=== PATIENT | female | born 1960 | race Caucasian/White ===

== ENCOUNTER → 2020-01-27 13:46 | Outpatient (BNVA) | payer MEDICAID, SELFPAY | PROVIDERS: PCP Nurse Practitioner Family; Referring Provider Nurse Practitioner Family; Visit Provider Internal Medicine | DX: F11.99 Opioid use, unspecified with unspecified opioid-induced disorder (principal); F41.9 Anxiety disorder, unspecified; F17.200 Nicotine dependence, unspecified, uncomplicated; F43.10 Post-traumatic stress disorder, unspecified; F32.9 Major depressive disorder, single episode, unspecified; G89.4 Chronic pain syndrome | CPT/HCPCS: 80305; 99202; 99211 ==

== ENCOUNTER → 2020-02-18 10:01 | Outpatient (BNVA) | payer MEDICARE, SELFPAY | PROVIDERS: Visit Provider Internal Medicine | DX: Z76.89 Persons encountering health services in other specified circumstances (principal) ==

== ENCOUNTER → 2020-03-03 10:00 | Outpatient (BNVA) | payer MEDICARE, SELFPAY | PROVIDERS: Visit Provider Internal Medicine | DX: Z76.89 Persons encountering health services in other specified circumstances (principal) ==

== ENCOUNTER → 2020-03-17 10:43 | Outpatient (BNVA) | payer MEDICAID, SELFPAY | PROVIDERS: PCP Nurse Practitioner Family; Visit Provider Internal Medicine | DX: F11.10 Opioid abuse, uncomplicated (principal) | CPT/HCPCS: Q3014 ==

== ENCOUNTER → 2020-03-31 10:49 | Outpatient (BNVA) | payer MEDICAID, SELFPAY | PROVIDERS: Visit Provider Internal Medicine ==

== ENCOUNTER → 2020-04-14 11:24 | Outpatient (BNVA) | payer MEDICAID, SELFPAY | PROVIDERS: Visit Provider Internal Medicine ==

== ENCOUNTER → 2020-04-28 15:16 | Outpatient (BNVA) | payer MEDICAID, SELFPAY | PROVIDERS: Visit Provider Internal Medicine | DX: F11.10 Opioid abuse, uncomplicated (principal); Z79.899 Other long term (current) drug therapy | CPT/HCPCS: 80305; 99212 ==

== ENCOUNTER → 2020-05-28 13:27 | Outpatient (BNVA) | payer MEDICAID, SELFPAY | PROVIDERS: Visit Provider Internal Medicine | DX: F11.20 Opioid dependence, uncomplicated (principal) | CPT/HCPCS: 80305; 99212 ==

== ENCOUNTER → 2020-06-29 11:05 | Outpatient (BNVA) | payer MEDICAID, SELFPAY | PROVIDERS: Visit Provider Internal Medicine | DX: Z51.81 Encounter for therapeutic drug level monitoring (principal); F11.10 Opioid abuse, uncomplicated | CPT/HCPCS: 80305; 99211 ==

== ENCOUNTER → 2020-07-27 11:14 | Outpatient (BNVA) | payer MEDICAID, SELFPAY | DX: F11.20 Opioid dependence, uncomplicated (principal) | CPT/HCPCS: 80305; 99211 ==

== ENCOUNTER → 2020-08-31 10:39 | Outpatient (BNVA) | payer MEDICAID, SELFPAY | DX: Z51.81 Encounter for therapeutic drug level monitoring (principal); Z79.899 Other long term (current) drug therapy | CPT/HCPCS: 80305; 99211 ==

== ENCOUNTER → 2020-10-06 14:23 | Outpatient (BNVA) | payer MEDICAID, SELFPAY | PROVIDERS: Visit Provider Internal Medicine | DX: Z51.81 Encounter for therapeutic drug level monitoring (principal) | CPT/HCPCS: 80305; 99211 ==

== ENCOUNTER 2020-11-10 13:01 | Outpatient (REF) | payer MEDICARE, SELFPAY ==
[2020-11-10 17:07] LABS: Fentanyl, urine Not Detected (Not Detect)
== END 2020-11-10 13:02 | disposition home or self-care (01) ==
LOC: CF 13:01
PROVIDERS: Visit Provider Internal Medicine
DX: F11.10 Opioid abuse, uncomplicated (principal); Z79.899 Other long term (current) drug therapy
CPT/HCPCS: 36415; 80305; 80307; 99212

== ENCOUNTER → 2020-12-31 15:08 | Outpatient (BNVA) | payer MEDICARE, MEDICAID, SELFPAY | PROVIDERS: Visit Provider Internal Medicine | DX: F11.10 Opioid abuse, uncomplicated (principal); G89.4 Chronic pain syndrome | CPT/HCPCS: 80305; 99212 ==

== ENCOUNTER 2021-02-03 07:41 | Emergency (ER) | payer MEDICAID, SELFPAY ==
[2021-02-03 07:45] VITALS: BP 128/103; PULSE 82; RESP 18; TEMP 37.2; O2SAT 97; BMI 21.4
--- NOTE | 2021-02-03 08:27 | ED.NAVMDI ---
HPI - Nausea/Vomiting/Diarrhea General Chief complaint: General Medical Stated complaint: diarrhea dehydration Time Seen by Provider: 02/03/21 08:03 Source: patient Mode of arrival: ambulatory Limitations: no limitations History of Present Illness MD elicited complaint: nausea, diarrhea and other (body aches, withdrawal from suboxone last dose Sunday) Pertinent past history: other (ran out of suboxone Sunday AM due to missing appointment had been on 2/0.5 - getting 30 day supply [facility] looks like she's been filling it) Onset (ago): day(s) (Sunday) Description of diarrhea: watery Associated nausea: Yes Associated abdominal pain: No Radiation: diffuse Pain consistency: constant Severity: moderate Quality: aching Exacerbating factors: none Relieving factors: none Context: other (withdrawal from suboxone) Associated symptoms: myalgias, malaise, nausea/vomiting and weakness Related Data Previous Rx's Medication Instructions Recorded sertraline 100 mg tablet 200 mg PO DAILY 30 Days #60 tab 12/25/19 buprenorphine 2 mg-naloxone 0.5 mg 3 film SUBLINGUAL DAILY 30 Days 11/10/20 sublingual film (Suboxone) #90 ea buprenorphine 2 mg-naloxone 0.5 mg 1 film BUCCAL TID 7 Days ea 02/03/21 sublingual film (Suboxone) Allergies Allergy/AdvReac Type Severity Reaction Status Date / Time No Known Allergies Allergy Verified 12/31/20 15:31 Review of Systems Review of Systems: Constitutional : No Weight loss, No Fever, pos Chills ENT/Mouth : No sore throat, No Rhinorrhea Eyes: No Swelling, No Redness Cardiovascular : No Chest Pain, No SOB, NoEdema Respiratory : No Cough, No Sputum, No Wheezing Gastrointestinal : Positive Nausea, Positive Vomiting, positive Diarrhea, no abdominal Pain, No Hematochezia, No Melena Genitourinary : No Dysuria, No Urinary Frequency, No Hematuria, No Urgency Musculoskeletal : No joint pain, pos Myalgias, No Joint Swelling Skin : No Skin Lesions, No rash Neuro : pos Weakness, No Numbness, No Dizziness, No Headache Psych : No Anxiety/Panic, No Depression Heme/Lymph: No Bruising, No Lymphadenopathy Endocrine : No Polyuria, No Polydipsia All other systems reviewed and are negative. Gastrointestinal: Gastrointestinal: Reports nausea PMFSH Past Medical History Medical History Chronic pain syndrome Depression Opioid use disorder PTSD (post-traumatic stress disorder) Tobacco use disorder Surgical History History of back surgery History of neck surgery Family History Family History Mother Pancreatic cancer Father HTN (hypertension) Diabetes Social History Social History Alcohol intake: never Patient Tobacco Use Status: Current everyday Tobacco user Cigarettes Per Day: 10 Years Smoked: 30 years Use of substances other than those prescribed or required for medical reasons: No Advance Directives: No Advance Directives Information Provided: Yes Patient : No Physical Exam Vital Signs: Vital Signs: Last Vital Signs Temp 99 F 02/03/21 07:45 Pulse 56 02/03/21 09:04 Resp 18 02/03/21 09:04 BP 145/51 H 02/03/21 09:04 Pulse Ox 97 02/03/21 09:04 BMI result Body Mass Index 21.4 Appearance: Alert. Oriented X3. No acute distress. Eyes: Pupils equal, round and reactive to light. ENT: Pharynx mildly dry MM Neck: Normal inspection. Neck supple. CVS: Normal heart rate and rhythm. Pulses normal. Respiratory: No respiratory distress. Breath sounds normal. Abdomen: Soft and nontender. Skin: Skin warm and dry. pale skin color. Normal skin turgor. Extremities: No lower extremity edema. No calf ttp Neuro: Oriented X 3. No motor deficit. No sensory deficit. Course Course Course Narrative: improved stable for DC has intake [facility] tomorrow at 9am Rx 7 days 2/ 0.5 MDM - Nausea/Vomiting/Diarrhea MDM Narrative Medical decision making narrative: 60 yo female here with hx of depression, opiate abuse, PTSD, chronic pain, was on suboxone - missed appointment so she has since run out was receiving 2/0.5 30 day supply [facility] showed she was filling it and her urine was positive for suboxone. At this time she is in withdrawal. She is appropriate. Alert and oriented x 3. Will obtain lytes and IVF given diarrhea - start on 2/0.5 - will discuss with addiction medicine. Lab Data Result diagrams: 02/03/21 09:00 12/16/21 09:00 Labs: Lab Results 02/03/21 02/03/21 02/03/21 Range/Units 09:00 09:00 09:00 WBC 7.2 (4.8-10.8) X10*3/uL RBC 4.24 (4.20-5.50) X10*6/uL Hgb 13.1 (12.0-16.0) g/dl Hct 38.3 (37.0-47.0) % MCV 90.3 (80.0-98.0) fL MCH 30.9 (27.0-33.0) pg MCHC 34.2 (31.0-35.0) g/dl RDW 11.9 (11.0-16.0) % Plt Count 274 (160-400) X10*3/uL MPV 10.3 (9.4-12.3) fL Immature Gran % (Auto) 0.1 (0.0-0.4) % Neut % (Auto) 67.6 (45-73) % Lymph % (Auto) 27.9 (20-40) % [place] % (Auto) 3.6 (2-11) % Eos % (Auto) 0.4 (0-4) % Baso % (Auto) 0.4 (0-2) % Lymph # (Auto) 2.0 (1.2-4.9) X10*3/uL [place] # (Auto) 0.3 (0.1-1.2) X10*3/uL Eos # (Auto) 0.0 (0.0-0.4) X10*3/uL Baso # (Auto) 0.0 (0.0-0.2) X10*3/uL Abs Immat Gran (auto) 0.01 (0.00-0.03) X10*3/uL Absolute Neuts (auto) 4.8 (2.0-8.3) x10*3/uL Absolute Nucleated RBC 0.000 (0.0-0.012) X10*3/uL Nucleated RBC % (auto) 0.0 (0.0-0.2) /100WBC Sodium 142 (135-145) mmol/L Potassium 3.8 (3.3-5.1) mmol/L Chloride 106 (96-108) mmol/L Carbon Dioxide 27 (22-29) mmol/L Anion Gap 13 (12-20) BUN 8 L (9-16) mg/dL Creatinine 0.83 (0.5-1.4) mg/dL Estim Creat Clear Calc 51.8 Estimated GFR > 60 Random Glucose 95 (60-115) mg/dL Calcium 10.0 (8.4-10.2) mg/dL Magnesium 2.2 (1.6-2.6) mg/dL Total Bilirubin 0.5 (0.0-1.0) mg/dL Direct Bilirubin 0.2 (0.0-0.5) mg/dL AST 16 (5-31) U/L ALT 10 (0-31) U/L Alkaline Phosphatase 107 (39-117) U/L Total Protein 7.3 (6.5-8.0) g/dL Albumin 4.3 (3.5-5.0) g/dL Lipase 9 (8-78) U/L COVID-19 (PAL) Negative (Negative) COVID-19 Clin Com See Note Discharge Plan Discharge Clinical Impression: Opiate withdrawal Patient Disposition: Home, Self-Care Instructions: Opioid Withdrawal (ED) Additional Instructions: return to ED for any worsening symptoms or concerns [facility] will call you for intake at 9am tomorrow please be by your phone Prescriptions: New buprenorphine-naloxone [Suboxone] 2-0.5 mg film 1 film buccal TID 7 Days RF: 0 No Action sertraline 100 mg tablet 200 mg PO DAILY 30 Days Qty: 60 RF: 1 buprenorphine-naloxone [Suboxone] 2-0.5 mg film 3 film sublingual DAILY 30 Days Qty: 90 RF: 0
[2021-02-03] MEDS: Buprenorphine/Naloxone 2/0.5mg FILM 1 FILM SUBLINGUAL (09:00)
[2021-02-03] MEDS: ondansetron HCL 4 MG/2 ML VIAL IVPUSH (09:00)
[2021-02-03] MEDS: 0.9 % Sodium Chloride 1,000 ML 999 ML IVCONT (09:00)
[2021-02-03 09:04] VITALS: BP 145/51; PULSE 56; RESP 18; O2SAT 97
[2021-02-03 09:12] LABS: Basophils Percent Auto 0.4 % (0-2); Eosinophils Percent Auto 0.4 % (0-4); Hematocrit 38.3 % (37.0-47.0); Hemoglobin 13.1 g/dl (12.0-16.0); Imm Gran Abs Auto 0.01 X10*3/uL (0.00-0.03); Imm Gran Pct Auto 0.1 % (0.0-0.4); Lymphocytes Percent Auto 27.9 % (20-40); MANUAL DIFF FLAG NO; Mean Corpuscular HGB Conc 34.2 g/dl (31.0-35.0); Mean Corpuscular Hemoglobin 30.9 pg (27.0-33.0); Mean Corpuscular Volume 90.3 fL (80.0-98.0); Mean Platelet Volume 10.3 fL (9.4-12.3); Monocytes Absolute Auto 0.3 X10*3/uL (0.1-1.2); Monocytes Percent Auto 3.6 % (2-11); Neutrophils Absolute Auto 4.8 x10*3/uL (2.0-8.3); Neutrophils Percent Auto 67.6 % (45-73); Platelet Count 274 X10*3/uL (160-400); Red Blood Count 4.24 X10*6/uL (4.20-5.50); Red Cell Distribution Width 11.9 % (11.0-16.0); White Blood Count 7.2 X10*3/uL (4.8-10.8)
[2021-02-03 09:32] LABS: Alanine Aminotransferase 10 U/L (0-31); Albumin Level 4.3 g/dL (3.5-5.0); Alkaline Phosphatase 107 U/L (39-117); Anion Gap 13 (12-20); Aspartate Amino Transferase 16 U/L (5-31); Bilirubin Direct 0.2 mg/dL (0.0-0.5); Bilirubin Total 0.5 mg/dL (0.0-1.0); Blood Urea Nitrogen 8 mg/dL (9-16); Carbon Dioxide 27 mmol/L (22-29); Chloride 106 mmol/L (96-108); Creatinine Clr Calc Pharmacy 51.8; Estimated Glomerular Filt Rate > 60; Glucose Random 95 mg/dL (60-115); Lipase 9 U/L (8-78); Magnesium 2.2 mg/dL (1.6-2.6); Potassium 3.8 mmol/L (3.3-5.1); Sodium 142 mmol/L (135-145); Total Protein 7.3 g/dL (6.5-8.0)
[2021-02-03 09:36] LABS: COVID-19 Test Negative (Negative)
[2021-02-03 11:12] VITALS: BP 145/59; PULSE 74; RESP 16; O2SAT 96
--- NOTE | 2021-02-03 11:28 | MHC.RECOVRN ---
Met with pt in ED22 to discuss Suboxone. Pts daughter present during interview, daughter very involved in pts care. Pt began being prescribed opiates in the early 1999s due to pain from back surgeries. Approx 2 years ago pt was transitioned to Suboxone and has been doing well. Most recently, pt reports being prescribed Suboxone by Dr. Cleveland at the [facility] x approx 1 year, 2/0.5 mg TID. Pt reports missing one appointment and rescheduling. At the rescheduled appt pt was informed that Suboxone would no longer be prescribed, pt unclear as to why, believes it is due to missed appointment. Pt reports utilizing last prescription sparingly and attempted to self taper. Pt denies using other substances. Pt presented to the ED today with withdrawal symptoms. Pt visibly anxious, restless legs. Pt would like to continue Suboxone. Pt received 2/0.5 mg film in the ED with positive effect. After discussion with pt, pts daughter, and Dr. Grant, pt to be given prescription for 1 week of Suboxone. Pt has a telehealth nurse intake appt tomorrow (02/04/21) at 9 am with [facility]'s [facility]. Pt provided with appt information in writing as well as t/w contact information if needed.
== END 2021-02-03 11:23 | disposition home or self-care (01) ==
PROVIDERS: Emergency Provider Emergency Medicine; PCP Nurse Practitioner Family
DX: F11.23 Opioid dependence with withdrawal (principal); Z20.822 Contact with and (suspected) exposure to COVID-19; R11.2 Nausea with vomiting, unspecified; R50.9 Fever, unspecified; F17.200 Nicotine dependence, unspecified, uncomplicated
CPT/HCPCS: 36415; 80048; 80076; 83690; 83735; 85025; 87635; 96361; 96374; 99284; J2405

== ENCOUNTER 2021-07-02 15:05 | Emergency (ER) | payer MEDICARE, MEDICAID, SELFPAY ==
[2021-07-02 15:35] VITALS: BP 160/84; PULSE 88; RESP 19; TEMP 36.3; O2SAT 95; BMI 22.1
--- NOTE | 2021-07-02 18:44 | ED.NECK ---
HPI - Neck Pain/Injury General Chief Complaint: Neck Pain/Injury Stated Complaint: neck pain Time Seen by Provider: 07/02/21 16:35 Source: patient Mode of arrival: ambulatory Limitations: no limitations History of Present Illness HPI Narrative: Patient presents to the emergency department for evaluation of left-sided neck pain. She reports that this is a chronic issue. However a couple weeks ago she turned her head quickly and felt a pinching sensation. She states that she is having intermittent numbness and tingling that moves down her left arm. She states that she is awaiting [facility] for her [facility]. Denies headaches, lightheadedness, dizziness, vision changes, neck stiffness, weakness of the hands or dropping of objects, chest pain, palpitations, shortness of breath, difficulty breathing, numbness or tingling of the lower extremities, bowel or bladder dysfunction, fevers, chills. Related Data Previous Rx's Medication Instructions Recorded sertraline 100 mg tablet 200 mg PO DAILY 30 Days #60 tab 12/25/19 buprenorphine 2 mg-naloxone 0.5 mg 3 film SUBLINGUAL DAILY 30 Days 11/10/20 sublingual film (Suboxone) #90 ea buprenorphine 2 mg-naloxone 0.5 mg 1 film BUCCAL TID 6 Days #18 ea 02/16/21 sublingual film (Suboxone) diclofenac sodium 1 % topical gel 2 g TOPICAL QID #100 g 07/02/21 Allergies Allergy/AdvReac Type Severity Reaction Status Date / Time No Known Allergies Allergy Verified 12/31/20 15:31 Review of Systems Review of Systems: Constitutional: No fever. No chills. No weakness. No fatigue. Eye: No swelling. No redness. ENT: No sore throat. No rhinorrhea. No nasal congestion. No sore throat. No difficulty swallowing. Skin: No rash. No itching. Cardiovascular: No chest pain. No chest pressure. No palpitations. No pedal edema. Respiratory: No shortness of breath. No cough. Gastrointestinal: . No nausea. No vomiting. No diarrhea. No abdominal pain. Genitourinary: No burning micturition. No urinary frequency. No incontinence. Neurologic: No headache. No dizziness. No pre-syncope/ syncope. No unilateral weakness. No ataxia. No numbness. No tingling. No change in bowel or bladder control. Musculoskeletal: Positive back pain. Positive neck pain Yes all other systems are reviewed and are negative [facility] Past Medical History Attestation statement: The following information was validated with the patient. Source: old records reviewed Medical History Chronic pain syndrome Depression Opioid use disorder PTSD (post-traumatic stress disorder) Tobacco use disorder Surgical History History of back surgery History of neck surgery Family History Family History Mother Pancreatic cancer Father HTN (hypertension) Diabetes Social History Social History Alcohol intake: never Patient Tobacco Use Status: Current everyday Tobacco user Cigarettes Per Day: 10 Years Smoked: 30 years Advance Directives: No Advance Directives Information Provided: Yes Physical Exam Vital Signs: Vital Signs: Last Vital Signs Temp 97.4 F 07/02/21 15:35 Pulse 88 07/02/21 15:35 Resp 19 07/02/21 15:35 BP 160/84 H 07/02/21 15:35 Pulse Ox 95 07/02/21 15:35 BMI result Body Mass Index 22.1 Vital signs have been reviewed and appeared to be correct.? Heart rate normal.? Respiration rate normal. Temperature normal.? Oxygen saturation normal. Appearance: Alert.?Oriented to person, place and time. No acute distress.?Normal affect. Eyes: Pupils equal, round and reactive to light.? ENT: Pharynx normal.?? Neck: Normal inspection.? Neck supple.??No palpable midline cervical spine tenderness, step-offs, deformities CVS: Heart sounds normal. Normal heart rate and rhythm.? Pulses normal.?? Respiratory: No respiratory distress.? Lung sounds clear to auscultation bilaterally?? Abdomen: Soft and non-tender. ?? Skin: Skin warm and dry.? Normal skin color.? Extremities: No lower extremity edema.? Full AROM to bilateral upper and lower extremities. Neuro: Moves all extremities spontaneously. Sensation intact bilaterally. CN II-XII intact. No focal neuro deficits. Raw Material Handler strength 5/5 bilaterally. Ambulates with normal steady gait. Course Course Course Narrative: Patient is a 6-year-old female with a past medical history of opioid use disorder, on Suboxone, PTSD, depression, chronic pain syndrome, presenting to emergency department for evaluation of acute on chronic left lateral neck pain. Atraumatic, no recent injury or fall. No meningismus. No neurological deficits. Not consistent with cord compression. Used sure decision making with patient, she would like to defer any x-ray imaging at this time. Discussed possible use of muscle relaxer as pain seems most consistent with muscular nature, there is palpable spasming of the trapezius muscle, although cannot completely exclude herniated disc. Not consistent with spinal fracture, spinal infection, epidural abscess, no high risk past medical history. Patient reports that she would like to avoid taking any pills. Discussed gentle exercising, stretching, and topical diclofenac, as she states that a topical menthol cream she has been applying has been providing some releif imaged like to stick with a cream. Advised outpatient follow-up with her primary care provider as needed, discussed reasons to return back to the emergency department, all questions were answered and she was discharged home in stable condition. Discharge Plan Discharge Clinical Impression: Cervical radiculopathy Instructions: Cervical Radiculopathy (ED) Additional Instructions: Continue taking gabapentin and Suboxone as currently prescribed. As we discussed, a prescription for a new topical cream was sent to your pharmacy to use as needed for your pain. Please engage in gentle stretching exercises of the neck. Prescriptions: New diclofenac sodium 1 % gel 2 g topical QID Qty: 100 0RF Rx Instructions: apply to single elbow, wrist or hand; for hand includes palm/fingers/back of hand No Action buprenorphine-naloxone [Suboxone] 2-0.5 mg film 1 film buccal TID 6 Days Qty: 18 0RF sertraline 100 mg tablet 200 mg PO DAILY 30 Days Qty: 60 1RF buprenorphine-naloxone [Suboxone] 2-0.5 mg film 3 film sublingual DAILY 30 Days Qty: 90 0RF Rx Instructions: place 1 strip/tab under (each) side of tongue
== END 2021-07-02 19:06 | disposition home or self-care (01) ==
PROVIDERS: Emergency Provider Internal Medicine
DX: M54.12 Radiculopathy, cervical region (principal); F11.20 Opioid dependence, uncomplicated
CPT/HCPCS: 99282; 99283

== ENCOUNTER 2021-08-02 13:44 | Outpatient (REF) | payer OTHER, SELFPAY ==
[2021-08-02 14:31] LABS: Blood Urea Nitrogen 6 mg/dL (9-16); Estimated Glomerular Filt Rate > 60
== END 2021-08-02 13:45 | disposition home or self-care (01) ==
LOC: HO.LAB 13:44
PROVIDERS: PCP Nurse Practitioner; Visit Provider Nurse Practitioner Family
DX: Z01.818 Encounter for other preprocedural examination (principal); G89.4 Chronic pain syndrome; M54.41 Lumbago with sciatica, right side; M54.42 Lumbago with sciatica, left side; M96.1 Postlaminectomy syndrome, not elsewhere classified; M48.062 Spinal stenosis, lumbar region with neurogenic claudication; G62.9 Polyneuropathy, unspecified; Z86.59 Personal history of other mental and behavioral disorders
CPT/HCPCS: 36415; 82565; 84520; 99202

== ENCOUNTER 2021-08-02 19:29 | Emergency (ER) | payer MEDICARE, SELFPAY ==
[2021-08-02 20:00] VITALS: BP 171/91; PULSE 83; RESP 18; TEMP 37; O2SAT 96; BMI 23.4
[2021-08-02 20:21] LABS: MANUAL DIFF FLAG NO
[2021-08-02 20:23] LABS: Basophils Absolute Auto 0.1 X10*3/uL (0.0-0.2); Basophils Percent Auto 1.1 % (0-2); Eosinophils Absolute Auto 0.1 X10*3/uL (0.0-0.4); Eosinophils Percent Auto 1.5 % (0-4); Hematocrit 36.3 % (37.0-47.0); Hemoglobin 12.6 g/dl (12.0-16.0); Imm Gran Abs Auto 0.02 X10*3/uL (0.00-0.03); Imm Gran Pct Auto 0.2 % (0.0-0.4); Lymphocytes Absolute Auto 4.2 X10*3/uL (1.2-4.9); Lymphocytes Percent Auto 44.8 % (20-40); Mean Corpuscular HGB Conc 34.7 g/dl (31.0-35.0); Mean Corpuscular Hemoglobin 30.7 pg (27.0-33.0); Mean Corpuscular Volume 88.3 fL (80.0-98.0); Mean Platelet Volume 9.8 fL (9.4-12.3); Monocytes Absolute Auto 0.5 X10*3/uL (0.1-1.2); Monocytes Percent Auto 5.7 % (2-11); Neutrophils Absolute Auto 4.4 x10*3/uL (2.0-8.3); Neutrophils Percent Auto 46.7 % (45-73); Platelet Count 308 X10*3/uL (160-400); Red Blood Count 4.11 X10*6/uL (4.20-5.50); Red Cell Distribution Width 11.9 % (11.0-16.0); White Blood Count 9.4 X10*3/uL (4.8-10.8)
[2021-08-02 20:54] LABS: Alanine Aminotransferase 9 U/L (0-31); Albumin Level 4.2 g/dL (3.5-5.0); Alkaline Phosphatase 106 U/L (39-117); Anion Gap 11 (12-20); Aspartate Amino Transferase 13 U/L (5-31); Bilirubin Total 0.3 mg/dL (0.0-1.0); Blood Urea Nitrogen 10 mg/dL (9-16); Calcium 9.1 mg/dL (8.4-10.2); Carbon Dioxide 26 mmol/L (22-29); Chloride 102 mmol/L (96-108); Creatinine Clr Calc Pharmacy 58.8; Estimated Glomerular Filt Rate > 60; Glucose Random 92 mg/dL (60-115); Magnesium 2.2 mg/dL (1.6-2.6); Potassium 3.9 mmol/L (3.3-5.1); Sodium 135 mmol/L (135-145); Total Protein 7.1 g/dL (6.5-8.0)
== END 2021-08-02 22:04 | disposition left against medical advice (07) ==
PROVIDERS: Internal Medicine; Emergency Provider Emergency Medicine; PCP Nurse Practitioner
DX: R79.89 Other specified abnormal findings of blood chemistry (principal)
CPT/HCPCS: 36415; 80053; 82550; 83735; 85025; 99281; 99283

== ENCOUNTER → 2021-08-19 13:20 | Outpatient (BNVA) | payer MEDICARE, SELFPAY | PROVIDERS: PCP Nurse Practitioner; Visit Provider Nurse Practitioner Family | DX: G89.4 Chronic pain syndrome (principal); M96.1 Postlaminectomy syndrome, not elsewhere classified; M41.9 Scoliosis, unspecified; M48.062 Spinal stenosis, lumbar region with neurogenic claudication; G89.29 Other chronic pain; M54.41 Lumbago with sciatica, right side; M54.42 Lumbago with sciatica, left side; M53.3 Sacrococcygeal disorders, not elsewhere classified | CPT/HCPCS: 99212 ==

== ENCOUNTER 2022-09-18 19:54 | Outpatient (REF) | payer MEDICARE, SELFPAY ==
[2022-09-22 06:10] LABS: HPV mRNA E6/E7 rflx Not Detected (Not Detected)
== END 2022-09-18 19:55 | disposition home or self-care (01) ==
LOC: HO.HHCLNP 19:54
PROVIDERS: Visit Provider Advanced Practice Midwife
DX: Z12.4 Encounter for screening for malignant neoplasm of cervix (principal); Z11.51 Encounter for screening for human papillomavirus (HPV)
CPT/HCPCS: 87624; 88142

== ENCOUNTER 2022-10-17 14:27 | Outpatient (REF) | payer OTHER, SELFPAY ==
--- NOTE | ~2022-10-17 | MM_ITS ---
EXAMINATION: MM SCREENING DIGITAL BREAST TOMOSYNTHESIS, BILATERAL CLINICAL INFORMATION: Screening. Asymptomatic. COMPARISON: Mammography: This is a baseline study. TECHNIQUE: Digital breast tomosynthesis is performed in both the craniocaudal and mediolateral oblique views along with computer-aided detection (CAD). Synthesized 2D images are generated from the tomosynthesis. FINDINGS: There are scattered areas of fibroglandular density (ACR BI-RADS breast composition Category b). There are no significant masses, abnormal calcifications, or other abnormalities. MM/MM tomosynthesis screening BI IMPRESSION: No mammographic evidence of malignancy. ASSESSMENT: BI-RADS BI-RADS 1 - Negative RECOMMENDATION: Routine annual mammography screening. 1 year F/U This examination should not preclude the clinical evaluation of a suspicious palpable abnormality. This patient's information was entered into a reminder system with a target due date for their next mammogram.
--- NOTE | ~2022-10-17 | MM_ITS ---
EXAMINATION: BONE DENSITOMETRY CLINICAL INDICATION: Menopause. COMPARISON: This is the patient's baseline examination. TECHNIQUE: Using a Battle[employer] DXA System (software version: 13.1) manufactured by [employer], dual-energy x-ray absorptiometry was performed of the lumbar spine and left hip. The images are of good technical quality. Summary results are attached. FINDINGS: LEFT FEMUR, NECK: BMD 0.553 g/cm2, Z-score -2.0, T-score -3.5, osteoporosis. LEFT FEMUR, TOTAL: BMD 0.553 g/cm2, Z-score -2.4, T-score -3.6, osteoporosis. AP SPINE L1-L2 (excluding L3 and L4): The data of L1-L4 has been changed to exclude the L3 and L4 vertebral bodies, because metallic artifact at these levels may cause overestimation of lumbar spine density. BMD 0.882 g/cm2, Z-score -0.8, T-score -2.4, osteopenia. IDENTIFIED RISK FACTORS: Early menopause, history of fracture (adult), low calcium intake, osteoporosis, secondary osteoporosis, tobacco use (current smoker). HISTORY OF FRACTURE: Spine. MEDICATIONS: None listed. MM/XR DEXA axial skeleton IMPRESSION: 1. DIAGNOSIS: Severe osteoporosis based on the lowest T-score value of -3.6 in the total femur and history of fracture of spine applying World Health Organization criteria. 2. 10-YEAR FRACTURE RISK PREDICTION, FRAX: According to the guidelines, FRAX calculation should only be performed on patients in the osteopenia bone density category. Therefore, FRAX was not performed on this patient. 3. Treatment Recommendations: NOF guidelines recommend consideration for treatment in postmenopausal women and men age 50 and older presenting with the following: -A hip or vertebral (clinical or morphometric) fracture. -T-score less than or equal to -2.5 at the femoral neck or spine after appropriate evaluation to exclude secondary causes. -Low bone mass at the hip or spine and a 10-year fracture probability by FRAX of greater than or equal to 3% for hip fracture or greater than or equal to 20% for major osteoporotic fracture based on the [place] adapted WHO algorithm. 4. Other Recommendations: All treatment decisions require clinical judgment and consideration of individual patient factors, including patient preferences, comorbidities, previous drug use, risk factors not captured in the FRAX model (e.g. frailty, falls, vitamin D deficiency, increased bone turnover, interval significant decline in bone density) and possible under or overestimation of fracture risk by FRAX. Additional medical evaluation for secondary cause of low bone mineral density may be appropriate. FUTURE SCAN RECOMMENDATION: People with diagnosed cases of osteoporosis or at high risk for fracture should have regular bone mineral density tests. For patients eligible for Medicare, routine testing is allowed once every 2 years. The testing frequency can be increased to one year for patients who have rapidly progressing disease, those who are receiving or discontinuing medical therapy to restore bone mass, or have additional risk factors.
== END 2022-10-17 14:28 | disposition home or self-care (01) ==
LOC: HO.MAMMO 14:27
PROVIDERS: PCP Registered Nurse; Visit Provider Advanced Practice Midwife
DX: Z12.31 Encounter for screening mammogram for malignant neoplasm of breast (principal); Z13.820 Encounter for screening for osteoporosis; Z78.0 Asymptomatic menopausal state
CPT/HCPCS: 77063; 77067; 77080

== ENCOUNTER → 2022-10-17 14:30 | Outpatient (BNV) | payer OTHER, SELFPAY | PROVIDERS: PCP Registered Nurse; Visit Provider Radiology Diagnostic Radiology | DX: Z12.31 Encounter for screening mammogram for malignant neoplasm of breast (principal) | CPT/HCPCS: 77063; 77067; 77080 ==

== ENCOUNTER 2022-11-05 09:46 | Emergency (ER) | payer OTHER, SELFPAY ==
--- NOTE | ~2022-11-05 | XR_ITS ---
EXAMINATION: XR LUMBOSACRAL SPINE CLINICAL INFORMATION: Worsening chronic pain COMPARISON: 08/11/2021 MRI TECHNIQUE: Three views of the lumbosacral spine. FINDINGS: Postoperative changes are seen at L3/L4 with posterior pedicle screws and rods as well as interdisc spacer at this level. No significant listhesis. No acute fracture. Vertebral body heights are preserved. Prominent vascular calcifications noted. Mild degenerative changes in the sacroiliac joints. XR/XR lumbar spine 2-3V IMPRESSION: Postoperative changes at L3/L4. No acute fracture or listhesis.
[2022-11-05 09:48] VITALS: BP 150/71; PULSE 87; O2SAT 94
[2022-11-05 09:53] VITALS: BP 167/86; PULSE 83; RESP 18; TEMP 36.7; O2SAT 95; BMI 25.8
--- NOTE | 2022-11-05 10:09 | ED.BACK ---
HPI - Back Pain/Injury General Chief Complaint: Back Pain/Injury Stated Complaint: lower back pain, sudden on set, per ems Time Seen by Provider: 11/05/22 09:59 Source: patient History of Present Illness HPI Narrative: patient is a 61-year-old female who presents to the emergency department for evaluation of acute on chronic lumbar back pain. Reports sudden onset of increased pain this morning, described as a burning sensation. She took her home Suboxone, gabapentin, lorazepam around 03:30 without any improvement. She also endorses associated chills and nausea that occur only during episodes of intense pain. Denies recent precipitating injury, fevers, burning with micturition, urinary frequency/urgency/hesitancy, bladder or bowel dysfunction, numbness or tingling of the perineum or bilateral legs. Denies any recent surgical procedures, any known immune compromising conditions, personal history of cancer, or IV drug usage. MD elicited complaint: back pain Related Data Home Medications Medication Instructions Recorded Confirmed buspirone 5 mg tablet 5 mg PO BID 08/02/21 Previous Rx's Medication Instructions Recorded sertraline 100 mg tablet 200 mg (2 x 100 mg) PO DAILY 30 12/25/19 days #60 tabs buprenorphine 2 mg-naloxone 0.5 mg 3 film sublingual DAILY 30 days 11/10/20 sublingual film (Suboxone) #90 ea buprenorphine 2 mg-naloxone 0.5 mg 1 film buccal TID 6 days #18 ea 02/16/21 sublingual film (Suboxone) diclofenac sodium 1 % topical gel 2 g topical QID #100 grams 07/02/21 hydroxyzine HCl 25 mg tablet 25 mg PO BID PRN anxiety 30 days 08/15/21 #60 tabs Allergies Allergy/AdvReac Type Severity Reaction Status Date / Time No Known Allergies Allergy Verified 08/19/21 13:37 Review of Systems Review of Systems: Constitutional: No weight loss, fever, chills, weakness or fatigue. HEENT: No visual loss, blurred vision, double vision. No hearing loss, sneezing, congestion, runny nose or sore throat. Skin: No rash or itching. Cardiovascular: No chest pain, chest pressure or chest discomfort. No palpitations or pedal edema. Respiratory: No shortness of breath, cough or sputum production. Gastrointestinal: No anorexia, nausea, vomiting or diarrhea. No abdominal pain or blood in stool. Genitourinary: No burning micturition. No urinary frequency or incontinence. Neurologic: No headache, dizziness, syncope, unilateral weakness, ataxia, numbness or tingling in the extremities. No change in bowel or bladder control. Musculoskeletal: + Back pain as noted in HPI. No joint pain or stiffness. Hematologic: No bleeding or bruising. Lymphatics: No enlarged lymph nodes. Psychiatric:No depression or anxiety. Endocrine: No reports of sweating. No cold or heat intolerance. No polyuria or polydipsia. Yes all other systems are reviewed and are negative [facility] Past Medical History Source: old records reviewed Medical History Chronic pain syndrome Depression PTSD (post-traumatic stress disorder) Tobacco use disorder Opioid use disorder Surgical History History of neck surgery History of back surgery Family History Family History Mother Pancreatic cancer Father HTN (hypertension) Diabetes Social History Social History Alcohol intake: never Patient Tobacco Use Status: Current everyday Tobacco user Cigarettes Per Day: 10 Years Smoked: 30 years Advance Directives: Yes Advance Directives Information Provided: No Advance Directives on File: No Physical Exam Vital Signs: Vital Signs: Last Vital Signs Temp 97.6 F 11/05/22 13:22 Pulse 77 11/05/22 13:22 Resp 18 11/05/22 13:22 BP 163/78 H 11/05/22 13:22 Pulse Ox 94 11/05/22 13:22 O2 Del Method Room Air 11/05/22 13:22 BMI result Body Mass Index 25.8 Appearance: Alert.?Oriented to person, place and time. No acute distress.?Normal affect. Eyes: Pupils equal, round and reactive to light.? ENT: Pharynx normal.?? Neck: Normal inspection.? Neck supple.?? CVS: Heart sounds normal. Normal heart rate and rhythm.? Pulses normal; bilateral radial pulses 2+, bilateral posterior tibial/dorsalis pedis pulses 2+.? Respiratory: No respiratory distress.? Lung sounds clear to auscultation bilaterally?? Abdomen: Soft and non-tender. Normoactive bowel sounds. No pulsatile mass.?? Skin: Skin warm and dry.? Normal skin color.? Normal skin turgor.?? Extremities: No lower extremity edema.? No calf ttp? Back: + Moderate paraspinal muscular tenderness from lumbar region to coccyx. No CVA tenderness. No midline spinal tenderness, step-off's, or deformity. Full ROM intact in bilateral lower extremities. Straight leg test positive on right; Straight leg test positive on left. No rashes, lesions, areas of induration or fluctuance, or signs of infection noted., Neuro: Moves all extremities spontaneously. 3/5 strength in hip extension/flexion, abduction, adduction. Sensation to light touch intact bilaterally. Patellar and Achilles reflex 1+ bilaterally. reportedly nonambulatory due to chronic pain, uses wheelchair. No focal neuro deficits. bilateral footdrop. Course Reevaluation(s) Reevaluation #1: urinalysis is without evidence of infection. Upon re-evaluation of patient at this time she is endorsing a burning pain to the epigastric region that is severe. States it is 10/10. Denies associated nausea vomiting or additional abdominal pain. Upon re-evaluation she has mild tenderness over the epigastrium. No rebound tenderness, negative Pathak sign. There is no rigidity or guarding. In consistent with an acute abdomen. At this time do not see indication for imaging. She does state that she has been taking ibuprofen to help with pain which she does not typically take. I suspect that this may be attributing to her epigastric pain; gastritis which was alleviated with Maalox and lidocaine solution. Obtained serum labs which reveals no evidence of leukocytosis or anemia. CMP is overall unremarkable and lipase is within normal limits. As previously noted I suspect that this is acute on chronic back pain for her, XR imaging reveals no acute etiology. Advised outpatient follow-up with her PCP/ neurosurgeon as scheduled for later this week. Reviewed worrisome signs and symptoms that would warrant re-evaluation in the emergency department. All questions were answered. Stable for discharge home with her daughter. 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 she has had any precipitating injury, I suspect this pain to be in acute exacerbation for chronic pain, although discussed with patient cannot completely exclude new disc herniation. On neurological examination are no focal deficits , no concern for cauda equina sent on examination for indication for emergent MRI. Lower suspicion for acute spinal fracture, less likely to be spinal infection, epidural abscess, aaa, dissection. With high-risk past medical history including incontinence, fever, immunosuppression or recent surgery. Atraumatic in nature. However will obtain XR imaging of the lumbar spine for further evaluation. She is endorsing nausea and chills but only during intense pain, plan to obtain urinalysis to exclude infectious etiology for increased pain; urinary tract infection, pyelonephritis. Lower suspicion for biliary etiology, renal calculi, pelvic infection so, unlikely appendicitis or diverticulitis. she is due to take her home dosing of Suboxone, Will provided patient with dosage here today. Differential Diagnosis Differential Diagnoses: The differential diagnosis associated with the presentation includes ( As noted above) Lab Data [facility] Lab Attestation statement: I reviewed the patient's lab results. ( see course narrative for further detail) 11/05/22 12:55 11/05/22 12:55 Labs: Lab Results 11/05/22 11/05/22 Range/Units 11:34 12:55 WBC 9.6 (4.8-10.8) X10*3/uL RBC 4.52 (4.20-5.50) X10*6/uL Hgb 13.3 (12.0-16.0) g/dl Hct 38.9 (37.0-47.0) % MCV 86.1 (80.0-98.0) fL MCH 29.4 (27.0-33.0) pg MCHC 34.2 (31.0-35.0) g/dl RDW 12.3 (11.0-16.0) % Plt Count 276 (160-400) X10*3/uL MPV 9.3 L (9.4-12.3) fL Immature Gran % (Auto) 0.3 (0.0-0.4) % Neut % (Auto) 75.2 H (45-73) % Lymph % (Auto) 20.4 (20-40) % [place] % (Auto) 3.3 (2-11) % Eos % (Auto) 0.4 (0-4) % Baso % (Auto) 0.4 (0-2) % Lymph # (Auto) 2.0 (1.2-4.9) X10*3/uL [place] # (Auto) 0.3 (0.1-1.2) X10*3/uL Eos # (Auto) 0.0 (0.0-0.4) X10*3/uL Baso # (Auto) 0.0 (0.0-0.2) X10*3/uL Abs Immat Gran (auto) 0.03 (0.00-0.03) X10*3/uL Absolute Neuts (auto) 7.2 (2.0-8.3) x10*3/uL Absolute Nucleated RBC 0.000 (0.0-0.012) X10*3/uL Nucleated RBC % (auto) 0.0 (0.0-0.2) /100WBC Sodium 139 (135-145) mmol/L Potassium 4.4 (3.3-5.1) mmol/L Chloride 103 (96-108) mmol/L Carbon Dioxide 28 (22-29) mmol/L Anion Gap 12 (12-20) BUN 9 (9-16) mg/dL Creatinine 0.61 (0.5-1.4) mg/dL Estim Creat Clear Calc 78.3 Estimated GFR > 60 Random Glucose 97 (60-115) mg/dL Calcium 9.4 (8.4-10.2) mg/dL Total Bilirubin 0.3 (0.0-1.0) mg/dL AST 13 (5-31) U/L ALT 10 (0-31) U/L Alkaline Phosphatase 99 (39-117) U/L Total Protein 7.1 (6.5-8.0) g/dL Albumin 3.9 (3.5-5.0) g/dL Lipase 11 (8-78) U/L Urine Color Yellow Urine Appearance Cloudy Urine pH 8.5 (5.0-9.0) Ur Specific [place] 1.010 (1.005-1.025) Urine Protein Negative (Neg-Trace) mg/dL Urine Glucose (UA) Negative (Negative) mg/dL Urine Ketones Negative (Negative) mg/dL Urine Blood Negative (Negative) Urine Nitrite Negative (Negative) Ur Leukocyte Esterase Trace H (Negative) Urine RBC 0-2 (0-2) /HPF Urine WBC 0-5 (0-5) /HPF Ur Squamous Epith Cells 0-2 (0-2) /HPF Urine Bacteria Trace (None Seen) Hyaline Casts 0-2 (0-2) /LPF Granular Casts Present Independent Interpretation I performed an independent interpretation of an: Plain X-Ray Radiology Impression Discussion of test interpretation with radiology: I have reviewed the radiologist's reading. Radiologist Impression: XR/XR lumbar spine 2-3V IMPRESSION: Postoperative changes at L3/L4. No acute fracture or listhesis. Independent Historian Clinical information obtained from an independent historian. History obtained from or confirmed by: Other ( daughter present at bedside who confirms history) External Record Review External record reviewed: Outpatient record and Prior outpatient labs Discharge Plan Discharge Clinical Impression: Chronic midline low back pain with bilateral sciatica Instructions: Lower Back Exercises (ED), Non-pharmacological Pain Management Therapies for Adults (ED) Prescriptions: No Action buprenorphine-naloxone [Suboxone] 2-0.5 mg film 1 film buccal TID 6 Days Qty: 18 0RF hydroxyzine HCl 25 mg tablet 25 mg PO BID PRN (Reason: anxiety) 30 Days Qty: 60 0RF diclofenac sodium 1 % gel 2 g topical QID Qty: 100 0RF Rx Instructions: apply to single elbow, wrist or hand; for hand includes palm/fingers/back of hand sertraline 100 mg tablet 200 mg PO DAILY 30 Days Qty: 60 1RF buprenorphine-naloxone [Suboxone] 2-0.5 mg film 3 film sublingual DAILY 30 Days Qty: 90 0RF Rx Instructions: place 1 strip/tab under (each) side of tongue buspirone 5 mg tablet 5 mg PO BID Referrals: Lana Hugo, MEDICAL OFFICE TECHNOLOGIST [Primary Care Provider] -
[2022-11-05] MEDS: Buprenorphine/Naloxone 2/0.5mg FILM 1 FILM SUBLINGUAL (10:22)
--- NOTE | 2022-11-05 10:27 | PC.NURSE ---
patients daughter expressed concern about reddened area with no skin breakage on her lower mid back after arrival to ED, provider aware
[2022-11-05 11:42] LABS: Appearance Urine Cloudy; Color Urine Yellow; Glucose Urine UA Negative (Negative); Leukocyte Esterase Urine Trace (Negative); Nitrite Urine Negative (Negative); PH 8.5 (5.0-9.0); UMIC TRIGGER UACC YES; Urine Blood Negative (Negative); Urine Ketones Negative (Negative); Urine Protein Negative (Neg-Trace)
[2022-11-05 11:53] LABS: Bacteria Urine Trace (None Seen); Granular Casts Urine Present; Hyaline Casts Urine 0-2 /LPF (0-2); RBC Urine 0-2 /HPF (0-2); Squamous Epithelial Cell Urine 0-2 /HPF (0-2); WBC Urine 0-5 /HPF (0-5)
[2022-11-05] MEDS: Mag&Al/Sim/Diphenhyd/Lidocaine 10 ML ORAL.SUSP PO (12:46)
[2022-11-05 12:59] LABS: MANUAL DIFF FLAG NO
[2022-11-05 13:08] LABS: Basophils Percent Auto 0.4 % (0-2); Eosinophils Percent Auto 0.4 % (0-4); Hematocrit 38.9 % (37.0-47.0); Hemoglobin 13.3 g/dl (12.0-16.0); Imm Gran Abs Auto 0.03 X10*3/uL (0.00-0.03); Imm Gran Pct Auto 0.3 % (0.0-0.4); Lymphocytes Percent Auto 20.4 % (20-40); Mean Corpuscular HGB Conc 34.2 g/dl (31.0-35.0); Mean Corpuscular Hemoglobin 29.4 pg (27.0-33.0); Mean Corpuscular Volume 86.1 fL (80.0-98.0); Mean Platelet Volume 9.3 fL (9.4-12.3); Monocytes Absolute Auto 0.3 X10*3/uL (0.1-1.2); Monocytes Percent Auto 3.3 % (2-11); Neutrophils Absolute Auto 7.2 x10*3/uL (2.0-8.3); Neutrophils Percent Auto 75.2 % (45-73); Platelet Count 276 X10*3/uL (160-400); Red Blood Count 4.52 X10*6/uL (4.20-5.50); Red Cell Distribution Width 12.3 % (11.0-16.0); White Blood Count 9.6 X10*3/uL (4.8-10.8)
[2022-11-05 13:15] LABS: Alanine Aminotransferase 10 U/L (0-31); Albumin Level 3.9 g/dL (3.5-5.0); Alkaline Phosphatase 99 U/L (39-117); Anion Gap 12 (12-20); Aspartate Amino Transferase 13 U/L (5-31); Bilirubin Total 0.3 mg/dL (0.0-1.0); Blood Urea Nitrogen 9 mg/dL (9-16); Calcium 9.4 mg/dL (8.4-10.2); Carbon Dioxide 28 mmol/L (22-29); Chloride 103 mmol/L (96-108); Creatinine Clr Calc Pharmacy 78.3; Estimated Glomerular Filt Rate > 60; Glucose Random 97 mg/dL (60-115); Lipase 11 U/L (8-78); Potassium 4.4 mmol/L (3.3-5.1); Sodium 139 mmol/L (135-145); Total Protein 7.1 g/dL (6.5-8.0)
[2022-11-05 13:22] VITALS: BP 163/78; PULSE 77; RESP 18; TEMP 36.4; O2SAT 94
[2022-11-05 14:54] VITALS: BP 155/80; PULSE 72; TEMP 36.6; O2SAT 94
== END 2022-11-05 14:53 | disposition home or self-care (01) ==
PROVIDERS: Nurse Practitioner Family; Emergency Provider Student in an Organized Health Care Education/Training Program; PCP Registered Nurse
DX: M54.41 Lumbago with sciatica, right side (principal); M54.42 Lumbago with sciatica, left side; Z79.899 Other long term (current) drug therapy
CPT/HCPCS: 36415; 72100; 80053; 81001; 83690; 85025; 99284

== ENCOUNTER 2023-05-23 12:37 | Outpatient (REF) | payer OTHER, SELFPAY ==
[2023-05-23 14:08] LABS: Alanine Aminotransferase 12 U/L (0-31); Albumin Level 4.3 g/dL (3.5-5.0); Alkaline Phosphatase 127 U/L (39-117); Anion Gap 12 (12-20); Aspartate Amino Transferase 16 U/L (5-31); Bilirubin Direct 0.1 mg/dL (0.0-0.5); Bilirubin Total 0.4 mg/dL (0.0-1.0); Blood Urea Nitrogen 12 mg/dL (9-16); Calcium 9.5 mg/dL (8.4-10.2); Carbon Dioxide 28 mmol/L (22-29); Chloride 104 mmol/L (96-108); Cholesterol 183 mg/dL (<200); Estimated Glomerular Filt Rate > 60; Glucose Random 83 mg/dL (60-115); HDL Cholesterol 66 mg/dL (>40); LDL Cholesterol Calculated 105 mg/dL (<100); Potassium 3.8 mmol/L (3.3-5.1); Sodium 140 mmol/L (135-145); Total Protein 7.9 g/dL (6.5-8.0); Triglycerides 62 mg/dL (<150)
[2023-05-26 08:28] LABS: TS Negative Control Passed; TS Panel A 0; TS Panel B 0; TS Positive Control Passed; TSpotTB Negative (Negative)
== END 2023-05-23 12:38 | disposition home or self-care (01) ==
LOC: HO.HHCL 12:37
PROVIDERS: Emergency Medicine; Visit Provider General Practice
DX: K80.10 Calculus of gallbladder with chronic cholecystitis without obstruction (principal); F11.20 Opioid dependence, uncomplicated
CPT/HCPCS: 36415; 80053; 80061; 82248; 86481

== ENCOUNTER 2023-08-19 12:29 | Inpatient (IN) | payer OTHER, SELFPAY ==
[2023-08-19] VITALS (9 sets, daily range): BP systolic 109–163; BP diastolic 62–74; PULSE 70–118; RESP 12–26; TEMP 36.6–37; O2SAT 92–96; BMI 28.5
--- NOTE | 2023-08-19 | ECG_ITS ---
Test Reason : SOB Blood Pressure : / mmHG Vent. Rate : 082 BPM Atrial Rate : 082 BPM P-R Int : 150 ms QRS Dur : 102 ms QT Int : 370 ms P-R-T Axes : 072 057 101 degrees QTc Int : 432 ms Normal sinus rhythm Nonspecific T wave abnormality Abnormal ECG No previous ECGs available Referred By: Generic ED Physician Electronically Signed By:ELIZABETH IGLESIAS
--- NOTE | ~2023-08-19 | XR_ITS ---
EXAMINATION: XR CHEST CLINICAL INFORMATION: Shortness of breath COMPARISON: None available. TECHNIQUE: 2 views of the chest were obtained. FINDINGS: Increased AP diameter and flattening of the diaphragms suggesting air trapping disease COPD. There is a small nodular opacity projecting over the right upper lung zone could be a lung nodule versus pleural plaque versus summation of shadows. Costophrenic angles are sharp. No pneumothorax. XR/XR chest 2V IMPRESSION: * Hyperinflated lungs suggesting air trapping disease COPD. * Small nodular opacity projecting over the right upper lung zone could be a lung nodule versus pleural plaque versus summation of shadows. This will be further evaluated, Patient is scheduled for CT chest same day.
--- NOTE | ~2023-08-19 | CT_ITS ---
EXAMINATION: CT ANGIOGRAM OF THE CHEST WITH AND WITHOUT CONTRAST (CT PULMONARY ANGIOGRAM FOR PE) CLINICAL INFORMATION: elevated d-dimer, sob, pleuritic cp COMPARISON: Chest radiograph 08/19/2023 TECHNIQUE: Prior to contrast administration, noncontrast localization images were obtained. Subsequently, multidetector volumetric imaging was performed from the thoracic inlet to below the diaphragms following the administration of 65 mL Omnipaque 350 intravenous contrast. No contrast reaction reported Sagittal, coronal, and MIP oblique sagittal reformatted images were obtained on the CT workstation, uploaded to PACS, and reviewed. This CT examination was performed using dose optimization techniques as appropriate, variously including the following: *Automated exposure control *Adjustment of mA and/or kV according to patient size (this includes techniques or standardized protocols for targeted exams where dose is matched to indication/reason for exam; i.e. extremities or head) *Use of iterative reconstruction technique Total exam dose-length product 248 mGy-cm FINDINGS: QUALITY OF STUDY/CONTRAST BOLUS: Suboptimal. PULMONARY ARTERIES: No central pulmonary emboli. THORACIC AORTA: No aneurysm. LUNG: The central airways are patent. Diffuse centrilobular emphysema. Bibasilar atelectasis or scarring. No focal consolidation or mass. No pleural effusion or pneumothorax. No suspicious pulmonary nodule to correspond with chest radiograph finding. MEDIASTINUM: Normal heart size. No pericardial effusion. No hilar or mediastinal lymphadenopathy. No evidence of septal bowing or right heart strain. CORONARY ARTERY CALCIFICATION: None visualized on this study. CHEST WALL/AXILLA: No axillary or internal mammary lymphadenopathy. OSSEOUS STRUCTURES: No acute or suspicious osseous abnormality. Chronic right lateral third rib fracture. Superior endplate compression deformities of T6 and T8, age indeterminate. UPPER ABDOMEN: Hepatic steatosis. There is a simple fluid attenuating left renal cyst for which no follow-up imaging is recommended. No reflux of contrast into the hepatic veins to suggest elevated right heart pressures. CT/CT angio chest PE protocol IMPRESSION: 1. No central pulmonary emboli. 2. Diffuse centrilobular emphysema. No suspicious pulmonary nodule to correspond with chest radiograph findings from same date. 3. Superior endplate compression deformities of T6 and T8, age indeterminate. VTE: negative.
--- NOTE | 2023-08-19 12:48 | ED.SOB ---
HPI - SOB/Dyspnea General Chief Complaint: Dyspnea Stated Complaint: SOB ON EXERTION,100% ON DUONEB PER EMS Time Seen by Provider: 08/19/23 12:46 Source: patient, EMS, RN notes reviewed and old records reviewed Mode of arrival: EMS History of Present Illness ED Provider: Munira Chaves PA-C HPI Narrative: 62-year-old female with a past medical history of chronic pain syndrome, depression, PTSD, tobacco use disorder, opiate use disorder, COPD (per patient), presenting to the ED via EMS complaining of increased dyspnea on exertion x 2 months with productive cough of clear/white sputum & right-sided lung pain . Reports increasing SOB with little movement. Admits chest pain worse with movement, coughing, and deep breathing. Also reports subjective fever and chills. Denies recent travel, sick contacts, pedal edema, calf tenderness, history of clots. Is cigarette smoker, cutting down. MD elicited complaint: shortness of breath, cough and pain with inspiration Related Data Home Medications ?Medication ?Instructions ?Recorded ?Confirmed buspirone 5 mg tablet 5 mg PO BID 08/02/21 Previous Rx's ?Medication ?Instructions ?Recorded sertraline 100 mg tablet 200 mg (2 x 100 mg) PO DAILY 30 12/25/19 days #60 tabs buprenorphine 2 mg-naloxone 0.5 mg 3 film sublingual DAILY 30 days 11/10/20 sublingual film (Suboxone) #90 ea buprenorphine 2 mg-naloxone 0.5 mg 1 film buccal TID 6 days #18 ea 02/16/21 sublingual film (Suboxone) diclofenac sodium 1 % topical gel 2 g topical QID #100 grams 07/02/21 hydroxyzine HCl 25 mg tablet 25 mg PO BID PRN anxiety 30 days 08/15/21 #60 tabs Allergies Allergy/AdvReac Type Severity Reaction Status Date / Time No Known Allergies Allergy Verified 08/19/23 12:43 Review of Systems Review of Systems: Constitutional: No Fever, No Chills ENT/Mouth: No Ear Pain, No Nasal Congestion, No sore throat, No Rhinorrhea, No Swallowing Difficulty Cardiovascular: + Chest Pain, + SOB Respiratory: + Cough, + Sputum, No Wheezing Gastrointestinal: No Nausea, No Vomiting, No Diarrhea, No Constipation, No Abdominal pain Genitourinary: No Dysuria, No Urinary Frequency, No Hematuria, No Flank Pain Musculoskeletal: No joint pain, No Myalgias, No Joint Swelling Skin: No Skin Lesions, No rash Neuro: No Weakness, No Numbness, No Paresthesias Yes all other systems are reviewed and are negative Constitutional: Constitutional: Reports as per [facility] [place] Past Medical History Attestation statement: The following information was validated with the patient. Source: old records reviewed Medical History Chronic pain syndrome Depression PTSD (post-traumatic stress disorder) Tobacco use disorder Opioid use disorder Surgical History History of neck surgery History of back surgery Family History Family History Mother Pancreatic cancer Father HTN (hypertension) Diabetes Social History Social History Alcohol intake: never Patient Tobacco Use Status: Current everyday Tobacco user Cigarettes Per Day: 10 Years Smoked: 30 years Smoked in Last 30 Days: Yes Use of substances other than those prescribed or required for medical reasons: No Advance Directives: No Advance Directives Information Provided: No Do you have a plan to hurt others: No Plan Patient : No Physical Exam Vital Signs: Vital Signs: Last Vital Signs Temp 98.6 F 08/19/23 12:44 Pulse 101 H 08/19/23 14:21 Resp 16 08/19/23 14:21 BP 160/69 H 08/19/23 14:21 Pulse Ox 93 08/19/23 14:21 O2 Del Method Room Air 08/19/23 14:21 BMI result Body Mass Index 28.5 Const: General: cooperative, healthy appearing and no acute distress Orientation/consciousness: patient oriented x3 Limitations: no limitations HEENT: Head: Yes normal to inspection and Yes atraumatic Ears: hearing grossly normal bilaterally General nose exam: Normal external nose present Face and sinus: Yes normal facial exam Eyes: General: appearance normal, both eyes and all related structures EOM: EOMs intact bilaterally Neck: Neck: Yes normal visual inspection and Yes no meningeal signs Chest: Chest palpation & inspection: normal inspection of the chest and no crepitus Resp: Effort & Inspection: normal respiratory effort and no respiratory distress Auscultation: wheezes expiratory wheezes Cardio: Rate: regular rate Heart sounds: S1 normal heart sound present and S2 normal heart sound present GI: Inspection: Yes normal to inspection Palpation (GI): Soft to palpation, nontender, no guarding and not rigid Skin: Rashes: no rashes Wounds: no wounds Neuro: General: patient oriented x3, tone normal and no meningeal signs Cranial nerves: Yes CN's II-XII intact bilaterally Gait exam (Neuro): Normal gait present Extrem: General: Yes normal to inspection and Yes no pedal edema Course Course Course Narrative: -1400--D-dimer elevated > will obtain CTA to rule out PE -troponin 20.2 (no priors to compare) > will obtain 3 hour repeat -viral studies negative -patient admitted in the ED with pulse ox dropping to 85% on RA, tachypneic > mid 90s at rest -1545--on re-evaluation patient is sleeping satting 87-88% on RA > 2L NC applied. Expiratory wheeze still appreciated. Will give additional DuoNeb and IV magnesium CT angio chest PE protocol IMPRESSION: 1. No central pulmonary emboli. 2. Diffuse centrilobular emphysema. No suspicious pulmonary nodule to correspond with chest radiograph findings from same date. 3. Superior endplate compression deformities of T6 and T8, age indeterminate. VTE: negative. > plan to admit for further management, case d/w Dr. Jang who accepted admission Medications Administered Discontinued Medications Generic Name Dose Route Start Last Admin Trade Name Freq PRN Reason Stop Dose Admin Albuterol Sulfate 2.5 mg/ 0 mg 08/19/23 13:33 08/19/23 13:35 Albuterol/Ipratropium 3 ml INHALE 08/19/23 13:34 1 dose ONCE ONE Administration Iohexol 100 ml 08/19/23 14:31 08/19/23 14:36 Iohexol 350 Mg/Ml 100 Ml Infus..Btl IV 08/19/23 14:32 65 ml ONCE ONE Administration Medical Decision Making Medical Decision Making [facility] Narrative: 62-year-old female with a past medical history of chronic pain syndrome, depression, PTSD, tobacco use disorder, opiate use disorder, COPD (per patient), presenting to the ED via EMS complaining of increased dyspnea on exertion x 2 months with productive cough of clear/white sputum & right-sided lung pain . On exam satting 90-93% on RA, talking in complete sentences, lungs w/exp wheeze, no pedal edema. Concern for COPD exacerbation vs pneumonia vs bronchitis vs PE vs CHF. Lower suspicion for ACS or dissection Plan: EKG, labs, CXR, viral studies, ambulating pulse ox Please refer to course for remaining clinical decision making, interpretation of labs/imaging results, and discussions with consultants and/or family members. Differential Diagnosis Differential Diagnoses: The differential diagnosis associated with the presentation includes As above Admission/Observation Consideration of admission/observation: Escalation of care including admission/observation considered Lab Data MDM Lab Attestation statement: I reviewed the patient's lab results. 08/19/23 13:29 08/19/23 13:29 Labs: Lab Results 08/19/23 08/19/23 08/19/23 Range/Units 12:50 13:28 13:29 WBC 8.1 (4.8-10.8) X10*3/uL RBC 4.45 (4.20-5.50) X10*6/uL Hgb 12.9 (12.0-16.0) g/dl Hct 38.8 (37.0-47.0) % MCV 87.2 (80.0-98.0) fL MCH 29.0 (27.0-33.0) pg MCHC 33.2 (31.0-35.0) g/dl RDW 13.7 (11.0-16.0) % Plt Count 306 (160-400) X10*3/uL MPV 9.4 (9.4-12.3) fL Immature Gran % (Auto) 0.1 (0.0-0.4) % Neut % (Auto) 64.4 (45-73) % Lymph % (Auto) 30.2 (20-40) % [place] % (Auto) 4.0 (2-11) % Eos % (Auto) 0.7 (0-4) % Baso % (Auto) 0.6 (0-2) % Lymph # (Auto) 2.4 (1.2-4.9) X10*3/uL [place] # (Auto) 0.3 (0.1-1.2) X10*3/uL Eos # (Auto) 0.1 (0.0-0.4) X10*3/uL Baso # (Auto) 0.1 (0.0-0.2) X10*3/uL Abs Immat Gran (auto) 0.01 (0.00-0.03) X10*3/uL Absolute Neuts (auto) 5.2 (2.0-8.3) x10*3/uL Absolute Nucleated RBC 0.000 (0.0-0.012) X10*3/uL Nucleated RBC % (auto) 0.0 (0.0-0.2) /100WBC PT 11.6 (11.1-13.3) SEC INR 1.0 (0.9-1.1) D-Dimer High Sensitivty 266 NG/ML Sodium 139 (135-145) mmol/L Potassium 3.7 (3.3-5.1) mmol/L Chloride 106 (96-108) mmol/L Carbon Dioxide 21 L (22-29) mmol/L Anion Gap 16 (12-20) BUN 8 L (9-16) mg/dL Creatinine 0.66 (0.5-1.4) mg/dL Estim Creat Clear Calc 75.1 Estimated GFR > 60 Random Glucose 115 (60-115) mg/dL Calcium 9.4 (8.4-10.2) mg/dL Magnesium 2.0 (1.6-2.6) mg/dL Total Bilirubin 0.3 (0.0-1.0) mg/dL Direct Bilirubin 0.1 (0.0-0.5) mg/dL AST 16 (5-31) U/L ALT 10 (0-31) U/L Alkaline Phosphatase 100 (39-117) U/L Troponin I High Sens 20.2 H (<3.5-17.0) ng/L B-Natriuretic Peptide 24 (<100) pg/mL Total Protein 7.4 (6.5-8.0) g/dL Albumin 4.1 (3.5-5.0) g/dL Influenza Type A (PCR) NEGATIVE (Negative) Influenza Type B (PCR) NEGATIVE (Negative) RSV RNA Qual (PCR) NEGATIVE (Negative) SARS-CoV-2 RNA (RT-PCR) NEGATIVE (Negative) Independent Interpretation I performed an independent interpretation of an: EKG (My interpretation EKG normal sinus rhythm rate of 82. Pr interval 150. QTC 432. No previous to compare. No STEMI ) Radiology Impression Discussion of test interpretation with radiology: I have reviewed the radiologist's reading. Independent Historian Clinical information obtained from an independent historian. History obtained from or confirmed by: EMS External Record Review External record reviewed: Inpatient record, Office record, Outpatient record, Prior outpatient labs, Prior outpatient radiology, Primary care record and Outside ED record Tests considered The following testing was considered but not selected: As above Chronic Conditions Patient?s care impacted by: Other Social Determinants Patient?s care significantly limited by Social Determinants of Health including: Alcoholism and drug addiction in family and Problems related to primary support group Critical Care Time Critical Care Time Critical Care Time: Yes Total Critical Care Time: 45 Attestation: I have personally provided critical care time exclusive of time spent on separately billable procedures. Time includes review of lab data, radiology results, discussion with consultants, and monitoring for potential decompensation. Intervention performed as documented. Discharge Plan Discharge Clinical Impression: Dyspnea on exertion Patient Disposition: Admitted As Inpatient Print Language: Kiswahili
--- NOTE | 2023-08-19 12:54 | PC.NURSE ---
patient arrives via EMS, patient states for the last few months she has been having shortness of breath that has been worsening the last week or so. patient states she has been using her inhalers at home with some relief but is still getting short of breath. patient with bilateral wheezes throughout lung neely. patient complaining of pain primarily on right side, stating her lung hurts most there. she states she has had a productive cough recently and has been coughing up some sputum. patient with 20g V in her left hand placed by EMS, EKG and nasal swab completed. 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 patient continues to have htars1p saturation between 92-95% on room air. provider at bedside to evaluate. awaiting further orders at this time
[2023-08-19 13:32] LABS: Influenza A PCR NEGATIVE (Negative); Influenza B PCR NEGATIVE (Negative); Resp Syncy Virus RNA Qual PCR NEGATIVE (Negative); SARS COV2 PCR INHOUSE NEGATIVE (Negative)
[2023-08-19 13:32] LABS: MANUAL DIFF FLAG NO
--- NOTE | 2023-08-19 13:33 | PC.NURSE ---
EMS IV noted to be infiltrated, removed by this RN. 20g IV placed in lac
[2023-08-19 13:34] LABS: Basophils Absolute Auto 0.1 X10*3/uL (0.0-0.2); Basophils Percent Auto 0.6 % (0-2); Eosinophils Absolute Auto 0.1 X10*3/uL (0.0-0.4); Eosinophils Percent Auto 0.7 % (0-4); Hematocrit 38.8 % (37.0-47.0); Hemoglobin 12.9 g/dl (12.0-16.0); Imm Gran Abs Auto 0.01 X10*3/uL (0.00-0.03); Imm Gran Pct Auto 0.1 % (0.0-0.4); Lymphocytes Absolute Auto 2.4 X10*3/uL (1.2-4.9); Lymphocytes Percent Auto 30.2 % (20-40); Mean Corpuscular HGB Conc 33.2 g/dl (31.0-35.0); Mean Corpuscular Volume 87.2 fL (80.0-98.0); Mean Platelet Volume 9.4 fL (9.4-12.3); Monocytes Absolute Auto 0.3 X10*3/uL (0.1-1.2); Neutrophils Absolute Auto 5.2 x10*3/uL (2.0-8.3); Neutrophils Percent Auto 64.4 % (45-73); Platelet Count 306 X10*3/uL (160-400); Red Blood Count 4.45 X10*6/uL (4.20-5.50); Red Cell Distribution Width 13.7 % (11.0-16.0); White Blood Count 8.1 X10*3/uL (4.8-10.8)
[2023-08-19] MEDS: Albuterol Sulfate 2.5 MG, Albuterol/Iprat 2.5/0.5MG 3 ML 3 ML INHALE (13:35)
[2023-08-19 13:40] LABS: Prothrombin Time 11.6 SEC (11.1-13.3)
[2023-08-19 13:42] LABS: D Dimer High Sensitivity 266 NG/ML
[2023-08-19 13:53] LABS: B Type Natriuretic Peptide 24 pg/mL (<100)
[2023-08-19 13:59] LABS: Troponin-I High Sensitivity 20.2 ng/L (<3.5-17.0)
[2023-08-19 14:05] LABS: Alanine Aminotransferase 10 U/L (0-31); Albumin Level 4.1 g/dL (3.5-5.0); Alkaline Phosphatase 100 U/L (39-117); Anion Gap 16 (12-20); Aspartate Amino Transferase 16 U/L (5-31); Bilirubin Direct 0.1 mg/dL (0.0-0.5); Bilirubin Total 0.3 mg/dL (0.0-1.0); Blood Urea Nitrogen 8 mg/dL (9-16); Calcium 9.4 mg/dL (8.4-10.2); Carbon Dioxide 21 mmol/L (22-29); Chloride 106 mmol/L (96-108); Creatinine Clr Calc Pharmacy 75.1; Estimated Glomerular Filt Rate > 60; Glucose Random 115 mg/dL (60-115); Potassium 3.7 mmol/L (3.3-5.1); Sodium 139 mmol/L (135-145); Total Protein 7.4 g/dL (6.5-8.0)
--- NOTE | 2023-08-19 14:21 | MHC.EDTECH ---
This zone maintenance technician ambulated with patient with pulse oximetry, spO2 was 85% on room air during ambulation.
--- NOTE | 2023-08-19 14:27 | PC.NURSE ---
patient to CT at this time
[2023-08-19] MEDS: iohexoL 350 MG/ML 100 ML INFUS..BTL IV (14:36)
[2023-08-19] MEDS: methylPREDNISolone Sod Succ 125 MG/2 ML VIAL IVPUSH (16:03)
[2023-08-19] MEDS: Albuterol/Iprat 2.5/0.5MG 3 ML AMPUL.NEB INHALE ×2 (16:08→19:51)
[2023-08-19] MEDS: Magnesium Sulfate/H2O 2 GM/50 ML PIGGYBACK IV (16:09)
--- NOTE | 2023-08-19 16:12 | MHC.EDTECH ---
pt vital signs checked at 1600, pt list of belongings done, no requests or questions from pt, call reed within reach.
[2023-08-19 17:14] LABS: Troponin-I High Sensitivity 15.5 ng/L (<3.5-17.0)
--- NOTE | 2023-08-19 18:26 | PHA.MEDREC ---
Pharmacy Consult ? Medication Reconciliation Pharmacy has completed the medication reconciliation.
--- NOTE | 2023-08-19 18:30 | P.HPHOSP_ITS ---
History of Present Illness Date of Service: 08/19/23 Chief Complaint: Shortness of breath with exertion, generalized body ache 62-year-old female with past medical history significant for chronic pain syndrome on Suboxone, depression, PTSD, tobacco use disorder, history of COPD not on home oxygen presented to emergency room via EMS due to symptoms of shortness of breath with exertion and cough productive of clear phlegm symptoms going on for several weeks but for last few days noticed intermittent chills, generalized body ache, patient denies sick contacts, no recent travel, no PND, no orthopnea , chronic smoker gradually weaning currently smoking 3-5 cigarettes for last couple years has chronic raspy voice, feels related to smoking, in the ED noted to have tachypnea, tachycardia, hypoxia finger oximetry 85% on room air, CTA chest showed no PE but diffuse centrilobular emphysema, no suspicious pulmonary nodule, superior endplate compression deformities of T6 and T8, patient denied worsening back pain, in ED treated with DuoNeb, IV magnesium continue to be hypoxic with persistent expiratory wheeze therefore being admitted for continued treatment and monitoring of acute hypoxic respiratory failure due to COPD exacerbation. Review of Systems 2 Review of Systems: General no headache, no dizziness,+ chills. CVS no chest pain, no palpitation. Respiratory shortness of breath with exertion, cough productive of clear phlegm Gastrointestinal no nausea, no vomiting, no abdominal pain, no diarrhea Musculoskeletal generalized body ache, chronic back pain no urinary symptoms of urgency or frequency Skin no rash, no itching All other system reviewed and are negative. [facility] Medical History Chronic pain syndrome Depression PTSD (post-traumatic stress disorder) Tobacco use disorder Opioid use disorder Family History Mother Pancreatic cancer Father HTN (hypertension) Diabetes Surgical History History of neck surgery History of back surgery Social History Alcohol intake: never Patient Tobacco Use Status: Current everyday Tobacco user Cigarettes Per Day: 10 Years Smoked: 30 years Smoked in Last 30 Days: Yes Use of substances other than those prescribed or required for medical reasons: No Advance Directives: No Advance Directives Information Provided: No Do you have a plan to hurt others: No Plan Patient : No Meds Allergies Allergy/AdvReac Type Severity Reaction Status Date / Time No Known Allergies Allergy Verified 08/19/23 12:43 Active Medications: Current Medications Acetaminophen (Acetaminophen 325 Mg Tablet) 650 mg PO Q6H PRN PRN Reason: Pain, Mild (Pain Scale 1-3), fever or headache Buprenorphine/Naloxone (Buprenorphine/Naloxone 4/1 Mg Film) 0.5 film SUBLINGUAL QID [facility] Buspirone HCl (Buspirone Hcl 5 Mg Tablet) 5 mg PO TID [facility] Calcium Carbonate (Calcium Carbonate 750 Mg Tab.Chew) 750 mg PO Q4H PRN PRN Reason: Heartburn Enoxaparin Sodium (Enoxaparin Sodium 40 Mg/0.4 Ml Syringe) 40 mg SUBCUT Q24H [facility] Gabapentin (Gabapentin 100 Mg Capsule) 100 mg PO TID [facility] Lorazepam (Lorazepam 0.5 Mg Tablet) 0.5 mg PO DAILY PRN PRN Reason: Shortness Of Breath Or Wheezing Magnesium Hydroxide (Milk Of Magnesia 30 Ml Oral.Susp) 30 ml PO DAILY PRN PRN Reason: Constipation Melatonin (Melatonin 3 Mg Tablet) 6 mg PO BEDTIME PRN PRN Reason: Insomnia Nicotine Polacrilex (Nicotine Polacrilex Lozenge 2 Mg Lozenge) 2 mg BUCCAL Q2H PRN PRN Reason: Nicotine Cravings Non-Formulary Medication (Diclofenac Sodium) 2 gm TOPICAL QID PRN PRN Reason: Pain Ondansetron HCl (Ondansetron Hcl 4 Mg/2 Ml Vial) 4 mg IVPUSH Q8H PRN PRN Reason: Nausea and Vomiting Sodium Chloride (0.9 % Sodium Chloride Flush 3 Ml Syringe) 3 ml IVFLUSH QSHIFT [facility] Home Medications ?Medication ?Instructions ?Recorded ?Confirmed ?Last Taken ?Type acetaminophen 325 mg tablet 650 mg PO Q6H PRN Pain 08/19/23 08/19/23 Unknown History (Tylenol) albuterol sulfate 90 mcg/actuation 2 puff inhalation Q4H PRN 08/19/23 08/19/23 Unknown History aerosol inhaler (Ventolin HFA) Shortness Of Breath Or Wheezing buprenorphine 4 mg-naloxone 1 mg 0.5 film sublingual QID 08/19/23 08/19/23 08/19/23 12:00 History sublingual film buspirone 5 mg tablet 5 mg PO TID 08/19/23 08/19/23 08/19/23 12:00 History diclofenac sodium 1 % topical gel 2 g topical QID PRN Pain 08/19/23 08/19/23 Unknown History gabapentin 100 mg capsule 100 mg PO TID 08/19/23 08/19/23 08/19/23 12:00 History lorazepam 0.5 mg tablet 0.5 mg PO DAILY PRN Shortness Of 08/19/23 08/19/23 Unknown History Breath Or Wheezing Physical Exam 2 Vital Signs and Narrative: Vital Signs: Last Vital Signs Temp 98.1 F 08/19/23 16:01 Pulse 112 H 08/19/23 16:01 Resp 16 08/19/23 16:01 BP 137/73 08/19/23 16:01 Pulse Ox 96 08/19/23 16:01 O2 Del Method Nasal Cannula 08/19/23 16:01 O2 Flow Rate 2 08/19/23 16:01 BMI result Body Mass Index 28.5 Const: Other: General awake alert x3, in no acute distress. Anicteric sclera Neck supple no JVD. CVS regular rate rhythm, Respiratory lungs bilateral expiratory rhonchi, no respiratory distress, Gastrointestinal abdomen soft, non tender, bowel sounds audible,no guarding , no rigidity. Extremities no edema. Neuro non focal , chronic raspy voice Skin no rash/mid back scar Psych appropriate affect Results Labs 08/19/23 13:29 08/19/23 13:29 Labs: Laboratory Results - last 24 hr 08/19/23 08/19/23 08/19/23 12:50 13:28 13:29 MCV 87.2 MCH 29.0 MCHC 33.2 RDW 13.7 Plt Count 306 MPV 9.4 Immature Gran % (Auto) 0.1 Neut % (Auto) 64.4 Lymph % (Auto) 30.2 [place] % (Auto) 4.0 Eos % (Auto) 0.7 Baso % (Auto) 0.6 Lymph # (Auto) 2.4 [place] # (Auto) 0.3 Eos # (Auto) 0.1 Baso # (Auto) 0.1 Abs Immat Gran (auto) 0.01 Absolute Neuts (auto) 5.2 Absolute Nucleated RBC 0.000 Nucleated RBC % (auto) 0.0 PT 11.6 INR 1.0 D-Dimer High Sensitivty 266 Anion Gap 16 Estim Creat Clear Calc 75.1 Estimated GFR > 60 Random Glucose 115 Calcium 9.4 Magnesium 2.0 Total Bilirubin 0.3 Direct Bilirubin 0.1 AST 16 ALT 10 Alkaline Phosphatase 100 Troponin I High Sens 20.2 H B-Natriuretic Peptide 24 Total Protein 7.4 Albumin 4.1 Influenza Type A (PCR) NEGATIVE Influenza Type B (PCR) NEGATIVE RSV RNA Qual (PCR) NEGATIVE SARS-CoV-2 RNA (RT-PCR) NEGATIVE 08/19/23 16:35 MCV MCH MCHC RDW Plt Count MPV Immature Gran % (Auto) Neut % (Auto) Lymph % (Auto) [place] % (Auto) Eos % (Auto) Baso % (Auto) Lymph # (Auto) [place] # (Auto) Eos # (Auto) Baso # (Auto) Abs Immat Gran (auto) Absolute Neuts (auto) Absolute Nucleated RBC Nucleated RBC % (auto) PT INR D-Dimer High Sensitivty Anion Gap Estim Creat Clear Calc Estimated GFR Random Glucose Calcium Magnesium Total Bilirubin Direct Bilirubin AST ALT Alkaline Phosphatase Troponin I High Sens 15.5 B-Natriuretic Peptide Total Protein Albumin Influenza Type A (PCR) Influenza Type B (PCR) RSV RNA Qual (PCR) SARS-CoV-2 RNA (RT-PCR) Imaging Radiologist's Impressions: Impressions Chest X-Ray 08/19/23 13:30 IMPRESSION: * Hyperinflated lungs suggesting air trapping disease COPD. * Small nodular opacity projecting over the right upper lung zone could be a lung nodule versus pleural plaque versus summation of shadows. This will be further evaluated, Patient is scheduled for CT chest same day. Chest CTA 08/19/23 14:56 IMPRESSION: 1. No central pulmonary emboli. 2. Diffuse centrilobular emphysema. No suspicious pulmonary nodule to correspond with chest radiograph findings from same date. 3. Superior endplate compression deformities of T6 and T8, age indeterminate. VTE: negative. Assessment and Plan (1) Acute exacerbation of chronic obstructive airways disease: Status: Acute (2) Hypoxia: Status: Acute Plan 62-year-old female with past medical history of chronic pain syndrome, depression, PTSD, tobacco use disorder on Suboxone presented to ED with complaint of worsening shortness of breath with exertion and productive cough associated with chills diagnosed to have acute hypoxic respiratory failure due to COPD exacerbation. Acute hypoxic respiratory failure due to COPD exacerbation No sepsis, tachycardia due to updraft treatment Chest x-ray and CTA chest showed no pneumonia, negative COVID, influenza and RSV Will treat with IV Solu Medrol, scheduled and as needed updraft treatment and cough medication IV doxycycline for pleiotropic effect Chronic pain continue Suboxone and gabapentin Tobacco use disorder placed on Nicorette gum counseling done Mood disorder continue BuSpar Full code DVT prophylaxis with Lovenox In my clinical judgment patient need to night inpatient hospitalization for management of acute hypoxic respiratory failure due to COPD exacerbation requiring IV steroids updraft treatment and close respiratory monitoring. Quality Stroke Does the patient have a stroke diagnosis?: No VTE Prior VTE?: No VTE Risk Level:: Medical - moderate - high VTE Device Contraindication: Treatment Not Indicated VTE Drug Contraindication: N/A - Med Ordered
--- NOTE | 2023-08-19 19:04 | MHC.EDTECH ---
pure jarrett applied, pt satisfied, no complaints. Pt requested vegetarian dinner- RN notified, pt given tuna sandwich and cheese stick, satisfied.
--- NOTE | 2023-08-19 19:09 | MHC.EDTECH ---
pt votal signs checked at 1800, pt experiencing s/s of anxiety attack, RN notified.
[2023-08-19] MEDS: LORazepam 0.5 MG TABLET PO (19:10)
--- NOTE | 2023-08-19 19:38 | PC.NURSE ---
assumed care of pt at 1900
--- NOTE | 2023-08-19 19:46 | MHC.EDTECH ---
pt vegatarian dinner arrived, pt very happy.
[2023-08-19] MEDS: Buprenorphine/Naloxone 4/1 mg FILM 0.5 FILM SUBLINGUAL (20:32)
[2023-08-19] MEDS: Enoxaparin Sodium 40 MG/0.4 ML SYRINGE SUBCUT (20:34)
[2023-08-19] MEDS: busPIRone HCl 5 MG TABLET PO (20:34)
[2023-08-19] MEDS: Doxycycline Monohydrate 100 MG CAPSULE PO (20:34)
[2023-08-19] MEDS: Gabapentin 100 MG CAPSULE PO (20:34)
[2023-08-19] MEDS: guaiFENesin DM 100/10/5 ML 5 ML SYRUP 10 ML PO (20:37)
--- NOTE | 2023-08-19 22:01 | MHC.EDTECH ---
pt votal signs checked, dinner still in room and pt is still working on it, call within reach.
[2023-08-20] VITALS (8 sets, daily range): BP systolic 124–144; BP diastolic 61–69; PULSE 82–103; RESP 16–20; TEMP 36.5–36.8; O2SAT 91–95; BMI 26.4
[2023-08-20] MEDS: methylPREDNISolone Sod Succ 40 MG/ML VIAL IVPUSH ×2 (06:34→16:57)
[2023-08-20] MEDS: Acetaminophen 325 MG TABLET 650 MG PO ×2 (06:36→19:34)
[2023-08-20] MEDS: Albuterol/Iprat 2.5/0.5MG 3 ML AMPUL.NEB INHALE ×3 (07:51→20:00)
[2023-08-20] MEDS: busPIRone HCl 5 MG TABLET PO ×3 (08:02→20:35)
[2023-08-20] MEDS: guaiFENesin DM 100/10/5 ML 5 ML SYRUP 10 ML PO ×3 (08:02→20:35)
[2023-08-20] MEDS: Gabapentin 100 MG CAPSULE PO ×3 (08:02→20:35)
[2023-08-20] MEDS: Buprenorphine/Naloxone 4/1 mg FILM 0.5 FILM SUBLINGUAL ×4 (08:02→20:41)
[2023-08-20] MEDS: Doxycycline Monohydrate 100 MG CAPSULE PO ×2 (08:02→20:35)
[2023-08-20] MEDS: 0.9 % Sodium Chloride Flush 3 ML SYRINGE IVFLUSH ×3 (08:06→20:36)
--- NOTE | 2023-08-20 09:32 | MHC.CM.PN ---
IMM DELIVERED PT LIVES WITH DAUGHTER WHO ASSISTS PT PRN. PT USES A CANE FOR MOBILITY BUT HAS A WALKER AND TRANSPORT W/C WELL. +HCP PCP ERIKA ESPITIA AT [facility]. DP: HOME, NO SERVICES IS THE GOAL. SON WILL TRANSPORT HOME. CM WILL CONTINUE TO FOLLOW FOR ANY CHANGE TO DC PLAN/NEEDS.
--- NOTE | 2023-08-20 11:10 | P.PNIM_ITS ---
Subjective Subjective Date of Service: 08/20/23 Interval History: wheezing improved but still present; dyspnea resolved; smokes 1/2 ppd Review of Systems Review of Systems: Yes all other systems are reviewed and are negative Physical Exam 2 Vital Signs: Vital Signs: Last Vital Signs Temp 97.7 F 08/20/23 07:41 Pulse 90 08/20/23 07:51 Resp 20 08/20/23 07:51 BP 137/68 08/20/23 07:41 Pulse Ox 93 08/20/23 07:41 O2 Del Method Nasal Cannula 08/20/23 07:41 O2 Flow Rate 2.0 08/20/23 07:41 BMI result Body Mass Index 26.4 Gen: in no acute distress HEENT: sclera anicteric, moist mucus membranes Neck: supple Lungs: extensive inspiratory + expiratory wheezing in all lung neely Heart: regular rate and rhythm, no murmurs Abd: soft, non-tender, non-distended Ext: no edema Skin: warm/well-perfused Neuro: alert and oriented x3, no focal findings Psych: appropriate affect Objective Data Active Medications Acetaminophen (Acetaminophen 325 Mg Tablet) 650 mg PO Q6H PRN PRN Reason: Pain, Mild (Pain Scale 1-3), fever or headache Last Admin: 08/20/23 06:36 Dose: 650 mg Documented By: MARY ELLEN Albuterol/Ipratropium (Albuterol/Iprat 2.5/0.5mg 3 Ml Ampul.Neb) 3 ml INHALE RQ6H WHILE AWAKE [facility] Last Admin: 08/20/23 07:51 Dose: 3 ml Documented By: ALIE Buprenorphine/Naloxone (Buprenorphine/Naloxone 4/1 Mg Film) 0.5 film SUBLINGUAL QID [facility] Last Admin: 08/20/23 08:02 Dose: 0.5 film Documented By: JOSE Buspirone HCl (Buspirone Hcl 5 Mg Tablet) 5 mg PO TID [facility] Last Admin: 08/20/23 08:02 Dose: 5 mg Documented By: JOSE Calcium Carbonate (Calcium Carbonate 750 Mg Tab.Chew) 750 mg PO Q4H PRN PRN Reason: Heartburn Doxycycline Monohydrate (Doxycycline Monohydrate 100 Mg Capsule) 100 mg PO Q12H [facility] Last Admin: 08/20/23 08:02 Dose: 100 mg Documented By: JOSE Enoxaparin Sodium (Enoxaparin Sodium 40 Mg/0.4 Ml Syringe) 40 mg SUBCUT Q24H [facility] Last Admin: 08/19/23 20:34 Dose: 40 mg Documented By: HUANG Gabapentin (Gabapentin 100 Mg Capsule) 100 mg PO TID [facility] Last Admin: 08/20/23 08:02 Dose: 100 mg Documented By: JOSE Guaifenesin/Dextromethorphan (Guaifenesin Dm 100/10/5 Ml 5 Ml Syrup) 10 ml PO TID [facility] Last Admin: 08/20/23 08:02 Dose: 10 ml Documented By: JOSE Lorazepam (Lorazepam 0.5 Mg Tablet) 0.5 mg PO DAILY PRN PRN Reason: Shortness Of Breath Or Wheezing Last Admin: 08/19/23 19:10 Dose: 0.5 mg Documented By: MOLLY Magnesium Hydroxide (Milk Of Magnesia 30 Ml Oral.Susp) 30 ml PO DAILY PRN PRN Reason: Constipation Melatonin (Melatonin 3 Mg Tablet) 6 mg PO BEDTIME PRN PRN Reason: Insomnia Methylprednisolone Sodium Succinate (Methylprednisolone Sod Succ 40 Mg/Ml Vial) 40 mg IVPUSH Q12H [facility] Last Admin: 08/20/23 06:34 Dose: 40 mg Documented By: MARY ELLEN Nicotine Polacrilex (Nicotine Polacrilex Lozenge 2 Mg Lozenge) 2 mg BUCCAL Q2H PRN PRN Reason: Nicotine Cravings Ondansetron HCl (Ondansetron Hcl 4 Mg/2 Ml Vial) 4 mg IVPUSH Q8H PRN PRN Reason: Nausea and Vomiting Sodium Chloride (0.9 % Sodium Chloride Flush 3 Ml Syringe) 3 ml IVFLUSH QSHIFT [facility] Last Admin: 08/20/23 08:06 Dose: 3 ml Documented By: JOSE Labs 08/19/23 13:29 08/19/23 13:29 Labs: Laboratory Results - last 24 hr 08/19/23 08/19/23 08/19/23 12:50 13:28 13:29 MCV 87.2 MCH 29.0 MCHC 33.2 RDW 13.7 Plt Count 306 MPV 9.4 Immature Gran % (Auto) 0.1 Neut % (Auto) 64.4 Lymph % (Auto) 30.2 [place] % (Auto) 4.0 Eos % (Auto) 0.7 Baso % (Auto) 0.6 Lymph # (Auto) 2.4 [place] # (Auto) 0.3 Eos # (Auto) 0.1 Baso # (Auto) 0.1 Abs Immat Gran (auto) 0.01 Absolute Neuts (auto) 5.2 Absolute Nucleated RBC 0.000 Nucleated RBC % (auto) 0.0 PT 11.6 INR 1.0 D-Dimer High Sensitivty 266 Anion Gap 16 Estim Creat Clear Calc 75.1 Estimated GFR > 60 Random Glucose 115 Calcium 9.4 Magnesium 2.0 Total Bilirubin 0.3 Direct Bilirubin 0.1 AST 16 ALT 10 Alkaline Phosphatase 100 Troponin I High Sens 20.2 H B-Natriuretic Peptide 24 Total Protein 7.4 Albumin 4.1 Influenza Type A (PCR) NEGATIVE Influenza Type B (PCR) NEGATIVE RSV RNA Qual (PCR) NEGATIVE SARS-CoV-2 RNA (RT-PCR) NEGATIVE 08/19/23 16:35 MCV MCH MCHC RDW Plt Count MPV Immature Gran % (Auto) Neut % (Auto) Lymph % (Auto) [place] % (Auto) Eos % (Auto) Baso % (Auto) Lymph # (Auto) [place] # (Auto) Eos # (Auto) Baso # (Auto) Abs Immat Gran (auto) Absolute Neuts (auto) Absolute Nucleated RBC Nucleated RBC % (auto) PT INR D-Dimer High Sensitivty Anion Gap Estim Creat Clear Calc Estimated GFR Random Glucose Calcium Magnesium Total Bilirubin Direct Bilirubin AST ALT Alkaline Phosphatase Troponin I High Sens 15.5 B-Natriuretic Peptide Total Protein Albumin Influenza Type A (PCR) Influenza Type B (PCR) RSV RNA Qual (PCR) SARS-CoV-2 RNA (RT-PCR) Assessment and Plan (1) Acute exacerbation of chronic obstructive airways disease: Status: Acute Assessment and Plan: d2 62yo F with chronic pain, depression, PTSD, tobacco abuse, OUD on Suboxone presenting with dyspnea + productive cough, admitted for AHRF due to COPD exacerbation AHRF due to COPD exacerbation - continue doxycycline 08/18-, IV methylprednisolone 08/18-, scheduled/prn nebs; will Rx controller inhaler upon discharge; wean O2 as tolerated tobacco abuse - NRT chronic pain - continue Suboxone + gabapentin mood disorder - continue buspirone + lorazepam VTE ppx - LMWH dispo - likely home in next 1-2d In my clinical judgment, the patient requires continued inpatient hospitalization for the following reasons: wheezing/COPD, hypoxia Total time managing care of this patient today: 35 minutes. Quality Stroke Does the patient have a stroke diagnosis?: No VTE Prior VTE?: No VTE Risk Level:: Medical - moderate - high VTE Device Contraindication: Treatment Not Indicated VTE Drug Contraindication: N/A - Med Ordered
[2023-08-20] MEDS: Nicotine 14 MG PATCH.TD24 TRANSDERMA (11:21)
[2023-08-20] MEDS: LORazepam 0.5 MG TABLET PO (11:38)
[2023-08-20] MEDS: Enoxaparin Sodium 40 MG/0.4 ML SYRINGE SUBCUT (20:36)
[2023-08-21] VITALS (8 sets, daily range): BP systolic 128–147; BP diastolic 66–75; PULSE 81–99; RESP 18–20; TEMP 36.3–36.8; O2SAT 91–95
[2023-08-21] MEDS: methylPREDNISolone Sod Succ 40 MG/ML VIAL IVPUSH ×2 (05:36→17:14)
[2023-08-21] MEDS: LORazepam 0.5 MG TABLET PO (05:38)
[2023-08-21] MEDS: Albuterol/Iprat 2.5/0.5MG 3 ML AMPUL.NEB INHALE ×3 (07:39→20:17)
[2023-08-21] MEDS: guaiFENesin DM 100/10/5 ML 5 ML SYRUP 10 ML PO ×3 (08:51→21:27)
[2023-08-21] MEDS: Gabapentin 100 MG CAPSULE PO ×3 (08:51→21:22)
[2023-08-21] MEDS: Nicotine 14 MG PATCH.TD24 TRANSDERMA (08:52)
[2023-08-21] MEDS: Doxycycline Monohydrate 100 MG CAPSULE PO ×2 (08:52→21:22)
[2023-08-21] MEDS: busPIRone HCl 5 MG TABLET PO ×3 (08:52→21:22)
[2023-08-21] MEDS: 0.9 % Sodium Chloride Flush 3 ML SYRINGE IVFLUSH ×3 (08:53→23:36)
[2023-08-21] MEDS: Buprenorphine/Naloxone 4/1 mg FILM 0.5 FILM SUBLINGUAL ×4 (08:56→21:22)
[2023-08-21] MEDS: Acetaminophen 325 MG TABLET 650 MG PO ×2 (10:40→21:27)
--- NOTE | 2023-08-21 11:02 | HO.PM.IMPN ---
Subjective Subjective Date of Service: 08/21/23 Interval History: short of breath + hypoxic with exertion but overall improved Review of Systems Review of Systems: Yes all other systems are reviewed and are negative Physical Exam Vital Signs: Vital Signs: Last Vital Signs Temp 98.3 F 08/21/23 07:53 Pulse 93 08/21/23 07:53 Resp 18 08/21/23 07:53 BP 147/75 H 08/21/23 07:53 Pulse Ox 94 08/21/23 09:23 O2 Del Method Room Air 08/21/23 07:53 O2 Flow Rate 2 08/20/23 23:06 BMI result Body Mass Index 26.4 Gen: in no acute distress HEENT: sclera anicteric, moist mucus membranes Neck: supple Lungs: right upper lung neely with expiratory wheeze Heart: regular rate and rhythm, no murmurs Abd: soft, non-tender, non-distended Ext: no edema Skin: warm/well-perfused Neuro: alert and oriented x3, no focal findings Psych: appropriate affect Objective Data Active Medications Acetaminophen (Acetaminophen 325 Mg Tablet) 650 mg PO Q6H PRN PRN Reason: Pain, Mild (Pain Scale 1-3), fever or headache Last Admin: 08/21/23 10:40 Dose: 650 mg Documented By: SILVER Albuterol/Ipratropium (Albuterol/Iprat 2.5/0.5mg 3 Ml Ampul.Neb) 3 ml INHALE RQ6H WHILE AWAKE [facility] Last Admin: 08/21/23 07:39 Dose: 3 ml Documented By: ALIE Buprenorphine/Naloxone (Buprenorphine/Naloxone 4/1 Mg Film) 0.5 film SUBLINGUAL QID [facility] Last Admin: 08/21/23 08:56 Dose: 0.5 film Documented By: SILVER Buspirone HCl (Buspirone Hcl 5 Mg Tablet) 5 mg PO TID [facility] Last Admin: 08/21/23 08:52 Dose: 5 mg Documented By: SILVER Calcium Carbonate (Calcium Carbonate 750 Mg Tab.Chew) 750 mg PO Q4H PRN PRN Reason: Heartburn Doxycycline Monohydrate (Doxycycline Monohydrate 100 Mg Capsule) 100 mg PO Q12H [facility] Last Admin: 08/21/23 08:52 Dose: 100 mg Documented By: SILVER Enoxaparin Sodium (Enoxaparin Sodium 40 Mg/0.4 Ml Syringe) 40 mg SUBCUT Q24H [facility] Last Admin: 08/20/23 20:36 Dose: 40 mg Documented By: JEWELL Gabapentin (Gabapentin 100 Mg Capsule) 100 mg PO TID [facility] Last Admin: 08/21/23 08:51 Dose: 100 mg Documented By: SILVER Guaifenesin/Dextromethorphan (Guaifenesin Dm 100/10/5 Ml 5 Ml Syrup) 10 ml PO TID [facility] Last Admin: 08/21/23 08:51 Dose: 10 ml Documented By: SILVER Lorazepam (Lorazepam 0.5 Mg Tablet) 0.5 mg PO DAILY PRN PRN Reason: Shortness Of Breath Or Wheezing Last Admin: 08/21/23 05:38 Dose: 0.5 mg Documented By: JEWELL Magnesium Hydroxide (Milk Of Magnesia 30 Ml Oral.Susp) 30 ml PO DAILY PRN PRN Reason: Constipation Melatonin (Melatonin 3 Mg Tablet) 6 mg PO BEDTIME PRN PRN Reason: Insomnia Methylprednisolone Sodium Succinate (Methylprednisolone Sod Succ 40 Mg/Ml Vial) 40 mg IVPUSH Q12H [facility] Last Admin: 08/21/23 05:36 Dose: 40 mg Documented By: JEWELL Nicotine (Nicotine 14 Mg Patch.Td24) 14 mg TRANSDERMA DAILY [facility] Last Admin: 08/21/23 08:52 Dose: 14 mg Documented By: SILVER Nicotine Polacrilex (Nicotine Polacrilex Lozenge 2 Mg Lozenge) 2 mg BUCCAL Q2H PRN PRN Reason: Nicotine Cravings Ondansetron HCl (Ondansetron Hcl 4 Mg/2 Ml Vial) 4 mg IVPUSH Q8H PRN PRN Reason: Nausea and Vomiting Sodium Chloride (0.9 % Sodium Chloride Flush 3 Ml Syringe) 3 ml IVFLUSH QSHIFT [facility] Last Admin: 08/21/23 08:53 Dose: 3 ml Documented By: SILVER Labs 08/19/23 13:29 08/19/23 13:29 Assessment and Plan (1) Acute exacerbation of chronic obstructive airways disease: Status: Acute Assessment and Plan: d3 62yo F with chronic pain, depression, PTSD, tobacco abuse, OUD on Suboxone presenting with dyspnea + productive cough, admitted for AHRF due to COPD exacerbation AHRF due to COPD exacerbation - continue doxycycline 08/18-, IV methylprednisolone 08/18-, scheduled/prn nebs; will Rx controller inhaler upon discharge; wean O2 as tolerated tobacco abuse - NRT chronic pain - continue Suboxone + gabapentin mood disorder - continue buspirone + lorazepam VTE ppx - LMWH dispo - per PT STR; possibly ready tomorrow if continued improvement In my clinical judgment, the patient requires continued inpatient hospitalization for the following reasons: wheezing/COPD, hypoxia Total time managing care of this patient today: 35 minutes. Quality Stroke Does the patient have a stroke diagnosis?: No VTE Prior VTE?: No VTE Risk Level:: Medical - moderate - high VTE Device Contraindication: Treatment Not Indicated VTE Drug Contraindication: N/A - Med Ordered
[2023-08-21] MEDS: Enoxaparin Sodium 40 MG/0.4 ML SYRINGE SUBCUT (21:21)
[2023-08-22] MEDS: methylPREDNISolone Sod Succ 40 MG/ML VIAL IVPUSH (06:25)
[2023-08-22] MEDS: LORazepam 0.5 MG TABLET PO (06:31)
[2023-08-22 07:48] VITALS: PULSE 84; RESP 18; O2SAT 94
[2023-08-22] MEDS: Albuterol/Iprat 2.5/0.5MG 3 ML AMPUL.NEB INHALE (07:48)
[2023-08-22 07:56] VITALS: BP 184/80; PULSE 85; RESP 18; TEMP 36.2; O2SAT 91
[2023-08-22] MEDS: Nicotine 14 MG PATCH.TD24 TRANSDERMA (08:52)
[2023-08-22] MEDS: Buprenorphine/Naloxone 4/1 mg FILM 0.5 FILM SUBLINGUAL ×2 (08:52→12:35)
[2023-08-22] MEDS: guaiFENesin DM 100/10/5 ML 5 ML SYRUP 10 ML PO (08:52)
[2023-08-22] MEDS: busPIRone HCl 5 MG TABLET PO (08:53)
[2023-08-22] MEDS: Gabapentin 100 MG CAPSULE PO (08:53)
[2023-08-22] MEDS: Doxycycline Monohydrate 100 MG CAPSULE PO (08:53)
[2023-08-22 09:23] VITALS: BP 144/68
[2023-08-22 11:35] VITALS: PULSE 119; PULSE 121; PULSE 122; PULSE 84; PULSE 92; O2SAT 86; O2SAT 87; O2SAT 90; O2SAT 91; O2SAT 94
--- NOTE | 2023-08-22 12:19 | P.F2F_ITS ---
Service Date Service Date: 08/22/23 Encounter Date of encounter: 08/22/23 Reasons for Services Signs and symptoms assessed: dyspnea Reason for residential: medication management, medication treatment, teach disease management and other (new oxygen use) Reason for physical therapy: home safety and mobility, therapeutic exercises, gait/transfer training, assess need for DME, ADL training and energy conservation MD Overseeing Care: Alexia Hutton Homebound: Leaving the home is medically contraindicated at this time without the asist of a device and/or another person due th the listed conditions above and below. Reason homebound: shortness of breath with minimal effort Certification: Based on the above findings, I certify that this patient is confined to the home and needs intermittent residential care, physical therapy and/or speech therapy, or continues to need occupational therapy. The patient is under my care, and I have initiated the establishment of the plan of care. The patient will be followed by a physician who will periodically review the plan of care. Time Spent With Patient Time: Total time managing care of this patient today ____ minutes.
--- NOTE | 2023-08-22 12:26 | P.DS_ITS ---
DS: Providers Provider Date of Service: 08/22/23 Date of admission: 08/19/23 18:29 Date of discharge: 08/22/23 Primary care physician: Alexia Hutton MD DS: Diagnosis Discharge Diagnosis (1) Acute exacerbation of chronic obstructive airways disease: Status: Acute (2) Acute hypoxic respiratory failure: Status: Acute (3) Tobacco abuse: Status: Acute DS: Summary Hospital Course Hospital Course: From the history and physical by the admitting hospitalist, Jeffy Jang, 08/19/23: 62-year-old female with past medical history significant for chronic pain syndr ome on Suboxone, depression, PTSD, tobacco use disorder, history of COPD not on home oxygen presented to emergency room via EMS due to symptoms of shortness of breath with exertion and cough productive of clear phlegm symptoms going on for several weeks but for last few days noticed intermittent chills, generalized body ache, patient denies sick contacts, no recent travel, no PND, no orthopnea , chronic smoker gradually weaning currently smoking 3-5 cigarettes for last couple years has chronic raspy voice, feels related to smoking, in the ED noted to have tachypnea, tachycardia, hypoxia finger oximetry 85% on room air, CTA chest showed no PE but diffuse centrilobular emphysema, no suspicious pulmonary nodule, superior endplate compression deformities of T6 and T8, patient denied worsening back pain, in ED treated with DuoNeb, IV magnesium continue to be hypoxic with persistent expiratory wheeze therefore being admitted for continued treatment and monitoring of acute hypoxic respiratory failure due to COPD exacerbation. 62yo F with chronic pain, depression, PTSD, tobacco abuse, and OUD on Suboxone presenting with dyspnea + productive cough, and admitted to the medical-surgical unit for AHRF due to COPD exacerbation. She was treated with methylprednisolone and doxycycline along with nebulized bronchodilators. Oxygen was weaned but she qualified for 2L O2 with ambulation upon discharge. She was sent home with prednisone + doxycycline for 2 days, and started on Anoro as a controller inhaler. She was also referred to [facility]. Smoking cessation was counseled and nicotine patch prescribed. Time Attestation Discharge Coordination Time (in mins): 40 Quality: Safe Use of Opioids Does Pt have an Active Cancer Diagnosis on the Problem List?: No Quality: Stroke Does the patient have a stroke diagnosis?: No Physical Exam Vital Signs: Vital Signs: Last Vital Signs Temp 97.2 F 08/22/23 07:56 Pulse 85 08/22/23 07:56 Resp 18 08/22/23 07:56 BP 144/68 H 08/22/23 09:23 Pulse Ox 91 L 08/22/23 07:56 O2 Del Method T-Piece 08/22/23 09:23 O2 Flow Rate 2 08/22/23 07:56 BMI result Body Mass Index 26.4 Gen: in no acute distress HEENT: sclera anicteric, moist mucus membranes Neck: supple Lungs: diminished Heart: regular rate and rhythm, no murmurs Abd: soft, non-tender, non-distended Ext: no edema Skin: warm/well-perfused Neuro: alert and oriented x3, no focal findings Psych: appropriate affect DS: Data Data Completed and Pending Completed studies during hospitalization [Text1]: Laboratory Results WBC 8.1 X10*3/uL (4.8-10.8) 08/19/23 13:29 RBC 4.45 X10*6/uL (4.20-5.50) 08/19/23 13:29 Hgb 12.9 g/dl (12.0-16.0) 08/19/23 13:29 Hct 38.8 % (37.0-47.0) 08/19/23 13:29 MCV 87.2 fL (80.0-98.0) 08/19/23 13:29 MCH 29.0 pg (27.0-33.0) 08/19/23 13:29 MCHC 33.2 g/dl (31.0-35.0) 08/19/23 13:29 RDW 13.7 % (11.0-16.0) 08/19/23 13:29 Plt Count 306 X10*3/uL (160-400) 08/19/23 13:29 MPV 9.4 fL (9.4-12.3) 08/19/23 13:29 Immature Gran % (Auto) 0.1 % (0.0-0.4) 08/19/23 13:29 Neut % (Auto) 64.4 % (45-73) 08/19/23 13:29 Lymph % (Auto) 30.2 % (20-40) 08/19/23 13:29 [place] % (Auto) 4.0 % (2-11) 08/19/23 13:29 Eos % (Auto) 0.7 % (0-4) 08/19/23 13:29 Baso % (Auto) 0.6 % (0-2) 08/19/23 13:29 Lymph # (Auto) 2.4 X10*3/uL (1.2-4.9) 08/19/23 13:29 [place] # (Auto) 0.3 X10*3/uL (0.1-1.2) 08/19/23 13:29 Eos # (Auto) 0.1 X10*3/uL (0.0-0.4) 08/19/23 13:29 Baso # (Auto) 0.1 X10*3/uL (0.0-0.2) 08/19/23 13:29 Abs Immat Gran (auto) 0.01 X10*3/uL (0.00-0.03) 08/19/23 13:29 Absolute Neuts (auto) 5.2 x10*3/uL (2.0-8.3) 08/19/23 13:29 Absolute Nucleated RBC 0.000 X10*3/uL (0.0-0.012) 08/19/23 13:29 Nucleated RBC % (auto) 0.0 /100WBC (0.0-0.2) 08/19/23 13:29 PT 11.6 SEC (11.1-13.3) 08/19/23 13:28 INR 1.0 (0.9-1.1) 08/19/23 13:28 D-Dimer High Sensitivty 266 NG/ML 08/19/23 13:28 Sodium 139 mmol/L (135-145) 08/19/23 13:29 Potassium 3.7 mmol/L (3.3-5.1) 08/19/23 13:29 Chloride 106 mmol/L (96-108) 08/19/23 13:29 Carbon Dioxide 21 mmol/L (22-29) L 08/19/23 13:29 Anion Gap 16 (12-20) 08/19/23 13:29 BUN 8 mg/dL (9-16) L 08/19/23 13:29 Creatinine 0.66 mg/dL (0.5-1.4) 08/19/23 13:29 Estim Creat Clear Calc 75.1 08/19/23 13:29 Estimated GFR > 60 08/19/23 13:29 Random Glucose 115 mg/dL (60-115) 08/19/23 13:29 Calcium 9.4 mg/dL (8.4-10.2) 08/19/23 13:29 Magnesium 2.0 mg/dL (1.6-2.6) 08/19/23 13:29 Total Bilirubin 0.3 mg/dL (0.0-1.0) 08/19/23 13:29 Direct Bilirubin 0.1 mg/dL (0.0-0.5) 08/19/23 13:29 AST 16 U/L (5-31) 08/19/23 13:29 ALT 10 U/L (0-31) 08/19/23 13:29 Alkaline Phosphatase 100 U/L (39-117) 08/19/23 13:29 Troponin I High Sens 15.5 ng/L (<3.5-17.0) 08/19/23 16:35 B-Natriuretic Peptide 24 pg/mL (<100) 08/19/23 13:28 Total Protein 7.4 g/dL (6.5-8.0) 08/19/23 13:29 Albumin 4.1 g/dL (3.5-5.0) 08/19/23 13:29 Influenza Type A (PCR) NEGATIVE (Negative) 08/19/23 12:50 Influenza Type B (PCR) NEGATIVE (Negative) 08/19/23 12:50 RSV RNA Qual (PCR) NEGATIVE (Negative) 08/19/23 12:50 SARS-CoV-2 RNA (RT-PCR) NEGATIVE (Negative) 08/19/23 12:50 Impressions Chest X-Ray 08/19/23 13:30 IMPRESSION: * Hyperinflated lungs suggesting air trapping disease COPD. * Small nodular opacity projecting over the right upper lung zone could be a lung nodule versus pleural plaque versus summation of shadows. This will be further evaluated, Patient is scheduled for CT chest same day. Chest CTA 08/19/23 14:56 IMPRESSION: 1. No central pulmonary emboli. 2. Diffuse centrilobular emphysema. No suspicious pulmonary nodule to correspond with chest radiograph findings from same date. 3. Superior endplate compression deformities of T6 and T8, age indeterminate. VTE: negative. Discharge Plan Discharge Anticipated Discharge Date/Time: 08/22/23 12:19 Patient Disposition: Home Health Service Discharge Diagnosis: hypoxia COPD tobacco abuse Referrals: Violeta Downey [Outside] - 1 Week Alexia Hutton MD [Primary Care Provider] - 1 Week Micky Feliciano MD [Physician] - 2 Weeks Discharge Medications: New nicotine 14 mg/24 hr Patch 24 Hour 14 mg transdermal DAILY Qty: 30 2RF prednisone 20 mg tablet 40 mg PO DAILY Qty: 4 0RF doxycycline monohydrate 100 mg tablet 100 mg PO BID Qty: 4 0RF Anoro Ellipta 62.5-25 mcg/actuation blister with device 1 inh inhalation DAILY Qty: 60 0RF Continued buspirone 5 mg tablet 5 mg PO TID lorazepam 0.5 mg tablet 0.5 mg PO DAILY PRN (Reason: Shortness Of Breath Or Wheezing) gabapentin 100 mg capsule 100 mg PO TID buprenorphine-naloxone 4-1 mg film 0.5 film sublingual QID acetaminophen [Tylenol] 325 mg Tablet 650 mg PO Q6H PRN (Reason: Pain) diclofenac sodium 1 % gel 2 g topical QID PRN (Reason: Pain) Rx Instructions: apply to single elbow, wrist or hand; for hand includes palm/fingers/back of hand albuterol sulfate [Ventolin HFA] 90 mcg/actuation HFA aerosol inhaler 2 puff INHALATION Q4H PRN (Reason: Shortness Of Breath Or Wheezing) Qty: 8.5 0RF Discharge Orders: Discharge Order (Routine); Ordered 08/22/23 Ordered By: Nancy Alberto Diet: Advance to usual diet Activity on Discharge: As tolerated Stand Alone Forms: Patient Portal Discharge page Print Language: Sinhala Care Plan Goals: respiratory health Health Concerns: hypoxia COPD tobacco abuse Plan of Treatment: prednisone 40 mg daily for 2 days plus doxycycline 100 mg twice daily for 2 days start Anoro as controller inhaler [use every day]; use albuterol for rescue 2L oxygen with ambulation/activity quit smoking; use nicotine patch to help referral to substance abuse clinician Dr Feliciano Please follow up with your primary care doctor within 1 week. Return to the hospital if you experience recurrent or worsening symptoms. Assessment: See Discharge Summary.
--- NOTE | 2023-08-22 12:43 | MHC.CM.PN ---
Pt is medically cleared for discharge home with [facility], pts son will transport her home.
== END 2023-08-22 14:16 | disposition home health service (06) | DRG 190 ==
LOC: HO.ED 14:23 → HO.EDOVER 18:29 → HO.S3 08-20 05:21
PROVIDERS: Physician Assistant; Admitting Provider Hospitalist; Emergency Provider Emergency Medicine; PCP General Practice; Visit Provider Family Medicine
DX: J44.1 Chronic obstructive pulmonary disease with (acute) exacerbation (principal); J96.01 Acute respiratory failure with hypoxia; F11.20 Opioid dependence, uncomplicated; F43.10 Post-traumatic stress disorder, unspecified; G89.4 Chronic pain syndrome; F17.210 Nicotine dependence, cigarettes, uncomplicated; Z71.6 Tobacco abuse counseling; Z20.822 Contact with and (suspected) exposure to COVID-19; Z79.899 Other long term (current) drug therapy
CPT/HCPCS: 0241U; 36415; 71046; 71275; 80048; 80076; 83735; 83880; 84484; 85025; 85379; 85610; 93005; 94640; 97161; 99285; J1650; J2919; J3475; Q9967

== ENCOUNTER → 2023-08-19 12:43 | Outpatient (BNV) | payer OTHER, SELFPAY | PROVIDERS: Admitting Provider Hospitalist; Emergency Provider Emergency Medicine; PCP General Practice; Visit Provider Internal Medicine | DX: R06.02 Shortness of breath (principal); R94.31 Abnormal electrocardiogram [ECG] [EKG] | CPT/HCPCS: 93010 ==

== ENCOUNTER → 2023-08-19 18:29 | Outpatient (BNV) | payer OTHER, SELFPAY | PROVIDERS: Admitting Provider Hospitalist; Emergency Provider Emergency Medicine; Visit Provider Hospitalist | DX: J44.1 Chronic obstructive pulmonary disease with (acute) exacerbation (principal); J96.01 Acute respiratory failure with hypoxia; I50.9 Heart failure, unspecified; Z72.0 Tobacco use | CPT/HCPCS: 99223; 99232; 99239; G0180 ==

== ENCOUNTER 2024-06-25 15:06 | Outpatient (REF) | payer OTHER, SELFPAY ==
--- NOTE | ~2024-06-25 | US_ITS ---
CLINICAL HISTORY: MASS LT SIDE OF NECK --- Additional Notes or Special Instructions: HYPERPIGMENTED M ASS OF LEFT NECK Ultrasound soft tissue left neck Comparison: None Findings: No significant abnormality identified. Subcentimeter incidental benign lymph nodes noted. Impression: No significant abnormality This document has been electronically signed by: David Robbins MD on 06/25/2024 18:23:23
--- OUTSIDE RECORDS SUMMARY | 2024-06-25 16:07 | XMS_ITS | Encounter Summary ---
Author Organization [employer] Address [address] [facility] [address] [place] [address] Care Team Providers Care Long Distance Operator Name Role Phone Alexia Hutton MD Primary Care Provider Reason for Visit * Reason Onset Date Comments Appointment Request 05/01/2023 Encounter Details Date Type Department Care Team (Late st Contact Info) Description 05/01/2023 Telephone [facility] [address] [place], [place] [phone] Alexia Hutton MD [address] [place], [place] [phone] Appointment Request Social History Tobacco Use Types Packs/Day Years Used Date Smoking Tobacco: Every Day Cigarettes Smokeless Tobacco: Never Depression Answer Date Recorded Patient Health Questionnaire-9 Score 0 02/09/2022 Housing Stability Answer Date Recorded What is your housing situation today? I have nicolasasharda juarez 12/04/[address] you li ve. Do you have problems with any of the following? None of the above 12/04/2022 Food Insecurity Answer Date Recorded Within the past 12 months, y ou worried that your food would run out before you got money to buy more: Never True 12/04/2022 Within the past 12 months,th e food you bought just didn't last and you didn't have enough money to get more: Never True Transportation Answer Date Recorded In the past 12 months, has l ack of transportation kept you from medical appts, meetings, work or from getting things needed for daily living? No 12/04/2022 Utilities Answer Date Recorded In the past 12 months, has t he electric, gas, oil or water company threatened to shut off services in your home? 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 MED[facility]INE [address] [place] [id number] Alexia Hutton MD [address] [place] [phone] 08/11/2024 2:00 PM EDT Telemedicine [address] [phone] Siobhan Ulloa RN documented as of this encounter Visit Diagnoses Not on filedocumented in this encounter Additional Health Concerns Assessment Noted Time PHQ-9 Depression Total Score: 0 02/10/20 22 9:09 AM EST documented as of this encounter Care Teams Long Distance Operator Relationship Specialty Start Date End Date Alexia Hutton MD [address] [place] [phone] PCP - General Family Medicine 11/23/22 Violeta Downey 08/25/23 documented as of this encounter
--- OUTSIDE RECORDS SUMMARY | 2024-06-25 16:07 | XMS_ITS | Encounter Summary ---
Author Organization [employer] Address [address] [facility] [address] [place] [address] Care Team Providers Care White Washer Piler Name Role Phone Alexia Hutton MD Primary Care Provider [phone] Encounter Details Date Type Department Care Team (Late st Contact Info) Description 09/11/2023 Orders Only [facility] [address] [place], [place] [phone] Raffaele Arechiga MD [address] [place], [place] [phone] Social History Tobacco Use Types Packs/Day Years Used Date Smoking Tobacco: Every Day Cigarettes Smokeless Tobacco: Never Comments:Starting nicotine p atches as of last night Alcohol Use Standard Drinks/Week Comments Never 0 (1 standard drink = 0.6 oz pur e alcohol) Alcohol Answer Date Recorded Frequency of Alcohol Consumption Not on file 05/23/2023 Average Number of Drinks Not on file 024 Frequency of Binge Drinking Not on file 04/2023 Score 0 05/23/2023 Depression Answer Date Recorded Patient Health Questionnaire-9 Score 0 05/23/2023 Patient Health Questionnaire-9 Score 0 05/23/2023 Last PHQ-9: Questionnaire Data Not on file 0 05/23/2023 Housing Stability Answer Date Recorded What is your housing situation today? I have nicolasa juarez 05/15/[address] you li ve. Do you have problems with any of the following? None of the above 05/15/2023 Food Insecurity Answer Date Recorded Within the past 12 months, y ou worried that your food would run out before you got money to buy more: Never True 05/15/2023 Within the past 12 months,th e food you bought just didn't last and you didn't have enough money to get more: Never True Transportation Answer Date Recorded In the past 12 months, has l ack of transportation kept you from medical appts, meetings, work or from getting things needed for daily living? Yes, it has kept me from medical appointments or getting medications. 05/23/2023 Utilities Answer Date Recorded In the past 12 months, has t he electric, gas, oil or water company threatened to shut off services in your home? No 05/15/2023 Depression Answer Date Recorded Patient Health Questionnaire-2 Score 0 05/23/2023 Comments No Sex and Gender Information Value Date Recorded Sex Assigned at Female 12/19/2021 10:39 AM EDT Legal Sex Female 10:39 AM EDT Gender Identity Female 12/19/2021 10:39 AM EDT Sexual Orientation Don't know 12/19/2021 10 :39 AM EDT documented as of this encounter Plan of Treatment Upcoming Encounters Date Type Department Care Team (Late st Contact Info) Description 07/21/2024 2:00 PM EDT Office Visit [facility] [address] [place] [phone] Alexia Hutton MD [address] [place] [phone] 08/11/2024 2:00 PM EDT Telemedicine [facility] [address] [place] [phone] Siobhan Ulloa RN documented as of this encounter Visit Diagnoses Not on filedocumented in this encounter Additional Health Concerns Assessment Noted Time PHQ-9 Depression Total Score: 0 05/23/19 24 11:17 AM EDT documented as of this encounter Care Teams White Washer Piler Relationship Specialty Start Date End Date Alexia Hutton MD [address] [place] [phone] PCP - General Family Medicine 11/23/22 Violeta Downey 08/25/23 documented as of this encounter
--- OUTSIDE RECORDS SUMMARY | 2024-06-25 16:07 | XMS_ITS | Clinical Summary ---
Author Organization [employer] Address [address] [facility] [address] [place] [address] Care Team Providers Care [employer] Engineer Sergeant Name Role Phone Alexia Hutton MD Primary Care Provider [phone] Allergies No known active allergies Medications busPIRone (Buspar) 5 MG tablet Take 1 tablet by mouth every 8 (eight) hours. 022 Active Calcium Carb-Cholecalcif carmine (Calcium 600+D) 600-20 MG-MCG tabletIndication s:Age-related osteoporosis without current pathological fracture Take 2 tablets by mouth in the morning. 180 tablet 1 023 Active albuterol (Ventolin HFA) 108 (90 Base) MCG/ACT inhaler INHALE 2 PUFFS EVERY 4 HOURS NEEDED FOR WHEEZING OR SHORTNESS OF BREATH 18 g 11 023 Active amLODIPine (Norvasc) 5 MG tabletIndication s:Primary hypertension TAKE 1 TABLET BY MOUTH EVERY MORNING 90 tablet 3 024 Active Anoro Ellipta 62.5-25 MCG/ACT aerosol powder Inhale 1 puff Once per day. 1 each 11 024 Active Misc. Devices (Pulse Oximeter) misc 1 each Once per day. 1 each 024 Active Diclofenac Sodium 1 % gel APPLY 2 GRAMS TOPICALLY TO AFFECTED AREA(S) FOUR TIMES DAILY 100 g 3 024 Active gabapentin (Neurontin) 100 MG capsuleIndicatio ns:Chronic midline low back pain with bilateral sciatica TAKE 1 CAPSULE BY MOUTH THREE TIMES DAILY 90 capsule 3 025 Active azithromycin (Zithromax) 250 MG tabletIndication s:Chronic obstructive pulmonary disease with (acute) exacerbation (CMS/HCC) TAKE 1 TABLET (250 MG) BY ORAL ROUTE ONCE DAILY FOR 4 DAYS 025 Active doxycycline (Adoxa) 100 MG tabletIndication s:Chronic obstructive pulmonary disease with (acute) exacerbation (CMS/HCC) Take 1 tablet by mouth 2 times daily. Active calcitonin, salmon, (Miacalcin) 200 UNIT/ACT nasal sprayIndications :Tobacco dependence syndrome Administer 1 spray into one nostril Once per day. 3.7 mL 2 025 2025 Active ipratropium-albu terol (Duo-Neb) 0.5-2.5 mg/3 mL nebulizer solutionIndicati ons:Chronic obstructive pulmonary disease with (acute) exacerbation (CMS/HCC) Take 3 mL by nebulization if needed in the morning, at noon, and at bedtime for wheezing or shortness of breath. 180 mL 3 025 Active buprenorphine-na loxone (Suboxone) 4-1 MG per sublingual filmIndications: Opioid dependence, uncomplicated (CMS/HCC) Place 1 Film under the tongue 2 times daily. 56 Film 1 025 2024 Active nicotine (Nicoderm, Step 2) 14 MG/24HR patch Place 1 patch on the skin 1 (one) time each day at the same time. 30 patch 3 025 Active LORazepam (Ativan) 0.5 MG tablet 0.5 mg. Active nicotine (Nicoderm, Step 2) 14 MG/24HR patch APPLY 1 PATCH TOPICALLY TO THE SKIN IN THE MORNING *DO NOT SMOKE WHILE USING PATCH* 30 patch 1 024 2024 Discontinued(R eorder (will not trigger notification to Pharmacy)) buprenorphine-na loxone (Suboxone) 4-1 MG per sublingual filmIndications: Opioid dependence, uncomplicated (CMS/HCC) Place 1 Film under the tongue 2 times daily. 56 Film 1 025 2024 Discontinued(R eorder (will not trigger notification to Pharmacy)) Active Problems Problem Noted Date Diagnosed Date Stress incontinence of urine 06/04/2024 Assessment & Plan (06/04/2024 1:18 PM EDT): Patient needs urinary incontinence supplies for hygeine Compression fracture of T8 vertebra with routine healing 05/09/2024 Assessment & Plan (05/09/2024 12:07 PM EDT): Seen on CTPA 07/2023 With pain and R sided muscle spasm at this location Trial calcitonin intranasal spray x 3 months Auricular acupuncture performed in clinic today for 15 minutes to aid in pain relief as well Hospital discharge follow-up 10/24/2023 Mass of left side of neck 10/24/2023 Unspecified mood (affective) disorder 08/22/2023 Chronic obstructive pulmonar y disease with (acute) exacerbation 08/22/2023 Assessment & Plan (05/09/2024 12:10 PM EDT): Duoneb vials ordered Prednisone 40mg daily x 5 days Continue supplemental O2 at 2L as needed Stat referral placed to pulm as patient was supposed to see them starting last August 2023 and needs more advanced care for her COPD Depression, unspecified depression type 08/20/19 24 Intrinsic atopic dermatitis 11/23/2022 Assessment & Plan (11/23/2022 12:54 PM EDT): DDx: eczema, psoriasis, contact derm Will refer to Derm for biopsy and further eval Rx Triamcinolone cream to see if it improves rash Gave handout on how to mix cream with cerave and make magic fluff F/u PRN Chronic low back pain 01/28/2022 Overview (11/23/2022): Had acute thoracic midback pain onset 10/31/22 INSTED emergency services came to home. Assessed. Diagnosed with pinched nerve Pain slowly improving. Continued L upper neck/shoulder numbness/cramping and weakness. Affecting L arm. L shoulder has chronic muscle spasms Has chronic lumbar pain. Appt Neurosurgery 11/21/22 Assessment & Plan (10/24/2023 4:34 PM EDT): She is currently having flare of pain, would like to do home physical therapy Will generate script for home PT to [facility] once a week Assessment & Plan (11/23/2022 12:53 PM EDT): Hx of back surgery Upcoming Neurosurgery appt Encouraged pt to discuss back pain with specialist F/u PRN Neck pain 01/28/2022 Opioid dependence, uncomplicated 01/28/2022 Tobacco dependence syndrome 01/28/2022 Assessment & Plan (05/09/2024 12:08 PM EDT): Quit smoking August 2023! Assessment & Plan (11/23/2022 12:50 PM EDT): Declines smoking cessation aids today Plans to continue cutting back on cig use F/u PRN History of operative procedu re on lumbosacral spinal structure 01/28/2022 Assessment & Plan (05/23/2023 1:08 PM EDT): Most recent surgery with Dr Veloz at [facility], hardware replaced History of bilateral tubal ligation 01/28/2022 Gallstone 01/28/2022 Depressive disorder 04/24/2021 Fibroadenoma of breast 10/10/2016 Left leg weakness 10/10/2016 Pulmonary emphysema 10/10/2016 Assessment & Plan (05/23/2023 1:10 PM EDT): Trying to quit Uses HARRY prn Atypical squamous cells of u ndetermined significance (ASCUS) on Papanicolaou smear of cervix 10/02/2016 Posttraumatic stress disorder 02/22/2016 Kyphosis deformity of spine 05/20/2015 Greater trochanteric bursitis 07/14/2014 Iliotibial band syndrome 07/14/2014 Cyst of ovary 11/10/2013 Agoraphobia with panic attacks 08/21/2013 Overview (11/23/2022): Worsening Pt has agoraphobia, difficulty keeping appt Lost 2 dogs this year Sick with COVID for months Assessment & Plan (11/23/2022 12:51 PM EDT): Continue meeting with psych provider Continue lorazepam 1 mg prior to medical appt F/u PRN Vitamin D deficiency 08/21/2013 Overweight 05/30/2013 Encounters Date Type Department Care Team Description 06/17/[address] [phone] Alexia Hutton MD Appointment Request; Nurse Triage 06/16/2024 2:00 PM EDT Office Visit [address] [address] Raffaele Arechiga MD Uncomplicated opioid dependence (CMS/HCC) (Primary Dx) 06/16/2024 Travel 06/02/[address] [address] Siobhan Ulloa, ERICA Opioid dependence, uncomplicated (CMS/HCC) 05/26/[address] [address] Alexia Hutton MD Durable Medical Equipment 05/19/[address] [address] Katlyn Mcleod, RN OBAT Communication 05/09/2024 11:15 AM EDT Office Visit [address] [address] Alexia Hutton MD Chronic obstructive pulmonary disease with (acute) exacerbation (CMS/HCC) (Primary Dx); Dietary counseling; Exercise counseling; Overweight; Pulmonary emphysema, unspecified emphysema type (CMS/HCC); Unspecified mood (affective) disorder (CMS/HCC); Agoraphobia with panic attacks; Compression fracture of T8 vertebra with routine healing; Tobacco dependence syndrome; Transportation insecurity; Neck pain; Stress incontinence of urine 05/09/2024 Travel 05/08/[address] [address] Alexia Hutton MD [facility] (Brief, prevail nufit max, underpad, bladder control) 05/06/[address] [address] Alexia Hutton MD Nurse Triage 04/28/[address] [address] Alexia Hutton MD Appointment Request 04/25/[address] [address] Alexia Hutton MD Chronic midline low back pain with bilateral sciatica 04/23/[address] [address] Alexia Hutton MD Medication Question 04/21/2024 2:00 PM EST Telemedicine [address] [address] Cookie Rodriguez RN Uncomplicated opioid dependence (CMS/HCC) (Primary Dx) 04/21/2024 Travel 04/18/2024 Telephone [facility] [address] [place] [phone] Meagan Diaz RN 04/18/[address] [phone] Siobhan Ulloa RN MEDICATION (Incoming call received from pt requesting to speak with Siobhan Ulloa, regarding not receiving her full script as she normally does. Pharmacy advised pt that the only reason she did not receive the full script was due to an appt she has coming up on 04/21/24. Pt would like clarification as this is the first time this has happened. Front Line Leader advised pt that Siobhan is off today, but a message will be sent to Cookie Rodriguez who pt is scheduled to meet with on Sunday, and Cookie will contact pt at [phone].) 04/11/2024 Refill [facility] [address] [place] [address] [phone] Raffaele Arechiga MD Opioid dependence, uncomplicated (CMS/HCC) 04/10/[address] [phone] Siobhan Ulloa RN Opioid dependence, uncomplicated (CMS/HCC) from Last 3 Months Immunizations Name Administration Dates Next Due Influenza injectable quadrivalent preservative f ree 11/29/2021 Pfizer Covid-19 Vaccine 12+ Bivalent 06/19/2022 Pneumococcal Conjugate PCV 20 05/23/2023 Tdap 05/23/2023,09/25/2011 Family History Medical History Relation Name Comments Heart disease Father Pancreatic cancer Mother Pernicious anemia Mother Cervical cancer Sister Relation Name Status Comments Father Mother Sister Social History Tobacco Use Types Packs/Day Years Used Date Smoking Tobacco: Former Cigarettes Smokeless Tobacco: Never Tobacco Cessation:Counseling Given: Not Answered Comments:Using nicotine patches Alcohol Use Standard Drinks/Week Comments Never 0 (1 standard drink = 0.6 oz pur e alcohol) Alcohol Answer Date Recorded How often do you have a drink containing alcohol ? 1 06/04/2024 How many drinks containing a lcohol do you have on a typical day when you are drinking? 0 06/04/2024 How often do you have six or more drinks on one occasion? 0 06/04/2024 Depression Answer Date Recorded Patient Health Questionnaire-9 Score 0 05/23/2023 Patient Health Questionnaire-9 Score 0 05/23/2023 Last PHQ-9: Questionnaire Data Not on file 0 05/23/2023 Housing Stability Answer Date Recorded What is your housing situation today? I have nicolasa juarez 06/04/[address] you li ve. Do you have problems with any of the following? Not on file 06/04/2024 Food Insecurity Answer Date Recorded Within the past 12 months, y ou worried that your food would run out before you got money to buy more: Never True 06/04/2024 Within the past 12 months,th e food you bought just didn't last and you didn't have enough money to get more: Never True Transportation Answer Date Recorded In the past 12 months, has l ack of transportation kept you from medical appts, meetings, work or from getting things needed for daily living? Yes, it has kept me from medical appointments or getting medications. 06/04/2024 Intimate Partner Violence Answer Date R ecorded Within the last year, have y ou been afraid of your partner or ex-partner? 2 06/04/2024 Within the last year, have y ou been humiliated or emotionally abused in other ways by your partner or ex-partner? 2 Within the last year, have y ou been kicked, hit, slapped, or otherwise physically hurt by your partner or ex-partner? 2 06/04/2024 Within the last year, have y ou been raped or forced to have any kind of sexual activity by your partner or ex-partner? 2 06/04/2024 Utilities Answer Date Recorded In the past 12 months, has t he electric, gas, oil or water company threatened to shut off services in your home? No 06/04/2024 Depression Answer Date Recorded Patient Health Questionnaire-2 Score 0 06/04/2024 Internet Access Answer Date Recorded Internet Access Q1 I am not sure 06/04/2024 Internet Access Q2 Not on file 06/04/2024 Comments No Sex and Gender Information Value Date Recorded Sex Assigned at Female 12/19/2021 10:39 AM EDT Legal Sex Female 10:39 AM EDT Gender Identity Female 12/19/2021 10:39 AM EDT Sexual Orientation Don't know 12/19/2021 10 :39 AM EDT Last Filed Vital Signs Vital Sign Reading Time Taken Comments Blood Pressure 141/80 05/09/2024 10:53 AM EDT Pulse 76 05/09/2024 10:53 AM EDT Temperature 36.6 ??C (97.9 ??F) 05/09/2024 10:53 AM E DT Respiratory Rate 16 05/09/2024 10:53 AM EDT Oxygen Saturation 92% 10/19/2023 1:09 PM EDT Inhaled Oxygen Concentration - - Weight 63 kg (139 lb) 05/09/2024 10:53 AM EDT Height 152.4 cm (5') 05/09/2024 10:53 AM EDT Body Mass Index 27.15 05/09/2024 10:53 AM EDT Plan of Treatment Upcoming Encounters Date Type Department Care Team (Late st Contact Info) Description 07/21/2024 2:00 PM EDT Office Visit [facility] [address] [place] [phone] Alexia Hutton MD [address] [place] [phone] 08/11/2024 2:00 PM EDT Telemedicine [facility] [address] [place] [phone] Siobhan Ulloa, ERICA Health Maintenance Due Date Last Done Comments CT Colonography 1960 Colonoscopy 1960 FIT DNA/Cologuard 1960 FIT 1960 FOBT 1960 Sigmoidoscopy 1960 Zoster Vaccines (1 of 2) 2010 RSV Patients and Patients Aged 60 years or older (1 - Risk 60-74 years 1-dose series) 2020 COVID-19 Vaccine (4 - 2023-2 5 season) 2023 06/19/2022, 03/31/2021, 02/28/2021 Influenza Vaccine (#1) 2023 11/29/2021 SDOH Screening 05/22/2024 05/23/2023 Mammogram 10/17/2024 10/17/2022, 10/17/2022 Alcohol/Substance Use Screening 06/04/2025 06/04/2024 Colorectal Cancer Screening 06/04/2025 Postponed from 1960 (Patient Refused) Depression Screening 06/04/2025 06/04/2024, 05/23/2023 Tobacco Screening 06/16/2025 06/16/2024 Pap Smear 09/18/2025 09/18/2022 Cervical Cancer Screening 09/19/2027 HPV/Cotest 09/19/2027 09/18/2022 DTaP/Tdap/Td Vaccines (3 - T d or Tdap) 05/22/2033 05/23/2023, 09/25/2011 HIV Screening Completed 05/03/2021 Hepatitis C Screening Completed 05/03/2021 Pneumococcal Vaccine: 50+ Years Completed 05/23/2023 HIB Vaccines Aged Out No longer eligi ble based on patient's age to complete this topic HPV Vaccines Aged Out No longer eligi ble based on patient's age to complete this topic Hepatitis A Vaccines Aged Out No long er eligible based on patient's age to complete this topic Hepatitis B Vaccines Aged Out No long er eligible based on patient's age to complete this topic IPV Vaccines Aged Out No longer eligi ble based on patient's age to complete this topic Meningococcal Vaccine Aged Out No raf perlita eligible based on patient's age to complete this topic RSV under 20 months Aged Out No longe r eligible based on patient's age to complete this topic Rotavirus Vaccines Aged Out No longer eligible based on patient's age to complete this topic Procedures Procedure Name Priority Date/Time Associated Diagnosis Comments POCT ANGELA-14 URINE DRUG SCREEN Routine 06/16/2024 1:43 PM EDT Uncomplicated opioid dependence (CMS/HCC) HM MAMMOGRAPHY Routine 10/17/2022 11:38 AM EDT HPV MRNA E6/E7 REFLEX TO HPV 16, 18/45 Routine 09/18/2022 12:02 PM EDT PAP SMEAR Routine 09/18/2022 12:02 PM EDT ZZZ HISTORICAL HEPATITIS C AB W/REFL TO HCV RNA, QN, PCR Routine 05/03/2021 3:01 PM EDT HIV 1/2 ANTIGEN/ANTIBODY, FOURTH GENERATION W/RFL Routine 05/03/2021 3:01 PM EDT from Last 3 Months or Most Recently Relevant to Health Maintenance Results * POCT ANGELA-14 Urine Drug Screen (06/16/2024 1:43 PM EDT) THC Negative Cocaine Screen, Urine Negative Opiate Screen, Urine Negative Methamphetamine Screen Urine Negative Amphetamine Screen, Urine Negative Benzodiazepines Screen, Urine Positive Barbiturate Screen, Urine Negative Methadone Screen, Urine Negative Buprenophine Screen, Urine Positive TCA, Urine Negative MDMA Urine Negative ng/mL Oxycodone Screen, Urine Negative Phencyclidine (PCP), Urine Negative Fentanyl, Urine Negative Urine Urine specimen obtained by clean catch procedure / Unknown 06/16/2024 1:43 PM EDT Raffaele Arechiga MD POINT OF CARE TEST ENTER/EDIT OR DERABLES Final Result * Mammography (10/17/2022 11:38 AM EDT) Mammogram birads 1 Anatomical Region Laterality Modality Other Shorty Peres [facility] Final Result * HPV mRNA E6/E7 w/Reflex to HPV Genotypes 16, 18/45 (09/18/2022 12:02 PM EDT) HPV nRNA E6/E7 Not Detected Not Detected [facility] Comment:Methodology: Transcr iption-Mediated AmplificationThis assay detects E6/E7 viral messenger RNA (mRNA) from 14high-risk HPV types (16,18,31,33,35,39,45,51,52,56,58,59,66,68).Cervical sources are required for HPV testing.If a vaginal source from a patient who has had atotal hysterectomy with removal of cervix wassubmitted, please contact the testing laboratoryfor alternative testing options.For additional information, please refer tohttp://education.My Fashion Database/faq/PPW090r6(This link if provided for information/educational purposes only.)THIS TEST WAS PERFORMED AT:[facility] [place] [phone] BRIZUELA MD HPV mRNA E6/E7 [facility] HPV 16 RNA [facility] HPV 18/45 RNA [facility] 09/18/2022 12:0 2 PM EDT 09/19/2022 9:15 AM EDT us Shorty Peres [facility]TOLOG[facility] ORDERABLES F inal Result [facility] [address] [place] [address] [phone] * Pap Smear (09/18/2022 12:02 PM EDT) 09/18/2022 12:0 2 PM EDT 09/19/2022 9:15 AM EDT Narrative [facility] - 09/29/2022 3:22 PM EDT ----- ------- Name: Trini Norwood ?Age/Sex: 61/F ? : 1960 Unit#: [id number] ?? Attend Dr: SHORTY PERES CNM ?Re09/18/22 ?Status: DEP REF ? Location: HO.HHCLNP ? Disch: ? ----- ------- SPEC : [id number] ?RECD: 09/19/22 ? STATUS: ??SOUT ? REQ NUM: [id number] ? SILVANA: 09/18/22-1202 ? SUBM DR: SHORTY PERES CNM ? ENTERED: ??09/20/22 ?SP TYPE: Pap Smr ?OTHR DR: ? ORDERED: ??Pap Smear, PAP path review ? Interpretation ?? General Category: ? Negative for intraepithelial lesion/malignancy. ?? Adequacy: ? Endocervical component present. ?? Interpretation: ? Reactive cellular changes. ?Atrophy ? HPV mRNA E6/E7: ?Not Detected ? This assay detects E6/E7 viral messenger RNA (mRNA) from 14 high-risk HPV types (16, 18, ?? 31, 33, 35, 39, 45, 51, 52, 56, 58, 59, 66, 68) ? HPV testing performed by [employer], [place], [place]. ??See reference laboratory ?? portion of the EMR for entire report. ?Clinical Information LMP: Postmenopausal Previous PAP test: 10 y ago, Unknown findings Other history: History of dysplasia 30+ years ago ? Material Received ?? ThinPrep-Vaginal/Cervical ----- ------- Signed (signature on file) Shelia Dahiana 09/29/22 1522 ? ----- ------- ? END OF REPORT ? us Shorty Peres [facility] CYTOLOG[facility] ORDERABLES F inal Result [facility] [address] [place] [address] [phone] * HEPATITIS C AB W/REFL TO HCV RNA, QN, PCR (05/03/2021 3:01 PM EDT) HEPATITIS C ANTIBODY NON-REACT ANGELA NON-REACT ANGELA [facility] INDEX 0.01 <1.00 [facility] Comment: ?? HCV antibody was non-reactive. There is no laboratory ?? evidence of HCV infection. ?? In most cases, no further action is required. However, if recent HCV exposure is suspected, a test for HCV RNA (test code 76406) is suggested. ?? For additional information please refer to http://[employer].My Fashion Database/faq/POA13v9 (This link is being provided for informational/ educational purposes only.) ?? 05/03/2021 3:01 PM EDT us Raffaele Arechiga MD HISTORICAL/NON ORDERABLE LABS Fi nal Result Performing Organization Address City/[facility]/ZIP Co de Phone Number [facility] [address] * HIV 1/2 ANTIGEN/ANTIBODY,FOURTH GENERATION W/RFL (05/03/2021 3:01 PM EDT) HIV-1/2 ANTIGEN AND ANTIBODIES, 4TH GENERATION W/ REFLEX NON-REACT ANGELA NON-REACT ANGELA [facility] Comment: HIV-1 antigen and HIV-1/HIV-2 antibodies were not detected. There is no laboratory evidence of HIV infection. ?? PLEASE NOTE: This information has been disclosed to you from records whose confidentiality may be protected by state law. ??If your state requires such protection, then the state law prohibits you from making any further disclosure of the information without the specific written consent of the person to whom it pertains, or as otherwise permitted by law. A general authorization for the release of medical or other information is NOT sufficient for this purpose. ? For additional information please refer to http://[employer].My Fashion Database/faq/EJW720 (This link is being provided for informational/ educational purposes only.) ? The performance of this assay has not been clinically validated in patients less than 2 years old. ?? 05/03/2021 3:01 PM EDT us Raffaele Arechiga MD LAB BLOOD ORDERABLES Final Resul t [facility] [address] from Last 3 Months or Most Recently Relevant to Health Maintenance Insurance [facility] < [address] [place] [id number] Care Teams [employer] Engineer Sergeant Relationship Specialty Start Date End Date Alexia Hutton MD [address] [place] [address] PCP - General Family Medicine 11/23/22 Violeta Downey 08/25/23
--- OUTSIDE RECORDS SUMMARY | 2024-06-25 16:07 | XMS_ITS | Encounter Summary ---
Author Organization [employer] Address [address] [place] [address] Care Team Providers Care [employer] Hand Finisher Name Role Phone Alexia Hutton MD Primary Care Provider [phone] Reason for Visit * Reason Comments Med Refill Encounter Details Date Type Department Care Team ([facility] st Contact Info) Description 08/07/2023 Refill [facility] [address] [place], [place] [phone] Danya Rosenthal MD [address] [place] [address] Opioid dependence, uncomplicated (CMS/HCC) Social History Tobacco Use Types Packs/Day Years [...] Description 07/21/2024 2:00 PM EDT Office Visit [facility] [address] [place] [phone] Alexia Hutton MD [address] [place] [phone] 08/11/2024 2:00 PM EDT Telemedicine [facility] [address] [place] [phone] Siobhan Ulloa RN documented as of this encounter Visit Diagnoses Diagnosis Opioid dependence, uncomplicated (CMS/HCC) documented in this encounter Additional Health Concerns Assessment Noted Time PHQ-9 Depression Total Score: 0 05/23/19 24 11:17 AM EDT documented as of this encounter Care Teams [employer] Hand Finisher Relationship Specialty Start Date End Date Alexia Hutton MD [address] [place] [phone] PCP - General Family Medicine 11/23/22 Violeta Downey 08/25/23 documented as of this encounter
--- OUTSIDE RECORDS SUMMARY | 2024-06-25 16:07 | XMS_ITS | Encounter Summary ---
Author Organization [email or web address] Address [address] [facility] [address] [place] [address] Care Team Providers Care Lath Tier Name Role Phone Lana Hugo BLOCK HANDLER Primary Care Provider [phone] Alexia Hutton MD Primary Care Provider [phone] Reason for Visit * Reason Comments Med Refill Encounter Details Date Type Department Care Team (Late st Contact Info) Description 07/31/2022 Refill [facility] [address] [place] [address] [phone] Raffaele Arechiga MD [address] [place] [address] [phone] Opioid dependence, uncomplicated (CMS/HCC) Social History Tobacco Use Types Packs/Day Years Used Date Smoking Tobacco: Every Day Cigarettes Smokeless Tobacco: Never Depression Answer Date Recorded Patient Health Questionnaire-9 Score 0 02/09/2022 Depression Answer Date Recorded Patient Health Questionnaire-2 Score 0 02/09/2022 Comments Unknown Sex and Gender Information Value Date Recorded Sex Assigned at Female 12/19/2021 10:39 AM EDT Legal Sex Female 10:39 AM EDT Gender Identity Female 12/19/2021 10:39 AM EDT Sexual Orientation Don't know 12/19/2021 10 :39 AM EDT documented as of this encounter Plan of Treatment Upcoming Encounters Date Type Department Care Team (Late st Contact Info) Description 07/21/2024 2:00 PM EDT Office Visit [facility] [address] [place] [address] [phone] Alexia Hutton MD [address] [place] [address] [phone] 08/11/2024 2:00 PM EDT Telemedicine [facility] [address] [place] [address] Siobhan Ulloa RN documented as of this encounter Visit Diagnoses Diagnosis Opioid dependence, uncomplicated (CMS/HCC) documented in this encounter Additional Health Concerns Assessment Noted Time PHQ-9 Depression Total Score: 0 02/10/20 22 9:09 AM EST documented as of this encounter Care Teams Lath Tier Relationship Specialty Start Date End Date Lana Hugo FNP PCP - General Family Medicine 10/14/21 11/22/22 Alexia Hutton MD [address] [place] [address] PCP - General Family Medicine 11/23/22 Violeta Downey 08/25/23 documented as of this encounter
--- OUTSIDE RECORDS SUMMARY | 2024-06-25 16:07 | XMS_ITS | Encounter Summary ---
Author Organization [employer] Address [address] [facility] [address] [place] [address] Care Team Providers Care Fur Remodeler Name Role Phone Lana Hugo FIOR Primary Care Provider [phone] Alexia Hutton MD Primary Care Provider Encounter Details Date Type Department Care Team (Late Contact Info) Description 04/14/2022 Orders Only [facility] MED[facility]INE [address] [place] [phone] Bernadine Muse LPN Social History Tobacco Use Types Packs/Day Years [...] Description 07/21/2024 2:00 PM EDT Office Visit [facility]INE [address] [place] [address] [phone] Alexia Hutton MD [address] [place] [phone] 08/11/2024 2:00 PM EDT Telemedicine [facility] MEDICINE [address] [place] [address] [phone] Enko, Siobhan, RN documented as of this encounter Visit Diagnoses Not on filedocumented in this encounter Additional Health Concerns Assessment Noted Time PHQ-9 Depression Total Score: 0 02/10/20 22 9:09 AM EST documented as of this encounter Care Teams Fur Remodeler Relationship Specialty Start Date End Date Lana Hugo FNP PCP - General Family Medicine 10/14/21 11/22/22 Alexia Hutton MD [address] [place] [phone] PCP - General Family Medicine 11/23/22 Violeta Downey 08/25/23 documented as of this encounter
--- OUTSIDE RECORDS SUMMARY | 2024-06-25 16:07 | XMS_ITS | Encounter Summary ---
Author Organization [employer] Address [address] [facility] 7[address] [place] [address] Care Team Providers Care Mathematical Statistician Name Role Phone Alexia Hutton MD Primary Care Provider [phone] Reason for Visit * Reason Comments Med Refill Encounter Details Date Type Department Care Team ([facility] st Contact Info) Description 10/01/2023 Refill [facility] [address] [place], [place] [phone] Raffaele Arechiga MD [address] [place] [address] Opioid dependence, uncomplicated (CMS/[facility]) Social History Tobacco Use Types Packs/Day Years [...] Description 07/21/2024 2:00 PM EDT Office Visit [facility] [address] [place] [phone] Alexia Hutton MD [address] [place] [phone] 08/11/2024 2:00 PM EDT Telemedicine [facility] [address] [place] [phone] Siobhan Ulloa RN documented as of this encounter Visit Diagnoses Diagnosis Opioid dependence, uncomplicated (CMS/HCC) documented in this encounter Additional Health Concerns Assessment Noted Time PHQ-9 Depression Total Score: 0 05/23/19 24 11:17 AM EDT documented as of this encounter Care Teams Mathematical Statistician Relationship Specialty Start Date End Date Alexia Hutton MD [address] [place] [phone] PCP - General Family Medicine 11/23/22 Violeta Downey 08/25/23 documented as of this encounter
--- OUTSIDE RECORDS SUMMARY | 2024-06-25 16:07 | XMS_ITS | Encounter Summary ---
Author Organization [employer] Address [address] [facility] 7t [place] [address] Care Team Providers Care Wellness Guide Name Role Phone Alexia Hutton MD Primary Care Provider [phone] Encounter Details Date Type Department Care Team (Late st Contact Info) Description 05/07/2023 Orders Only [facility] [address] [place], [place] [phone] Alexia Hutton MD [address] [place], [place] [phone] Blurry vision (Primary Dx) Social History Tobacco Use Types Packs/Day Years Used Date Smoking Tobacco: Every Day Cigarettes Smokeless Tobacco: Never Depression Answer Date Recorded Patient Health Questionnaire-9 Score 0 02/09/2022 Housing Stability Answer Date Recorded What is your housing situation today? I have nicolasa juarez 12/04/[address] you [...] 2:00 PM EDT Office Visit [facility] [address] [place] [phone] Alexia Hutton MD [address] [place] [phone] 08/11/2024 2:00 PM EDT Telemedicine [address] [phone] Siobhan Ulloa RN documented as of this encounter Visit Diagnoses Diagnosis Blurry vision- Primary Other specified visual disturbances documented in this encounter Additional Health Concerns Assessment Noted Time PHQ-9 Depression Total Score: 0 02/10/20 22 9:09 AM EST documented as of this encounter Care Teams Wellness Guide Relationship Specialty Start Date End Date Alexia Hutton MD [address] [place] [phone] PCP - General Family Medicine 11/23/22 Violeta Downey 08/25/23 documented as of this encounter
--- OUTSIDE RECORDS SUMMARY | 2024-06-25 16:07 | XMS_ITS | Encounter Summary ---
Author Organization [employer] Address [address] [facility] 7t [place] [address] Care Team Providers Care Installation & Maintenance Executive Name Role Phone Alexia Hutton MD Primary Care Provider [phone] Encounter Details Date Type Department Care Team (Late st Contact Info) Description 08/27/2023 Telephone [facility] MED[facility]INE [address] [place], [place] [phone] Alexia Hutton MD [address] [place], [place] [phone] Social History Tobacco Use Types Packs/Day Years [...] your housing situation today? I have nicolasa larry 05/15/[address] you li [...] Description 07/21/2024 2:00 PM EDT Office Visit [facility] [address] [place] [phone] Alexia Hutton MD [address] [place] [phone] 08/11/2024 2:00 PM EDT Telemedicine [facility] [address] [place] [phone] Siobhan Ulloa RN documented as of this encounter Visit Diagnoses Not on filedocumented in this encounter Additional Health Concerns Assessment Noted Time PHQ-9 Depression Total Score: 0 05/23/19 24 11:17 AM EDT documented as of this encounter Care Teams Installation & Maintenance Executive Relationship Specialty Start Date End Date Alexia Hutton MD [address] [place] [phone] PCP - General Family Medicine 11/23/22 Violeta Downey 08/25/23 documented as of this encounter
--- OUTSIDE RECORDS SUMMARY | 2024-06-25 16:07 | XMS_ITS | Continuity of Care Document ---
Author Organization [facility] Address [facility] [place] [address] Phone Care Team Providers Care Strawhat Sizer Name Role Phone Jaguar Ibrahim APRN Unavailable Unavailable Allergies, Adverse Reactions, Alerts Substance [...] mouth without chewing or swallowing, - Active [id number]. 28 day supply. G89.4, Ativan 0.5 mg [...] attched demographic sheet. - Active Attn: Chrystal wesley art [phone] Dx: 780.4 Procedures Procedure Date OFFICE/OUTPATIENT VISIT, EST OFFICE/OUTPATIENT VISIT, EST INJ TRIGGER POINT 1/2 MUSCL OFFICE/OUTPATIENT VISIT, EST OFFICE/OUTPATIENT VISIT, EST [...] OFFICE/OUTPATIENT VISIT, EST Case Management Telephone Visit 016 OFFICE/OUTPATIENT VISIT, EST OFFICE/OUTPATIENT VISIT, EST OFFICE/OUTPATIENT [...] Diagnoses Date Provider Providers Copied on Encounter [facility], [address] [place] [address], [id number], tel:[phone] [facility] No Information 2 Ibrahim Jaguar. [address] [place] [address], [facility], . tel:[phone] [facility], [address] [place] [address], [id number], tel:[phone] [facility] No Information 0 Ibrahim Jaguar. [address] [place] [address], [id number], [place]. tel:[phone] [facility], [address] [place] [address], [id number], tel:[phone] [facility] No Information 0 Ibrahim Jaguar. [address] [place] [address], [id number], . tel:[phone] [facility], [address] [place] [address], [id number], [place] tel: [facility] Agoraphobia with panic disorderGener alized anxiety disorder 0 Saleem Castorena. [address] [place] [address], [id number], [place]. tel:[phone] [facility], [address] [place] [address], [id number], tel: [facility] No Information 0 Patrice Montesinos. [address] [place] [address], [id number], [place]. tel: [facility], [address] [place] [address], [id number], tel: [facility] Agoraphobia with panic disorderGener alized anxiety disorder 0 Patrice Montesinos. [address] [place] [address], [id number], [place]. tel: OFFICE/OUTPA TIENT VISIT, [facility], [address] [place] [address], [id number], [place] tel: [facility] Medical Telehealth (chief complaint) CervicalgiaCo raf cancer screeningBrea st cancer screening by mammogram 0 Patrice Montesinos. [address] [place] [address], [id number], [place]. tel: OFFICE/OUTPA TIENT VISIT, [facility], [address] [place] [address], [id number], [place] tel: Psychiatric Telehealth Medical Telehealth (chief complaint) Major depressive disorder, recurrent, moderate 0 Tyson Bucio. [address] [place] [address], [id number], [place]. tel:[phone] [facility], [address] [place] [address], [id number], [place] tel: [facility] No Information 0 Joy Mandujano. [address] [place] [address], [id number], [place]. tel:[phone] OFFICE/OUTPA TIENT VISIT, [facility], [address] [place] [address], [id number], [place] tel:[phone] [facility] MSK (chief complaint) Myofascial pain 0 Tyson Bucio. [address] [place] [address], [id number], [place]. tel:[phone] Referring Provider: Fortunato Mehta, [address] [place] [address], [id number]. tel:[phone] OFFICE/OUTPA TIENT VISIT, [facility], [address] [place] [address], [id number], [place] tel:[phone] [facility] MSK (chief complaint) Myofascial pain 9 Tyson Bucio. [address] [place] [address], [id number], [place]. tel:[phone] OFFICE/OUTPA TIENT VISIT, [facility], [address] [place] [address], [id number], [place] tel:[phone] [facility] Musculoskelet al pain (chief complaint) Myofascial painLumbar back pain with radiculopathy affecting left lower extremityGene ralized anxiety disorder 9 Joy Mandujano. [address] [place] [address], [id number], [place]. tel:[phone] OFFICE/OUTPA TIENT VISIT, [facility], [address] [place] [address], [id number], [place] tel:[phone] [facility] back pain (chief complaint)Anx iety (chief complaint)nec k pain (chief complaint) Myofascial painLumbar back pain with radiculopathy affecting left lower extremityGene ralized anxiety disorder 9 Joy Mandujano. [address] [place] [address], [id number], [place]. tel:[phone] [facility], [address] [place] [address], [id number], [place] tel:[phone] [facility] No Information 9 Joy Mandujano. [address] [place] [address], [id number], [place]. tel:[phone] OFFICE/OUTPA TIENT VISIT, [facility], [address] [place] [address], [id number], [place] tel: [facility] neck pain (chief complaint) Myofascial pain 9 Tyson Bucio. [address] [place] [address], [id number], [place]. tel:[phone] OFFICE/OUTPA TIENT VISIT, [facility], [address] [place] [address], [id number], [place] tel:[phone] [facility] back pain (chief complaint)Anx iety (chief complaint)nec k pain (chief complaint) Lumbar back pain with radiculopathy affecting left lower extremityGene ralized anxiety disorderOverw eight 9 Joy Mandujano. [address] [place] [address], [id number], [place]. tel:[phone] [facility], [address] [place] [address], [id number], [place] tel:[phone] [facility] No Information 9 Joy Mandujano. [address] [place] [address], [id number], [place]. tel:[phone] [facility], [address] [place] [address], [id number], [place] tel:[phone] [facility] No Information 9 Ramone Carpio. [address] [place] [address], [id number], [place]. tel:[phone] OFFICE/OUTPA TIENT VISIT, [facility], [address] [place] [address], [id number], [place] tel:[phone] [facility] back pain (chief complaint) Lumbar back pain with radiculopathy affecting left lower extremityGene ralized anxiety disorder 9 Joy Delbert. [address] [place] [address], [id number], [place]. tel:[phone] Referring Provider: Delbert Hamilton, [address] [place] [address], [id number] . tel:[phone] [facility], [address] [place] [address], [id number], [place] tel:[phone] [facility] u-tox (chief complaint) Lumbar back pain with radiculopathy affecting left lower extremity 8 Nurse [facility]. . OFFICE/OUTPA TIENT VISIT, [facility], [address] [place] [address], [id number], [place] tel:[phone] [facility] rash (chief complaint)Mus culoskeletal pain (chief complaint) Lumbar back pain with radiculopathy affecting left lower extremityChro tiarra pain syndrome 8 Joy Delbert. [address] [place] [address], [id number], [place]. tel:[phone] Referring Provider: Delbert Hamilton, [address] [place] [address], [id number] . tel:[phone] [facility], [address] [place] [address], [id number], [place] tel:[phone] [facility] Chronic pain syndrome 8 Ramone Carpio. [address] [place] [address], [address], [place]. tel:[phone] OFFICE/OUTPA TIENT VISIT, [facility], [address] [place] [address], [id number], [place] tel:[phone] [facility] back pain (chief complaint)Flu shot- Declines (chief complaint) Lumbar back pain with radiculopathy affecting left lower extremityGene ralized anxiety disorder 8 Crowdk Mandujano. [address] [place] [address], [id number], [place]. tel:[phone] [facility], [address] [place] [address], [id number], [place] tel:[phone] [facility] Encounter for issue of repeat prescription for medication 8 Ramone Carpio. [address] [place] [address], [address], [place]. tel: OFFICE/OUTPA TIENT VISIT, [facility], [address] [place] [address], [id number], [place] tel: [facility] abdominal pain (chief complaint) Lumbar back pain with radiculopathy affecting left lower extremity 8 Crowdk Delbert. [address] [place] [address], [id number], [place]. tel: OFFICE/OUTPA TIENT VISIT, [facility], [address] [place] [address], [id number], [place] tel: [facility] Musculoskelet al pain (chief complaint) Chronic pain syndromeLumba r back pain with radiculopathy affecting left lower extremity 8 Joy Mandujano. [address] [place] [address], [id number], [place]. tel:[phone] OFFICE/OUTPA TIENT VISIT, [facility], [address] [place] [address], [id number], [place] tel:[phone] [facility] Musculoskelet al pain (chief complaint)Sin us symptoms (acute) (chief complaint) Lumbar back pain with radiculopathy affecting left lower extremity 8 Joy Mandujano. [address] [place], [place] [address], [id number], [place]. tel: OFFICE/OUTPA TIENT VISIT, [facility], [address] [place] [address], [id number], [place] tel:[phone] [facility] back pain (chief complaint) Lumbar back pain with radiculopathy affecting left lower extremity 8 Joy Mandujano. [address] [place] [address] [address] [place], [place], [id number], [place]. tel:[phone] [facility], [address] [place] [address], [id number], [place] tel:[phone] [facility] No Information 8 Joy Mandujano. [address] [place] [address] [address] [place], [place], [id number], [place]. tel:[phone] OFFICE/OUTPA TIENT VISIT, [facility], [address] [place] [address], [id number], [place] tel:[phone] [facility] Musculoskelet al pain (chief complaint) Lumbar back pain with radiculopathy affecting left lower extremity May- 0 8 Joy Mandujano. [address] [place] [address] , [place], [place], [id number], [place]. tel:[phone] [facility], [address] [place], [place] [address], [place], [id number], [place] tel:[phone] [facility] No Information 8 Joy Mandujano. [address] [place] [address] [address] [place], [place], [id number], [place]. tel:[phone] OFFICE/OUTPA TIENT VISIT, [facility], [address] [place] [address] [place], [id number], [place] tel:[phone] [facility] back pain (chief complaint)Flu shot- delcines (chief complaint) History of lumbar spinal fusionLeft leg weaknessLumba r back pain with radiculopathy affecting left lower extremity 7 Joy Mandujano. [address] [place], [place] [address]mikie Morillo., [place], [place], [id number], [place]. tel:[phone] OFFICE/OUTPA TIENT VISIT, [facility], [address] [place] [address] [place], [id number], [place] tel:[phone] [facility] back pain (chief complaint)Anx iety (chief complaint) Lumbar back pain with radiculopathy affecting left lower extremitySeco ndary kyphosis deformity of spineLow back pain at multiple sitesGenerali zed anxiety disorder 7 Joy Mandujano. [address] [place] [address], [id number], [place]. tel:[phone] OFFICE/OUTPA TIENT VISIT, [facility], [address] [place] [address], [id number], [place] tel:[phone] [facility] Anxiety (chief complaint)Aly k pain (chief complaint) Generalized anxiety disorderLow back pain at multiple sitesFibroade noma of right breastLumbar back pain with radiculopathy affecting left lower extremityLeft leg weaknessHisto ry of lumbar spinal fusion Joy Delbert. [address] [place] [address], [id number], [place]. tel:[phone] PREV VISIT, EST, AGE 40-[address] 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 [address] [place] [address], [id number], [place]. tel:[phone] [facility], [address] [place] [address], [id number], [place] tel:[phone] [facility] No Information Joy Mandujano. [address] [place] [address], [id number], [place]. tel:[phone] [facility], [address] [place] [address], [id number], [place] tel:[phone] [facility] MastalgiaAxil pauline adenopathy Joy Mandujano. [address] [place] [address], [id number], [place]. tel:[phone] OFFICE/OUTPA TIENT VISIT, [facility], [address] [place] [address], [id number], [place] tel:[phone] [facility] Musculoskelet al pain (chief complaint)Anx iety (chief complaint)lum ps (chief complaint) Generalized anxiety disorderAgora phobia with panic attacksPTSD (post-traumat ic stress disorder)Low back pain at multiple sitesAxillary adenopathy 7 Joy Mandujano. [address] [place] [address], [place], [place], [id number], [place]. tel:[phone] OFFICE/OUTPA TIENT VISIT, [facility], [address] [place] [address], [id number], [place] tel:[phone] [facility] back pain (chief complaint)Anx iety (chief complaint) PTSD (post-traumat ic stress disorder)Spacer Type Bar And Segment tiarra pain syndrome 7 Joy Mandujano. [address] [place] [address], [place], [place], [id number], [place]. tel:[phone] OFFICE/OUTPA TIENT VISIT, [facility], [address] [place] [address], [id number], [place] tel:[phone] [facility] Bronchitis (chief complaint) Acute lower respiratory tract infectionOthe r dorsalgiaAnxi ety disorder, unspecified 6 Chuy Maddie. [facility] [place], [place], [id number], [place]. tel:[phone] OFFICE/OUTPA TIENT VISIT, [facility], [address] [place] [address], [id number], [place] tel:[phone] [facility] cold symptoms (chief complaint)aly k pain (chief complaint)dep ression (chief complaint) Low back painGeneraliz ed anxiety disorderCOPD exacerbationT rochanteric bursitis, left hip Sep-2 6-201 6 Joy Mandujano. [address] [place] [address], [place], [place], [id number], [place]. tel:[phone] Referring Provider: Delbert Hamilton, [address] [place] [address] , [place], [address] . tel:[phone] OFFICE/OUTPA TIENT VISIT, [facility], [address] [place] [address], [id number], [place] tel:[phone] [facility] back pain (chief complaint)Anx iety (chief complaint) Low back painAgoraphob ia with panic disorder 6 Joy Delbert. [address] [place] [address], [place], [place], [id number], [place]. tel:[phone] Referring Provider: Delbert Hamilton, [address] [place], [place] [address]julio césar, [place], [address] . tel:[phone] OFFICE/OUTPA TIENT VISIT, [facility], [address] [place] [address], [id number], [place] tel:[phone] [facility] Anxiety (chief complaint)aly k pain (chief complaint) Agoraphobia with panic disorderOverw eightDysthymi c disorderGener alized anxiety disorderFamil y history of diabetesLow back pain 6 Crowdk Mandujano. [address] [place] [address], [place], [place], [id number], [place]. tel: [phone] [facility], [address] [place] [address], [id number], [place] tel:[phone] [facility] Other dorsalgiaCerv icalgiaSacroc occygeal disorders, not elsewhere classifiedTro chanteric bursitis, unspecified hipOther fatigueKyphos isOpioid dependence, uncomplicated Scoliosis 6 Filament Shaper. [address] [place] [address], [id number], [place]. tel:[phone] [facility], [address] [place] [address], [id number], [place] tel:[phone] [facility] Low back painKyphosisS coliosis 6 Joy Mandujano. [address] [place] [address], [place], [place], [id number], [place]. tel:[phone] OFFICE/OUTPA TIENT VISIT, [facility], [address] [place] [address], [id number], [place] tel:[phone] [facility] Anxiety (chief complaint)aly k pain (chief complaint) Low back painAgoraphob ia with panic disorder 7- 6 Joy Mandujano. [address] [place] [address], [place], [place], [id number], [place]. tel:[phone] OFFICE/OUTPA TIENT VISIT, [facility], [address] [place] [address], [id number], [place] tel:[phone] [facility] back pain (chief complaint)Anx iety (chief complaint)dis ability (chief complaint) Agoraphobia with panic disorderLow back painUnspecifi ed abnormalities of gait and mobility 6 Joy Mandujnao. [address] [place] [address], [id number], [place]. tel:[phone] OFFICE/OUTPA TIENT VISIT, [facility], [address] [place] [address], [id number], [place] tel:[phone] [facility] back pain (chief complaint)Anx iety (chief complaint) Low back painAgoraphob ia with panic disorderGener alized anxiety disorder 0-201 5 Joy Mandujano. [address] [place] [address], [place], [place], [id number], [place]. tel:[phone] OFFICE/OUTPA TIENT VISIT, [facility], [address] [place] [address], [id number], [place] tel:[phone] [facility] back pain (chief complaint)anx iety (chief complaint) Agoraphobia with panic disorderGener alized anxiety disorderLow back pain 2-201 5 Joy Mandujano. [address] [place] [address].[place], [place], [id number], [place]. tel:[phone] OFFICE/OUTPA TIENT VISIT, [facility], [address] [place] [address], [id number], [place] tel:[phone] [facility] back pain (chief complaint)dep ression (chief complaint) Other disorder of muscle, ligament, and fasciaEntheso ralph of hip regionLumbago Agoraphobia with panic disorderOther anxiety states 5 Joy Mandujano. [address] [place] [address], [id number], [place]. tel: [facility], [address] [place] [address], [id number], [place] tel:[phone] [facility] Hip pain 5 Anjel Hilario. [address] [place] [address], [id number], [place]. tel: OFFICE/OUTPA TIENT VISIT, [facility], [address] [place] [address], [id number], [place] tel:[phone] [facility] Follow Up of Back pain (chief complaint)Fol low Up of Anxiety (chief complaint) Anxiety state, unspecifiedAg oraphobia with panic disorderLumba goEnthesopath y of hip regionOther disorder of muscle, ligament, and fascia 5 Joy Mandujano. [address] [place] [address], [id number], [place]. tel: [facility], [address] [place] [address], [id number], [place] tel:[phone] [facility] hip pain (chief complaint) Enthesopathy of hip region 5 Joy Mandujano. [address] [place] [address], [id number], [place]. tel: OFFICE/OUTPA TIENT VISIT, [facility], [address] [place] [address], [id number], [place] tel:[phone] [facility] back pain (chief complaint)Anx iety (chief complaint) LumbagoAnxiet y state, unspecifiedAg oraphobia with panic disorderTroch anteric bursitisIliot ibial band syndrome 5 Joy Mandujano. [address] [place] [address], [place], [place], [id number], [place]. tel: [phone] OFFICE/OUTPA TIENT VISIT, [facility], [address] [place] [address], [id number], [place] tel:[phone] [facility] back pain (chief complaint)Shailesh ght gain (chief complaint) ObesityAnxiet y state, unspecifiedLu mbago 5 Joy Mandujano. [address] [facility], [place], [place], [id number], [place]. tel: [phone] OFFICE/OUTPA TIENT VISIT, [facility], [address] [place] [address], [id number], [place] tel:[phone] [facility] Follow Up of Back pain (chief complaint)Fol low Up of Anxiety (chief complaint) AnxietyLumbag o 5 Riana Perkins. [address] [place] [address], [id number], [place]. tel: [phone] OFFICE/OUTPA TIENT VISIT, [facility], [address] [place] [address], [id number], [place] tel:[phone] [facility] depression (chief complaint)aly k pain (chief complaint) Major depressive affective disorder, recurrent episode, moderate degreeLumbtuba city regional health care corporation Anxiety 4 Riana Perkins. [facility] [place], [address], [place]. tel: [phone] OFFICE/OUTPA TIENT VISIT, [facility], [address] [place] [address], [id number], [place] tel:[phone] [facility] back pain (chief complaint) LumbagoAgorap hobia with panic disorder 4 Riana Perkins. [address] [place] [address], [id number], [place]. tel: [phone] OFFICE/OUTPA TIENT VISIT, [facility], [address] [place] [address], [id number], [place] tel:[phone] [facility] depression (chief complaint)Aly k pain (chief complaint) AnxietyLumbag oRadiculopath y 4 Riana Perkins. [address] [place] [address], [id number], [place]. tel: [phone] OFFICE/OUTPA TIENT VISIT, [facility], [address] [place] [address], [id number], [place] tel:[phone] [facility] back pain (chief complaint)dep ression (chief complaint) DepressionLum bago 4 Riana Perkins. [address] [place] [address], [id number], [place]. tel: [phone] OFFICE/OUTPA TIENT VISIT, [facility], [address] [place] [address], [id number], [place] tel:[phone] [facility] Follow Up of Back pain (chief complaint) Lumbago 4 Riana Perkins. [address] [place] [address], [id number], [place]. tel:[phone] OFFICE/OUTPA TIENT VISIT, [facility], [address] [place] [address], [id number], [place] tel:[phone] [facility] back pain (chief complaint) Backache 4 Waddington Tatianna. [address] [place] [address], [id number], [place]. tel:[phone] PREV VISIT, [facility], AGE 40-[address] [facility], [address] [place] [address], [id number], [place] tel:[phone] [facility] physical/pap (chief complaint) OverweightGyn ecological ExaminationLu mbagoAgorapho sukwhinder with panic disorder 4 Alistair Srivastava. [address] [place] [address], [id number]. tel:[phone] OFFICE/OUTPA TIENT VISIT, [facility], [address] [place] [address], [id number], [place] tel:[phone] [facility] back pain (chief complaint)dep ression (chief complaint)anx iety (chief complaint) OverweightOve rweightLumbag oLumbagoOverw eightHeartbur nPanic disorder with agoraphobia and moderate panicDysthymi aHeartburnLum bagoAgoraphob ia with panic disorderOverw eightDysthymi c disorderOther emphysemaUnsp ecified vitamin d deficiency 4 Busselen Atif. [address] [place] [address], [id number]. tel:[phone] OFFICE/OUTPA TIENT VISIT, [facility], [address] [place] [address], [id number], [place] tel:[phone] [facility] cough (chief complaint) Other emphysemaToba sales account representative AbuseOverweig htCough 4 Busselen Atif. [address] [place] [address], [id number]. tel: OFFICE/OUTPA TIENT VISIT, [facility], [address] [place] [address], [id number], [place] tel:[phone] [facility] shortness of breath (chief complaint) CoughOther emphysema 4 Busselen Atif. [address] [place] [address], [id number]. tel: OFFICE/OUTPA TIENT VISIT, [facility], [address] [place] [address], [id number], [place] tel:[phone] [facility] back pain (chief complaint) Lumbago 3 Busselen Atif. [address] [place] [address], [id number]. tel:940 OFFICE/OUTPA TIENT VISIT, [facility], [address] [place] [address], [id number], [place] tel:[phone] [facility] back pain (chief complaint) Lumbago Oct- 3 Alistair Srivastava. [address] [place] [address], [id number]. tel:940 OFFICE/OUTPA TIENT VISIT, [facility], [address] [place] [address], [id number], [place] tel:[phone] [facility] back pain (chief complaint) Sacroiliac joint dysfunction of right sideDisorders of sacrumLumbago Lumbar paraspinal muscle spasmDisorder s of sacrumLumbago Other symptoms referable to backConstipat ion, unspecified 3 Alistair Srivastava. [address] [place] [address], [id number]. tel:940 OFFICE/OUTPA TIENT VISIT, [facility], [address] [place] [address], [id number], [place] tel:[phone] [facility] abdominal discomfort (chief complaint) Abdominal pain, epigastric Aug- 3 Alistair Srivastava. [address] [place] [address], [id number]. tel:940 OFFICE/OUTPA TIENT VISIT, [facility], [address] [place] [address], [id number], [place] tel:[phone] [facility] abdominal discomfort (chief complaint)hem aturia (chief complaint) Epigastric painAbdominal pain, epigastricMic roscopic hematuriaAbdo carin pain, epigastricMIC ROSCOPIC HEMATURIA 3 Alistair Srivastava. [address] [place] [address], [id number]. tel:940 OFFICE/OUTPA TIENT VISIT, [facility], [address] [place] [address], [id number], [place] tel:[phone] [facility] Lumbago (chief complaint)fat igue (chief complaint) LumbagoLumbag oFatigue / Malaise 3 Alistair Srivastava. [address] [place] [address], [id number]. tel:940 OFFICE/OUTPA TIENT VISIT, [facility], [address] [place] [address], [id number], [place] tel:[phone] [facility] back pain (chief complaint) Lumbago 3 Busselen Atif. [address] [place] [address], [id number]. tel:940 OFFICE/OUTPA TIENT VISIT, [facility], [address] [place] [address], [id number], [place] tel:[phone] [facility] anxiety (chief complaint) Agoraphobia with panic disorderLumba go 3 Busselen Atif. [address] [place] [address], [id number]. tel:940 OFFICE/OUTPA TIENT VISIT, [facility], [address] [place] [address], [id number], [place] tel:[phone] [facility] anxiety (chief complaint) Agoraphobia with panic disorder 2 Busselen Atif. [address] [place] [address], [id number]. tel:940 OFFICE/OUTPA TIENT VISIT, [facility], [address] [place] [address], [id number], [place] tel:[phone] [facility] pain (chief complaint)anx iety (chief complaint) LumbagoAgorap hobia with panic disorder 2 Busselen Atif. [address] [place] [address], [id number]. tel:[address] [facility], [address] [place] [address], [id number], [place] tel:[phone] [facility] Disturbances of sulphur-beari ng amino-acid metabolism 2 Kamlesh Tineo. [address] [place] [address], [address], [place], [address]. tel:940 OFFICE/OUTPA TIENT VISIT, [facility], [address] [place] [address], [id number], [place] tel:[phone] [facility] weakness (chief complaint) Right upper extremity numbnessWeakn ess of both legsDisturban ce of skin sensationOthe r musculoskelet al symptoms referable to limbsAnxietyM ajor depressive affective disorder, recurrent episode, moderate degree Nov-1 3-201 2 Busselen Atif. [address] [place] [address], [id number]. tel:[phone] OFFICE/OUTPA TIENT VISIT, [facility], [address] [place] [address], [id number], [place] tel:[phone] [facility] numbness (chief complaint)aly k pain (chief complaint) Complaints of leg weaknessOther musculoskelet al symptoms referable to limbsLumbagoM ajor depressive affective disorder, recurrent episode, moderate degreeImbalan ceOther musculoskelet al symptoms referable to limbsMajor depressive affective disorder, recurrent episode, moderate degreeAbnorma lity of gait Nov-0 5-201 2 Busselen Atif. [address] [place] [address], [id number]. tel:[phone] OFFICE/OUTPA TIENT VISIT, [facility], [address] [place] [address], [id number], [place] tel:[phone] [facility] back pain (chief complaint)dep ression (chief complaint) Major depressive affective disorder, recurrent episode, moderate degreeLumbago Anxiety Oct-0 9-201 2 Busselen Atif. [address] [place] [address], [id number]. tel:[phone] OFFICE/OUTPA TIENT VISIT, [facility], [address] [place] [address], [id number], [place] tel:[phone] [facility] back pain (chief complaint)dep ression (chief complaint) LumbagoAgorap hobia with panic disorderMajor depressive affective disorder, recurrent episode, moderate degree Sep-0 7-201 2 Busselen Atif. [address] [place] [address], [id number]. tel:940 PREV VISIT, [facility], AGE 40-[address] [facility], [address] [place] [address], [id number], [place] tel:[phone] [facility] physical/pap (chief complaint) NEED FOR PROPHYLACTIC VACCINATION WITH COMBINED DIPHTHERIA-TE TANUS-PERTUSS IS (DTP) (DTAP) VACCINERoutin e [employer] SPECIALIST Preventive VisitTinea crurisCandida l intertrigo 2 Alistair Srivastava. [address] [place] [address], [id number]. tel:940 OFFICE/OUTPA TIENT VISIT, [facility], [address] [place] [address], [id number], [place] tel:[phone] [facility] depression (chief complaint)anx iety (chief complaint) AnxietyMajor depressive affective disorder, recurrent episode, moderate degreeAgoraph obia with panic disorder 2 Alistair Srivastava. [address] [place] [address], [id number]. tel:940 OFFICE/OUTPA TIENT VISIT, [facility], [address] [place] [address], [id number], [place] tel:[phone] [facility] neck pain (chief complaint) Posterior neck painCervicalg iaOccipital headacheCervi calgiaHeadach e 2 Alistair Srivastava. [address] [place] [address], [id number]. tel:940 OFFICE/OUTPA TIENT VISIT, [facility], [address] [place] [address], [id number], [place] tel:[phone] [facility] depression (chief complaint)anx iety (chief complaint)aly k pain (chief complaint) Agoraphobia with panic disorderMajor depressive affective disorder, recurrent episode, moderate degreeLumbago 2 Ranulfosegerman Srivastava. [address] [place] [address], [id number]. tel:940 OFFICE/OUTPA TIENT VISIT, [facility], [address] [place] [address], [id number], [place] tel:[phone] [facility] back pain (chief complaint)dep ression (chief complaint)anx iety (chief complaint) Agoraphobia with panic disorderMajor depressive affective disorder, recurrent episode, moderate degreeLumbago Apr-0 6-201 2 Busselen Atif. [address] [place] [address], [id number]. tel:940 OFFICE/OUTPA TIENT VISIT, [facility], [address] [place] [address], [id number], [place] tel:[phone] [facility] depression (chief complaint)aly k pain (chief complaint)anx iety (chief complaint) Agoraphobia with panic disorderMajor depressive affective disorder, recurrent episode, moderate degreeLumbago Unspecified vitamin d deficiency Apr-0 7-201 2 Busselen Atif. [address] [place] [address], [id number]. tel:940 OFFICE/OUTPA TIENT VISIT, [facility], [address] [place] [address], [id number], [place] tel:[phone] [facility] depression (chief complaint)anx iety (chief complaint) Agoraphobia with panic disorder Feb-0 8-201 2 Busselen Atif. [address] [place] [address], [id number]. tel:940 OFFICE/OUTPA TIENT VISIT, [facility], [address] [place] [address], [id number], [place] tel:[phone] [facility] depression (chief complaint)anx iety (chief complaint) Major depressive disorder, recurrent episode, modeMajor depressive affective disorder, recurrent episode, moderate degreeAgoraph obia with panic disorder Ambrosio-0 9-201 2 Busselen Atif. [address] [place] [address], [id number]. tel:940 OFFICE/OUTPA TIENT VISIT, [facility], [address] [place] [address], [id number], [place] tel:[phone] [facility] depression (chief complaint)anx iety (chief complaint)aly k pain (chief complaint) AnxietyMajor depressive affective disorder, recurrent episode, moderate degreeLumbago Jan-0 9-201 1 Busselen Atif. [address] [place] [address], [id number]. tel:[address] [facility], [address] [place] [address], [id number], [place] tel:[phone] [facility] depression (chief complaint) No Information 7 1 Sabrina Elena. [address] [place] [address], [id number]. tel: OFFICE/OUTPA TIENT VISIT, [facility], [address] [place] [address], [id number], [place] tel:[phone] [facility] depression (chief complaint)anx iety (chief complaint) Major depressive affective disorder, recurrent episode, moderate degreeAnxiety Lumbago 0-201 1 Busselen Atif. [address] [place] [address], [id number]. tel:[address] [facility], [address] [place] [address], [id number], [place] tel:[phone] [facility] depression (chief complaint) Major depressive affective disorder, recurrent episode, moderate degree 0 8201 1 Sabrina Elena. [address] [place] [address], [id number]. tel:940 OFFICE/OUTPA TIENT VISIT, [facility], [address] [place] [address], [id number], [place] tel:[phone] [facility] depression (chief complaint)anx iety (chief complaint) Depression 0 4-201 1 Anjel Hilario. [address] [place] [address], [id number], [place]. tel:[address] [facility], [address] [place] [address], [id number], [place] tel:[phone] [facility] No Information 1 Alistair Srivastava. [address] [place] [address], [id number]. tel:940 OFFICE/OUTPA TIENT VISIT, [facility], [address] [place] [address], [id number], [place] tel:[phone] [facility] anxiety (chief complaint)dep ression (chief complaint) AnxietyAnxiet yMajor depressive affective disorder, recurrent episode, moderate degree 1 Alistair Srivastava. [address] [place] [address], [id number]. tel:[address] [facility], [address] [place] [address], [id number], [place] tel:[phone] [facility] Anxiety 5 1 Alistair Srivastava. [address] [place] [address], [id number]. tel:940 OFFICE/OUTPA TIENT VISIT, [facility], [address] [place] [address], [id number], [place] tel:[phone] [facility] back pain (chief complaint)gas troporesis (chief complaint) AnxietyLumbag o Sep-3 0201 1 Alistair Srivastava. [address] [place] [address], [id number]. tel:940 OFFICE/OUTPA TIENT VISIT, [facility], [address] [place] [address], [id number], [place] tel:[phone] [facility] transient paralysis (chief complaint) Person with feared complaint in whom no diagnosis was madeDepressio n Sep-0 2-201 1 Alistair Srivastava. [address] [place] [address], [id number]. tel:940 OFFICE/OUTPA TIENT VISIT, [facility], [address] [place] [address], [id number], [place] tel:[phone] [facility] back pain (chief complaint)unruly tigo (chief complaint) VertigoDizzin essAnxietyCon cern about neurological disease without diagnosDizzin essAnxietyPer son with feared complaint in whom no diagnosis was made Alistair Srivastava. [address] [place] [address], [id number]. tel:[address] [facility], [address] [place] [address], [id number], [place] tel:[phone] [facility] Emphysema of lung Alistair Srivastava. [address] [place] [address], [id number]. tel:940 OFFICE/OUTPA TIENT VISIT, [facility], [address] [place] [address], [id number], [place] tel:[phone] [facility] back pain (chief complaint)dilma ma (chief complaint) LumbagoDistur bance of skin sensationHot flashes, menopausalLum bagoMenopausa l or female climacteric states Alistair Srivastava. [address] [place] [address], [id number]. tel:[phone] OFFICE/OUTPA TIENT VISIT, [facility], [address] [place] [address], [id number], [place] tel:[phone] [facility] cold symptoms (chief complaint)swe lling (chief complaint)num bness (chief complaint) Pharyngitis, AcuteBackache Rash and other nonspecific skin eruption 1 Anjel Hilario. [address] [place] [address], [id number], [place]. tel:[phone] Referring Provider: Sulaiman Melendez, [address] [place] [address], [id number] . tel:[phone] OFFICE/OUTPA TIENT VISIT, [facility], [address] [place] [address], [id number], [place] tel:[phone] [facility] back pain (chief complaint)Leg numbness (chief complaint) LumbagoLumbag o Juanjo-2 7-201 1 Anjel Hilario. [address] [place] [address], [id number], [place]. tel:940 PREV VISIT, [facility], AGE 40-[address] [facility], [address] [place] [address], [id number], [place] tel:[phone] [facility] physical/pap (chief complaint) Gynecological ExaminationLu mbago 1 Alistair Srivastava. [address] [place] [address], [id number]. tel:940 OFFICE/OUTPA TIENT VISIT, [facility], [address] [place] [address], [id number], [place] tel:[phone] [facility] constipation (chief complaint) Respiratory Insufficiency Constipation, unspecified 1 Alistair Srivastava. [address] [place] [address], [id number]. tel:940 OFFICE/OUTPA TIENT VISIT, [facility], [address] [place] [address], [id number], [place] tel:[phone] [facility] abdominal discomfort (chief complaint) Abdominal bloatingFlatu lence, eructation, and gas painFlatulenc e, eructation, and gas painFlatulenc e, eructation, and gas painFlatulenc e, eructation, and gas painAbdominal Pain 1 Alistair Srivastava. [address] [place] [address], [id number]. tel:940 OFFICE/OUTPA TIENT VISIT, [facility], [address] [place] [address], [id number], [place] tel:[phone] [facility] back pain (chief complaint) LumbagoElevat ed blood pressure reading without diagnosis of hypertension 1 Alistair Srivastava. [address] [place] [address], [id number]. tel:940 OFFICE/OUTPA TIENT VISIT, [facility], [address] [place] [address], [id number], [place] tel:[phone] [facility] back pain (chief complaint) Lumbago 0 1 Alistair Srivastava. [address] [place] [address], [id number]. tel:940 OFFICE/OUTPA TIENT VISIT, [facility], [address] [place] [address], [id number], [place] tel:[phone] [facility] back pain (chief complaint) Lumbago 2 1 Alistair Srivastava. [address] [place] [address], [id number]. tel:940 OFFICE/OUTPA TIENT VISIT, [facility], [address] [place] [address], [id number], [place] tel:[phone] [facility] hypertension (chief complaint)Lum bago (chief complaint)med ication refill (chief complaint) LumbagoElevat ed blood pressure reading without diagnosis of hypertensionT rochanteric bursitisLumba goElevated blood pressure reading without diagnosis of hypertensionE nthesopathy of hip regionLumbago Elevated blood pressure reading without diagnosis of hypertensionE nthesopathy of hip region 1 Alistair Srivastava. [address] [place] [address], [id number]. tel:940 OFFICE/OUTPA TIENT VISIT, [facility], [address] [place] [address], [id number], [place] tel:[phone] [facility] back pain (chief complaint)med ication refill (chief complaint) LumbagoLumbag oUnspecified essential hypertensionL umbagoUnspeci fied essential hypertensionE xcessive cerumen in ear canalLumbagoU nspecified essential hypertensionI mpacted cerumenLumbag oUnspecified essential hypertensionI mpacted cerumenUnspec ified essential hypertension Feb- 1 Alistair Srivastava. [address] [place] [address], [id number]. tel:940 OFFICE/OUTPA TIENT VISIT, [facility], [address] [place] [address], [id number], [place] tel:[phone] [facility] medication refill (chief complaint)lum bago (chief complaint) Lumbago 1 Busselen Atif. [address] [place] [address], [id number]. tel:[address] [facility], [address] [place] [address], [id number], [place] tel:[phone] [facility] Lumbago 1 Busselen Atif. [address] [place] [address], [id number]. tel:940 OFFICE/OUTPA TIENT VISIT, [facility], [address] [place] [address], [id number], [place] tel:[phone] [facility] lumbago (chief complaint) Lumbago 0 Busselen Atif. [address] [place] [address], [id number]. tel:940 OFFICE/OUTPA TIENT VISIT, [facility], [address] [place] [address], [id number], [place] tel:[phone] [facility] lumbago (chief complaint) LumbagoUnspec ified vitamin d deficiencyLos s of sensation of skinLumbagoUn specified vitamin d deficiencyDis turbance of skin sensationLumb agoUnspecifie d vitamin d deficiencyDis turbance of skin sensationLumb agoUnspecifie d vitamin d deficiencyDis turbance of skin sensationDist urbance of skin sensationLumb agoUnspecifie d vitamin d deficiencyDis turbance of skin sensationDist urbance of skin sensation 201 0 Busselen Atif. [address] [place] [address], [id number]. tel:940 OFFICE/OUTPA TIENT VISIT, [facility], [address] [place] [address], [id number], [place] tel:[phone] [facility] back pain (chief complaint) Lumbago 0 Busselen Atif. [address] [place] [address], [id number]. tel:940 OFFICE/OUTPA TIENT VISIT, [facility], [address] [place] [address], [id number], [place] tel:[phone] [facility] allergies (chief complaint)aly k pain (chief complaint) Allergic rhinitis, cause unspecifiedLu mbagoUnspecif ied vitamin d deficiency 0 Busselen Atif. [address] [place] [address], [id number]. tel:940 OFFICE/OUTPA TIENT VISIT, [facility], [address] [place] [address], [id number], [place] tel:[phone] [facility] back pain (chief complaint)hea dache (chief complaint) LumbagoLumbag oUnspecified vitamin d deficiencyLum bagoUnspecifi ed vitamin d deficiencyLum bagoUnspecifi ed vitamin d deficiencyAll ergic rhinitis, cause unspecifiedLu mbagoUnspecif ied vitamin d deficiencyAll ergic rhinitis, cause unspecified 0 Busselen Atif. [address] [place] [address], [id number]. tel:940 OFFICE/OUTPA TIENT VISIT, [facility], [address] [place] [address], [id number], [place] tel:[phone] [facility] back pain (chief complaint) LumbagoLumbag oDepressionLu mbagoDepressi onLumbagoDepr ession 0 Busselen Atif. [address] [place] [address], [id number]. tel:940 OFFICE/OUTPA TIENT VISIT, [facility], [address] [place] [address], [id number], [place] tel:[phone] [facility] back pain (chief complaint)nig ht sweats (chief complaint)Vit ball D deficiency (chief complaint) LumbagoOpioid type dependence, continuous useNight sweatsLumbago Opioid type dependence, continuous useGeneralize d hyperhidrosis 0 Alistair Srivastava. [address] [place] [address], [id number]. [phone] [facility], [address] [place] [address], [id number], [place] tel:[phone] [facility] Hematuria 0 Alistair Srivastava. [address] [place] [address], [id number]. tel:[phone] OFFICE/OUTPA TIENT VISIT, [facility], [address] [place] [address], [id number], [place] tel:[phone] [facility] back pain (chief complaint)blo od in urine (chief complaint) LumbagoOpioid type dependence, continuous useTobacco AbuseLumbagoO pioid type dependence, continuous useTobacco AbuseHematuri a 0 Alistair Srivastava. [address] [place] [address], [id number]. tel:[phone] Referring Provider: Atif Sainz, [address] [place] [address], [id number] . tel:[phone] PREV VISIT, [facility], AGE 40-[address] [facility], [address] [place] [address], [id number], [place] tel:[phone] [facility] physical/pap (chief complaint) Gynecological ExaminationGy necological ExaminationLu mbagoTobacco AbuseMammogra m, ScreeningGyne cological ExaminationLu mbagoTobacco AbuseMammogra m, Screening 0 Alistair Srivastava. [address] [place] [address], [id number]. [phone] Referring Provider: Khoi Elias, [address] [place] [address] [address], [place], [address]. tel:[phone] OFFICE/OUTPA TIENT VISIT, [facility], [address] [place] [address], [id number], [place] tel:[phone] [facility] back pain (chief complaint) LumbagoMammog milagro, ScreeningLumb agoMammogram, Screening 9-201 0 Ranulfoselen Atif. [address] [place] [address], [id number]. tel:[phone] OFFICE/OUTPA TIENT VISIT, [facility], [address] [place] [address], [id number], [place] tel:[phone] [facility] back pain (chief complaint)dep ression (chief complaint) Lumbago 2-201 0 Ranulfoselen Atif. [address] [place] [address], [id number]. tel:[phone] OFFICE/OUTPA TIENT VISIT, [facility], [address] [place] [address], [id number], [place] tel:[phone] [facility] back pain (chief complaint)dep ression (chief complaint) LumbagoElevat ed blood pressure reading without diagnosis of hypertensionE levated blood pressure reading without diagnosis of hypertension 2200 9 Ranulfoselen Atif. [address] [place] [address], [id number]. tel:[phone] OFFICE/OUTPA TIENT VISIT, [facility], [address] [place] [address], [id number], [place] tel:[phone] [facility] back pain (chief complaint) LumbagoNondep endent tobacco use disorder 3200 9 Ranulfoselen Atif. [address] [place] [address], [id number]. tel:[phone] OFFICE/OUTPA TIENT VISIT, [facility], [address] [place] [address], [id number], [place] tel:[phone] [facility] Lumbago (chief complaint)flu shot reaction (chief complaint)seven kervin (chief complaint) LumbagoNondep endent tobacco use disorder Oct- 8-200 9 Ranulfoselen Atif. [address] [place] [address], [id number]. tel:[phone] PREV VISIT, [facility], AGE 40-[address] [facility], [address] [place] [address], [id number], [place] tel:[phone] [facility] physical exam (chief complaint)aly k pain (chief complaint) OverweightFam chris history of diabetes mellitusNonde pendent tobacco use disorderLumba go 9 Ranulfogerman Atif. [address] [place] [address], [id number]. tel:[phone] OFFICE/OUTPA TIENT VISIT, [facility], [address] [place] [address], [id number], [place] tel:[phone] [facility] follow up for lower back pain (chief complaint) Lumbago 200 9 Ranulfoausten Srivastava. [address] [place] [address], [id number]. tel:[phone] OFFICE/OUTPA TIENT VISIT, [facility], [address] [place] [address], [id number], [place] tel:[phone] [facility] back pain (chief complaint)med ication refill (chief complaint) Nondependent tobacco use disorderOverw eightOther screening mammogramLumb agoFamily history of diabetes mellitusFamil y history of ischemic heart diseaseOpioid type dependence, continuous useLumbagoOpi oid type dependence, continuous use 9 Alistair Srivastava. [address] [place] [address], [id number]. tel:[phone] Family History Family Member Type Diagnosis Age [...] Record Payers Payer name Insurance type Covered democrat ID Authoriza tion(s) [facility] Integrity CI [id number] Social History Type Description Quantity Date Captured Comments Alcohol Use Details Unknown Caffeine Use Details Unknown Tobacco Use Status Smoking Status No Information Sex Female Sexual Orientation Straight or heterosexual Gender Identity Female Chief Complaint And Reason For Visit No Information Reason For Referral Reason For Referral No Information Plan Of Treatment Date Type Action Status Goal FIT-DNA. Due on due Goal FIT. Due on due Goal CT-Colonography. Due on due Goal Depression scree ruth. [...] vaccine ( ). Due on due Goal Influenza vaccin e. [...] due Goal FOBT. Due on due Goal PAP. Due on [...] Due on due Goal Colonoscopy. Due on 021 due Goal Anxiety. Due on due Goal Influenza vaccin e. Due on due Goal PAP. Due on due Goal Colonoscopy. Due on 019 due Goal Pap/HPV testing. Due on due [...] Due on due Goal Colonoscopy. Due on 019 due Goal Depression scree ruth. Due on [...] due Goal FOBT. Due on due Goal Hematocrit. Due on 19 due Goal Anxiety. Due on due Goal Influenza vaccin e. Due on due Goal PPSV23 - Adult. Due on due Goal Pap/HPV testing. Due on due Goal Urinalysis due Goal Alcohol/chemical dependency screening. Due on [...] Goal Special diet education compl eted Goal Anxiety. Due on due Goal PPSV23 [...] Goal Pap/HPV testing. Due on due Goal FOBT. Due on [...] due Goal FOBT. Due on due Goal PAP. Due on due Goal Depression scree ruth. Due on due Goal Pap/HPV testing. Due on due Goal Colonoscopy. Due on due Goal One Meza Question . Due on due Goal PPSV23 - Adult. Due on due Goal Influenza vaccin e. Due on due Goal Alcohol/chemical dependency screening. Due on due Goal Anxiety. Due on [...] Depression scree ruth. Due on due Goal Depression scree ruth. [...] due Goal PAP. Due on due Goal Urinalysis due Goal Hematocrit. Due on 18 due Goal Alcohol/chemical dependency screening. Due on due Goal Diabetes screeni ng. Due on due Goal Influenza vaccin e. Due on due Goal Depression scree ruth. Due on due Goal Pap/HPV testing. Due on due Goal PAP. Due on due Goal Anxiety. Due on due Goal HPV testing. Due on due Goal Colonoscopy. Due on due Goal PPSV23 - Adult. Due on due Goal Diabetes screeni ng. Due on due Goal PAP. Due on due Goal Pap/HPV testing. Due on due Goal Alcohol/chemical dependency screening. Due on due Goal PPSV23 - Adult. Due on due Goal Influenza vaccin e. Due on due Goal HPV testing. Due on due Goal Colonoscopy. Due on due Goal Depression scree ruth. Due on due Goal Anxiety. Due on due Goal Mammogram. Due on 7 due Goal PPSV23 - Adult. Due on due Goal Influenza vaccin e. Due on due Goal Colonoscopy. Due on due Goal Influenza vaccin e. Due on due Goal Mammogram. Due on 7 due Goal PPSV23 - Adult. Due on due Goal Colonoscopy. Due on due Goal Influenza vaccin e. Due on due Goal Colonoscopy. Due on due Goal PPSV23 - Adult. Due on due Goal PPSV23 - Adult. Due on due Goal Influenza vaccin e. Due on due Goal Colonoscopy. Due on due Goal PPSV23 - Adult. Due on due Goal Colonoscopy. Due on due Goal Influenza vaccin e. Due on due Goal Influenza vaccin e. Due on due Goal HPV testing. Due on due Goal Colonoscopy. Due on due Goal FOBT. Due on due Goal Fit Testing. Due on due Goal PPSV23 - Adult. Due on due Goal PPSV23 - Adult. [...] Goal HPV testing. Due on due Goal Alcohol/chemical dependency [...] Goal HPV testing. Due on due Goal HPV testing. Due on due Goal HIV screen due Goal FOBT. Due on due Goal Tdap due Goal Influenza vaccin e. Due on due Goal Colonoscopy. Due on 015 due Goal Alcohol/chemical dependency screening. Due on due Goal PPSV23 - Adult. Due on due Goal ECG. Due on due Goal Anxiety. Due on due Goal Tobacco cessation counseling [...] Physical Therapy Ordered: Referrals: Physical Therapy. Location: [facility] Evaluate and treat ordered Referral Ordered: Mental Health Counselor (related to Generalized anxiety disorder) ordered Referral Ordered: Referrals: Mental Health Counselor. Evaluate and treat ordered Referral Referred To: [facility] [address] [place] [address], [phone] Ordered: Referrals: Mental Health Counselor. [facility]. Evaluate and treat ordered Referral Referred To: Dr Betancourt Ordered: Referrals: Neurosurgery. Dr Betancourt. Evaluate and treat Appointment date/timeframe: 3 Months ordered Referral Referred To: Pippa Rodriguez APRN [address] [place] [address], [phone] Ordered: Referrals: Psychiatry. Pippa Rodriguez APRN. Evaluate and treat ordered Referral Ordered: Referrals: Orthopedic Surgery. Evaluate and treat ordered Referral Ordered: [facility] (related to Unspecified abnormalities of gait and mobility) ordered Referral Referred To: [address], [address] [phone] Ordered: Referrals: [facility]. [facility]. Evaluate and treat ordered Referral Referred To: [...] Consult. ordered Referral Ordered: Licensed [facility] MONUMENT STONECUTTER. ordered Referral Ordered: Physical Therapist/Independent. ordered Referral Ordered: Neurosurgery. ordered Patient Education Pap Test: Care Instruct ions completed Patient Education Fecal Immunoch emical Test (FIT): About completed Future Order: Radiology Order Ma mmogram Bilateral Screening (MAMSC), Ordered on: Ordered Future Order: Lab Order CBC (W D IFF AND PLATELET) (1979), Ordered on: Ordered Future Order: Lab Order COMPREHE NSIVE METABOLIC PANEL (977), Ordered on: Ordered Future Order: Lab Order GLYCOHEM OGLOBIN-A1C (1108), Ordered on: Ordered Future Order: Lab Order LIPID 1 PROFILE (CHOL,TRIG,HDL,LDL) (971), Ordered on: Ordered Future Order: Lab Order TSH, 3RD GENERATION (1902), Ordered on: Ordered Future Order: Lab Order VITAMIN D 25-HYDROXY (8630), Ordered on: Ordered Future Order: Radiology Order Ma mmogram Bilateral Diagnostic With US If Necessary (MAMDIAG), Ordered on: Ordered Future Order: Radiology Order Ma mmogram Bilateral Screening (MAMSC), Ordered on: Ordered Future Order: Lab Order DRUGS OF ABUSE SCREEN ([id number]), Ordered on: Ordered Future Order: Lab Order DRUGS OF ABUSE SCREEN ([id number]), Ordered on: Ordered Future Order: Radiology Order MR I Sacrum/SI joint w/o contrast(INAV) (MR-Sac+SI), Ordered on: Ordered Future Order: Radiology Order MR I Lumbar Spine w/o contrast [id number] (MR-LSpine), Ordered on: Ordered Future Order: Radiology Order Ma mmogram Bilateral Screening (MAMSC), Ordered on: Ordered Future Order: Lab Order DRUG SCR EEN (ANCELMO BRO.) (7954), Ordered on: Ordered Future Order: Lab Order CBC/DIFF (W/PLT) ([id number]), Ordered on: Ordered Future Order: Lab Order METHYLMA LONIC ACID ([id number]), Ordered on: Ordered Future Order: Lab Order HOMOCYST EINE ([id number]), Ordered on: Ordered Future Order: Lab Order Vit D25 OH Total D3 ([id number]), Ordered on: Ordered Future Order: Lab Order VIT B12 ([id number]), Ordered on: Ordered Future Order: Lab Order TSH 3RD GN Reflex ([id number]), Ordered on: Ordered Future Order: Lab Order LIPID PA MICHAEL ([id number]), Ordered on: Ordered Future Order: Lab Order FOLATE S CAMERON ([id number]), Ordered on: Ordered Future Order: Lab Order COMPREHE NSIVE METABOLIC PANEL (18802), Ordered on: Ordered Future Order: Lab Order VITAMIN D 25-HYDROXY (8630), Sent on: Sent Future Order: Lab Order DRUG SCR EEN (ANCELMO BRO.) (079), Ordered on: Ordered Future Order: Lab Order DRUG SCR EEN (ANCELMO BRO.) (255), Ordered on: Ordered Future Order: Lab Order [...] Ordered Future Order: Lab Order HOMOCYST EINE (3721), Ordered on: Ordered Future Order: Lab Order VITAMIN D 25-HYDROXY (8630), Sent on: Sent Future Order: Lab Order DRUG SCR EEN (ANCELMO BRO.) (3284), Ordered on: Ordered Future Order: Radiology Order Ma mmogram Bilateral Screening (MAMSC), Ordered on: Ordered Future Order: Lab Order Chlamydi a N Gonorrhoeae (1), Ordered on: Ordered Future Order: Lab Order Pap HPV Reflex (ASCUS) (4352), Sent on: Sent Future Order: Lab Order DRUG SCR EEN (ANCELMO BRO.) (7344), Ordered on: Ordered Future Order: Lab Order DRUGS OF ABUSE SCREEN ([id number]), Appointment on: Ordered Future Order: Lab Order VITAMIN D 25-HYDROXY (8630), Appointment on: Ordered Future Order: Lab Order VITAMIN D 25-HYDROXY (8630), Appointment on: Ordered Future Order: Lab Order Rapid HI V ([id number]), Appointment on: Ordered Future Order: Lab Order VITAMIN D 25-HYDROXY (8630), Appointment on: Ordered Future Order: Lab Order URINE CY TOLOGY (THIN PREP) (4142), Appointment on: Ordered Future Order: Lab Order [...] been bothering her for over a year. Anxiety This is a follow up visit. [...] is intermittent. back pain The problem is i mproving. It occurs persistently. Additional information: taking bup as rx. back pain The problem is f luctuating. [...] been bad. getting out less. less mobile. back pain The problem is w orsening. It occurs persistently. Location of pain is lower back. Additional information: 3 good days a month, 27 where she can't function. 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 BM is better. 1hour to bathe self (really can't). scared of PT. Flu shot- delcines back pain The problem is f luctuating. [...] lumps on certain spots, armpitno breast lumpsbreasts deven keyes dsicharge Anxiety There is improve ment of [...] day prn and salve BID), went to [facility]. back pain Location of pain is lower [...] information: still agoraphobic, same as last visit. back pain Severity level i s 7. It occurs persistently. Location of pain is lower back.The patient describes the pain as burning, deep and diffuse. Symptoms are aggravated by bending and daily activities. Symptoms are relieved by pain meds/drugs. Additional information: concerned re: her weight. working on healthy diet. Anxiety The patient pres ents with anxious/fearful thoughts and restlessness but denies compulsive thoughts, depressed mood, diminished interest or pleasure, hallucinations, racing thoughts or thoughts of or suicide. Anxiety This is a follow up visit. back pain Severity level i s 5. Location of pain is lower back. Anxiety back pain Severity level i s 6. Location of pain is lower back. Symptoms are relieved by rx. disability Eating: IBathroo m: IBAthing: Assistance, touch. has a seat. Grooming: assistanceClothing put it on: some asssitance, buttons (avoids)wihtout cane: 5 feet, unstable, fall riskCane when ambulatingWalker outside for short distances, wheeledWheelchair for longer outingsHousekeepign: Almost complete dependenceFinances: assistanceCooking: slow, needs assistanceShopping: DPublic transport: DNo bars, no ramp back pain Severity level i s 4. The problem is improving. It occurs persistently. Location of pain is middle back and lower back. Additional information: taking new dose. feels it has helped a lot. sleeping a lot better, more rested, still wakes with pain sometimes but much more manageable. Anxiety This is a follow up visit. [...] with pain overnight, then anxiety kicks in. back pain Severity level i s 7. Duration: 24 Hours. The problem is fluctuating. It occurs persistently. Location of pain is lower back. depression The patient pres ents with anxious/fearful thoughts, excessive worry and fatigue. Additional information: more anxiety as of late, more stress. lots of agoraphobia. taking both meds as rx. Follow Up of Back pain It occurs persistently. Location of pain is lower back.The patient describes the pain as an ache, burning, piercing, sharp, shooting and stabbing. Symptoms are aggravated by changing positions, lying/rest, rolling over in bed, sitting, standing, twisting and walking. Symptoms are relieved by pain meds/drugs and physical therapy. Follow Up of Anxiety There is im [...] feels overall stable to a bit better. hip pain Severity level i s moderate. [...] them at night. Daughter with patient at [facility] and very concerned. new onset bladder incontinence. [...] not have results in yet will call margarita. Functional Status Date Functional Assessmen t No Information Instructions Date Instruction Additional Infor matdonavon Giving encouragement to exercise Related to Overweight [...] 3-5 yearsAge appropriate clinical guidelines discussedVoiced understandingAnnual maintenance groundman in 1 year with me Related to Encntr for maintenance groundman exam (general) (routine) w/o abn findings Benefits & Risks HRT , vaginal hygiene, exercise, calcium & Vit D supplementsVerbalized understanding Related to Menopausal and female climacteric states Patient interested i n but transportation and mobility limitedstates [facility] manager of case management trying to find home servicesRefilled medfollow up 3 months Related to Anxiety patient still trying chair yoga for stretchingContemplating burnign of the nerves with pain mgmtRefilled medsfollow up 3 monthsutox obtained Related to Lumbago decreased xanaxdecli camille BHdeclined psychdecliend long acting medfollow up 3 months Related to Anxiety Continue as currentf ollow up 3 monthsReferral to pain clinic as alternative supplementation--Discussed the risk/benefit of controlled substance medication. Discussed the risk of habituation, dependence and tolerance to these types of medications. Discussed health center's controlled substance policy. Patient accepts the risks associated with these medications and the responsibility to uphold controlled substance policy. Related to Lumbago Continue as currentfollow up 3 m onths Related to Major depressive affective disorder, recurrent episode, moderate degree Pre-dated Rx as padmini ent will run [...] [facility] medsDiscussed the risk/benefit of controlled substance medication. [...] uphold controlled substance policy. Related to Lumbago Reviewed medications Dietary counseling Related to Ov erweight Take new medication as prescribe d Patient understood a nd made informed decision Continue current medication Potential for abuse Physical activity counseling Rel ated to Overweight Patient understood a nd made informed decision Continue current medication Potential for abuse Reviewed medications Reviewed medications Patient understood a nd made informed decision Continue current medication Physical activity counseling Rel ated to Overweight Potential for abuse Patient understood a nd made informed decision Continue current medication Reviewed medications Take new medication as prescribe d Continue current medication Patient understood a nd made informed decision Potential for abuse Reviewed medications Activity as tolerated Follow exercise program Potential for abuse Reviewed medications Patient understood [...] decision Continue current medication Potential for abuse Potential for abuse Reviewed medications Continue current medication Patient understood a nd made informed decision Reviewed medications Patient understood a nd made informed decision Continue current medication Potential for abuse Patient understood a nd made informed decision Continue current medication Reviewed medications Continue current medication Reviewed medications Take new medication as prescribe d Patient understood a nd made informed decision Take new medication as prescribe d Patient understood a nd made informed decision Continue current medication Potential for abuse Reviewed medications Continue current medication Potential for abuse Reviewed medications Patient understood a nd made informed decision Continue current medication Potential for abuse Reviewed medications Patient understood a nd made informed decision Change medication Take new medication as prescribe d Patient understood a nd made informed decision Continue current medication Potential for abuse Reviewed medications Continue current medication Potential for abuse Reviewed medications Activity as tolerated Follow exercise program Patient understood a nd made informed decision Continue current medication Reviewed medications Patient understood a nd made informed decision Reviewed medications Patient understood a nd made informed decision Continue current medication Potential for abuse Patient understood a nd made informed decision Continue current medication Potential for abuse Reviewed medications Patient understood a nd made informed decision Continue current medication Potential for abuse Reviewed medications Apply ice to affected area Potential for abuse Reviewed medications Patient understood a nd made informed decision Continue current medication Patient understood a nd made informed decision Continue current medication Potential for abuse Reviewed medications Take new medication as prescribe d Activity as tolerated Patient understood a nd made informed decision Continue current medication Reviewed medications Continue current medication Potential for abuse Reviewed medications Patient understood a nd made informed decision Continue current medication Potential for abuse Reviewed medications Patient understood a nd made informed decision Reviewed medications Take new medication as prescribe d Patient understood a nd made informed decision Continue current medication Reviewed medications Patient understood a nd made informed decision Continue current medication Potential for abuse note moprhine use per day may take morphine q4 prn Patient understood a nd made informed decision Continue current medication Patient understood a nd made informed decision Continue current medication Potential for abuse Reviewed medications Continue current medication Patient understood a nd made informed decision Reviewed medications Patient understood a nd made [...] a nd made informed decision Reviewed medications Continue current medication Patient understood a nd made informed decision Continue current medication Reviewed medications Potential for abuse Reviewed medications Patient understood a nd made informed decision Continue current medication Patient understood a nd made informed decision Continue current medication Reviewed medications Reviewed medications Take new medication as prescribe d Patient understood a nd made informed decision Continue current medication Reviewed medications Patient understood a nd made informed decision Change medication Reviewed medications Take new medication as prescribe d Patient understood a nd made informed decision Continue current medication Reviewed medications Patient understood a nd made informed decision Continue current medication Reviewed medications Continue current medication Potential for abuse Take new medication as prescribe d Patient understood a nd made informed decision Assessments Type Assessment Date No Information Patient Care Teams Name Effective Dates (start - stop) Status Members No Information
--- OUTSIDE RECORDS SUMMARY | 2024-06-25 16:07 | XMS_ITS | Encounter Summary ---
Author Organization [employer] Address [address] [facility] [address] [place] [address] Care Team Providers Care Healthcare Management Name Role Phone Alexia Hutton MD Primary Care Provider [phone] Reason for Visit * Reason Onset Date Comments Appointment Request 06/17/2024 Nurse Triage 06/17/2024 Encounter Details Date Type Department Care Team ([facility] st Contact Info) Description 06/17/2024 Telephone [facility] [address] [place], [place] [phone] Alexia Hutton MD [address] [place], [place] [phone] Appointment Request; Nurse Triage Social History Tobacco Use Types Packs/Day Years Used Date Smoking Tobacco: Former Cigarettes Smokeless Tobacco: Never Comments:Using nicotine [facility] Alcohol Use Standard Drinks/Week Comments Never 0 [...] is your housing situation today? I have nciolasa juarez 06/04/[address] you [...] encounter Miscellaneous Notes * Telephone Encounter - Irene Hurst RN - 06/17/2024 4:28 PM EDT Call returned to Trini Norwood to triage below. Reports was having exacerbation of chronic low back pain when nurse came to visit this morning. Per pt is not on any BP meds. Pt is not taking amlodipine 5 mg. Per pt has had normal BP all along. Pt denies any CRAWFORD, CP, SOB or dizziness. Pt does not have a BP kit. Per pt uses suboxone. Pain has improved since this morning. Pt advised to return call if develops any of above sx. Pt states believes daughter has BP kit. Will have daughter check and return call if BP >140/90. Pt also reminded of instED service provided by [facility]. Will send to PCP as FYI. Please advise team of any changes to above plan of care. Protocol Used: Blood Pressure - High (Adult) Protocol-Based Disposition: See in Office or Video Visit within 3 Days Override (Final) Disposition: Discuss with PCP and Callback by Nurse Today Override Reason: Other Override Notes: Pt asymptomatic. Video visit offer not recorded Positive Triage Question: * Systolic BP >= 160 OR Diastolic >= 100 * All higher-acuity triage questions were negative Care Advice Discussed: * High Blood Pressure * Reasons To Call Back - Chest pain or difficulty breathing occurs - You become worse * Telephone Encounter - Alyssia Lauren - 06/17/2024 4:18 PM EDT Symptom: High Blood Pressure - Caller Reports Outcome: Schedule a same-day appointment or talk to a nurse or provider today Reason: Caller denied all higher acuity questions The caller accepted this outcome. B/P 164/129 Ann Marie (Visiting nurse) Will be calling tomorrow to notify if B/P is high again documented in this encounter Plan of Treatment Upcoming Encounters Date Type Department Care Team (Late st Contact Info) Description 07/21/2024 2:00 PM EDT Office Visit [facility] [address] [place] [phone] Alexia Hutton MD [address] [place] [phone] 08/11/2024 2:00 PM EDT Telemedicine [facility] [address] [place] [phone] Siobhan Ulloa, RN documented as of this encounter Visit Diagnoses Not on filedocumented in this encounter Additional Health Concerns Assessment Noted Time PHQ-9 Depression Total Score: 0 05/23/19 24 11:17 AM EDT documented as of this encounter Care Teams Healthcare Management Relationship Specialty Start Date End Date Alexia Hutton MD [address] [facility] [place] [id number] PCP - General Family Medicine 11/23/22 [facility] 08/25/23 documented as of this encounter
--- OUTSIDE RECORDS SUMMARY | 2024-06-25 16:07 | XMS_ITS | Clinical Summary ---
Author Organization [facility] Address [address] [place] [address] Care Team Providers Care Hot Top Liner Name Role Phone Kacy Archuleta Primary Care Provider [phone] Surgical History Surgery Date Site/Laterality Comments OTHER SURGICAL HISTORY 11/29/2021 PROCEDURE: MA ERCP W/SPHINCTEROTOMY/PAPILLOTOMY; COMMENT: gallstones/dilated CBD Social History Tobacco Use Types Packs/Day Years Used Date Smoking Tobacco: Never Assessed Comments Unknown Sex and Gender Information Value Date Recorded Sex Assigned at Not on file Legal Sex Female 2:54 PM EST Gender Identity Not on file Sexual Orientation Not on file Obstetrics History Last Filed Vital Signs Vital Sign Reading Time Taken Comments Blood Pressure - - Pulse - - Temperature - - Respiratory Rate - - Oxygen Saturation - - Inhaled Oxygen Concentration - - Weight 54.4 kg (120 lb) 10/11/2021 2:43 PM EDT Height 152.4 cm (5') 09/13/2021 11:05 AM EDT Body Mass Index 23.44 09/13/2021 11:05 AM EDT Plan of Treatment Health Maintenance Due Date Last Done Comments Breast Cancer Screening 1960 Pneumococcal Vaccine: 50+ Years (1 of 2 - PCV) 11/18/1979 Pneumococcal Vaccine: Pediatrics (0 to 5 Years) and At-Risk Patients (6 to 64 Years) (1 of 2 - PCV) 11/18/1979 Zoster Vaccines (1 of 2) 11/18/1979 Cervical Cancer Screening: P ap Smear 1981 RSV Immunization Adult Patients (1 - Risk 60-74 years 1-dose series) 2020 COVID-19 Vaccine (3 - Pfizer risk series) 04/28/2021 03/31/2021, 02/28/2021 DTaP,Tdap,and Td Vaccines (2 - Td or Tdap) 09/24/2021 09/25/2011 Colorectal Cancer Screening: Colonoscopy 01/18/2022 Depression Screening 01/18/2022 HIV Screening 01/18/2022 Hepatitis C Screening 01/18/2022 Social Influencers of Health Screening 01/18/2022 Influenza Vaccine (Season Ended) 2024 HIB Vaccines Aged Out No longer eligi [...] on patient's age to complete this topic MMR Vaccines Aged Out No longer eligi ble based on patient's age to complete this topic Meningococcal ACWY Vaccine Aged Out N o longer eligible based on patient's age to complete this topic Meningococcal B Vaccine Aged Out No l onger eligible based on patient's age to complete this topic RSV Immunization Patients Under 20 months Aged Out No longer eligible b ased on patient's age to complete this topic Varicella Vaccines Aged Out No longer eligible based on patient's age to complete this topic Care Teams Hot Top Liner Relationship Specialty Start Date End Date Kacy Archuleta [address] [place] [id number] PCP - General 08/09/21
--- OUTSIDE RECORDS SUMMARY | 2024-06-25 16:07 | XMS_ITS | Data Portability ---
Author Organization [facility] [place] [facility] [employer] Address [address] [place] [id number] Care Team Providers Care Inside B2B Sales Name Role Phone [facility] Primary Care Provider MAREK COTTRELL Primary Care Provider [facility] OTHER Assessment Encounter Date Assessment Date Assessment LastModified by Organization Details LastModified Time 04/21/2024 04/21/2024 I provided real -time medical direction via phone for this encounter and was available for additional phone-based assistance as needed. I have reviewed and agree with the Assessment and Plan as documented by the Cnc Lathe Machine Operator. Patient given the opportunity to ask questions. Our service contacted for an assessment of: Chronic BACK pain As per above, patient with hx of chronic pain. No new or worsening red S&S. No new bowel/bladder symptoms. No new gait abnl. No new neurological signs, symptoms or deficits. Also c/o some continued wheezing and coughing from likely a viral URI in the setting of COPD. Given a nara-neb times one. Per bow stapler on the scene, VSS, non-toxic. Neuro grossly intact. No CKI and not on blood thinners. Has not taken NSAID today Impression: Chronic LBP, COPD Plan: Toradol 30 mg IM times one. F/u with PCP. Red flags to be discussed as to when to seek a higher level of care. We discussed the diagnostic uncertainty of home visits and the risk associated with this. In this case, the patient and I felt this to be an acceptable and reasonable amount of risk given the benefit of avoiding an ED visit. We discussed the need to seek care urgently/emerge ntly in the setting of any new or worsening serious symptoms [email or web address] Not available 04/21/2024 17:56:17 Plan of Treatment Reminders Order Date Submit Date Provider Last Modified By Organization Details Last Modified Time Details Appointments None recorded. Lab rapid SARS CoV 2 Ag, QL IA, respiratory specimen 2024 [facility], [address] [place] [address], [id number] 12:10:32 rapid flu (A+B) 2024 [facility], [address] [place] [address], [id number] 12:10:52 Referral None recorded. Procedures None recorded. Surgeries None recorded. Imaging None recorded. Medication Orders ketorolac 30 mg/mL (1 mL) injection solution [address] [facility], [address] [place] [address], [id number], 17:54:27 ipratropium 0.5 mg-albutero l 3 mg (2.5 mg base)/3 mL nebulizatio n soln [address] [place] [address] Pharmacy, [address] [place] [address], [id number], 17:57:11 ipratropium 0.5 mg-albutero l 3 mg (2.5 mg base)/3 mL nebulizatio n soln 2024 [facility], [address] [place] [address], [id number], 5 10:29:54 albuterol sulfate 2.5 mg/3 mL (0.083 %) solution for nebulizatio n 2024 [facility], [address] [place] [address], [id number], 5 10:29:54 prednisone 10 mg tablet 2024 [facility], [address] [place] [address], [id number], 5 14:40:48 azithromyci n 250 mg tablet 2024 025 [facility], [address] [place] [address], [id number], 5 14:40:43 azithromyci n 250 mg tablet 2024 025 [facility], [address] [place] [address], [id number], 5 10:29:54 prednisone 20 mg tablet 2024 025 [facility], [address] [place] [address], [id number], 5 10:29:54 prednisone 10 mg tablet 2024 025 [facility], [address] [place] [address], [id number], 5 08:28:30 azithromyci n 250 mg tablet 2024 025 [facility], [address] [place] [address], [id number], 5 08:28:32 azithromyci n 250 mg tablet [address] [facility], [address] [place] [address], [id number], 5 19:43:38 prednisone 20 mg tablet [address] [facility], [address] [place] [address], [id number], 5 19:43:19 ipratropium 0.5 mg-albutero l 3 mg (2.5 mg base)/3 mL nebulizatio n soln 2024 025 nithya n89 [facility], [address] [place] [address], [id number], 5 19:43:30 prednisone 10 mg tablet 2023 024 [facility], [address] [place] [address], [id number], 4 16:01:30 azithromyci n 250 mg tablet 2023 024 [id number], [address] [place], [place], [id number], 12:42:16 Patient TargetsNo targets recorded. Patient InstructionsNo instructions recorded. Reason for Referral None Reported. Results Created Date Observation Date Name Description Value Unit Range Abnormal Flag Note LastModifiedBy Organization Detail LastModifiedTime 04/15/1904/15/2024 rapid flu (A+B) Flu negati ve Not Available [facility] ed [address] [place] [address], [id number] 04/15/2024 10:24:57 04/15/1904/15/2024 rapid SARS CoV 2 Ag, QL IA, respi rator y speci men rapid SARS CoV 2 Ag, QL IA, respiratory specimen negati ve Not Available [facility] ed [address] [place] [address], [id number] 04/15/2024 10:24:45 Result Notes None recorded. Medical Equipment None Reported. Allergies No known drug allergies Medications Name Sig Start Date Stop Date Status Note LastModified by Organization Details LastModified Time pulse oximet airial of4000 USE DIRECTED ONCE DAILY active Not Available Not Available N ot Available buspirone 5 mg tablet TAKE 1 TABLET BY MOUTH THREE TIMES DAILY active Not Available Not Available Not Available prednisone 10 mg tablet TAKE 4 TABLETS DAILY FOR 2 DAYS, TAKE 3 TABLETS DAILY FOR 2 DAYS, TAKE 2 TABLETS DAILY FOR 2 DAYS, TAKE 1 TABLET DAILY FOR 2 DAYS THEN STOP. TAKE WITH FOOD. active Not Available Not Available N ot Available nicotine 14 mg/24 hr daily transdermal patch APPLY 1 PATCH TOPICALLY TO THE SKIN IN THE MORNING DO NOT SMOKE WHILE USING PATCH active Not Available Not Available No t Available ipratropium 0.5 mg-albuterol 3 mg (2.5 mg base)/3 mL nebulization soln Inhale 3 mL by nebulizatio n route. 2024 active Not Available Not Available Not Avai lable azithromycin 250 mg tablet TAKE 1 TABLET BY MOUTH ONCE DAILY FOR 4 DAYS active Not Available Not Available No t Available prednisone 20 mg tablet Take 3 tablets by oral route. 2024 active Not Available Not Available Not Avai lable metronidazol e 500 mg tablet TAKE 1 TABLET BY MOUTH EVERY 8 HOURS FOR 10 DAYS active Not Available Not Available No t Available amlodipine 5 mg tablet TAKE 1 TABLET BY MOUTH EVERY DAY IN THE MORNING active Not Available Not Available No t Available ciprofloxaci n 500 mg tablet TAKE 1 TABLET BY MOUTH EVERY TWELVE HOURS FOR 10 DAYS active Not Available Not Available No t Available doxycycline monohydrate 100 mg tablet TAKE 1 TABLET BY MOUTH TWICE A DAY active Not Available Not Available No t Available Nicotrol 10 mg inhalation cartridge INHALE 1 CARTRIDGE EVERY 1-2 hours NEEDED. DO NOT EXCEED 16 cartridges/ day active Not Available Not Available No t Available triamcinolon e acetonide 0.1 % topical cream APPLY TO THE AFFECTED AREA(S) TOPICALLY TWICE DAILY IN THE MORNING AND AT BEDTIME NEEDED FOR RASH active Not Available Not Available No t Available ketorolac 30 mg/mL (1 mL) injection solution 0.5 ml 2022 active Not Available Not Available Not Avai lable hydromorphon e 2 mg tablet TAKE 1-2 TABLETS BY MOUTH EVERY 4 HOURS NEEDED FOR PAIN active Not Available Not Available No t Available lorazepam 0.5 mg tablet TAKE 1 TABLET BY MOUTH EVERY DAY NEEDED active Not Available Not Available No t Available docusate sodium 100 mg capsule TAKE 1 CAPSULE BY MOUTH TWICE A DAY active Not Available Not Available No t Available hydroxyzine HCl 25 mg tablet TAKE 1 TABLET BY MOUTH TWICE DAILY NEEDED active Not Available Not Available No t Available gabapentin 100 mg capsule TAKE 1 CAPSULE BY MOUTH THREE TIMES DAILY active Not Available Not Available Not Available lorazepam 1 mg tablet TAKE 1 TO 2 TABLETS BY MOUTH 30 MINUTES BEFORE MRI PROCEDURE active Not Available Not Available No t Available ibuprofen 600 mg tablet TAKE 1 TABLET BY MOUTH THREE TIMES DAILY WITH FOOD NEEDED FOR PAIN active Not Available Not Available No t Available nicotine 7 mg/24 hr daily transdermal patch APPLY 1 PATCH TOPICALLY TO THE SKIN IN THE MORNING DO NOT SMOKE WHILE USING PATCH. MAY REMOVE AT BEDTIME. active Not Available Not Available No t Available Ventolin HFA 90 mcg/actuatio n aerosol inhaler INHALE 2 PUFFS EVERY 4 HOURS NEEDED FOR WHEEZING OR SHORTNESS OF BREATH active Not Available Not Available No t Available oxycodone 5 mg tablet TAKE 1 OR 2 TABLETS BY MOUTH EVERY 4 HOURS NEEDED active Not Available Not Available No t Available diclofenac 1 % topical gel APPLY 2 GRAMS TOPICALLY TO AFFECTED AREA(S) FOUR TIMES DAILY active Not Available Not Available No t Available calcium 600 mg (as carbonate)-v itamin D3 20 mcg (800 unit) tablet active Not Available Not Available Not Available buprenorphin e 4 mg-naloxone 1 mg sublingual film DISSOLVE 1 FILM UNDER THE TONGUE TWICE DAILY active Not Available Not Available Not Available Anoro Ellipta 62.5 mcg-25 mcg/actuatio n powder for inhalation INHALE 1 PUFF BY MOUTH EVERY DAY. RINSE MOUTH AFTER USING. active Not Available Not Available No t Available Vitals Date Recorded Oxygen saturation Oxygen saturation in Arterial blood by Pulse oximetry Respiratory rate Heart rate Body height Body weight Body temperature Systolic blood pressure Diastolic blood pressure Provider Name and Address Organization Details Last Updated DateTime 4 92 % 92 % 16 /min 86 /min 152.4 cm 03236.8 8 g 97.2 [degF] 153 mm[Hg] 83 mm[Hg] Not Available [employer] 4 12:37:11 Date Recorded Respiratory rate Heart rate Oxygen saturation Oxygen saturation in Arterial blood by Pulse oximetry Systolic blood pressure Diastolic blood pressure Provider Name and Address Organization Details Last Updated DateTime 4 20 /min 103 /min 92 % 92 % 160 mm[Hg] 90 mm[Hg] Not Available [facility] 4 11:18:07 Date Recorded Body height Heart rate Respiratory rate Oxygen saturation Oxygen saturation in Arterial blood by Pulse oximetry Body weight Body temperature Systolic blood pressure Diastolic blood pressure Provider Name and Address Organization Details Last Updated DateTime 5 152.4 cm 80 /min 14 /min 90 % 90 % 17129.4 g 97.4 [degF] 145 mm[Hg] 75 mm[Hg] Not Available [employer] 5 11:16:02 Date Recorded Body temperature Heart rate Respiratory rate Oxygen saturation Oxygen saturation in Arterial blood by Pulse oximetry Inhaled oxygen flow rate Systolic blood pressure Diastolic blood pressure Provider Name and Address Organization Details Last Updated DateTime 5 98.4 [degF] 98 /min 18 /min 98 % 98 % 2 L/min 129 mm[Hg] 80 mm[Hg] Not Available [facility] 5 17:52:50 Social History None recorded. Functional Status None recorded. Mental Status None recorded. Family History Nothing Reported. Medical History No medical history recorded. Gynecological HistoryNo gynecological history recorded. Obstetrics History GPAL:G 0 P 0 0 0 0 Past Encounters Encounter ID Performer Location Encounter Start Date Encounter Closed Date Diagnosis/Indication Diagnosis SNOMED-CT Code Diagnosis ICD10 Code Diagnosis Note [id number] Chrystal Dubon MD [facility] [address] [place] [phone] 10/27/2022 15:42:41 10/28/2022 16:00:31 Chronic neck pain 6082960269 107 M54.2 acute on chronic left trapezius pain with radiculopa thy. advised ice / wrapped in a towel alternatin g w/ gentle heat q 3-4H w/a to affected area-May have Tylenol 500 mg every 6 hours or 1000 mg twice a day based on her weight. She has no history of GI bleeding, chronic kidney disease, and is on no anticoagul ants. She states she does tolerate ibuprofen- advised I will write a prescripti on and she reports her pharmacy will deliver tomorrow [id number] Ronny Londono MD [facility] [address] [place] [phone] 06/17/2023 12:36:57 06/17/2023 17:23:16 Acute exacerbation of chronic obstructive pulmonary disease [id number] J44.1 [id number] Kelvin Patrick MD [facility] [address] [place] [id number] 08/19/2023 11:08:43 08/19/2023 21:05:26 Tachycardia 6701354 R00.0 Patient with elevated HR, BP, tachypnea with diffuse abdominal pain as well as reduced breath sounds on one side per bow stapler. Amenable to going to the ED for further evaluation after extensive conversati on for PNA vs PE. Tachypnea [id number] R06. 82 Patient with elevated HR, BP, tachypnea with diffuse abdominal pain as well as reduced breath sounds on one side per bow stapler. Amenable to going to the ED for further evaluation after extensive conversati on for PNA vs PE. [id number] Ari Mathews MD [facility] [address] [place] [phone] 02/28/2024 11:15:59 02/28/2024 20:07:53 Acute exacerbation of chronic obstructive pulmonary disease [id number] J44.1 As noted, we were called to see this patient regarding concerns of cough, dyspnea, and sore throat in patient with COPD and exacerbati on a few months ago. Evaluation in the field was performed by my bow stapler colleague, as noted above, I provided real-time direction and supervisio n for this visit. The evaluation revealed hypoxemia, otherwise normal VS and wheezes throughout . As noted no fever with this episode. Good response to neb. Impression :Likely COPD exacerbati on, based on typical presentati on and response to nebs. Plan:PredN ebazithord ers as below Primary care, considerch kit in call this week Dispositio n: We discussed the diagnostic uncertaint y of home visits and the risk associated with this. In this case, the patient and I felt this to be an acceptable and reasonable amount of risk given the benefit of avoiding an ED visit. We discussed the need to seek care urgently/e mergently in the setting of any new or worsening serious symptoms, particular ly severe dyspnea, hypoxemia, confusion. [id number] Usha Bacon MD [facility] [address] [place] [phone] 04/15/2024 09:53:33 04/15/2024 11:34:17 Acute exacerbation of chronic obstructive pulmonary disease [id number] J44.1 As noted, we were called to see this patient regarding concerns of dyspnea. Evaluation in the field was performed by my bow stapler colleague, as noted above, I provided real-time direction and supervisio n for this visit. The evaluation revealed 63 yo woman with COPD who calls for 3-4 days of productive cough, nasal congestion , dyspnea on exertion.S he is using anoro, albuterol mdi regularly. She has oxygen pawan is using as needed. She is satting 92% on RA and has diffuse wheezing. She is Flu and COVID (-). Impression :COPD exacerbati on Plan:Dugerri b at [id number] prednisone today and taper sent to pharmacyAz ithromycin 500mg now, 250 x 4 daysAlbute rol nebs to pharmacy to use as needed up to 3 times per day Primary care, consideres calation of chronic inhaler therapy Dispositio n: We discussed the diagnostic uncertaint y of home visits and the risk associated with this. In this case, the patient and I felt this to be an acceptable and reasonable amount of risk given the benefit of avoiding an ED visit. We discussed the need to seek care urgently/e mergently in the setting of any new or worsening serious symptoms, particular ly changes to consciousn ess, chest pain, dyspnea. [id number] Summer Kelsey MD [facility] [address] [place] [phone] 04/21/2024 17:52:48 04/21/2024 21:25:25 Chronic low back pain [id number] M54.50 Chronic ob structive pulmonary disease 11700317 J44.9 Health Concerns Section Related Observation LastModified by Organization Detai ls LastModified Time None Recorded Concern Status LastModified by Organization Details LastModified Time None Recorded Advance Directives Directive None Recorded Payers Insurance Date Sequence Insurance Name Policy Number Policy Romero Covered Member ID Romero Member ID Guarantor Name 04/21/2024 1 [facility] - DOS ON OR AFTER 2022 - DUAL ELIGIBLE - CARE HOME OPTIONS AND ONE CARE (MEDICARE REPLACEMENT/ADV ANTAGE - HMO) Trini Norwood [id number] Trini Norwood Notes Date Note Type Note Provider Name and Address Organization Details Recorded Time 06/17/2023 text/html [facility] Nurse Triage Notes (Jose Lawrence): Reason For Request: Fear of covid Chief Complaints: Cough, Fever/Chills, Weakness/Lethargy, Chest Pain, Syncope/Dizziness/Li ghtheadedness PMH: COPD/Asthma Allergies: No Known Comments: Audiovisual Tech verified the member's name//address and phone number. Mbr calling reporting chest pain, productive cough with clear sputum, chills, headache, and intermittent SOB. Mbr reports concern she could have COVID; she took home COVID test and was reportedly negative. Mbr reports she thinks the chest pain is from her chronic back pain that radiates. Education provided on the response time and the member was advised to monitor reported s/s and seek emergency treatment if needed -ERICA Thakkar MD [address] [facility],[address], [place], [phone], [facility] 06/17/2023 12:42:29 08/19/2023 text/html [facility] Nurse Triage Notes (Jose Lawrence): Reason For Request: Patient has back and stomach pain. Can't stand up straight, and now it's getting harder to breath, feels weak. Chief Complaints: COPD, Diarrhea, Shortness of Breath/Dyspnea, Pain PMH: COPD/Asthma Allergies: No Known Comments: Audiovisual Tech verified the member's name//address and phone number. Mbr calling reporting hx of chronic back pain. Mbr reports treated approx a month ago for COPD exacerbation, mbr states she underwent course of steroids & antibiotics. Mbr reports she is having trouble breathing, with my diaphragm and states had episode of inability to catch breath this AM where she started foaming at the mouth . Mbr also reports she is unable to stand up straight d/t back pain. Mbr also c/o generalized weakness and diarrhea. Education provided on the response time and the member was advised to monitor reported s/s and seek emergency treatment if needed -Denise Lawrence RN .................... .................... .................... .................... .................... .................... .................... . Cnc Lathe Machine Operator Note From Nikki Santacruz: Community Cnc Lathe Machine Operator Marce Santacruz [id number] dispatched to [facility] for a 62 yof C/O SOB. Upon arrival, the pt was ambulatory w/ tachypnea and dyspnea, C/O right sided CP on inspiration. She stated that she was treated 2 months prior for COPD exacerbation w/ steroids and abx, but that she never returned to her baseline. She stated that her S/S had become steadily worse over the past 2 months: SOB on exertion, coughing without increased phlegm, feeling chilled/sweaty, generalized weakness, and tachypnea/dyspnea on exertion. She denied CRAWFORD, dizziness, sore throat, CP, SOB at rest, abd pain, N/V/D, or urinary S/S. She stated she also had scoliosis, and occasionally had muscle spasms; she reported right lower back pain that was so severe she was unable to stand upright. She denied syncope, near syncope, numbness/tingling, jaw, neck, shoulder, or arm pain, or any S/S of indigestion. Right lower lobe inspiratory and expiratory wheezing and rhonchi. [facility] consulted; pt was informed that she needed hospitalization, as delaying tx could be dangerous. The pt agreed, and 911 was called. Aime Garcia arrived and transported her to [place] ED. .................... .................... .................... .................... .................... .................... .................... . Disposition: Fulfilled Kelvin Patrick MD [address] [place] [address],[address], [place], [phone], [facility] 08/19/2023 13:28:18 02/28/2024 text/html [facility] Nurse Triage Notes (Ofelia Borrero - RN): Reason For Request: Pt reporting a cough, congestion, trouble breathing, which all began with a sore throat (began sunday night 02/25/24 Chief Complaints: Cough, Breathing problems, Sore throat PMH: COPD/Asthma, Chronic Back Pain PMH Reviewed at 02/28/2024:40 Allergies Reviewed at 02/28/2024:40 Comments: [facility] came in to check member and felt concerned. member is c/o coughing, SOB, sore throat, itchy ears, coughing up phlegm. Using inhalers, Tylenol, drinking tea, nothing OTC meds taken. Denies fever. Using 02 as needed. Limited mobility. instructed about response time and answered any questions. Nikia MALDONADO Cnc Lathe Machine Operator Organization Information for [facility] [employer] Legal Name: [facility] Address: [address] [place] [address], [place] Sch[place]acher [address], Feed Manager: Keith Dillon MD [place] No.: [id number] Cnc Lathe Machine Operator POC Test Results from [facility] Rousseau Rapid COVID antigen (11:14:25) COVID: - Rapid influenza antigen (11:14:26) Flu: - .................... .................... .................... .................... .................... .................... .................... . Cnc Lathe Machine Operator Note From Praveen Rousseau: Patient alert and oriented answers door walking evenly. Patient complains of sore throat x3 days, difficulty breathing x24 hours. Patient uses albuterol, MDI and ellipta for COPD. Patient denies nausea, vomiting diarrhea, denies dizziness, headache weakness, urinary changes or changes in intake or elimination. Patient reports she was last hospitalized for COPD about six months ago. Patient denies chest pain, shortness of breath or any other pain or complains. Pt pink warm, dry secondary exam unremarkable, lung sounds wheezes throughout. Negative increasework of breathing, positive full sentences, negative use of accessory muscles to breathe, patient states she? s most comfortable laying on right side in bed. Abdomen soft non tender no edema noted. Patient negative for Covid and flu via rapid POC. On ambulation SPO2 87% on room air. [facility] orders prednisone 60 mg PO, azithromycin 500 mg PO, duo neb. Patient states she feels a little better and lung sounds wheezes are reduced after duoneb administration. Ambulation after nebulizer administration shows SPO2 90% percent. Medication administered without complication using five rights. Patient advised to call back or follow up with PCP in 48 hours if symptoms increase or dont start to decrease. Red flags, patient education discussed. .................... .................... .................... .................... .................... .................... .................... . [facility] Consulted: Ronnie Mathews .................... .................... .................... .................... .................... .................... .................... . Disposition: Fulfilled Ari Mathews MD [address] [facility],[address], [place], [phone], [facility] 02/28/2024 19:43:48 04/21/2024 text/html HPI: Patient reported to RN she has been having back spasms x4 days causing trouble breathing when it happens (reports her abdomen becomes tight when spasms occur). Patient reports spasms occur a couple times a day Patient also has COPD and uses home O2. Patient is refusing ED or in person appointment at [facility], only agreeable to [facility]. Patient is currently asymptomatic, was not SOB during the call. Of note, patient does have Kyphosis deformity of spine. This video game script writer did not speak to patient directly, patient spoke to [facility] RN who does not have access to [facility] and requested this video game script writer to place referral .................... .................... .................... .................... .................... .................... .................... . [facility] Nurse Triage Notes (Maddie Crandall): Chief Complaints: Back Pain PMH: COPD/Asthma, Chronic Back Pain, Depression, Post-Traumatic Stress Disorder (PTSD), Emphysema, Chronic Obstructive Pulmonary Disease (COPD), Gallstones PMH Reviewed at 04/21/2024:52 Allergies Reviewed at 04/21/2024 - 13:52 Comments: HPI reviewed- NE .................... .................... .................... .................... .................... .................... .................... . Cnc Lathe Machine Operator Note From Munira Brewster: Sent to a call for a pt complaining of back pain. SC8 arrives on scene, pt is alert and oriented, airway is patent. Pt has chronic back pain and COPD. Pt states she had recent Insted visit for COPD exacerbation and was treated with duo neb treatment, Azithromycin, and Prednisone. Pt complains of cough w/yellow phlegm and sob. Pt has been using albuterol inhaler, but does not have a nebulizer. Pt also complains of worsening back spasms x 4 days in left lower back. Pt requesting pain management. BP:129/80, P:98, RR:18, SpO2:98% RA, T:98.4; Head: unremarkable; Lung sounds: bilateral wheezing; Abdomen: soft, non-tender, no distention; Back: kyphosis, L lumbar tenderness; Extremities: unremarkable; Skin: pink, warm, dry; Duo neb administered; Pt reports decreased sob. [facility] consulted and orders Ketorolac 30mg IM. Ketorolac 30mg IM administered without incident. Pt will follow up with PCP. Red flags discussed. Pt has no further questions. [facility] Medication Orders: ketorolac 30 mg/mL (1 mL) injection solution: Administered ipratropium 0.5 mg-albuterol 3 mg (2.5 mg base)/3 mL nebulization soln: Administered .................... .................... .................... .................... .................... .................... .................... . [facility] Consulted: Summer Kelsey .................... .................... .................... .................... .................... .................... .................... . Disposition: Fulfilled Summer Kelsey MD [address] [place] [address],[address], [place], [address], NAIN - AbcamHATTIE RAMOS 04/21/2024 18:55:29 OBGyn Episode No OBEpisode recorded.
--- OUTSIDE RECORDS SUMMARY | 2024-06-25 16:07 | XMS_ITS | Encounter Summary ---
Author Organization [employer] Address [address] [facility] 7t [place] [address] Care Team Providers Care Lumber Inspector Name Role Phone Alexia Hutton MD Primary Care Provider [phone] Reason for Visit * Reason Comments Med Refill Encounter Details Date Type Department Care Team ([facility] st Contact Info) Description 01/01/[address] [facility] [address] [place], [place] [phone] Danya Rosenthal MD [address] [place] [address] Opioid dependence, uncomplicated (CMS/HCC) Social History Tobacco [...] Description 07/21/2024 2:00 PM EDT Office Visit [facility] [address] [place] [address] Alexia Hutton MD [address] [place] [address] 08/11/2024 2:[address] [facility] [address] [place] [address] Siobhan Ulloa RN documented as of this encounter Visit Diagnoses Diagnosis Opioid dependence, uncomplicated (CMS/HCC) documented in this encounter Additional Health Concerns Assessment Noted Time PHQ-9 Depression Total Score: 0 02/10/20 22 9:09 AM EST documented as of this encounter Care Teams Lumber Inspector Relationship Specialty Start Date End Date Alexia Hutton MD [address] [place] [address] PCP - General Family Medicine 11/23/22 Violeta Downey 08/25/23 documented as of this encounter
--- OUTSIDE RECORDS SUMMARY | 2024-06-25 16:07 | XMS_ITS | Encounter Summary ---
Author Organization [employer] Address [address] [facility] 7[address] [place] [address] Care Team Providers Care Mid Level Developer Name Role Phone Alexia Hutton MD Primary Care Provider [phone] Reason for Visit * Reason Onset Date Comments Durable Medical Equipment 05/26/2024 Encounter Details Date Type Department Care Team (Late st Contact Info) Description 05/26/2024 Telephone [facility] [address] [place], [place] [phone] Alexia Hutton MD [address] [place], [place] [phone] Durable Medical Equipment Social History Tobacco Use Types Packs/Day Years Used Date Smoking Tobacco: Former Cigarettes Smokeless Tobacco: Never Comments:Using nicotine [facility] Alcohol Use Standard Drinks/Week Comments Never [...] encounter Miscellaneous Notes * Telephone Encounter - Marija Muse RN - 06/04/2024 12:22 PM EDT TC placed to [employer] [facility] regarding message below. RN spoke with Diamond, whom reports requesting update script as none of the ICD10 codes listed work to cover supplies for rx received 04/21/24 for incontinence supplies (in chart under Media dated 04/16/24.) Unable to provide appropriate dx for incontinence per chart. RN will forward message to PCP to review and adivse regarding ICD10 code/dx to be used for incontinence supplies, update previous visit with dx or if pt will need to be seen for visit. TY TC from [facility] with [employer] [facility] requesting a call back to clarify Dx Codes for DME received. Best contact # [phone]. * Telephone Encounter - Luma Diaz - 05/26/2024 9:12 AM EDT TC from [facility] with [employer] [facility] requesting a call back to clarify Dx Codes for DME received. Best contact # [phone]. documented in this encounter Plan of Treatment Upcoming Encounters Date Type Department Care Team (Late st Contact Info) Description 07/21/2024 2:00 PM EDT Office Visit [facility] [address] [place] [address] Alexia Hutton MD [address] [place] [address] 08/11/2024 2:00 PM EDT Telemedicine [address] [address] Siobhan Ulloa RN documented as of this encounter Visit Diagnoses Not on filedocumented in this encounter Additional Health Concerns Assessment Noted Time PHQ-9 Depression Total Score: 0 05/23/19 24 11:17 AM EDT documented as of this encounter Care Teams Mid Level Developer Relationship Specialty Start Date End Date Alexia Hutton MD [address] [place] [address] PCP - General Family Medicine 11/23/22 Violeta Downey 08/25/23 documented as of this encounter
== END 2024-06-25 15:07 | disposition home or self-care (01) ==
LOC: HO.US 15:06
PROVIDERS: PCP General Practice; Visit Provider General Practice
DX: R22.1 Localized swelling, mass and lump, neck (principal)
CPT/HCPCS: 76536

== ENCOUNTER → 2024-06-25 15:10 | Outpatient (BNV) | payer OTHER, SELFPAY | PROVIDERS: PCP General Practice; Visit Provider Radiology Diagnostic Radiology | DX: R22.1 Localized swelling, mass and lump, neck (principal) | CPT/HCPCS: 76536 ==

== ENCOUNTER 2024-07-21 13:08 | Outpatient (AMB) | payer OTHER, SELFPAY ==
--- NOTE | 2024-07-21 13:13 | MHC.OFFVIS ---
Vital Signs 07/21/24 13:15 Height 5 ft Weight 137 lb 12.623 oz BMI 26.9 BP 136/76 Blood Pressure Location Lt brachial Position Sitting Pulse 76 Pulse Source Pulse Oximeter Pulse Oximetry (%) 96 Oxygen Delivery Method Room Air Intake Visit Reasons: Emphysema/COPD Allergies No Known Allergies Allergy (Verified 07/21/24 13:21) HPI HPI Emphysema/COPD: Details: Trini is a pleasant 63 year old female, current minimal smoker, with 30+pack year history with underlying COPD, chronic pain syndrome, depression, PTSD, anxiety and opiate use disorder on Suboxone. She was referred by PCP for pulmonary evaluation. She has been suboptimally controlled on Anoro BID, requiring albuterol MDI/DuoNeb frequently. She reports dyspnea on exertion and occasional wheezing, denies cough or chest tightness. She denies prior h/o asthma. She was last hospitalized for acute respiratory failure with hypoxia secondary to COPD exacerbation 07/2023 in which she was discharged with 2 L supplemental oxygen which she used consistently up until a few months ago. She has a visiting nurse who assess vitals and patient denies oxygen saturation >92%. She denies h/o recurrent respiratory infections. Reports seasonal allergies and dog at home, no recent allergy testing. Denies occupational exposures. She reports sister with COPD, smoker, paternal grandfather smoker with COPD, otherwise denies pertinent family history. She is currently using NRT 14mg/day patch with good effect. [facility] Medical History Chronic pain syndrome Depression PTSD (post-traumatic stress disorder) Tobacco use disorder Opioid use disorder Surgical History History of neck surgery History of back surgery Family History Mother Pancreatic cancer Father HTN (hypertension) Diabetes Social History (Updated 07/21/24 @ 13:21 by Olinda Shane CMA) Household Members: Family Household Members Other:: daughter Housing: House Alcohol intake: never Patient Tobacco Use Status: Former Tobacco user Tobacco use type: Cigarette Cigarettes Per Day: 10 Years Smoked: 30 years service: No Review of Systems Const Denies chills, Denies excessive sweating, Denies fever(s), Denies headache(s) and Denies night sweats Eyes Denies dry eyes, Denies irritation and Denies itchy eyes ENT Reports Normal hearing present, Denies headache(s), Denies nasal congestion, Denies nasal discharge, Denies post nasal drip and Denies sore throat Card Denies chest pain, Denies chest pain at rest, Denies chest pain with activity, Denies claudication, Denies leg edema, Reports dyspnea on exertion, Denies orthopnea and Denies paroxysmal nocturnal dyspnea Resp Denies change in phlegm color, Denies chest congestion, Denies cough, Denies hemoptysis, Denies excessive phlegm production, Denies pain on inspiration, Denies pain with cough, Reports dyspnea on exertion, Denies stridor and Reports wheezing Musc Denies myalgias Neuro Reports Normal hearing present and Denies headache(s) Endo Denies excessive sweating Reginaldo/Lymph Denies lymphadenopathy Aller/Immun Denies itchy eyes, Denies seasonal rhinorrhea and Reports wheezing Physical Exam Vital Signs: Last Vital Signs Pulse 76 07/21/24 13:15 BP 136/76 07/21/24 13:15 Pulse Ox 96 07/21/24 13:15 Oxygen Delivery Method Room Air 07/21/24 13:15 BMI result Body Mass Index 26.9 Const General: cooperative, no acute distress, well developed and alert Orientation/consciousness: patient oriented x3 Limitations: ambulation with cane and wheelchair HEENT Head: Yes normal to inspection, Yes normocephalic and Yes atraumatic Ears: hearing grossly normal bilaterally and external ears normal Eyes General: appearance normal, both eyes and all related structures Eyelids: Yes eyelids normal Sclerae: sclerae normal EOM: EOMs intact bilaterally Neck Neck: Yes normal visual inspection and Yes no lymphadenopathy Lymphatic: no lymphadenopathy noted Chest Chest palpation & inspection: normal inspection of the chest Resp Effort & Inspection: normal respiratory effort, able to speak in complete sentences, no stridor, not tachypneic, no tripod positioning and no use of accessory muscles Auscultation: diminished lung sounds Cardio Jugular venous distension: no JVD Rate: regular rate Rhythm: regular rhythm Skin Other: warm, dry General skin exam: no rashes or lesions noted Neuro General: patient oriented x3 Cranial nerves: Yes Normal hearing present Cognition (Neuro): normal cognition Extrem General: Yes normal to inspection, Yes capillary refill normal, Yes no clubbing, cyanosis or edema and Yes no pedal edema Psych Appearance: grossly normal and well kempt Speech and movement: Normal speech and movement present and Clear speech present Affect: normal affect Attitude: cooperative Thought process: Normal thought process present Thought content: Normal thought content present Insight: Good insight present (Psych) Judgement: Good judgement present (Psych) Results Reviewed Results Reviewed: [address] [address] [address] Scan Report Signed Patient: Trini Norwood MR#: [id number] : 1960 Acct:[id number] Age/Sex: 62 / F ADM Date: 08/19/23 Loc: .ED Attending Dr: Ordering Physician: Munira hCaves Date of Service: 08/19/23 Procedure(s): CT angio chest PE protocol Accession Number(s): [id number] cc: [facility]; Munira Chaves~ EXAMINATION: CT ANGIOGRAM OF THE CHEST WITH AND WITHOUT CONTRAST (CT PULMONARY ANGIOGRAM FOR PE) CLINICAL INFORMATION: elevated d-dimer, sob, pleuritic cp COMPARISON: Chest radiograph 08/19/2023 TECHNIQUE: Prior to contrast administration, noncontrast localization images were obtained. Subsequently, multidetector volumetric imaging was performed from the thoracic inlet to below the diaphragms following the administration of 65 mL Omnipaque 350 intravenous contrast. No contrast reaction reported Sagittal, coronal, and MIP oblique sagittal reformatted images were obtained on the CT workstation, uploaded to PACS, and reviewed. This CT examination was performed using dose optimization techniques as appropriate, variously including the following: *Automated exposure control *Adjustment of mA and/or kV according to patient size (this includes techniques or standardized protocols for targeted exams where dose is matched to indication/reason for exam; i.e. extremities or head) *Use of iterative reconstruction technique Total exam dose-length product 248 mGy-cm FINDINGS: QUALITY OF STUDY/CONTRAST BOLUS: Suboptimal. PULMONARY ARTERIES: No central pulmonary emboli. THORACIC AORTA: No aneurysm. LUNG: The central airways are patent. Diffuse centrilobular emphysema. Bibasilar atelectasis or scarring. No focal consolidation or mass. No pleural effusion or pneumothorax. No suspicious pulmonary nodule to correspond with chest radiograph finding. MEDIASTINUM: Normal heart size. No pericardial effusion. No hilar or mediastinal lymphadenopathy. No evidence of septal bowing or right heart strain. CORONARY ARTERY CALCIFICATION: None visualized on this study. CHEST WALL/AXILLA: No axillary or internal mammary lymphadenopathy. OSSEOUS STRUCTURES: No acute or suspicious osseous abnormality. Chronic right lateral third rib fracture. Superior endplate compression deformities of T6 and T8, age indeterminate. UPPER ABDOMEN: Hepatic steatosis. There is a simple fluid attenuating left renal cyst for which no follow-up imaging is recommended. No reflux of contrast into the hepatic veins to suggest elevated right heart pressures. CT/CT angio chest PE protocol IMPRESSION: 1. No central pulmonary emboli. 2. Diffuse centrilobular emphysema. No suspicious pulmonary nodule to correspond with chest radiograph findings from same date. 3. Superior endplate compression deformities of T6 and T8, age indeterminate. VTE: negative. Dictated By: Alicia Santos Signed By: <Electronically signed by Alicia Santos in OV> 08/19/23 1533 DD/ 1456 TD/TT: Silk Screen Printer: Assessment & Plan Assessment & Plan (1) COPD (chronic obstructive pulmonary disease): Code(s): J44.9 - Chronic obstructive pulmonary disease, unspecified Category: Medical (2) Nicotine dependence, cigarettes, uncomplicated: Code(s): F17.210 - Nicotine dependence, cigarettes, uncomplicated Category: Medical (3) Dyspnea on exertion: Code(s): R06.09 - Other forms of dyspnea Category: Medical Plan Trini presents for pulmonary evaluation for known h/o COPD, unknown severity. Will send for PFT to evaluate severity and send for RAST to assess for an allergic component. Will switch Anoro to Trelegy. Discussed importance of good oral hygiene to prevent thrush. Given patient's smoking history, will send for chest CT. Will arrange 6MWT to assess for continued need for supplemental oxygen and order overnight oximetry, prior h/o nocturnal hypoxemia. DME [employer]. All questions were answered and patient is in agreement of plan. Will follow up in 6-8 weeks or sooner if needed. Orders: Orders Complete Blood Count Auto Diff Today Z91.09 - Other allergy status, other than to drugs and biological substances Overnight Pulse Oximetry Today G47.34 - Idiopathic sleep related nonobstructive alveolar hypoventilation Resp Allergy Profile Region I Today Z91.09 - Other allergy status, other than to drugs and biological substances Immunoglobulin E Today Z91.09 - Other allergy status, other than to drugs and biological substances CT chest wo IV con Today F17.210 - Nicotine dependence, cigarettes, uncomplicated PFT pulmonary function test Today J44.9 - Chronic obstructive pulmonary disease, unspecified Medications: New ajcroprlkbk-vdjinzrzr-tsdtmcjg 200-62.5-25 mcg (Trelegy Ellipta) 1 inh inhalation DAILY 60 ea 6RF Discontinued umeclidinium-vilanterol 62.5-25 mcg/actuation (Anoro Ellipta) Discontinued Reason: Patient Completed Course 1 inh inhalation DAILY 60 ea 0RF Coding Level of Care Code New Pt Level 4 (43991) Diagnoses COPD (chronic obstructive pulmonary disease) J44.9 Nicotine dependence, cigarettes, uncomplicated F1 Dyspnea on exertion R06.09
[2024-07-21 13:15] VITALS: BP 136/76; PULSE 76; O2SAT 96; BMI 26.9
--- OUTSIDE RECORDS SUMMARY | 2024-07-21 14:12 | XMS_ITS | Encounter Summary ---
Author Organization [employer] Address [address] [facility] 7t [place] [address] Care Team Providers Care Back Tender Name Role Phone Alexia Hutton MD Primary Care Provider [phone] Reason for Visit * Reason Comments Med Refill Encounter Details Date Type Department Care Team ([facility] st Contact Info) Description 08/07/2023 Refill [facility] [address] [place], [place] [phone] Danya Rosenthal MD [address] [place] [address] Opioid dependence, uncomplicated (CMS/HCC) Social History Tobacco [...] Care Team (Late st Contact Info) Description 08/11/2024 2:00 PM EDT Telemedicine [facility] [address] [place] [address] Siobhan Ulloa RN documented as of this encounter Visit Diagnoses Diagnosis Opioid dependence, uncomplicated (CMS/HCC) documented in this encounter Additional Health Concerns Assessment Noted Time PHQ-9 Depression Total Score: 0 05/23/19 24 11:17 AM EDT documented as of this encounter Care Teams Back Tender Relationship Specialty Start Date End Date Alexia Hutton MD [address] [place] [address] PCP - General Family Medicine 11/23/22 Violeta Downey 08/25/23 documented as of this encounter
== END 2024-07-21 14:09 | disposition home or self-care (01) ==
LOC: HO.HPS 13:08
PROVIDERS: PCP General Practice; Referring Provider General Practice; Visit Provider Nurse Practitioner Family
DX: J44.9 Chronic obstructive pulmonary disease, unspecified (principal); F17.210 Nicotine dependence, cigarettes, uncomplicated; R06.09 Other forms of dyspnea
CPT/HCPCS: 99204

== ENCOUNTER 2024-07-21 13:08 | Outpatient (REF) | payer OTHER, SELFPAY | END 2024-07-21 13:09 | disposition home or self-care (01) | LOC: HO.LAB 13:08 | PROVIDERS: PCP General Practice; Referring Provider General Practice; Visit Provider Nurse Practitioner Family | DX: J44.9 Chronic obstructive pulmonary disease, unspecified (principal); F17.210 Nicotine dependence, cigarettes, uncomplicated; R06.09 Other forms of dyspnea; Z91.09 Other allergy status, other than to drugs and biological substances | CPT/HCPCS: 99202 ==

== ENCOUNTER 2024-10-07 13:05 | Outpatient (REF) | payer OTHER, SELFPAY ==
--- NOTE | ~2024-10-07 | CT_ITS ---
EXAMINATION: CT CHEST WITHOUT CONTRAST CLINICAL INFORMATION: Nicotine dependence. COMPARISON: August 19, 2023 TECHNIQUE: Multidetector volumetric CT imaging of the chest was done. Axial MIP volume rendering provided. Sagittal and coronal reformatted images were obtained. This CT examination was performed using dose optimization techniques as appropriate, variously including the following: *Automated exposure control *Adjustment of mA and/or kV according to patient size (this includes techniques or standardized protocols for targeted exams where dose is matched to indication/reason for exam; i.e. extremities or head) *Use of iterative reconstruction technique DLP: 114 mGy centimeter. FINDINGS: BAGGAGE SECURITY CHECKER: Hyperinflated lungs. S-shaped curvature of the thoracolumbar spine. Patient's large body habitus. LUNGS: 1 mm noncalcified pulmonary nodule, peripheral left upper lung lobe. Bilateral apical lung scarring. 2 mm plaque like noncalcified nodule in the underneath surface of the right major fissure. Centrilobular and to a lesser extent paraseptal emphysematous changes, both lungs. Linear attenuation abnormalities in the lung bases, lingula and right middle lung lobe. Secretions within the subsegmental pulmonary bronchi in the right lower lung lobe. Probable secretions in the right mainstem bronchus. No bronchiectasis. No honeycombing. Bilateral apical lung scarring.. MEDIASTINUM: No mediastinal lymphadenopathy. Calcified plaques throughout the thoracic aorta its main branches and the coronary arteries. No gross pericardial effusion. No new mediastinum. No hemopericardium. No gross pericardial effusion. Status post left hemithyroidectomy likely resection of the isthmus. CORONARY ARTERY CALCIFICATION: Calcified plaques. PLEURA: No pleural effusion. No pneumothorax. No gross calcified pleural plaques. AXILLA: No lymphadenopathy. UPPER ABDOMEN: Calcified plaques in the abdominal aorta at the origin of the main renal arteries. Hyperdensity probably layering in the common bile duct.. OSSEOUS STRUCTURES: Superior endplate compression deformity representing 30% volume loss with Schmorl nodes at T8 vertebra. Mild superior endplate compression deformities from T3 to T6 representing-20% volume loss. Osteopenia versus osteoporosis. Kyphotic deformity apex at T7. CT/CT chest wo IV con IMPRESSION: Nonspecific subcentimeter noncalcified pulmonary nodules. Probable aspiration, subsegmental bronchi, right lower lung lobe. Coronary artery disease and atherosclerosis disease. Emphysematous type changes. Questionable choledocholithiasis. Subacute to old superior endplate compression fracture deformities the most conspicuous at T8. Fleischner guidelines were followed. Electronically signed by: Newton Gambino MD 10/07/2024 02:58 PM EDT RP
--- NOTE | 2024-10-07 13:10 | PFT_ITS ---
Indication: COPD Spirometry FEV1 to FVC 37%; FEV1 0.72 L; FVC 1.94 L. The patient did have a significant response to bronchodilators noted. Lung Volumes Total lung capacity 92% predicted; residual volume 148% predicted Diffusion Capacity DLCO 35% predicted Comparisons None Interpretation There is an obstructive ventilatory defect consistent with very severe COPD. There is a significant response to bronchodilators noted. The patient also has evidence of significant air trapping due to the COPD. There is a severe diffusion impairment secondary to underlying COPD and likely emphysematous changes and or although parenchymal lung conditions should also be considered. Clinical correlation warranted. If the patient is not on oxygen she should have a 6 minute walk test and a bloodgas. MTDD
[2024-10-07 13:54] VITALS: PULSE 82; O2SAT 91
--- OUTSIDE RECORDS SUMMARY | 2024-10-07 14:14 | XMS_ITS | Clinical Summary ---
Author Organization [facility] Address [address] [phone] Care Team Providers Care Development Director Name Role Phone Delbert Hamilton MD Primary Care Provider [phone] Allergies No known active allergies Medications morphine sulfate (MS CONTIN) 15 MG 12 hr tablet TAKE 1 TABLET BY ORAL ROUTE EVERY 12 HOURS (WITH THE 30MG MS CONTIN FOR TOTAL OF 45MG) 0 03/23/2017 Active morphine sulfate (MS CONTIN) 30 MG 12 hr tablet TAKE 1 TABLET BY MOUTH EVERY 12 HOURS 0 03/23/2017 Active LORazepam (ATIVAN) 0.5 MG tablet TAKE 1 TAB BY MOUTH 2 TIMES DAILY NEEDED FOR PANIC 1 03/23/2017 Active polyethylene glycol (MIRALAX) 17 gram/dose powder MIX 17 GRAMS WITH 8 OZ OF WATER JUICE SODA COFFEE OR TEA NEEDED 5 01/29/2017 Active MEDICAL MARIJUANA Active Social History Tobacco Use Types Packs/Day Years Used Date Smoking Tobacco: Every Day Smokeless Tobacco: Never Alcohol Use Standard Drinks/Week Comments No 0 (1 standard drink = 0.6 oz pur e alcohol) Comments Unknown Sex and Gender Information Value Date Recorded Sex Assigned at Not on file Legal Sex Female 12:21 AM EST Gender Identity Not on file Sexual Orientation Not on file Last Filed Vital Signs Vital Sign Reading Time Taken Comments Blood Pressure 148/73 04/04/2017 11:17 AM EST Pulse 78 04/04/2017 11:17 AM EST Temperature - - Respiratory Rate - - Oxygen Saturation - - Inhaled Oxygen Concentration - - Weight - - Height - - Body Mass Index - - Plan of Treatment Not on file Insurance [id number] [employer] Care Teams Development Director Relationship Specialty Start Date End Date Delbert Hamilton MD PCP - General Family Medicine 03/01/17
--- OUTSIDE RECORDS SUMMARY | 2024-10-07 14:14 | XMS_ITS | Encounter Summary ---
Author Organization [employer] Address [address] [facility] 7t [place] [address] Care Team Providers Care Excavator Backhoe Operator Name Role Phone Alexia Hutton MD Primary Care Provider Reason for Visit * Reason Comments Med Refill Encounter Details Date Type Department Care Team ([facility] st Contact Info) Description 08/07/2023 Refill [facility] MED[facility]INE [address] [place], [place] [phone] Danya Rosenthal MD [address] [place] [address] Opioid dependence, uncomplicated (CMS/HCC) Social History Tobacco [...] Care Team (Late st Contact Info) Description 11/14/2024 2:15 PM EDT Office Visit [facility] MEDICINE [address] [place] [address] Alexia Hutton MD [address] [place] [address] 12/29/2024 1:45 PM EST Office Visit [address] [address] Raffaele Arechiga MD [address] [place] [address] documented as of this encounter Visit Diagnoses Diagnosis Opioid dependence, uncomplicated (CMS/HCC) documented in this encounter Additional Health Concerns Assessment Noted Time PHQ-9 Depression Total Score: 0 05/23/19 24 11:17 AM EDT documented as of this encounter Care Teams Excavator Backhoe Operator Relationship Specialty Start Date End Date Alexia Hutton MD [address] [place] [address] PCP - General Family Medicine 11/23/22 Violeta Downey 08/25/23 documented as of this encounter
--- OUTSIDE RECORDS SUMMARY | 2024-10-07 14:14 | XMS_ITS | Clinical Summary ---
Author Organization [facility] Address [address] [place], [place] [phone] Phone Care Team Providers Care Associate Artistic Director Name Role Phone Unavailable Primary Care Provider Unavailabl e Social History Tobacco Use Types Packs/Day Years Used Date Smoking Tobacco: Never Assessed Education Answer Date Recorded Are you interested in more education? Not on yulisa e 08/22/2023 Are you concerned about learning? Not on file 08/22/2023 No 08/22/2023 No 08/22/2023 Digital Access Answer Date Recorded No 08/22/2023 No 08/22/2023 Reliable internet access at home? Not on file 08/22/2023 Device with a working camera? Not on file Comments Unknown Sex and Gender Information Value Date Recorded Sex Assigned at Not on file Legal Sex Female 12:25 PM EDT Gender Identity Not on file Sexual Orientation Not on file Plan of Treatment Not on file Medical Devices Not on file Insurance [facility] [employer] [place]IC[place] [address] [place] [address] [address] [place] [address] MEDICARE REPLACEMENT [facility] ONE CARE MEDICARE REPLACEMENT [facility] CARE MEDICARE REPLACEMENT Additional Source Comments The information contained in this document represents components of the legal health record. It is not the complete legal health record.[facility]
--- OUTSIDE RECORDS SUMMARY | 2024-10-07 14:14 | XMS_ITS | Clinical Summary ---
Author Organization [facility] Address [address] [place] [address] Care Team Providers Care Optometrist Assistant Name Role Phone Kacy Archuleta Primary Care Provider Surgical History Surgery Date Site/Laterality Comments OTHER SURGICAL HISTORY 11/29/2021 PROCEDURE: DE ERCP W/SPHINCTEROTOMY/PAPILLOTOMY; COMMENT: gallstones/dilated CBD Social History [...] Years (1 of 2 - PCV) 11/18/1979 Zoster Vaccines (1 of 2) 11/18/1979 Cervical Cancer Screening: P ap Smear 1981 RSV Immunization Adult Patients (1 - Risk 60-74 years 1-dose series) 2020 COVID-19 Vaccine (3 - Pfizer risk series) 04/28/2021 03/31/2021, 02/28/2021 DTaP,Tdap,and Td Vaccines (2 - Td or Tdap) 09/24/2021 09/25/2011 Colorectal Cancer Screening: Colonoscopy 01/18/2022 HIV Screening 01/18/2022 Hepatitis C Screening 01/18/2022 Social Influencers of Health Screening 01/18/2022 Depression Screening 02/20/2024 Influenza Vaccine (#1) 2024 HIB Vaccines Aged Out No longer [...] age to complete this topic Care Teams Optometrist Assistant Relationship Specialty Start Date End Date Kacy Archuleta [address] [place] [phone] PCP - General 08/09/21
== END 2024-10-07 13:06 | disposition home or self-care (01) ==
LOC: HO.RESP 13:05
PROVIDERS: PCP General Practice; Visit Provider Nurse Practitioner Family
DX: J44.9 Chronic obstructive pulmonary disease, unspecified (principal); F17.210 Nicotine dependence, cigarettes, uncomplicated
CPT/HCPCS: 71250; 94010; 94640; 94727; 94729

== ENCOUNTER → 2024-10-07 13:10 | Outpatient (BNV) | payer OTHER, SELFPAY | PROVIDERS: PCP General Practice; Visit Provider Hospitalist | DX: J98.4 Other disorders of lung (principal) | CPT/HCPCS: 94060; 94727; 94729 ==

== ENCOUNTER → 2024-10-07 13:56 | Outpatient (BNV) | payer OTHER, SELFPAY | PROVIDERS: PCP General Practice; Visit Provider Radiology Diagnostic Radiology | DX: R91.1 Solitary pulmonary nodule (principal) | CPT/HCPCS: 71250 ==

== ENCOUNTER 2024-10-16 11:48 | Outpatient (REF) | payer OTHER, SELFPAY ==
--- OUTSIDE RECORDS SUMMARY | 2021-07-07 05:20 | XMS_ITS | Continuity of Care Document ---
Author Organization [facility] Address [facility] [place] [address] Phone Care Team Providers Care Ferry Pilot Name Role Phone Unavailable Unavailable Unavailable Allergies, Adverse Reactions, Alerts Substance Reaction Status Criticality No Known Allergies Active No Inform ation Medications Medication Instructions Dosage Effective Dates (start - stop) Status Comments LORATADINE 10 MG TABLET TAKE 1 TABLET BY MOUTH EVERY DAY - Active buprenorphine 2 mg-naloxone 0.[address] 1 tablet by sublingual route THREE times every day allow to dissolve slowly in mouth without chewing or swallowing, - Active [id number]. 28 day supply. G89.4, Ativan 0.5 mg tablet 1 tab by mouth daily as needed for panic, 21 tabs to last the whole month, no early refills. - Active Taper begun 07/31/19 10% per month. Pt cannot be on both opioid and benzo. sertraline 100 mg tablet take 2 tablet by oral route every day 200 MG - Active ALBUTEROL HFA (VENTOLIN) INH INHALE 2 PUFFS EVERY 4 TO 6 HOURS NEEDED FOR SHORTNESS OF BREATH - Active Miralax 17 gram/dose oral powder take (17G) by oral route every day mixed with 8 oz. water, juice, soda, coffee or tea as needed for constipation - Active Celebrex 200 mg capsule take 1 capsule by oral route 1 time every day as needed for pain - Active halobetasol propionate 0.05 % topical cream apply by topical route BID a thin layer to the affected area(s) (max 6 weeks in a row) - Active Zofran 8 mg tablet take 1 tablet by oral route every 8 hours as needed for nausea or vomiting - Active baclofen 10 mg tablet TAKE 1/2 -1 TABLET BY MOUTH up to three times per day as needed for leg cramping - Active Narcan 4 mg/actuation nasal spray spray 0.1 milliliter by intranasal route in 1 nostril as needed for overdose, may repeat dose every 2-3 minutes as needed for overdose - Active wheelchair use as directed - Active omeprazole 20 mg capsule,delayed release take 1 capsule by oral route every day 30 minutes to 1 hour before breakfast - Active ketoconazole 2 % topical cream apply by topical route 2 times every day as needed for fungal - Active cane - Active Tylenol PM Extra Strength 25 mg-500 mg tablet take 2 tablet by oral route every day at bedtime, by patient report - Active walker rolling walker with seats, brake, and a basket. 60 138#. See attched demographic sheet. - Active Attn: Chrystal maryjane cordova [phone] Dx: 780.4 Procedures Procedure Date OFFICE/OUTPATIENT VISIT, EST OFFICE/OUTPATIENT VISIT, EST INJ TRIGGER POINT / MUSCL OFFICE/OUTPATIENT VISIT, EST OFFICE/OUTPATIENT VISIT, EST OFFICE/OUTPATIENT VISIT, EST DRUG TEST PRSMV DIR OPT OBS OFFICE/OUTPATIENT VISIT, EST OFFICE/OUTPATIENT VISIT, EST OFFICE/OUTPATIENT VISIT, EST OFFICE/OUTPATIENT VISIT, EST DRUG TEST PRSMV DIR OPT OBS OFFICE/OUTPATIENT VISIT, EST PHARM OFFICE/OUTPATIENT VISIT, EST PHARM OFFICE/OUTPATIENT VISIT, EST OFFICE/OUTPATIENT VISIT, EST URINALYSIS NONAUTO W/O SCOPE OFFICE/OUTPATIENT VISIT, EST OFFICE/OUTPATIENT VISIT, EST OFFICE/OUTPATIENT VISIT, EST OFFICE/OUTPATIENT VISIT, EST OFFICE/OUTPATIENT VISIT, EST OFFICE/OUTPATIENT VISIT, EST PREV VISIT, EST, AGE 40-64 OFFICE/OUTPATIENT VISIT, EST OFFICE/OUTPATIENT VISIT, EST OFFICE/OUTPATIENT VISIT, EST OFFICE/OUTPATIENT VISIT, EST OFFICE/OUTPATIENT VISIT, EST OFFICE/OUTPATIENT VISIT, EST Case Management Telephone Visit OFFICE/OUTPATIENT VISIT, EST OFFICE/OUTPATIENT VISIT, EST OFFICE/OUTPATIENT VISIT, EST OFFICE/OUTPATIENT VISIT, EST DRAIN/INJECT, JOINT/BURSA Kenalog-10 Triamcinolone acetonide inj S OFFICE/OUTPATIENT VISIT, EST OFFICE/OUTPATIENT VISIT, EST DRAIN/INJECT, JOINT/BURSA OFFICE/OUTPATIENT VISIT, EST OFFICE/OUTPATIENT VISIT, EST OFFICE/OUTPATIENT VISIT, EST OFFICE/OUTPATIENT VISIT, EST OFFICE/OUTPATIENT VISIT, EST OFFICE/OUTPATIENT VISIT, EST OFFICE/OUTPATIENT VISIT, EST OFFICE/OUTPATIENT VISIT, EST OFFICE/OUTPATIENT VISIT, EST BLOOD OCCULT PEROXIDASE PREV VISIT, EST, AGE 40-64 OFFICE/OUTPATIENT VISIT, EST MEASURE BLOOD OXYGEN LEVEL OFFICE/OUTPATIENT VISIT, EST MEASURE BLOOD OXYGEN LEVEL OFFICE/OUTPATIENT VISIT, EST OFFICE/OUTPATIENT VISIT, EST OFFICE/OUTPATIENT VISIT, EST OFFICE/OUTPATIENT VISIT, EST OFFICE/OUTPATIENT VISIT, EST OFFICE/OUTPATIENT VISIT, EST OFFICE/OUTPATIENT VISIT, EST OFFICE/OUTPATIENT VISIT, EST OFFICE/OUTPATIENT VISIT, EST OFFICE/OUTPATIENT VISIT, EST OFFICE/OUTPATIENT VISIT, EST OFFICE/OUTPATIENT VISIT, EST OFFICE/OUTPATIENT VISIT, EST OFFICE/OUTPATIENT VISIT, EST OFFICE/OUTPATIENT VISIT, EST BLOOD OCCULT PEROXIDASE PREV VISIT, EST, AGE 40-64 TDAP VACCINE >7 IM IMMUNIZATION ADMIN OFFICE/OUTPATIENT VISIT, EST OFFICE/OUTPATIENT VISIT, EST OFFICE/OUTPATIENT VISIT, EST OFFICE/OUTPATIENT VISIT, EST OFFICE/OUTPATIENT VISIT, EST OFFICE/OUTPATIENT VISIT, EST OFFICE/OUTPATIENT VISIT, EST OFFICE/OUTPATIENT VISIT, EST PSYTX, OFF, 45-50 MIN OFFICE/OUTPATIENT VISIT, EST PSY DX INTERVIEW OFFICE/OUTPATIENT VISIT, EST OFFICE/OUTPATIENT VISIT, EST OFFICE/OUTPATIENT VISIT, EST OFFICE/OUTPATIENT VISIT, EST OFFICE/OUTPATIENT VISIT, EST OFFICE/OUTPATIENT VISIT, EST STREP A ASSAY W/OPTIC OFFICE/OUTPATIENT VISIT, EST OFFICE/OUTPATIENT VISIT, EST PREV VISIT, EST, AGE 40-64 MEASURE BLOOD OXYGEN LEVEL OFFICE/OUTPATIENT VISIT, EST OFFICE/OUTPATIENT VISIT, EST OFFICE/OUTPATIENT VISIT, EST OFFICE/OUTPATIENT VISIT, EST OFFICE/OUTPATIENT VISIT, EST OFFICE/OUTPATIENT VISIT, EST OFFICE/OUTPATIENT VISIT, EST OFFICE/OUTPATIENT VISIT, EST OFFICE/OUTPATIENT VISIT, EST OFFICE/OUTPATIENT VISIT, EST OFFICE/OUTPATIENT VISIT, EST OFFICE/OUTPATIENT VISIT, EST OFFICE/OUTPATIENT VISIT, EST OFFICE/OUTPATIENT VISIT, EST OFFICE/OUTPATIENT VISIT, EST TB INTRADERMAL TEST OFFICE/OUTPATIENT VISIT, EST URINALYSIS NONAUTO W/O SCOPE BLOOD OCCULT PEROXIDASE PREV VISIT, EST, AGE 40-64 OFFICE/OUTPATIENT VISIT, EST OFFICE/OUTPATIENT VISIT, EST OFFICE/OUTPATIENT VISIT, EST OFFICE/OUTPATIENT VISIT, EST OFFICE/OUTPATIENT VISIT, EST PREV VISIT, EST, AGE 40-64 OFFICE/OUTPATIENT VISIT, EST OFFICE/OUTPATIENT VISIT, NEW Advance Directives Directive Yes / No Effective Date File Name No Information Encounters Encounter Description Practice Location Reason(s) For Visit Diagnoses Date Provider Providers Copied on Encounter [facility], [address] [place] [address], [id number], [place] tel:[phone] [facility] No Information 2 No Information [facility], [address] [place] [address], [id number], [place] tel:[phone] [facility] No Information 0 No Information [facility], [address] [place] [address], [id number], [place] tel:[phone] [facility] No Information 0 No Information [facility], [address] [place] [address], [id number], [place] tel:[phone] [facility] Agoraphobia with panic disorderGener alized anxiety disorder 0 No Information [facility], [address] [place] [address], [id number], [place] tel:[phone] [facility] No Information 0 No Information [facility], [address] [place] [address], [id number], [place] tel:[phone] [facility] Agoraphobia with panic disorderGener alized anxiety disorder 0 No Information OFFICE/OUTPA TIENT VISIT, [facility], [address] [place] [address], [id number], [place] tel:[phone] [facility] (chief complaint) CervicalgiaCo raf cancer screeningBrea cancer screening by mammogram 0 No Information OFFICE/OUTPA TIENT VISIT, [facility], [address] [place] [address], [id number], [place] tel:[phone] [facility] Medical Telehealth (chief complaint) Major depressive disorder, recurrent, moderate 0 Tyson Bucio. [address] [place] [address], [id number], [place]. tel: [phone] [facility], [address] [place] [address], [id number], [place] tel:[phone] [facility] No Information 0 Joy Mandujano. [address] [place] [address], [id number], [place]. tel: [phone] OFFICE/OUTPA TIENT VISIT, [facility], [address] [place] [address], [id number], [place] tel:[phone] [facility] ([facility]) Myofascial pain Mar-0 0 Tyson Bucio. [address] [place] [address], [id number], [place]. tel:[phone] Referring Provider: Fortunato Mehta, [address] [place] [address], [id number]. tel:[phone] OFFICE/OUTPA TIENT VISIT, [facility], [address] [place] [address], [id number], [place] tel:[phone] [facility] (chief complaint) Myofascial pain 9 Tyson Bucio. [address] [place] [address], [id number], [place]. tel:[phone] OFFICE/OUTPA TIENT VISIT, [facility], [address] [place] [address], [id number], [place] tel:[phone] [facility] Musculoskelet al pain (chief complaint) Myofascial painLumbar back pain with radiculopathy affecting left lower extremityGene ralized anxiety disorder 9 Joy Mandujano. [address] [place] [address], [id number], [place]. tel:[phone] OFFICE/OUTPA TIENT VISIT, [facility], [address] [place] [address], [id number], [place] tel:[phone] [facility] back pain (chief complaint)Anx iety (chief complaint)nec k pain (chief complaint) Myofascial painLumbar back pain with radiculopathy affecting left lower extremityGene ralized anxiety disorder 9 Joy Mandujano. [address] [place] [address], [id number], [place]. tel:[phone] [facility], [address] [place] [address], [id number], [place] tel:[phone] [facility] No Information 9 Joy Mandujano. [address] [place] [address], [id number], [place]. tel:[phone] OFFICE/OUTPA TIENT VISIT, [facility], [address] [place] [address], [id number], [place] tel:[phone] [facility] neck pain (chief complaint) Myofascial pain 9 Tyson Bucio. [address] [place] [address], [id number], [place]. tel:[phone] OFFICE/OUTPA TIENT VISIT, [facility], [address] [place] [address], [id number], [place] tel:[phone] [facility] back pain (chief complaint)Anx iety (chief complaint)nec k pain (chief complaint) Lumbar back pain with radiculopathy affecting left lower extremityGene ralized anxiety disorderOverw eight 9 Joy Mandujano. [address] [place] [address], [id number], [place]. tel:[phone] [facility], [address] [place] [address], [id number], [place] tel:[phone] [facility] No Information 9 Joy Mandujano. [address] [place] [address], [id number], [place]. tel:[phone] [facility], [address] [place] [address], [id number], [place] tel:[phone] [facility] No Information 9 Ramone Carpio. [address] [place] [address], [id number], [place]. tel:[phone] OFFICE/OUTPA TIENT VISIT, [facility], [address] [place] [address], [id number], [place] tel:[phone] [facility] back pain (chief complaint) Lumbar back pain with radiculopathy affecting left lower extremityGene ralized anxiety disorder 9 Joy Mandujano. [address] [place] [address], [id number], [place]. tel:[phone] Referring Provider: Delbert Hamilton, [address] [place] [address], [id number] . tel:[phone] [facility], [address] [place] [address], [id number], [place] tel:[phone] [facility] u-tox (chief complaint) Lumbar back pain with radiculopathy affecting left lower extremity 8 Nurse [facility]. . OFFICE/OUTPA TIENT VISIT, [facility], [address] [place] [address], [id number], [place] tel:[phone] [facility] rash (chief complaint)Mus culoskeletal pain (chief complaint) Lumbar back pain with radiculopathy affecting left lower extremityChro tiarra pain syndrome 8 Joy Mandujano. [address] [place] [address], [id number], [place]. tel:[phone] Referring Provider: Delbert Hamilton, [address] [place] [address], [id number] . tel:[phone] [facility], [address] [place] [address], [id number], [place] tel:[phone] [facility] Chronic pain syndrome 8 Ramone Carpio. [address] [place] [address], [id number], [place]. tel:[phone] OFFICE/OUTPA TIENT VISIT, [facility], [address] [place] [address], [id number], [place] tel:[phone] [facility] back pain (chief complaint)Flu shot- Declines (chief complaint) Lumbar back pain with radiculopathy affecting left lower extremityGene ralized anxiety disorder 8 Joy Mandujano. [address] [place] [address], [id number], [place]. tel:[phone] [facility], [address] [place] [address], [id number], [place] tel:[phone] [facility] Encounter for issue of repeat prescription for medication 8 Ramone Carpio. [address] [place] [address], [id number], [place]. tel:[phone] OFFICE/OUTPA TIENT VISIT, [facility], [address] [place] [address], [id number], [place] tel:[phone] [facility] abdominal pain (chief complaint) Lumbar back pain with radiculopathy affecting left lower extremity 8 Joy Mandujano. [address] [place] [address], [id number], [place]. tel:[phone] OFFICE/OUTPA TIENT VISIT, [facility], [address], [place], [place], [id number], [place] tel:[phone] [facility] Musculoskelet al pain (chief complaint) Chronic pain syndromeLumba r back pain with radiculopathy affecting left lower extremity 8 Joy Mandujano. [address] [place] [address] [address] [place], [place], [id number], [place]. tel:[phone] OFFICE/OUTPA TIENT VISIT, [facility], [facility] [place], [place], [id number], [place] tel:[phone] [facility] Musculoskelet al pain (chief complaint)Sin us symptoms (acute) (chief complaint) Lumbar back pain with radiculopathy affecting left lower extremity 0 8 Joy Mandujano. [address] [place] [address] [address] [place], [place], [id number], [place]. tel:[phone] OFFICE/OUTPA TIENT VISIT, [facility], [facility] [place], [place], [id number], [place] tel:[phone] [facility] back pain (chief complaint) Lumbar back pain with radiculopathy affecting left lower extremity 8 Joy Mandujano. [address] [place], [place] [address]mikie Morillo., [place], [place], [id number], [place]. tel:[phone] [facility], [facility] [address] [place], [place], [id number], [place] tel:[phone] [facility] Information 8 Joy Mandujano. [facility] [address] [place], [place], [id number], [place]. tel:[phone] OFFICE/OUTPA TIENT VISIT, [facility], [facility] [address] [place], [place], [id number], [place] tel:[phone] [facility] Musculoskelet al pain (chief complaint) Lumbar back pain with radiculopathy affecting left lower extremity 0- 8 Joy Mandujano. [address] [place] [address]., [place], [place], [id number], [place]. tel:[phone] [facility], [address] [place] [address], [id number], [place] tel:[phone] [facility] Information 8 Joy Mandujano. [address] [place] [address], [place], [place], [id number], [place]. tel:[phone] OFFICE/OUTPA TIENT VISIT, [facility], [address] [place] [address], [id number], [place] tel:[phone] [facility] back pain (chief complaint)Flu shot- delcines (chief complaint) History of lumbar spinal fusionLeft leg weaknessLumba r back pain with radiculopathy affecting left lower extremity 7 Joy Mandujano. [address] [place] [address]., [place], [place], [id number], [place]. tel:[phone] OFFICE/OUTPA TIENT VISIT, [facility], [address] [place] [address], [id number], [place] tel:[phone] [facility] back pain (chief complaint)Anx iety (chief complaint) Lumbar back pain with radiculopathy affecting left lower extremitySeco ndary kyphosis deformity of spineLow back pain at multiple sitesGenerali zed anxiety disorder 7 Joy Mandujano. [address] [place], [place] [address]nolan., [place], [place], [id number], [place]. tel: [phone] OFFICE/OUTPA TIENT VISIT, [facility], [address] [place] [address], [id number], [place] tel:[phone] [facility] Anxiety (chief complaint)Aly k pain (chief complaint) Generalized anxiety disorderLow back pain at multiple sitesFibroade noma of right breastLumbar back pain with radiculopathy affecting left lower extremityLeft leg weaknessHisto ry of lumbar spinal fusion 7 Joy Mandujano. [address] [place], [place] [address]nolan., [place], [place], [id number], [place]. 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 [address] [place] [address], [id number], [place]. tel:[phone] [facility], [address] [place] [address], [id number], [place] tel:[phone] [facility] No Information 7 Joy Mandujano. [address] [place] [address], [id number], [place]. tel:[phone] [facility], [address] [place] [address], [id number], [place] tel:[phone] [facility] MastalgiaAxil pauline adenopathy 7 Joy Mandujano. [address] [place] [address], [id number], [place]. tel:[phone] OFFICE/OUTPA TIENT VISIT, [facility], [address] [place] [address], [id number], tel:[phone] [facility] Musculoskelet al pain (chief complaint)Anx iety (chief complaint)lum ps (chief complaint) Generalized anxiety disorderAgora phobia with panic attacksPTSD (post-traumat ic stress disorder)Low back pain at multiple sitesAxillary adenopathy 7 Joy Mandujano. [address] [place] [address], [id number], [place]. 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 [address] [place] [address], [place], [place], [id number], [place]. tel: [phone] OFFICE/OUTPA TIENT VISIT, [facility], [address] [place] [address], [id number], [place] tel:[phone] [facility] Bronchitis (chief complaint) Acute lower respiratory tract infectionOthe r dorsalgiaAnxi ety disorder, unspecified 6 No Information OFFICE/OUTPA TIENT VISIT, [facility], [address] [place] [address], [id number], [place] tel:[phone] [facility] cold symptoms (chief complaint)aly k pain (chief complaint)dep ression (chief complaint) Low back painGeneraliz ed anxiety disorderCOPD exacerbationT rochanteric bursitis, left hip 6 Joy Mandujano. [address] [place], [place] [address]nolan, [place], [place], [id number], [place]. tel:[phone] Referring Provider: Delbert Hamilton, [address] [place] [address] , [place], [address] . tel:[phone] OFFICE/OUTPA TIENT VISIT, [facility], [address] [place] [address], [id number], [place] tel:[phone] [facility] back pain (chief complaint)Anx iety (chief complaint) Low back painAgoraphob ia with panic disorder 6 Joy Mandujano. [address] [place] [address] , [place], [place], [id number], [place]. tel:[phone] Referring Provider: Delbert Hamilton, [address] [place], [place] [address]mikie Story, [place], [address] . tel:[phone] OFFICE/OUTPA TIENT VISIT, [facility], [address] [place] [address] [place], [place], [id number], [place] tel:[phone] [facility] Anxiety (chief complaint)aly k pain (chief complaint) Agoraphobia with panic disorderOverw eightDysthymi c disorderGener alized anxiety disorderFamil y history of diabetesLow back pain 6 Joy Mandujano. [address] [place] [address], [place], [place], [id number], [place]. tel: [phone] [facility], [address] [place] [address], [id number], [place] tel:[phone] [facility] Other dorsalgiaCerv icalgiaSacroc occygeal disorders, not elsewhere classifiedTro chanteric bursitis, unspecified hipOther fatigueKyphos isOpioid dependence, uncomplicated Scoliosis 6 Zig Zag Stitcher. [address] [place] [address], [id number], [place]. tel:[phone] [facility], [address] [place] [address], [id number], [place] tel:[phone] [facility] Low back painKyphosisS coliosis 6 Joy Mandujano. [address] [place] [address], [place], [place], [id number], [place]. tel:[phone] OFFICE/OUTPA TIENT VISIT, [facility], [address] [place] [address], [id number], [place] tel:[phone] [facility] Anxiety (chief complaint)aly k pain (chief complaint) Low back painAgoraphob ia with panic disorder 6 Joy Mandujano. [address] [place] [address], [place], [place], [id number], [place]. tel:[phone] OFFICE/OUTPA TIENT VISIT, [facility], [address] [place] [address], [id number], [place] tel:[phone] [facility] back pain (chief complaint)Anx iety (chief complaint)dis ability (chief complaint) Agoraphobia with panic disorderLow back painUnspecifi ed abnormalities of gait and mobility 6 Joy Mandujano. [address] [place] [address], [id number], [place]. tel:[phone] OFFICE/OUTPA TIENT VISIT, [facility], [address] [place] [address], [id number], [place] tel:[phone] [facility] back pain (chief complaint)Anx iety (chief complaint) Low back painAgoraphob ia with panic disorderGener alized anxiety disorder 0 5 Joy Mandujano. [address] [place] [address], [id number], [place]. tel:[phone] OFFICE/OUTPA TIENT VISIT, [facility], [address] [place] [address], [id number], [place] tel:[phone] [facility] back pain (chief complaint)anx iety (chief complaint) Agoraphobia with panic disorderGener alized anxiety disorderLow back pain 5 Joy Mandujano. [address] [place] [address], [id number], [place]. tel:[phone] OFFICE/OUTPA TIENT VISIT, [facility], [address] [place] [address], [id number], [place] tel:[phone] [facility] back pain (chief complaint)dep ression (chief complaint) Other disorder of muscle, ligament, and fasciaEntheso ralph of hip regionLumbago Agoraphobia with panic disorderOther anxiety states 5 Joy Mandujano. [address] [place] [address], [id number], [place]. tel:[phone] [facility], [address] [place] [address], [id number], [place] tel:[phone] [facility] Hip pain 5 Anjel Hilario. [address] [place] [address], [id number], [place]. tel:[phone] OFFICE/OUTPA TIENT VISIT, [facility], [address] [place] [address], [id number], [place] tel:[phone] [facility] Follow Up of Back pain (chief complaint)Fol low Up of Anxiety (chief complaint) Anxiety state, unspecifiedAg oraphobia with panic disorderLumba goEnthesopath y of hip regionOther disorder of muscle, ligament, and fascia 5 Joy Mandujano. [address] [place] [address] [address] [place], [place], [id number], [place]. tel: [facility], [address] [place] [address], [id number], [place] tel:[phone] [facility] hip pain (chief complaint) Enthesopathy of hip region 5 Joy Mandujano. [address] [place] [address], [place], [place], [id number], [place]. tel:[phone] OFFICE/OUTPA TIENT VISIT, [facility], [address] [place] [address], [id number], [place] tel:[phone] [facility] back pain (chief complaint)Anx iety (chief complaint) LumbagoAnxiet y state, unspecifiedAg oraphobia with panic disorderTroch anteric bursitisIliot ibial band syndrome 5 Joy Mandujano. [address] [place] [address], [place], [place], [id number], [place]. tel:[phone] OFFICE/OUTPA TIENT VISIT, [facility], [address] [place] [address], [id number], [place] tel:[phone] [facility] back pain (chief complaint)Shailesh ght gain (chief complaint) ObesityAnxiet y state, unspecifiedLu mbago 5 Joy Mandujano. [address] [place], [place] [address]., [place], [place], [id number], [place]. tel:[phone] OFFICE/OUTPA TIENT VISIT, [facility], [address] [place] [address], [id number], [place] tel:[phone] [facility] Up [facility] Back pain (chief complaint)Fol low Up of Anxiety (chief complaint) AnxietyLumbag o 5 Riana Perkins. [facility] [place], [address], [place]. tel: [phone] OFFICE/OUTPA TIENT VISIT, [facility], [address] [place] [address], [id number], [place] tel:[phone] [facility] depression (chief complaint)aly k pain (chief complaint) Major depressive affective disorder, recurrent episode, moderate degreeLumbago Anxiety 4 Riana Perkins. [address] [place] [address], [id number], [place]. tel: [phone] OFFICE/OUTPA TIENT VISIT, [facility], [address] [place] [address], [id number], [place] tel:[phone] [facility] back pain (chief complaint) LumbagoAgorap hobia with panic disorder 4 Riana Perkins. [address] [place] [address], [address], [place]. tel: [phone] OFFICE/OUTPA TIENT VISIT, [facility], [address] [place] [address], [id number], [place] tel:[phone] [facility] depression (chief complaint)Aly k pain (chief complaint) AnxietyLumbag oRadiculopath y 4 Riana Perkins. [facility] [place], [address], [place]. tel: [phone] OFFICE/OUTPA TIENT VISIT, [facility], [address] [place] [address], [id number], [place] tel:[phone] [facility] back pain (chief complaint)dep ression (chief complaint) DepressionLum bago 4 Riana Perkins. [address] [place] [address], [address], [place]. tel: [phone] OFFICE/OUTPA TIENT VISIT, [facility], [address] [place] [address], [id number], [place] tel:[phone] [facility] Follow Up of Back pain (chief complaint) Lumbago 4 Riana Perkins. [address] [place] [address], [id number], [place]. tel:[phone] OFFICE/OUTPA TIENT VISIT, [facility], [address] [place] [address], [id number], [place] tel:[phone] [facility] back pain (chief complaint) Backache 4 Elidaddyamileth Tatianna. [address] [place] [address], [address], [place]. tel: [phone] PREV VISIT, [facility], AGE 40-64 [facility], [address] [place] [address], [id number], [place] tel:[phone] [facility] physical/pap (chief complaint) OverweightGyn ecological ExaminationLu mbagoAgorapho sukhwinder with panic disorder 4 Alistair Srivastava. [address] [place] [address], [id number]. tel:[phone] OFFICE/OUTPA TIENT VISIT, [facility], [address] [place] [address], [id number], [place] tel:[phone] [facility] back pain (chief complaint)dep ression (chief complaint)anx iety (chief complaint) OverweightOve rweightLumbag oLumbagoOverw eightHeartbur nPanic disorder with agoraphobia and moderate panicDysthymi aHeartburnLum bagoAgoraphob ia with panic disorderOverw eightDysthymi c disorderOther emphysemaUnsp ecified vitamin d deficiency 4 Alistair Srivastava. [address] [place] [address], [id number]. tel:[phone] OFFICE/OUTPA TIENT VISIT, [facility], [address] [place] [address], [id number], [place] tel:[phone] [facility] cough (chief complaint) Other emphysemaToba tobacco dipper AbuseOverweig htCough 4 Alistair Srivastava. [address] [place] [address], [id number]. tel:940 OFFICE/OUTPA TIENT VISIT, [facility], [address] [place] [address], [id number], [place] tel:[phone] [facility] shortness of breath (chief complaint) CoughOther emphysema 4 Busausten Srivastava. [address] [place] [address], [id number]. tel:940 OFFICE/OUTPA TIENT VISIT, [facility], [address] [place] [address], [id number], [place] tel:[phone] [facility] back pain (chief complaint) Lumbago 3 Alistair Srivastava. [address] [place] [address], [id number]. tel:940 OFFICE/OUTPA TIENT VISIT, [facility], [address] [place] [address], [id number], [place] tel:[phone] [facility] back pain (chief complaint) Lumbago 3 Alistair Srivastava. [address] [place] [address], [id number]. tel:940 OFFICE/OUTPA TIENT VISIT, [facility], [address] [place] [address], [id number], [place] tel:[phone] [facility] back pain (chief complaint) Sacroiliac joint dysfunction of right sideDisorders of sacrumLumbago Lumbar paraspinal muscle spasmDisorder s of sacrumLumbago Other symptoms referable to backConstipat ion, unspecified 3 Alistair Srivastava. [address] [place] [address], [id number]. tel:940 OFFICE/OUTPA TIENT VISIT, [facility], [address] [place] [address], [id number], [place] tel:[phone] [facility] abdominal discomfort (chief complaint) Abdominal pain, epigastric 3 Ranulfoselen Atif. [address] [place] [address], [id number]. tel:940 OFFICE/OUTPA TIENT VISIT, [facility], [address] [place] [address], [id number], [place] tel:[phone] [facility] abdominal discomfort (chief complaint)hem aturia (chief complaint) Epigastric painAbdominal pain, epigastricMic roscopic hematuriaAbdo carin pain, epigastricMIC ROSCOPIC HEMATURIA 3 Ranulfoselen Atif. [address] [place] [address], [id number]. tel:940 OFFICE/OUTPA TIENT VISIT, [facility], [address] [place] [address], [id number], [place] tel:[phone] [facility] Lumbago (chief complaint)fat igue (chief complaint) LumbagoLumbag oFatigue / Malaise 3 Ranulfoselen Atif. [address] [place] [address], [id number]. tel:940 OFFICE/OUTPA TIENT VISIT, [facility], [address] [place] [address], [id number], [place] tel:[phone] [facility] back pain (chief complaint) Lumbago 3 Alistair Srivastava. [address] [place] [address], [id number]. tel:940 OFFICE/OUTPA TIENT VISIT, [facility], [address] [place] [address], [id number], [place] tel:[phone] [facility] anxiety (chief complaint) Agoraphobia with panic disorderLumba go 3 Ranulfoselen Atif. [address] [place] [address], [id number]. tel:940 OFFICE/OUTPA TIENT VISIT, [facility], [address] [place] [address], [id number], [place] tel:[phone] [facility] anxiety (chief complaint) Agoraphobia with panic disorder 2 Alistair Castrejonen. [address] [place] [address], [id number]. tel: [phone] OFFICE/OUTPA TIENT VISIT, [facility], [address] [place] [address], [id number], [place] tel:[phone] [facility] pain (chief complaint)anx iety (chief complaint) LumbagoAgorap hobia with panic disorder 2 Alistair Atif. [address] [place] [address], [id number]. tel:[phone] [facility], [address] [place] [address], [id number], [place] tel:[phone] [facility] Disturbances of sulphur-beari ng amino-acid metabolism 2 Kamlesh Tineo. [address] [place] [address], [address], [place], [address]. tel:[phone] OFFICE/OUTPA TIENT VISIT, [facility], [address] [place] [address], [id number], [place] tel:[phone] [facility] weakness (chief complaint) Right upper extremity numbnessWeakn ess of both legsDisturban ce of skin sensationOthe r musculoskelet al symptoms referable to limbsAnxietyM ajor depressive affective disorder, recurrent episode, moderate degree 2 Alistair Castrejonen. [address] [place] [address], [id number]. tel:[phone] OFFICE/OUTPA TIENT VISIT, [facility], [address] [place] [address], [id number], [place] tel:[phone] [facility] numbness (chief complaint)aly k pain (chief complaint) Complaints of leg weaknessOther musculoskelet al symptoms referable to limbsLumbagoM ajor depressive affective disorder, recurrent episode, moderate degreeImbalan ceOther musculoskelet al symptoms referable to limbsMajor depressive affective disorder, recurrent episode, moderate degreeAbnorma lity of gait 2 Busselen Atif. [address] [place] [address], [id number]. tel:[phone] OFFICE/OUTPA TIENT VISIT, [facility], [address] [place] [address], [id number], [place] tel:[phone] [facility] back pain (chief complaint)dep ression (chief complaint) Major depressive affective disorder, recurrent episode, moderate degreeLumbago Anxiety 9 2 Busselen Atif. [address] [place] [address], [id number]. tel:[phone] OFFICE/OUTPA TIENT VISIT, [facility], [address] [place] [address], [id number], [place] tel:[phone] [facility] back pain (chief complaint)dep ression (chief complaint) LumbagoAgorap hobia with panic disorderMajor depressive affective disorder, recurrent episode, moderate degree 0 2 Busselen Atif. [address] [place] [address], [id number]. tel:[phone] PREV VISIT, [facility], AGE 40-64 [facility], [address] [place] [address], [id number], [place] tel:[phone] [facility] physical/pap (chief complaint) NEED FOR PROPHYLACTIC VACCINATION WITH COMBINED DIPHTHERIA-TE TANUS-PERTUSS IS (DTP) (DTAP) VACCINERoutin e PHOTOFLASH POWDER MIXER Preventive VisitTinea crurisCandida l intertrigo 2 Alistair Srivastava. [address] [place] [address], [id number]. tel:[phone] OFFICE/OUTPA TIENT VISIT, [facility], [address] [place] [address], [id number], [place] tel:[phone] [facility] depression (chief complaint)anx iety (chief complaint) AnxietyMajor depressive affective disorder, recurrent episode, moderate degreeAgoraph obia with panic disorder 2 Ranulfoausten Srivastava. [address] [place] [address], [id number]. tel:[phone] OFFICE/OUTPA TIENT VISIT, [facility], [address] [place] [address], [id number], [place] tel:[phone] [facility] neck pain (chief complaint) Posterior neck painCervicalg iaOccipital headacheCervi calgiaHeadach e 2 Alistair Srivastava. [address] [place] [address], [id number]. tel: [phone] OFFICE/OUTPA TIENT VISIT, [facility], [address] [place] [address], [id number], [place] tel:[phone] [facility] depression (chief complaint)anx iety (chief complaint)aly k pain (chief complaint) Agoraphobia with panic disorderMajor depressive affective disorder, recurrent episode, moderate degreeLumbago 0 2 Alistair Srivastava. [address] [place] [address], [id number]. tel:[phone] OFFICE/OUTPA TIENT VISIT, [facility], [address] [place] [address], [id number], [place] tel:[phone] [facility] back pain (chief complaint)dep ression (chief complaint)anx iety (chief complaint) Agoraphobia with panic disorderMajor depressive affective disorder, recurrent episode, moderate degreeLumbago May-0 2 Alistair Srivastava. [address] [place] [address], [id number]. tel:[phone] OFFICE/OUTPA TIENT VISIT, [facility], [address] [place] [address], [id number], [place] tel:[phone] [facility] depression (chief complaint)aly k pain (chief complaint)anx iety (chief complaint) Agoraphobia with panic disorderMajor depressive affective disorder, recurrent episode, moderate degreeLumbago Unspecified vitamin d deficiency Mar-0 2 Alistair Srivastava. [address] [place] [address], [id number]. tel:940 OFFICE/OUTPA TIENT VISIT, [facility], [address] [place] [address], [id number], [place] tel:[phone] [facility] depression (chief complaint)anx iety (chief complaint) Agoraphobia with panic disorder 2 Busausten Srivastava. [address] [place] [address], [id number]. tel:940 OFFICE/OUTPA TIENT VISIT, [facility], [address] [place] [address], [id number], [place] tel:[phone] [facility] depression (chief complaint)anx iety (chief complaint) Major depressive disorder, recurrent episode, modeMajor depressive affective disorder, recurrent episode, moderate degreeAgoraph obia with panic disorder 2 Busselen Atif. [address] [place] [address], [id number]. tel:940 OFFICE/OUTPA TIENT VISIT, [facility], [address] [place] [address], [id number], [place] tel:[phone] [facility] depression (chief complaint)anx iety (chief complaint)aly k pain (chief complaint) AnxietyMajor depressive affective disorder, recurrent episode, moderate degreeLumbago 1 Alistair Srivastava. [address] [place] [address], [id number]. tel:940 [facility], [address] [place] [address], [id number], [place] tel:[phone] [facility] depression (chief complaint) No Information 1 Sabrinaantionette Parker. [address] [place] [address], [id number]. tel:940 OFFICE/OUTPA TIENT VISIT, [facility], [address] [place] [address], [id number], [place] tel:[phone] [facility] depression (chief complaint)anx iety (chief complaint) Major depressive affective disorder, recurrent episode, moderate degreeAnxiety Lumbago 0-201 1 Buslen Atif. [address] [place] [address], [id number]. tel:940 [facility], [address] [place] [address], [id number], [place] tel:[phone] [facility] depression (chief complaint) Major depressive affective disorder, recurrent episode, moderate degree 0 8-201 1 Sabrina Elena. [address] [place] [address], [id number]. tel: OFFICE/OUTPA TIENT VISIT, [facility], [address] [place] [address], [id number], [place] tel:[phone] [facility] depression (chief complaint)anx iety (chief complaint) Depression 4-201 1 Anjel Hilario. [address] [place] [address], [id number], [place]. tel:940 [facility], [address] [place] [address], [id number], [place] tel:[phone] [facility] No Information 7201 1 Alistair Srivastava. [address] [place] [address], [id number]. tel:940 OFFICE/OUTPA TIENT VISIT, [facility], [address] [place] [address], [id number], [place] tel:[phone] [facility] anxiety (chief complaint)dep ression (chief complaint) AnxietyAnxiet yMajor depressive affective disorder, recurrent episode, moderate degree 1 1-201 1 Aprillen Atif. [address] [place] [address], [id number]. tel:940 [facility], [address] [place] [address], [id number], [place] tel:[phone] [facility] Anxiety Nov-0 5-201 1 Alistair Srivastava. [address] [place] [address], [id number]. tel:940 OFFICE/OUTPA TIENT VISIT, [facility], [address] [place] [address], [id number], [place] tel:[phone] [facility] back pain (chief complaint)gas troporesis (chief complaint) AnxietyLumbag o Oct-3 0 1 Alistair Srivastava. [address] [place] [address], [id number]. tel:940 OFFICE/OUTPA TIENT VISIT, [facility], [address] [place] [address], [id number], [place] tel:[phone] [facility] transient paralysis (chief complaint) Person with feared complaint in whom no diagnosis was madeDepressio n Oct-0 1 Alistair Srivastava. [address] [place] [address], [id number]. tel:940 OFFICE/OUTPA TIENT VISIT, [facility], [address] [place] [address], [id number], [place] tel:[phone] [facility] back pain (chief complaint)unruly tigo (chief complaint) VertigoDizzin essAnxietyCon cern about neurological disease without diagnosDizzin essAnxietyPer son with feared complaint in whom no diagnosis was made 1 Alistair Srivastava. [address] [place] [address], [id number]. tel:940 [facility], [address] [place] [address], [id number], [place] tel:[phone] [facility] Emphysema of lung 1 Alistair Srivastava. [address] [place] [address], [id number]. tel:940 OFFICE/OUTPA TIENT VISIT, [facility], [address] [place] [address], [id number], [place] tel:[phone] [facility] back pain (chief complaint)dilma ma (chief complaint) LumbagoDistur bance of skin sensationHot flashes, menopausalLum bagoMenopausa l or female climacteric states 1 Alistair Srivastava. [address] [place] [address], [id number]. tel:940 OFFICE/OUTPA TIENT VISIT, [facility], [address] [place] [address], [id number], [place] tel:[phone] [facility] cold symptoms (chief complaint)swe lling (chief complaint)num bness (chief complaint) Pharyngitis, AcuteBackache Rash and other nonspecific skin eruption 1 Anjel Hilario. [address] [place] [address], [id number], [place]. tel:[phone] Referring Provider: Sulaiman Melendez, [address] [place] [address], [id number] . tel:[phone] OFFICE/OUTPA TIENT VISIT, [facility], [address] [place] [address], [id number], [place] tel:[phone] [facility] back pain (chief complaint)Leg numbness (chief complaint) LumbagoLumbag o 1 Anjel Hilario. [address] [place] [address], [id number], [place]. tel:940 PREV VISIT, [facility], AGE 40-64 [facility], [address] [place] [address], [id number], [place] tel:[phone] [facility] physical/pap (chief complaint) Gynecological ExaminationLu mbago 1 Alistair Srivastava. [address] [place] [address], [id number]. tel:940 OFFICE/OUTPA TIENT VISIT, [facility], [address] [place] [address], [id number], [place] tel:[phone] [facility] constipation (chief complaint) Respiratory Insufficiency Constipation, unspecified 1 Alistair Srivastava. [address] [place] [address], [id number]. tel:940 OFFICE/OUTPA TIENT VISIT, [facility], [address] [place] [address], [id number], [place] tel:[phone] [facility] abdominal discomfort (chief complaint) Abdominal bloatingFlatu lence, eructation, and gas painFlatulenc e, eructation, and gas painFlatulenc e, eructation, and gas painFlatulenc e, eructation, and gas painAbdominal Pain 4-201 1 Alistair Srivastava. [address] [place] [address], [id number]. tel:940 OFFICE/OUTPA TIENT VISIT, [facility], [address] [place] [address], [id number], [place] tel:[phone] [facility] back pain (chief complaint) LumbagoElevat ed blood pressure reading without diagnosis of hypertension Naveen-0 6-201 1 Alistair Srivastava. [address] [place] [address], [id number]. tel:940 OFFICE/OUTPA TIENT VISIT, [facility], [address] [place] [address], [id number], [place] tel:[phone] [facility] back pain (chief complaint) Lumbago 0-201 1 Alistair Srivastava. [address] [place] [address], [id number]. tel:940 OFFICE/OUTPA TIENT VISIT, [facility], [address] [place] [address], [id number], [place] tel:[phone] [facility] back pain (chief complaint) Lumbago May-1 2-201 1 Alistair Srivastava. [address] [place] [address], [id number]. tel:940 OFFICE/OUTPA TIENT VISIT, [facility], [address] [place] [address], [id number], [place] tel:[phone] [facility] hypertension (chief complaint)Lum bago (chief complaint)med ication refill (chief complaint) LumbagoElevat ed blood pressure reading without diagnosis of hypertensionT rochanteric bursitisLumba goElevated blood pressure reading without diagnosis of hypertensionE nthesopathy of hip regionLumbago Elevated blood pressure reading without diagnosis of hypertensionE nthesopathy of hip region 1 Alistair Srivastava. [address] [place] [address], [id number]. tel:940 OFFICE/OUTPA TIENT VISIT, [facility], [address] [place] [address], [id number], [place] tel:[phone] [facility] back pain (chief complaint)med ication refill (chief complaint) LumbagoLumbag oUnspecified essential hypertensionL umbagoUnspeci fied essential hypertensionE xcessive cerumen in ear canalLumbagoU nspecified essential hypertensionI mpacted cerumenLumbag oUnspecified essential hypertensionI mpacted cerumenUnspec ified essential hypertension Fe 1 Alistair Srivastava. [address] [place] [address], [id number]. tel:940 OFFICE/OUTPA TIENT VISIT, [facility], [address] [place] [address], [id number], [place] tel:[phone] [facility] medication refill (chief complaint)lum bago (chief complaint) Lumbago 1 Alistair Srivastava. [address] [place] [address], [id number]. tel:940 [facility], [address] [place] [address], [id number], [place] tel:[phone] [facility] Lumbago 1 Alistair Srivastava. [address] [place] [address], [id number]. tel:940 OFFICE/OUTPA TIENT VISIT, [facility], [address] [place] [address], [id number], [place] tel:[phone] [facility] lumbago (chief complaint) Lumbago 0 Alistair Srivastava. [address] [place] [address], [id number]. tel:940 OFFICE/OUTPA TIENT VISIT, [facility], [address] [place] [address], [id number], [place] tel:[phone] [facility] lumbago (chief complaint) LumbagoUnspec ified vitamin d deficiencyLos s of sensation of skinLumbagoUn specified vitamin d deficiencyDis turbance of skin sensationLumb agoUnspecifie d vitamin d deficiencyDis turbance of skin sensationLumb agoUnspecifie d vitamin d deficiencyDis turbance of skin sensationDist urbance of skin sensationLumb agoUnspecifie d vitamin d deficiencyDis turbance of skin sensationDist urbance of skin sensation 0 Busselen Atif. [address] [place] [address], [id number]. tel:940 OFFICE/OUTPA TIENT VISIT, [facility], [address] [place] [address], [id number], [place] tel:[phone] [facility] back pain (chief complaint) Lumbago 0 Busselen Atif. [address] [place] [address], [id number]. tel:940 OFFICE/OUTPA TIENT VISIT, [facility], [address] [place] [address], [id number], [place] tel:[phone] [facility] allergies (chief complaint)aly k pain (chief complaint) Allergic rhinitis, cause unspecifiedLu mbagoUnspecif ied vitamin d deficiency 0 Busselen Atif. [address] [place] [address], [id number]. tel:[phone] OFFICE/OUTPA TIENT VISIT, [facility], [address] [place] [address], [id number], [place] tel:[phone] [facility] back pain (chief complaint)hea dache (chief complaint) LumbagoLumbag oUnspecified vitamin d deficiencyLum bagoUnspecifi ed vitamin d deficiencyLum bagoUnspecifi ed vitamin d deficiencyAll ergic rhinitis, cause unspecifiedLu mbagoUnspecif ied vitamin d deficiencyAll ergic rhinitis, cause unspecified 0 Alistair Srivastava. [address] [place] [address], [id number]. tel:[phone] OFFICE/OUTPA TIENT VISIT, [facility], [address] [place] [address], [id number], [place] tel:[phone] [facility] back pain (chief complaint) LumbagoLumbag oDepressionLu mbagoDepressi onLumbagoDepr ession 0 Alistair Srivastava. [address] [place] [address], [id number]. tel:[phone] OFFICE/OUTPA TIENT VISIT, [facility], [address] [place] [address], [id number], [place] tel:[phone] [facility] back pain (chief complaint)nig ht sweats (chief complaint)Vit ball D deficiency (chief complaint) LumbagoOpioid type dependence, continuous useNight sweatsLumbago Opioid type dependence, continuous useGeneralize d hyperhidrosis 0 Alistair Srivastava. [address] [place] [address], [id number]. tel:[phone] [facility], [address] [place] [address], [id number], [place] tel:[phone] [facility] Hematuria 0 Alistair Srivastava. [address] [place] [address], [id number]. tel:[phone] OFFICE/OUTPA TIENT VISIT, [facility], [address] [place] [address], [id number], [place] tel:[phone] [facility] back pain (chief complaint)blo od in urine (chief complaint) LumbagoOpioid type dependence, continuous useTobacco AbuseLumbagoO pioid type dependence, continuous useTobacco AbuseHematuri a 0 Alistair Srivastava. [address] [place] [address], [id number]. tel:[phone] Referring Provider: Atif Sainz, [address] [place] [address], [id number] . [phone] PREV VISIT, [facility], AGE 40-64 [facility], [address] [place] [address], [id number], [place] tel:[phone] [facility] physical/pap (chief complaint) Gynecological ExaminationGy necological ExaminationLu mbagoTobacco AbuseMammogra m, ScreeningGyne cological ExaminationLu mbagoTobacco AbuseMammogra m, Screening 0 Alistair Srivastava. [address] [place] [address], [id number]. tel:[phone] Referring Provider: Khoi Elias, [address] [place] [address] [address], [place], [address]. tel:[phone] OFFICE/OUTPA TIENT VISIT, [facility], [address] [place] [address], [id number], [place] tel:[phone] [facility] back pain (chief complaint) LumbagoMammog milagro, ScreeningLumb agoMammogram, Screening 0 Alistair Srivastava. [address] [place] [address], [id number]. tel:[phone] OFFICE/OUTPA TIENT VISIT, [facility], [address] [place] [address], [id number], [place] tel:[phone] [facility] back pain (chief complaint)dep ression (chief complaint) Lumbago 0 Alistair Srivastava. [address] [place] [address], [id number]. tel:[phone] OFFICE/OUTPA TIENT VISIT, [facility], [address] [place] [address], [id number], [place] tel:[phone] [facility] back pain (chief complaint)dep ression (chief complaint) LumbagoElevat ed blood pressure reading without diagnosis of hypertensionE levated blood pressure reading without diagnosis of hypertension 9 Busselen Atif. [address] [place] [address], [id number]. tel:[phone] OFFICE/OUTPA TIENT VISIT, [facility], [address] [place] [address], [id number], [place] tel:[phone] [facility] back pain (chief complaint) LumbagoNondep endent tobacco use disorder 9 Busselen Atif. [address] [place] [address], [id number]. tel:[phone] OFFICE/OUTPA TIENT VISIT, [facility], [address] [place] [address], [id number], [place] tel:[phone] [facility] Lumbago (chief complaint)flu shot reaction (chief complaint)seven kervin (chief complaint) LumbagoNondep endent tobacco use disorder 9 B[employer] Atif. [address] [place] [address], [id number]. tel:[phone] PREV VISIT, [facility], AGE 40-64 [facility], [address] [place] [address], [id number], [place] tel:[phone] [facility] physical exam (chief complaint)aly k pain (chief complaint) OverweightFam chris history of diabetes mellitusNonde pendent tobacco use disorderLua 9 Busselen Atif. [address] [place] [address], [id number]. tel:[phone] OFFICE/OUTPA TIENT VISIT, [facility], [address] [place] [address], [id number], [place] tel:[phone] [facility] follow up for lower back pain (chief complaint) Lumbago 0 [phone] 9 Busselen Atif. [address] [place] [address], [id number]. tel: [phone] OFFICE/OUTPA TIENT VISIT, [facility], [address] [place] [address], [id number], tel:[phone] [facility] back pain (chief complaint)med ication refill (chief complaint) Nondependent tobacco use disorderOverw eightOther screening mammogramLumb agoFamily history of diabetes mellitusFamil y history of ischemic heart diseaseOpioid type dependence, continuous useLumbagoOpi oid type dependence, continuous use 200 9 Alistair Srivastava. [address] [place] [address], [id number]. tel:[phone] Family History Family Member Type Diagnosis Age At Onset Father Problem (finding) NOS (Cause Of ) Sister Problem (finding) Fibromyalgia Father Problem (finding) Mother Problem (finding) pernicious anemia Brother Problem (finding) hypertension Father Problem (finding) coronary arterioscleros is Niece Problem (finding) depression Maternal grandfather Problem (finding) Cancer - Problem (finding) Family history of Diabetes mellitus Mother Problem (finding) Mother Problem (finding) glaucoma Mother Problem (finding) Mental illness Brother Problem (finding) Alive and well Brother Problem (finding) premature coronary hear t disease 53 Niece Problem (finding) suicide (Cause Of ) Sister Problem (finding) Alive and well Mother Problem (finding) agoraphobia Sister Problem (finding) Father Problem (finding) Diabetes mellitus Mother Problem (finding) Cancer - intes tinal NOS (Cause Of ) Father Problem (finding) hypertension Sister Problem (finding) Cancer -cervical (Cause Of ) Sister Problem (finding) neck fusion Father Problem (finding) alcoholism Mother Problem (finding) depression Sister Problem (finding) arthritis NOS Immunizations Vaccine Date Status Comments Tdap administered Source: New Imm unization Record Flu (split) 3 yrs or older administered S ource: New Immunization Record Influenza vaccine cancelled Source: Ne w Immunization Record Influenza vaccine cancelled Source: Ne w Immunization Record Influenza vaccine cancelled Source: Ne w Immunization Record Influenza vaccine cancelled Source: Ne w Immunization Record Pneumococcal vaccine cancelled Note: r eports she wants this and flu shot next month ; Source: New Immunization Record Influenza vaccine cancelled Source: Ne w Immunization Record Influenza vaccine cancelled Source: Ne w Immunization Record Influenza vaccine cancelled Source: Ne w Immunization Record Pneumococcal vaccine cancelled Source: New Immunization Record Td vaccine cancelled Source: New Imm unization Record Td vaccine cancelled Note: Reports s he had one about 20 years ago; might consider it next month. ; Source: New Immunization Record Influenza vaccine cancelled Source: Ne w Immunization Record Payers Payer name Insurance type Covered libertarian ID [facility] [employer] Integrity CI [id number] Social History Type Description Quantity Date Captured Comments Alcohol Use Details Unknown Caffeine Use Details Unknown Tobacco Use Status Smoking Status No Information Sex Female Sexual Orientation Straight or heterosexual Gender Identity Female Chief Complaint And Reason For Visit No Information Reason For Referral Reason For Referral No Information Plan Of Treatment Date Type Action Status Goal CT-Colonography. Due on due Goal Colonoscopy. Due on due Goal FOBT. Due on due Goal Influenza vaccin e. Due on due Goal Zoster vaccine ( ). Due on due Goal FIT-DNA. Due on due Goal FIT. Due on due Goal Depression scree ruth. Due on due Goal Pap/HPV testing. Due on due Goal Anxiety. Due on due Goal PPSV23 - Adult. Due on due Goal Alcohol/chemical dependency screening. Due on due Goal PAP. Due on due Goal Colonoscopy. Due on due Goal PPSV23 - Adult. Due on due Goal Pap/HPV testing. Due on due Goal Alcohol/chemical dependency screening. Due on due Goal FOBT. Due on due Goal Anxiety. Due on due Goal Influenza vaccin e. Due on due Goal Depression scree ruth. Due on due Goal PAP. Due on due Goal Colonoscopy. Due on due Goal Anxiety. Due on due Goal FOBT. Due on due Goal Depression scree ruth. Due on due Goal PPSV23 - Adult. Due on due Goal Pap/HPV testing. Due on due Goal Alcohol/chemical dependency screening. Due on due Goal PAP. Due on due Goal Influenza vaccin e. Due on due Goal Pap/HPV testing. Due on due Goal PAP. Due on due Goal Alcohol/chemical dependency screening. Due on due Goal Colonoscopy. Due on due Goal Influenza vaccin e. Due on due Goal PPSV23 - Adult. Due on due Goal Anxiety. Due on due Goal FOBT. Due on due Goal Depression scree ruth. Due on due Goal Colonoscopy. Due on due Goal FOBT. Due on due Goal PPSV23 - Adult. Due on due Goal Depression scree ruth. Due on due Goal Pap/HPV testing. Due on due Goal Anxiety. Due on due Goal Influenza vaccin e. Due on due Goal PAP. Due on due Goal Alcohol/chemical dependency screening. Due on due Goal PPSV23 - Adult. Due on due Goal Anxiety. Due on due Goal Colonoscopy. Due on due Goal PAP. Due on due Goal Alcohol/chemical dependency screening. Due on due Goal Pap/HPV testing. Due on due Goal Depression scree ruth. Due on due Goal FOBT. Due on due Goal Influenza vaccin e. Due on due Goal Colonoscopy. Due on due Goal Anxiety. Due on due Goal Influenza vaccin e. Due on due Goal FOBT. Due on due Goal Depression scree ruth. Due on due Goal PAP. Due on due Goal Alcohol/chemical dependency screening. Due on due Goal PPSV23 - Adult. Due on due Goal Pap/HPV testing. Due on due Goal Influenza vaccin e. Due on due Goal PPSV23 - Adult. Due on due Goal Anxiety. Due on due Goal FOBT. Due on due Goal Alcohol/chemical dependency screening. Due on due Goal PAP. Due on due Goal Colonoscopy. Due on due Goal Pap/HPV testing. Due on due Goal Depression scree ruth. Due on due Goal PPSV23 - Adult. Due on due Goal PAP. Due on due Goal Pap/HPV testing. Due on due Goal Influenza vaccin e. Due on due Goal FOBT. Due on due Goal Depression scree ruth. Due on due Goal Alcohol/chemical dependency screening. Due on due Goal Colonoscopy. Due on due Goal Anxiety. Due on due Goal Alcohol/chemical dependency screening. Due on due Goal PPSV23 - Adult. Due on due Goal Influenza vaccin e. Due on due Goal FOBT. Due on due Goal One Meza Question . Due on due Goal Anxiety. Due on due Goal Pap/HPV testing. Due on due Goal PAP. Due on due Goal Depression scree ruth. Due on due Goal Urinalysis due Goal PPSV23 - Adult. Due on due Goal Alcohol/chemical dependency screening. Due on due Goal Pap/HPV testing. Due on due Goal Influenza vaccin e. Due on due Goal One Meza Question . Due on due Goal PAP. Due on due Goal Anxiety. Due on due Goal Urinalysis due Goal Hematocrit. Due on due Goal FOBT. Due on due Goal Depression scree ruth. Due on due Goal Hematocrit. Due on due Goal PAP. Due on due Goal PPSV23 - Adult. Due on due Goal One Meza Question . Due on due Goal FOBT. Due on due Goal Anxiety. Due on due Goal Influenza vaccin e. Due on due Goal Alcohol/chemical dependency screening. Due on due Goal Depression scree ruth. Due on due Goal Pap/HPV testing. Due on due Goal Urinalysis due Goal Influenza vaccin e. Due on due Goal PAP. Due on due Goal PPSV23 - Adult. Due on due Goal Pap/HPV testing. Due on due Goal Anxiety. Due on due Goal Alcohol/chemical dependency screening. Due on due Goal Depression scree ruth. Due on due Goal One Meza Question . Due on due Goal FOBT. Due on due Goal Urinalysis due Goal Special diet education compl eted Goal PAP. Due on due Goal Influenza vaccin e. Due on due Goal FOBT. Due on due Goal One Meza Question . Due on due Goal Alcohol/chemical dependency screening. Due on due Goal Depression scree ruth. Due on due Goal Pap/HPV testing. Due on due Goal Anxiety. Due on due Goal PPSV23 - Adult. Due on due Goal Alcohol/chemical dependency screening. Due on due Goal PAP. Due on due Goal Pap/HPV testing. Due on due Goal Depression scree ruth. Due on due Goal Influenza vaccin e. Due on due Goal One Meza Question . Due on due Goal FOBT. Due on due Goal Anxiety. Due on due Goal PPSV23 - Adult. Due on due Goal Anxiety. Due on due Goal Pap/HPV testing. Due on due Goal One Meza Question . Due on due Goal FOBT. Due on due Goal Alcohol/chemical dependency screening. Due on due Goal Influenza vaccin e. Due on due Goal Depression scree ruth. Due on due Goal PAP. Due on due Goal FOBT. Due on due Goal One Meza Question . Due on due Goal Influenza vaccin e. Due on due Goal PPSV23 - Adult. Due on due Goal Anxiety. Due on due Goal PAP. Due on due Goal Depression scree ruth. Due on due Goal Alcohol/chemical dependency screening. Due on due Goal Pap/HPV testing. Due on due Goal Anxiety. Due on due Goal Pap/HPV testing. Due on due Goal PAP. Due on due Goal Influenza vaccin e. Due on due Goal FOBT. Due on due Goal Depression scree ruth. Due on due Goal Alcohol/chemical dependency screening. Due on due Goal One Meza Question . Due on due Goal PPSV23 - Adult. Due on due Goal PAP. Due on due Goal Depression scree ruth. Due on due Goal Pap/HPV testing. Due on due Goal Colonoscopy. Due on 015 due Goal One Meza Question . Due on due Goal PPSV23 - Adult. Due on due Goal Influenza vaccin e. Due on due Goal Anxiety. Due on due Goal Alcohol/chemical dependency screening. Due on due Goal Influenza vaccin e. Due on due Goal One Meza Question . Due on due Goal PAP. Due on due Goal Colonoscopy. Due on due Goal Depression scree ruth. Due on due Goal Alcohol/chemical dependency screening. Due on due Goal PPSV23 - Adult. Due on due Goal Pap/HPV testing. Due on due Goal Anxiety. Due on due Goal Colonoscopy. Due on due Goal Alcohol/chemical dependency screening. Due on due Goal Depression scree ruth. Due on due Goal Anxiety. Due on due Goal PAP. Due on due Goal PPSV23 - Adult. Due on due Goal Influenza vaccin e. Due on due Goal One Meza Question . Due on due Goal Pap/HPV testing. Due on due Goal Influenza vaccin e. Due on due Goal One Meza Question . Due on due Goal Depression scree ruth. Due on due Goal Anxiety. Due on due Goal PPSV23 - Adult. Due on due Goal PAP. Due on due Goal Colonoscopy. Due on due Goal Pap/HPV testing. Due on due Goal Alcohol/chemical dependency screening. Due on due Goal PPSV23 - Adult. Due on due Goal Pap/HPV testing. Due on due Goal Anxiety. Due on due Goal Depression scree ruth. Due on due Goal Colonoscopy. Due on due Goal Alcohol/chemical dependency screening. Due on due Goal Influenza vaccin e. Due on due Goal One Meza Question . Due on due Goal PAP. Due on due Goal One Meza Question . Due on due Goal Colonoscopy. Due on due Goal Influenza vaccin e. Due on due Goal Pap/HPV testing. Due on due Goal Depression scree ruth. Due on due Goal Anxiety. Due on due Goal PAP. Due on due Goal Alcohol/chemical dependency screening. Due on due Goal PPSV23 - Adult. Due on due Goal Hematocrit. Due on 18 due Goal Urinalysis due Goal Colonoscopy. Due on 015 due Goal PAP. Due on due Goal Anxiety. Due on due Goal HPV testing. Due on 022 due Goal Pap/HPV testing. Due on due Goal PPSV23 - Adult. Due on due Goal Diabetes screeni ng. Due on due Goal Influenza vaccin e. Due on due Goal Depression scree ruth. Due on due Goal Alcohol/chemical dependency screening. Due on due Goal Diabetes screeni ng. Due on due Goal PAP. Due on due Goal Pap/HPV testing. Due on due Goal Alcohol/chemical dependency screening. Due on due Goal PPSV23 - Adult. Due on due Goal Influenza vaccin e. Due on due Goal HPV testing. Due on 022 due Goal Colonoscopy. Due on due Goal Depression scree ruth. Due on due Goal Anxiety. Due on due Goal Colonoscopy. Due on due Goal PPSV23 - Adult. Due on due Goal Influenza vaccin e. Due on due Goal Mammogram. Due on due Goal Influenza vaccin e. Due on due Goal Mammogram. Due on due Goal PPSV23 - Adult. Due on due Goal Colonoscopy. Due on due Goal Influenza vaccin e. Due on due Goal Colonoscopy. Due on due Goal PPSV23 - Adult. Due on due Goal Colonoscopy. Due on due Goal PPSV23 - Adult. Due on due Goal Influenza vaccin e. Due on due Goal PPSV23 - Adult. Due on due Goal Colonoscopy. Due on due Goal Influenza vaccin e. Due on due Goal Fit Testing. Due on due Goal HPV testing. Due on due Goal Influenza vaccin e. Due on due Goal PPSV23 - Adult. Due on due Goal FOBT. Due on due Goal Colonoscopy. Due on due Goal PPSV23 - Adult. Due on due Goal HPV testing. Due on due Goal ECG. Due on due Goal FOBT. Due on due Goal Influenza vaccin e. Due on due Goal Colonoscopy. Due on due Goal Colonoscopy. Due on due Goal ECG. Due on due Goal FOBT. Due on due Goal Influenza vaccin e. Due on due Goal HPV testing. Due on due Goal PPSV23 - Adult. Due on due Goal Colonoscopy. Due on due Goal FOBT. Due on due Goal PPSV23 - Adult. Due on due Goal Influenza vaccin e. Due on due Goal Alcohol/chemical dependency screening. Due on due Goal HPV testing. Due on 017 due Goal ECG. Due on due Goal FOBT. Due on due Goal Colonoscopy. Due on 015 due Goal Anxiety. Due on due Goal Alcohol/chemical dependency screening. Due on due Goal HPV testing. Due on 016 due Goal PPSV23 - Adult. Due on due Goal Influenza vaccin e. Due on due Goal ECG. Due on due Goal Anxiety. Due on due Goal HPV testing. Due on due Goal HIV screen due Goal FOBT. Due on due Goal Tdap due Goal Influenza vaccin e. Due on due Goal Colonoscopy. Due on 015 due Goal Alcohol/chemical dependency screening. Due on due Goal ECG. Due on due Goal PPSV23 - Adult. Due on due Goal Tobacco cessation counseling completed Goal Tobacco cessation counseling completed Goal Tobacco cessation counseling completed Goal Tobacco cessation counseling completed Goal Tobacco cessation counseling completed Goal Tobacco cessation counseling completed Goal Tobacco cessation counseling completed Goal Tobacco cessation counseling completed Goal Tobacco cessation counseling completed Goal Tobacco cessation counseling completed Goal Tobacco cessation counseling completed Goal Tobacco cessation counseling completed Goal Tobacco cessation counseling completed Goal Tobacco cessation counseling completed Goal Tobacco cessation counseling completed Goal Tobacco cessation counseling completed Goal Tobacco cessation counseling completed Goal Tobacco cessation counseling completed Goal Tobacco cessation counseling completed Goal Tobacco cessation counseling completed Goal Tobacco cessation counseling completed Goal Tobacco cessation counseling completed Goal Tobacco cessation counseling completed Goal Tobacco cessation counseling completed Goal Tobacco cessation counseling completed Goal Tobacco cessation counseling completed Goal Tobacco cessation counseling completed Goal Tobacco cessation counseling completed Goal Tobacco cessation counseling completed Goal Tobacco cessation counseling completed Goal Tobacco cessation counseling completed Goal Tobacco cessation counseling completed Goal Tobacco cessation counseling completed Goal Tobacco cessation counseling completed Goal Tobacco cessation counseling completed Goal Tobacco cessation counseling completed Goal Tobacco cessation counseling completed Referral Ordered: Referrals: Psychiatry. Evaluate and treat ordered Referral Ordered: Referrals: Colonoscopy Screening. Evaluate and treat ordered Referral Referred To: Physical Therapy Ordered: Referrals: Physical Therapy. Location: [facility] Evaluate and treat ordered Referral Ordered: Mental Health Counselor (related to Generalized anxiety disorder) ordered Referral Ordered: Referrals: Mental Health Counselor. Evaluate and treat ordered Referral Referred To: [address], [address] [phone] Ordered: Referrals: Mental Health Counselor. [facility]. Evaluate and treat ordered Referral Referred To: Dr Betancourt Ordered: Referrals: Neurosurgery. Dr Betancourt. Evaluate and treat Appointment date/timeframe: 3 Months ordered Referral Referred To: Pippa Rodriguez APRN [address] [place] [address], [address] [phone] Ordered: Referrals: Psychiatry. Pippa Rodriguez APRN. Evaluate and treat ordered Referral Ordered: Referrals: Orthopedic Surgery. Evaluate and treat ordered Referral Ordered: [facility] (related to Unspecified abnormalities of gait and mobility) ordered Referral Referred To: [facility] [address] [place], [address] [phone] Ordered: Referrals: [facility]. [facility]. Evaluate and treat ordered Referral Referred To: Physical Therapy Ordered: Referrals: Physical Therapy. Evaluate and treat ordered Referral Ordered: Referrals: Pain Medicine. Evaluate and treat ordered Referral Ordered: Referrals: Neurosurgery. Evaluate and treat ordered Referral Ordered: Neurology. ordered Referral Referred To: Freya -- see note below Ordered: Referral: Freya -- see note below. Pain Management. Evaluate and treat. ordered Referral Referred To: that accepts her insurance Ordered: Referral: that accepts her insurance. Physical Therapist/Independent. Evaluate and treat. ordered Referral Referred To: Dr. Spivey Ordered: Referral: Dr. Spivey. Consult. ordered Referral Ordered: [facility] [employer]. ordered Referral Ordered: Physical Therapist/Independent. ordered Referral Ordered: Neurosurgery. ordered Patient Education Pap Test: Care Instruct ions completed Patient Education Fecal Immunoch emical Test (FIT): About completed Future Order: Radiology Order Ma mmogram Bilateral Screening (MAMSC), Ordered on: Ordered Future Order: Lab Order CBC (W D IFF AND PLATELET) (1980), Ordered on: Ordered Future Order: Lab Order COMPREHE NSIVE METABOLIC PANEL (977), Ordered on: Ordered Future Order: Lab Order GLYCOHEM OGLOBIN-A1C (1108), Ordered on: Ordered Future Order: Lab Order LIPID 1 PROFILE (CHOL,TRIG,HDL,LDL) (971), Ordered on: Ordered Future Order: Lab Order TSH, 3RD GENERATION (1902), Ordered on: Ordered Future Order: Lab Order VITAMIN D 25-HYDROXY (3330), Ordered on: Ordered Future Order: Radiology Order Ma mmogram Bilateral Diagnostic With US If Necessary (MAMDIAG), Ordered on: Ordered Future Order: Radiology Order Ma mmogram Bilateral Screening (MAMSC), Ordered on: Ordered Future Order: Lab Order DRUGS OF ABUSE SCREEN ([id number]), Ordered on: Ordered Future Order: Lab Order DRUGS OF ABUSE SCREEN ([id number]), Ordered on: Ordered Future Order: Radiology Order MR I Sacrum/SI joint w/o contrast(INAV) (MR-Sac+SI), Ordered on: Ordered Future Order: Radiology Order MR I Lumbar Spine w/o contrast 38179 (MR-LSpine), Ordered on: Ordered Future Order: Radiology Order Ma mmogram Bilateral Screening (MAMSC), Ordered on: Ordered Future Order: Lab Order DRUG SCR EEN (ANCELMO BRO.) (1874), Ordered on: Ordered Future Order: Lab Order CBC/DIFF (W/PLT) ([id number]), Ordered on: Ordered Future Order: Lab Order METHYLMA LONIC ACID ([id number]), Ordered on: Ordered Future Order: Lab Order HOMOCYST EINE ([id number]), Ordered on: Ordered Future Order: Lab Order Vit D25 OH Total D3 (02653), Ordered on: Ordered Future Order: Lab Order VIT B12 ([id number]), Ordered on: Ordered Future Order: Lab Order TSH 3RD GN Reflex ([id number]), Ordered on: Ordered Future Order: Lab Order LIPID PA MICHAEL ([id number]), Ordered on: Ordered Future Order: Lab Order FOLATE S CAMERON ([id number]), Ordered on: Ordered Future Order: Lab Order COMPREHE NSIVE METABOLIC PANEL (63955), Ordered on: Ordered Future Order: Lab Order VITAMIN D 25-HYDROXY (8630), Sent on: Sent Future Order: Lab Order DRUG SCR EEN (ANCELMO BRO.) (1874), Ordered on: Ordered Future Order: Lab Order DRUG SCR EEN (ANCELMO BRO.) (1874), Ordered on: Ordered Future Order: Lab Order VITAMIN B 12 (1037), Ordered on: Ordered Future Order: Lab Order VITAMIN D 25-HYDROXY (8630), Ordered on: Ordered Future Order: Lab Order TSH, 3RD GENERATION (1902), Ordered on: Ordered Future Order: Lab Order T-4 FREE (1043), Ordered on: Ordered Future Order: Lab Order MAGNESIU M (1120), Ordered on: Ordered Future Order: Lab Order TREPONEM AL ABS IGG/IGM (4007), Ordered on: Ordered Future Order: Lab Order COMPREHE NSIVE METABOLIC PANEL (977), Ordered on: Ordered Future Order: Lab Order POTASSIU M (HEPARIN) (1152), Ordered on: Ordered Future Order: Lab Order METHYLMA LONIC ACID (1650), Ordered on: Ordered Future Order: Lab Order FOLATE L EVEL (1035), Ordered on: Ordered Future Order: Lab Order HOMOCYST EINE (1651), Ordered on: Ordered Future Order: Lab Order VITAMIN D 25-HYDROXY (8630), Sent on: Sent Future Order: Lab Order DRUG SCR EEN (ANCELMO BRO.) (1874), Ordered on: Ordered Future Order: Radiology Order Ma mmogram Bilateral Screening (MAMSC), Ordered on: Ordered Future Order: Lab Order Chlamydi a N Gonorrhoeae (1), Ordered on: Ordered Future Order: Lab Order Pap HPV Reflex (ASCUS) (9820), Sent on: Sent Future Order: Lab Order DRUG SCR EEN (ANCELMO BRO.) (5694), Ordered on: Ordered Future Order: Lab Order DRUGS OF ABUSE SCREEN ([id number]), Appointment on: Ordered Future Order: Lab Order VITAMIN D 25-HYDROXY (8630), Appointment on: Ordered Future Order: Lab Order VITAMIN D 25-HYDROXY (8630), Appointment on: Ordered Future Order: Lab Order Rapid HI V (01407), Appointment on: Ordered Future Order: Lab Order VITAMIN D 25-HYDROXY (8630), Appointment on: Ordered Future Order: Lab Order URINE CY TOLOGY (THIN PREP) (9722), Appointment on: Ordered Future Order: Lab Order N. Gonor rhoeae Culture (28), Appointment on: Ordered Future Order: Lab Order Chlamydi a N Gonorrhoeae (1), Appointment on: Ordered Future Order: Lab Order GLUCOSE (1001), Appointment on: Ordered Future Order: Lab Order Cardiac Risk Profile (902), Appointment on: Ordered History Of Present Illness Encounter Date Complaint History Of Prese nt Illness Telehealth The patient has verbally consented to participate in this telehealth visit. The visit took place telephonically only, due to the COVID 19 pandemic.Pt reports being located at home at time of visit.Medical provider is calling from office.- Introduced myself as new provider. Reviewed past history and chronic conditions if any.-Reports that she has neck pain, in the past she used to get injections, she would like to be referred to a back specialist to evaluate for possible neck injections. -States she is due for her mammogram and colonoscopy. -No concerns. Telehealth The patient has verbally consented to participate in this telehealth visit. The visit took place telephonically only, due to the COVID 19 pandemic.Pt reports being located at home at time of visit.Medical provider is calling from office.Patient has increased her sertraline back to 200 mg. She was on 200 mg in the past but decreased to 50 temporarily because she felt like she didn't need the higher doses. Started feeling more depressed and weepy, increased back to 200 mg a few months ago but prescription never changed in our system. She would like to stay on 200 mg. MSK Left shoulder pa in for many years. Improves with trigger point injection. Stretching at home. Describes pain as stiffness. MSK MSK Evaluation O nset: 7 years Location: both legs Duration: constant throughout the day Character (aching, burning, stabbing, etc): burning, dull, ache Aggravating factors: walkingRelieving factors: Trigger injections Treatments tried: Trigger injection Musculoskeletal pain Onset: grad ual. Duration: 2 Months. Severity level is 7. Location: right (Hip). The pain radiates to the right foot. The pain is aching and burning. Context: there is no injury. Hand Dominance: right. Anxiety This is a follow up visit. There is continuation of initial symptoms and improvement of initial symptoms. Additional information: taking benzo truly prn. taking bup as rx. back pain Severity level i s 5. The problem is worsening. It occurs persistently. Location of pain is lower back. Pain is radiated to the right thigh. neck pain Onset: gradual. The problem has improved. The frequency of pain is intermittent. Location of pain is left lateral neck. neck pain Additional infor mation: Left side neck pain and tightness. Pain radiated into her head and down into her shoulder. Has been bothering her for over a year. back pain The problem is i mproving. It occurs persistently. Additional information: taking bup as rx. Anxiety This is a follow up visit. Related symptoms are uncontrolled. There is worsening of previously reported symptoms. The patient reports functioning as somewhat difficult. The Global Assessment of Functioning Scale (GAF) = 50. The patient presents with anxious/fearful thoughts but denies thoughts of or suicide. Additional information: taking meds as rx. neck pain The frequency of pain is intermittent. back pain The problem is f luctuating. It occurs persistently. Location of pain is lower back. Additional information: likes the bup effect overall, but feels that for the more arthritic type pain doesn't work as well as prior full agonists. getting out of the house with sister! taking bup as rx. u-tox u_tox for RX RF. completed. rash The patient pres ents for rash. The symptom(s) are described as worse and occurs only with exposure to irritating agent. Affected area(s) include both arms and back. The patient describes the affected area(s) as burning, itchy and red. Associated symptoms include erythema (skin) and pruritus. Musculoskeletal pain Severity le hoa is 5. It occurs constantly and is fluctuating. Location: hip. Hand Dominance: right. Flu shot- Declines back pain The problem is i mproving. It occurs persistently. Location of pain is lower back. Additional information: using patch as rx. feels more mentally clear . pain is better, but the stiffnes sin back and legs is worse. . abdominal pain The problem has worsened. Musculoskeletal pain It occurs c onstantly and is stable. Location: bilateral. The pain radiates to the Associated symptoms include decreased mobility, limping, spasms and tingling in the legs. Hand Dominance: right. Additional information: clonidine helped sleep some. Musculoskeletal pain Hand Domina nce: right. Sinus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 understood a nd made informed decision Continue current medication Potential for abuse Reviewed medications Patient understood a nd made informed decision Continue current medication Potential for abuse Reviewed medications Patient understood a nd made informed decision Continue current medication Potential for abuse Reviewed medications Apply ice to affected area Patient understood a nd made informed decision Continue current medication Potential for abuse Reviewed medications Reviewed medications Take new medication as prescribe d Activity as tolerated Patient understood a nd made informed decision Continue current medication Potential for abuse Reviewed medications Patient understood a nd made informed decision Continue current medication Patient understood a nd made informed decision Continue current medication Potential for abuse Reviewed medications Reviewed medications Take new medication as prescribe d Patient understood a nd made informed decision Continue current medication Patient understood a nd made informed decision Continue current medication Potential for abuse Reviewed medications Continue current medication Patient understood a nd made informed decision may take morphine q4 prn note moprhine use per day Patient understood a nd made informed decision Continue current medication Potential for abuse Reviewed medications Patient understood a nd made informed decision Continue current medication Reviewed medications Patient understood a nd made informed decision Continue current medication Reviewed medications Take new medication as prescribe d Continue current medication Reviewed medications Patient understood a nd made informed decision Patient understood a nd made informed decision Continue current medication Reviewed medications Patient understood a nd made informed decision Continue current medication Potential for abuse Reviewed medications Patient understood a nd made informed decision Continue current medication Potential for abuse Reviewed medications Take new medication as prescribe d Patient understood a nd made informed decision Continue current medication Potential for abuse Reviewed medications Patient understood a nd made informed decision Continue current medication Reviewed medications Continue current medication Reviewed medications Patient understood a nd made informed decision Patient understood a nd made informed decision Continue current medication Reviewed medications Patient understood a nd made informed decision Continue current medication Potential for abuse Reviewed medications Reviewed medications Patient understood a nd made informed decision Continue current medication Take new medication as prescribe d Patient understood a nd made informed decision Continue current medication Reviewed medications Change medication Reviewed medications Patient understood a nd made informed decision Patient understood a nd made informed decision Continue current medication Reviewed medications Take new medication as prescribe d Patient understood a nd made informed decision Continue current medication Reviewed medications Reviewed medications Patient understood a nd made informed decision Continue current medication Potential for abuse Take new medication as prescribe d Assessments Type Assessment Date No Information Patient Care Teams Name Effective Dates (start - stop) Status Members No Information
--- OUTSIDE RECORDS SUMMARY | 2024-10-16 12:58 | XMS_ITS | Clinical Summary ---
Author Organization [facility] Address [address] [place] [address] Care Team Providers Care Journeyman Carpenter Name Role Phone Kacy Archuleta Primary Care Provider [phone] Surgical History Surgery Date Site/Laterality Comments OTHER SURGICAL HISTORY 11/29/2021 PROCEDURE: [place] ERCP W/SPHINCTEROTOMY/PAPILLOTOMY; COMMENT: gallstones/dilated CBD Social History [...] age to complete this topic Care Teams Journeyman Carpenter Relationship Specialty Start Date End Date Kacy Archuleta [address] [place] [phone] PCP - General 08/09/21
--- OUTSIDE RECORDS SUMMARY | 2024-10-16 12:58 | XMS_ITS | Encounter Summary ---
Author Organization [employer] Address [address] [facility] 7 [place] [address] Care Team Providers Care Clerical Office Name Role Phone Alexia Hutton MD Primary Care Provider [phone] Reason for Visit * Reason Onset Date Comments Durable Medical Equipment 10/13/2024 [facility] On e Care DME Request: Commode Encounter Details Date Type Department Care Team ([facility] st Contact Info) Description 10/13/2024 Telephone [facility] [address] [place], [place] [phone] Alexia Hutton MD [address] [place] [address] Durable Medical Equipment ([facility] One Care DME Request: Commode) Social History Tobacco Use Types Packs/Day Years Used Date Smoking Tobacco: Former Cigarettes Smokeless Tobacco: Never Comments:Using nicotine [facility] hes Alcohol Use Standard Drinks/Week Comments Never 0 [...] housing situation today? I have nicolasa juarez 07/09/[address] you li ve. Do you have problems with any of the following? None of the above 07/09/2024 Food Insecurity Answer Date Recorded Within the [...] getting things needed for daily living? No 07/09/2024 Intimate Partner Violence Answer Date R ecorded [...] Access Answer Date Recorded Internet Access Q1 Yes 07/09/2024 Internet Access Q2 Not on file 07/09/2024 Comments No Sex and Gender Information Value Date Recorded Sex Assigned at Female 12/19/2021 10:39 AM EDT Legal Sex Female 10:39 AM EDT Gender Identity Female 12/19/2021 10:39 AM EDT Sexual Orientation Don't know 12/19/2021 10 :39 AM EDT documented as of this encounter Miscellaneous Notes * Telephone Encounter - April Feliciano - 10/13/2024 3:02 PM EDT Please see below request from [facility] [employer], Please advise. * Telephone Encounter - April Feliciano - 10/13/2024 3:01 PM EDT ----- Message from Tracy David sent at 10/13/2024 1:31 PM EDT ----- Regarding: FW: Re: DME request Contact: ----- Message ----- From: Amelia Patel Sent: 10/13/2024 11:24 AM EDT To: Tracy Whitley Subject: Re: DME request Greetings, I am Amelia Patel, Brush Clearer Surveying for [facility] [employer], requesting the following DME???s on behalf of patient. DME Item: Commode Supportive DX: Incontinence If you should have any inquiries regarding this request, feel free to contact the Brush Clearer Surveying below. Brush Clearer Surveying: Amelia Patel E-mail: [email or web address] Leak Hunter: Yesica Shetty E-mail: [email or web address] Thanks in advance for your assistance with this request. Sincerely, [facility] [employer] documented in this encounter Plan of Treatment Upcoming Encounters Date Type Department Care Team (Late st Contact Info) Description 11/14/2024 2:15 PM EDT Office Visit [facility] [address] [place] [address] Alexia Hutton MD [address] [place] [address] 12/29/2024 1:45 PM EST Office Visit [facility] [address] [place] [phone] Raffaele Arechiga MD [address] [place] [address] documented as of this encounter Visit Diagnoses Not on filedocumented in this encounter Additional Health Concerns Assessment Noted Time PHQ-9 Depression Total Score: 0 05/23/19 24 11:17 AM EDT documented as of this encounter Care Teams Clerical Office Relationship Specialty Start Date End Date Alexia Hutton MD [address] [place] [address] PCP - General Family Medicine 11/23/22 Violeta Downey 08/25/23 documented as of this encounter
--- OUTSIDE RECORDS SUMMARY | 2024-10-16 12:58 | XMS_ITS | Encounter Summary ---
Author Organization [employer] Address [address] [facility] [address] [place] [address] Care Team Providers Care Supervisor Assembly Department Name Role Phone Alexia Hutton MD Primary Care Provider Reason for Visit * Reason Onset Date Comments Med Refill 10/13/2024 Encounter Details Date Type Department Care Team (Late st Contact Info) Description 10/13/2024 Telephone [facility] [address] [place], [place] [phone] Alexia Hutton MD [address] [place], [place] [phone] Med Refill Social History Tobacco Use Types Packs/Day Years Used Date Smoking Tobacco: Former Cigarettes Smokeless Tobacco: Never Comments:Using nicotine [facility] Alcohol Use Standard Drinks/Week Comments Never 0 [...] the past 12 months, has t he [employer], gas, oil or water [employer] threatened to shut off services in your [...] encounter Miscellaneous Notes * Telephone Encounter - Jael Chen LPN - 10/13/2024 9:14 AM EDT Medication pended to PCP. * Telephone Encounter - Angelito Abbasi - 10/13/2024 8:55 AM EDT TC from pt requesting medication refill. Medications needing refill : ipratropium-albuterol (Duo-Neb) 0.5-2.5 mg/3 mL nebulizer solution To be sent to: [facility] - [place], [place] - [address] [place] [address] documented in this encounter Plan of Treatment Upcoming Encounters Date Type Department Care Team (Late st Contact Info) Description 11/14/2024 2:15 PM EDT Office Visit [facility] [address] [place] [address] Alexia Hutton MD [address] [place] [address] 12/29/2024 1:45 PM EST Office Visit [address] [address] Raffaele Arechiga MD [address] [place] [address] documented as of this encounter Visit Diagnoses Not on filedocumented in this encounter Additional Health Concerns Assessment Noted Time PHQ-9 Depression Total Score: 0 05/23/19 24 11:17 AM EDT documented as of this encounter Care Teams Supervisor Assembly Department Relationship Specialty Start Date End Date Alexia Hutton MD [address] [place] [address] PCP - General Family Medicine 11/23/22 Violeta Downey 08/25/23 documented as of this encounter
--- OUTSIDE RECORDS SUMMARY | 2024-10-16 12:58 | XMS_ITS | Encounter Summary ---
Author Organization [employer] Address [address] [facility] 7t [place] [address] Care Team Providers Care Rubber Mill Operator Name Role Phone Alexia Hutton MD Primary Care Provider [phone] Reason for Visit * Reason Comments Med Refill Encounter Details Date Type Department Care Team ([facility] st Contact Info) Description 01/01/2023 Refill [facility] [address] [place], [place] [phone] Danya Rosenthal MD [address] [place] [address] Opioid dependence, uncomplicated (CMS/HCC) Social History Tobacco [...] Description 11/14/2024 2:15 PM EDT Office Visit [facility] [address] [place] [address] Alexia Hutton MD [address] [place] [address] 12/29/2024 1:45 PM EST Office Visit [facility] [address] [place] [address] Raffaele Arechiga MD [address] [place] [address] documented as of this encounter Visit Diagnoses Diagnosis Opioid dependence, uncomplicated (CMS/HCC) documented in this encounter Additional Health Concerns Assessment Noted Time PHQ-9 Depression Total Score: 0 02/10/20 22 9:09 AM EST documented as of this encounter Care Teams Rubber Mill Operator Relationship Specialty Start Date End Date Alexia Hutton MD [address] [place] [address] [phone] PCP - General Family Medicine 11/23/22 Violeta Downey 08/25/23 documented as of this encounter
--- OUTSIDE RECORDS SUMMARY | 2024-10-16 12:58 | XMS_ITS | Encounter Summary ---
Author Organization [employer] Address [address] [facility] 7t [place] [address] Care Team Providers Care Channel Sales Manager Name Role Phone Alexia Hutton MD Primary Care Provider [phone] Reason for Visit * Reason Comments Med Refill Encounter Details Date Type Department Care Team ([facility] st Contact Info) Description 10/01/2023 Refill [facility] [address] [place], [place] [phone] Raffaele Arechiga MD 230 [place], [place] [phone] Opioid dependence, uncomplicated (CMS/[facility]) Social History Tobacco Use Types Packs/Day Years [...] Description 11/14/2024 2:15 PM EDT Office Visit [facility] [address] [place] [address] Alexia Hutton MD [address] [place] [address] 12/29/2024 1:45 PM EST Office Visit [address] [address] Raffaele Arechiga MD [address] [place] [address] documented as of this encounter Visit Diagnoses Diagnosis Opioid dependence, uncomplicated (CMS/HCC) documented in this encounter Additional Health Concerns Assessment Noted Time PHQ-9 Depression Total Score: 0 05/23/19 24 11:17 AM EDT documented as of this encounter Care Teams Channel Sales Manager Relationship Specialty Start Date End Date Alexia Hutton MD [address] [place] [address] [phone] PCP - General Family Medicine 11/23/22 Violeta Downey 08/25/23 documented as of this encounter
--- OUTSIDE RECORDS SUMMARY | 2024-10-16 12:58 | XMS_ITS | Encounter Summary ---
Author Organization [employer] Address [address] [facility] 7t [place] [address] Care Team Providers Care Felt Dyeing Machine Tender Name Role Phone Alexia Hutton MD Primary Care Provider [phone] Reason for Visit * Reason Comments Med Refill Encounter Details Date Type Department Care Team ([facility] st Contact Info) Description 10/13/2024 Refill [facility] [address] [place], [place] [phone] Alexia Hutton MD [address] [place], [place] [phone] Chronic obstructive pulmonary disease with (acute) exacerbation (CMS/[facility]) Social History Tobacco Use Types Packs/Day Years Used Date Smoking Tobacco: Former Cigarettes Smokeless Tobacco: Never Comments:Using nicotine [facility] hes Alcohol Use Standard Drinks/Week Comments [...] the past 12 months, has t he [employer], gas, oil or water [employer] threatened to shut off services in your [...] Chen LPN - 10/13/2024 9:14 AM EDT Last seen 05/09/24. documented in this encounter Plan of Treatment Upcoming Encounters Date Type Department Care Team (Late st Contact Info) Description 11/14/2024 2:15 PM EDT Office Visit [facility] [address] [place] [address] Alexia Hutton MD 230 [place] [address] 12/29/2024 1:45 PM EST Office Visit [address] [address] Raffaele Arechiga MD [address] [place] [address] documented as of this encounter Visit Diagnoses Diagnosis Chronic obstructive pulmonary disease with (acute) exacerbation (CMS/HCC) documented in this encounter Additional Health Concerns Assessment Noted Time PHQ-9 Depression Total Score: 0 05/23/19 24 11:17 AM EDT documented as of this encounter Care Teams Felt Dyeing Machine Tender Relationship Specialty Start Date End Date Alexia Hutton MD [address] [place] [phone] PCP - General Family Medicine 11/23/22 Violeta Downey 08/25/23 documented as of this encounter
--- OUTSIDE RECORDS SUMMARY | 2024-10-16 12:58 | XMS_ITS | Clinical Summary ---
Author Organization [facility] Address [address] [place], [place] [phone] Phone Care Team Providers Care Hogshead Mat Assembler Name Role Phone Unavailable Primary Care Provider [...] file Medical Devices Not on file Insurance [facility] ONE CARE MEDICARE REPLACEMENT [address] [place] [address] [place] [place] [address] MEDICARE REPLACEMENT [facility] ONE CARE MEDICARE REPLACEMENT [facility] CARE MEDICARE REPLACEMENT Additional Source Comments The information contained in this document represents components of the legal health record. It is not the complete legal health record.[facility]
--- OUTSIDE RECORDS SUMMARY | 2024-10-16 12:58 | XMS_ITS | Encounter Summary ---
Author Organization [employer] Address [address] [facility] 7t [place] [address] Care Team Providers Care Customer Advocacy Manager Name Role Phone Alexia Hutton MD Primary Care Provider [phone] Reason for Visit * Reason Comments Med Refill Encounter Details Date Type Department Care Team ([facility] st Contact Info) Description 08/07/2023 Refill [facility] [address] [place], [place] [phone] Danya Rosenthal MD 230 [place] [address] Opioid dependence, uncomplicated (CMS/HCC) Social History Tobacco [...] Description 11/14/2024 2:15 PM EDT Office Visit [facility] [address] [place] [address] Alexia Hutton MD [address] [place] [address] 12/29/2024 1:45 PM EST Office Visit [address] [address] Raffaele Arechiga MD [address] [place] [address] documented as of this encounter Visit Diagnoses Diagnosis Opioid dependence, uncomplicated (CMS/HCC) documented in this encounter Additional Health Concerns Assessment Noted Time PHQ-9 Depression Total Score: 0 05/23/19 24 11:17 AM EDT documented as of this encounter Care Teams Customer Advocacy Manager Relationship Specialty Start Date End Date Alexia Hutton MD [address] [place] [address] PCP - General Family Medicine 11/23/22 Violeta Downey 08/25/23 documented as of this encounter
--- OUTSIDE RECORDS SUMMARY | 2024-10-16 12:58 | XMS_ITS | Encounter Summary ---
Author Organization [employer] Address [address] [facility] 7t [place] [address] Care Team Providers Care Barber Or Beauty Shop Manager Name Role Phone Alexia Hutton MD Primary Care Provider [phone] Encounter Details Date Type Department Care Team (Late st Contact Info) Description 09/11/2023 Orders Only [facility] [address] [place], [place] [phone] Raffaele Arechiga MD [address] [place], [place] [phone] Social History Tobacco Use Types Packs/Day Years [...] 2:15 PM EDT Office Visit [facility] [address] [place] [address] Alexia Hutton MD [address] [place] [address] 12/29/2024 1:45 PM EST Office Visit [address] [address] Raffaele Arechiga MD [address] [place] [address] documented as of this encounter Visit Diagnoses Not on filedocumented in this encounter Additional Health Concerns Assessment Noted Time PHQ-9 Depression Total Score: 0 05/23/19 24 11:17 AM EDT documented as of this encounter Care Teams Barber Or Beauty Shop Manager Relationship Specialty Start Date End Date Alexia Hutton MD [address] [place] [address] PCP - General Family Medicine 11/23/22 Violeta Downey 08/25/23 documented as of this encounter
--- OUTSIDE RECORDS SUMMARY | 2024-10-16 12:58 | XMS_ITS | Clinical Summary ---
Author Organization [facility] Address [address] [phone] Care Team Providers Care Optometric Technologist Name Role Phone Delbert Hamilton MD Primary Care Provider [phone] Allergies No known active allergies Medications morphine [...] Plan of Treatment Not on file Insurance [id number] Care Teams Optometric Technologist Relationship Specialty Start Date End Date Delbert Hamilton MD PCP - General Family Medicine 03/01/17
--- OUTSIDE RECORDS SUMMARY | 2024-10-16 12:59 | XMS_ITS | Encounter Summary ---
Author Organization [employer] Address [address] [facility] 7 [place] [address] Care Team Providers Care Burrer Hand Name Role Phone Lana Hugo ROLLER MAN Primary Care Provider Alexia Middleton MD Primary Care Provider [phone] Encounter Details Date Type Department Care Team (Late st Contact Info) Description 04/14/2022 Orders Only [facility] [address] [place] [address] Bernadine Muse LPN Social History Tobacco Use [...] Description 11/14/2024 2:15 PM EDT Office Visit [facility] [address] [place] [address] Alexia Hutton MD [address] [place] [address] 12/29/2024 1:45 PM EST Office Visit [facility] [address] [place] [address] Raffaele Arechiga MD [address] [place] [address] [phone] documented as of this encounter Visit Diagnoses Not on filedocumented in this encounter Additional Health Concerns Assessment Noted Time PHQ-9 Depression Total Score: 0 02/10/20 9:09 AM EST documented as of this encounter Care Teams Burrer Hand Relationship Specialty Start Date End Date Lana Hugo FNP PCP - General Family Medicine 10/14/21 11/22/22 Alexia Hutton MD [address] [place] [address] [place] [address] PCP - General Family Medicine 11/23/22 Violeta Downey 08/25/23 documented as of this encounter
--- OUTSIDE RECORDS SUMMARY | 2024-10-16 12:59 | XMS_ITS | Clinical Summary ---
Author Organization [email or web address] Address [address] [facility] 7t [place] [address] Care Team Providers Care Chief Mechanical Engineer Name Role Phone Alexia Hutton MD Primary Care Provider [phone] Allergies No known active allergies Medications busPIRone [...] Once per day. 1 each 024 Active azithromycin (Zithromax) 250 MG tabletIndication s:Chronic [...] day. 3.7 mL 2 025 2025 Active nicotine (Nicoderm, Step 2) 14 MG/24HR patch Place 1 patch on the skin 1 (one) time each day at the same time. 30 patch 3 025 Active LORazepam (Ativan) 0.5 MG tablet 0.5 mg. Active Diclofenac Sodium 1 % gel APPLY 2 GRAMS TOPICALLY TO AFFECTED AREA(S) FOUR TIMES DAILY 100 g 3 025 Active gabapentin (Neurontin) 100 MG capsuleIndicatio ns:Chronic midline low back pain with bilateral sciatica TAKE 1 CAPSULE BY MOUTH THREE TIMES DAILY 90 capsule 3 025 Active buprenorphine-na loxone (Suboxone) 4-1 MG per sublingual filmIndications: Opioid dependence, uncomplicated (CMS/HCC) Place 1 Film under the tongue 2 times daily. 56 Film 2 025 2024 Active ipratropium-albu terol (Duo-Neb) 0.5-2.5 mg/3 mL nebulizer solutionIndicati ons:Chronic obstructive pulmonary disease with (acute) exacerbation (CMS/HCC) INHALE 1 AMPULE USING A NEBULIZER THREE TIMES DAILY IN THE MORNING, AT NOON, AND AT BEDTIME NEEDED FOR WHEEZING OR SHORTNESS OF BREATH 180 mL 3 025 Active ipratropium-albu terol (Duo-Neb) 0.5-2.5 mg/3 mL nebulizer solutionIndicati ons:Chronic obstructive pulmonary disease with (acute) exacerbation (CMS/HCC) Take 3 mL by nebulization if needed in the morning, at noon, and at bedtime for wheezing or shortness of breath. 180 mL 3 025 2024 Discontinued buprenorphine-na loxone (Suboxone) 4-1 MG per sublingual [...] Will generate script for home PT to [facility] once a week Assessment & Plan [...] Most recent surgery with Dr Veloz at [facility], hardware replaced History of bilateral tubal ligation [...] Encounters Date Type Department Care Team Description 10/13/2024 Telephone [facility] [address] [place] [phone] Alexia Hutton MD Durable Medical Equipment ([facility] [employer] DME Request: [employer]) 10/13/2024 Telephone [facility] [address] [place] [phone] Alexia Hutton MD Med Refill 10/13/2024 Refill [facility] [address] [place] [phone] Alexia Hutton MD Chronic obstructive pulmonary disease with (acute) exacerbation ([facility]) 10/07/2024 Orders Only [facility] External Provider, [facility] 10/06/2024 2:00 PM EDT Clinical Support [address] [address] Siobhan Ulloa RN Uncomplicated opioid dependence ([facility]) 10/06/2024 Travel 10/05/2024 Travel 09/29/2024 Refill [facility] [address] [place] [address] Siobhan Ulloa RN Opioid dependence, uncomplicated ([facility]) 09/10/2024 Refill [facility] [address] [place] [phone] Alexia Hutton MD Chronic midline low back pain with bilateral sciatica 09/09/[address] [address] Alexia Hutton MD chart prep 09/09/2024 Travel 09/02/2024 Patient Outreach [address] [address] Alexia Hutton MD Pre-visit Planning (SDOH screening completed on 07/09/2024) 08/17/2024 Refill [facility] [address] [place] [phone] Alexia Hutton MD 08/11/2024 2:00 PM EDT Telemedicine [facility] [address] [place] [phone] Siobhan Ulloa RN Uncomplicated opioid dependence ([facility]) 08/11/2024 Travel 08/06/2024 Refill [facility]INE [address] [place] [address] Siobhan Ulloa RN Opioid dependence, uncomplicated ([facility]) 07/25/2024 Telephone [facility] [address] [place] [address] Alexia Hutton MD Referral from Last 3 Months Immunizations Immunization Administration Dates Next Due Influenza injectable quadrivalent [...] housing situation today? I have nicolasasharda juarez 07/09/[address] you [...] 76 05/09/2024 10:53 AM EDT Temperature 36.6 C (97.9 F) 05/09/2024 10:53 AM EDT Respiratory Rate 16 05/09/2024 10:53 AM EDT [...] Description 11/14/2024 2:15 PM EDT Office Visit [facility] [address] [place], [place] [phone] Alexia Hutton MD [address] [place], [place] [phone] 12/29/2024 1:45 PM EST Office Visit [facility]INE [address] [place], [place] [phone] Raffaele Arechiga MD [address] [place], [place] [phone] Health Maintenance Due Date Last Done Comments CT Colonography 1960 Colonoscopy 1960 FIT DNA/Cologuard 1960 FIT 1960 FOBT 1960 Sigmoidoscopy 1960 Zoster Vaccines (1 of 2) 2010 RSV Patients and Patients Aged 60 years or older (1 - Risk 60-74 years 1-dose series) 2020 COVID-19 Vaccine (2023-2 5 season) 2023 06/19/2022, 03/31/2021, 02/28/2021 Mammogram 10/17/2024 10/17/2022, 10/17/2022 Influenza Vaccine (#1) 2024 11/29/2021 Alcohol/Substance Use Screening 06/04/2025 06/04/2024 Colorectal Cancer Screening 06/04/2025 Postponed from 1960 (Patient Refused) Depression Screening 06/04/2025 06/04/2024, 05/23/2023 Tobacco Screening 06/16/2025 06/16/2024 SDOH Screening 07/09/2025 07/09/2024 Disability Screening 10/05/2025 10/05/2024 Cervical Cancer Screening 09/19/2027 HPV/Cotest 09/19/2027 09/18/2022 Pap Smear 09/19/2027 09/18/2022 DTaP/Tdap/Td Vaccines (3 - T [...] Procedure Name Priority Date/Time Associated Diagnosis Comments CT CHEST WO CONTRAST Routine 10/07/2024 2:14 PM EDT HM MAMMOGRAPHY Routine 10/17/2022 11:38 AM EDT [...] Recently Relevant to Health Maintenance Results * CT Chest w/o Contrast (10/07/2024 2:14 PM EDT) Anatomical Region Laterality Modality Body, Chest Computed Tomogra phy 10/07/2024 2:14 PM EDT Narrative 10/07/2024 3:01 PM EDT [address] [address] [address] Scan Report Signed Patient: Trini Norwood MR#: [id number] : 1960 Acct:[id number] Age/Sex: 63 / F ADM Date: 10/07/24 Loc: HO.RESP Attending Dr: Dara Hadley NP Ordering Physician: Dara Hadley NP Date of Service: 10/07/24 Procedure(s): CT chest wo IV con Accession Number(s): [id number] cc: Alexia Hutton; Dara Hadley NP Report Number: [id number]: Total DLP = 114.00 mGy-cm EXAMINATION: CT CHEST WITHOUT CONTRAST CLINICAL INFORMATION: Nicotine dependence. COMPARISON: August 19, 2023 TECHNIQUE: Multidetector volumetric CT imaging of the chest was done. Axial MIP volume rendering provided. Sagittal and coronal reformatted images were obtained. This CT examination was performed using dose optimization techniques as appropriate, variously including the following: *Automated exposure control *Adjustment of mA and/or kV according to patient size (this includes techniques or standardized protocols for targeted exams where dose is matched to indication/reason for exam; i.e. extremities or head) *Use of iterative reconstruction technique DLP: 114 mGy centimeter. FINDINGS: HOSPITAL TECHNICIAN: Hyperinflated lungs. S-shaped curvature of the thoracolumbar spine. Patient's large body habitus. LUNGS: 1 mm noncalcified pulmonary nodule, peripheral left upper lung lobe. Bilateral apical lung scarring. 2 mm plaque like noncalcified nodule in the underneath surface of the right major fissure. Centrilobular and to a lesser extent paraseptal emphysematous changes, both lungs. Linear attenuation abnormalities in the lung bases, lingula and right middle lung lobe. Secretions within the subsegmental pulmonary bronchi in the right lower lung lobe. Probable secretions in the right mainstem bronchus. No bronchiectasis. No honeycombing. Bilateral apical lung scarring.. MEDIASTINUM: No mediastinal lymphadenopathy. Calcified plaques throughout the thoracic aorta its main branches and the coronary arteries. No gross pericardial effusion. No new mediastinum. No hemopericardium. No gross pericardial effusion. Status post left hemithyroidectomy likely resection of the isthmus. CORONARY ARTERY CALCIFICATION: Calcified plaques. PLEURA: No pleural effusion. No pneumothorax. No gross calcified pleural plaques. AXILLA: No lymphadenopathy. UPPER ABDOMEN: Calcified plaques in the abdominal aorta at the origin of the main renal arteries. Hyperdensity probably layering in the common bile duct.. OSSEOUS STRUCTURES: Superior endplate compression deformity representing 30% volume loss with Schmorl nodes at T8 vertebra. Mild superior endplate compression deformities from T3 to T6 representing-20% volume loss. Osteopenia versus osteoporosis. Kyphotic deformity apex at T7. CT/CT chest wo IV con IMPRESSION: Nonspecific subcentimeter noncalcified pulmonary nodules. Probable aspiration, subsegmental bronchi, right lower lung lobe. Coronary artery disease and atherosclerosis disease. Emphysematous type changes. Questionable choledocholithiasis. Subacute to old superior endplate compression fracture deformities the most conspicuous at T8. Fleischner guidelines were followed. Electronically signed by: Newton Gambino MD 10/07/2024 02:58 PM EDT Dictated By: Newton Armendariz MD Signed By: <Electronically signed by Newton Shetty MD in OV> 10/07/24 1458 DD/ 1414 TD/TT: 10/07/24 1437 C Application Developer: Procedure Note Donotuseinterpreter, Image - 10/07/[address] [place] [address] [address] Scan Report Signed Patient: Trini NorwoodMR#: [id number] : 1960cct:[id number] Age/Sex: 63 / FADM Date: 10/07/24 Loc: HO.RESP Attending Dr: Dara Hadley NP Ordering Physician: Dara Hadley NP Date of Service: 10/07/24 Procedure(s): CT chest wo IV con Accession Number(s): [id number] cc: Alexia Hutton; Dara Hadley NP Report Number: [id number]: Total DLP = 114.00 mGy-cm EXAMINATION: CT CHEST WITHOUT CONTRAST CLINICAL INFORMATION: Nicotine dependence. COMPARISON: August 19, 2023 TECHNIQUE: Multidetector volumetric CT imaging of the chest was done. Axial MIP volume rendering provided. Sagittal and coronal reformatted images were obtained. This CT examination was performed using dose optimization techniques as appropriate, variously including the following: *Automated exposure control *Adjustment of mA and/or kV according to patient size (this includes techniques or standardized protocols for targeted exams where dose is matched to indication/reason for exam; i.e. extremities or head) *Use of iterative reconstruction technique DLP: 114 mGy centimeter. FINDINGS: HOSPITAL TECHNICIAN: Hyperinflated lungs. S-shaped curvature of the thoracolumbar spine. Patient's large body habitus. LUNGS: 1 mm noncalcified pulmonary nodule, peripheral left upper lung lobe. Bilateral apical lung scarring. 2 mm plaque like noncalcified nodule in the underneath surface of the right major fissure. Centrilobular and to a lesser extent paraseptal emphysematous changes, both lungs. Linear attenuation abnormalities in the lung bases, lingula and right middle lung lobe. Secretions within the subsegmental pulmonary bronchi in the right lower lung lobe. Probable secretions in the right mainstem bronchus. No bronchiectasis. No honeycombing. Bilateral apical lung scarring.. MEDIASTINUM: No mediastinal lymphadenopathy. Calcified plaques throughout the thoracic aorta its main branches and the coronary arteries. No gross pericardial effusion. No new mediastinum. No hemopericardium. No gross pericardial effusion. Status post left hemithyroidectomy likely resection of the isthmus. CORONARY ARTERY CALCIFICATION: Calcified plaques. PLEURA: No pleural effusion. No pneumothorax. No gross calcified pleural plaques. AXILLA: No lymphadenopathy. UPPER ABDOMEN: Calcified plaques in the abdominal aorta at the origin of the main renal arteries. Hyperdensity probably layering in the common bile duct.. OSSEOUS STRUCTURES: Superior endplate compression deformity representing 30% volume loss with Schmorl nodes at T8 vertebra. Mild superior endplate compression deformities from T3 to T6 representing-20% volume loss. Osteopenia versus osteoporosis. Kyphotic deformity apex at T7. CT/CT chest wo IV con IMPRESSION: Nonspecific subcentimeter noncalcified pulmonary nodules. Probable aspiration, subsegmental bronchi, right lower lung lobe. Coronary artery disease and atherosclerosis disease. Emphysematous type changes. Questionable choledocholithiasis. Subacute to old superior endplate compression fracture deformities the most conspicuous at T8. Fleischner guidelines were followed. Electronically signed by: Newton Gambino MD 10/07/2024 02:58 PM EDT RP Dictated By: Newton Armendariz MD Signed By: <Electronically signed by Newton Shetty MDin OV> 10/07/24 1458 DD/ 1414 TD/TT: 10/07/24 1437 C Application Developer: [facility] External Provider IMG CT PROCEDURES Final Result * Mammography (10/17/2022 11:38 AM EDT) Pathologist [facility] Mammogram birads 1 Anatomical Region Laterality Modality Other Shorty Peres CNM HEALTH MAINTENANCE Final Result * HPV mRNA E6/E7 w/Reflex to HPV Genotypes 16, 18/45 (09/18/2022 12:02 PM EDT) [facility] HPV nRNA E6/E7 Not Detected Not Detected [facility] Comment:Methodology: Transcr iption-Mediated AmplificationThis assay detects E6/E7 viral messenger RNA (mRNA) from 14high-risk HPV types (16,18,31,33,35,39,45,51,52,56,58,59,66,68).Cervical sources are required for HPV testing.If a vaginal source from a patient who has had atotal hysterectomy with removal of cervix wassubmitted, please contact the testing laboratoryfor alternative testing options.For additional information, please refer tohttp://education.Klipfolio/faq/KWS638q1(This link if provided for information/educational purposes only.)THIS TEST WAS PERFORMED AT:[facility] [place] [phone] BRIZUELA MD HPV mRNA E6/E7 TNP [facility] HPV 16 RNA TNP [facility] HPV 18/45 RNA [facility] 09/18/2022 12:0 2 PM EDT 09/19/2022 9:15 AM EDT Shorty Peres CNM LAB CYTOLOGY ORDERABLES F inal Result [facility] [address] [place] [phone] * Pap Smear (09/18/2022 12:02 PM EDT) 09/18/2022 12:0 2 PM EDT 09/19/2022 9:15 AM EDT Narrative [facility] - 09/29/2022 3:22 PM EDT ----- ------- Name: Trini Norwood Age/Sex: 61/F : 1960 Unit#: [id number] Attend Dr: SHORTY PERES CNM Re09/18/22 Status: DEP REF Location: [facility] Disch: ----- ------- SPEC : [id number] RECD: 09/19/22 STATUS: ENEDINA ODOM NUM: [id number] SILVANA: 09/18/22-[address]: SHORTY PERES CNM ENTERED: 09/20/22 SP TYPE: Pap Smr OTHR DR: ORDERED: Pap Smear, PAP path review Interpretation General Category: Negative for intraepithelial lesion/malignancy. Adequacy: Endocervical component present. Interpretation: Reactive cellular changes. Atrophy HPV mRNA E6/E7: Not Detected This assay detects E6/E7 viral messenger RNA (mRNA) from 14 high-risk HPV types (16, 18, 31, 33, 35, 39, 45, 51, 52, 56, 58, 59, 66, 68) HPV testing performed by [facility], [place], [place]. See reference laboratory portion of the EMR for entire report. 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 LAB CYTOLOGY ORDERABLES F inal Result [facility] [address] [place] [phone] * HEPATITIS C AB W/REFL TO HCV RNA, QN, PCR (05/03/2021 3:01 PM EDT) HEPATITIS C ANTIBODY NON-REACT ANGELA NON-REACT ANGELA [facility] INDEX 0.01 <1.00 [facility] Comment: HCV antibody was non-reactive. There is no laboratory evidence of HCV infection. In most cases, no further action is required. However, if recent HCV exposure is suspected, a test for HCV RNA (test code 08147) is suggested. For additional information please refer to http://paOnde.Klipfolio/faq/QRI68u9 (This link is being provided for informational/ educational purposes only.) 05/03/2021 3:01 PM EDT Raffaele Arechiga MD HISTORICAL/NON ORDERABLE LABS Fi nal Result Performing Organization Address [facility] Phone Number [facility] [address] * HIV 1/2 ANTIGEN/ANTIBODY,FOURTH GENERATION W/RFL (05/03/2021 3:01 PM EDT) HIV-1/2 ANTIGEN AND ANTIBODIES, 4TH GENERATION W/ REFLEX NON-REACT ANGELA NON-REACT ANGELA [facility] Comment: HIV-1 antigen and HIV-1/HIV-2 antibodies were not detected. There is no laboratory evidence of HIV infection. PLEASE NOTE: This information has been disclosed to you from records whose confidentiality may be protected by state law. If your state requires such protection, then the state law prohibits you from making any further disclosure of the information without the specific written consent of the person to whom it pertains, or as otherwise permitted by law. A general authorization for the release of medical or other information is NOT sufficient for this purpose. For additional information please refer to http://paOnde.Klipfolio/faq/MKU470 (This link is being provided for informational/ educational purposes only.) The performance of this assay has not been clinically validated in patients less than 2 years old. 05/03/2021 3:01 PM EDT us Raffaele Arechiga MD LAB BLOOD ORDERABLES Final Resul t Performing Organization Address [facility] Phone Number [facility] [address] from Last 3 Months or Most Recently Relevant to Health Maintenance Insurance [employer] < 65 [place] [id number] * Guarantor: Trini Norwood Account Type Relation to Patient Date of Phone Billing Address Personal/Family Self [place], [place] Care Teams Chief Mechanical Engineer Relationship Specialty Start Date End Date Alexia Hutton MD [address] [place] [phone] PCP - General Family Medicine 11/23/22 Violeta Downey 08/25/23
--- OUTSIDE RECORDS SUMMARY | 2024-10-16 12:59 | XMS_ITS | Encounter Summary ---
Author Organization [employer] Address [address] [place] [address] Care Team Providers Care Gold Leaf Gilder Name Role Phone Alexia Hutton MD Primary Care Provider [phone] Encounter Details Date Type Department Care Team (Late st Contact Info) Description 08/27/2023 Telephone [facility] [address] [place], [place] [phone] Alexia Hutton MD [address] [place], [place] [phone] Social History Tobacco Use Types Packs/Day Years [...] Description 11/14/2024 2:15 PM EDT Office Visit [facility] [address] [place] [phone] Alexia Hutton MD [address] [place] [phone] 12/29/2024 1:45 PM EST Office Visit [facility] [address] [place] [phone] Raffaele Arechiga MD [address] [place] [phone] documented as of this encounter Visit Diagnoses Not on filedocumented in this encounter Additional Health Concerns Assessment Noted Time PHQ-9 Depression Total Score: 0 05/23/19 24 11:17 AM EDT documented as of this encounter Care Teams Gold Leaf Gilder Relationship Specialty Start Date End Date Alexia Hutton MD [address] [place] [phone] PCP - General Family Medicine 11/23/22 Violeta Downey 08/25/23 documented as of this encounter
--- OUTSIDE RECORDS SUMMARY | 2024-10-16 12:59 | XMS_ITS | Encounter Summary ---
Author Organization [employer] Address [address] [facility] 7t [place] [address] Care Team Providers Care Machine Heel Builder Name Role Phone Alexia Hutton MD Primary Care Provider [phone] Encounter Details Date Type Department Care Team (Late st Contact Info) Description 05/07/2023 Orders Only [facility] [address] [place], [place] [phone] Alexia Hutton MD [address] [place], [place] [phone] Blurry vision (Primary Dx) Social History Tobacco [...] Description 11/14/2024 2:15 PM EDT Office Visit [facility] [address] [place] [phone] Alexia Hutton MD [address] [place] [address] [phone] 12/29/2024 1:45 PM EST Office Visit [facility] [address] [place] [address] [phone] Raffaele Arechiga MD [address] [place] [address] [phone] documented as of this encounter Visit Diagnoses Diagnosis Blurry vision- Primary Other specified visual disturbances documented in this encounter Additional Health Concerns Assessment Noted Time PHQ-9 Depression Total Score: 0 02/10/20 22 9:09 AM EST documented as of this encounter Care Teams Machine Heel Builder Relationship Specialty Start Date End Date Alexia Hutton MD [address] [place] [address] [phone] PCP - General Family Medicine 11/23/22 Violeta Downey 08/25/23 documented as of this encounter
--- OUTSIDE RECORDS SUMMARY | 2024-10-16 12:59 | XMS_ITS | Encounter Summary ---
Author Organization [employer] Address [address] [facility] [address] [place] [address] Care Team Providers Care Rn Unit Manager Name Role Phone Alexia Hutton MD Primary Care Provider [phone] Reason for Visit * Reason Onset Date Comments Appointment Request 05/01/2023 Encounter Details Date Type Department Care Team (Late st Contact Info) Description 05/01/2023 Telephone [facility] [address] [place], [place] [phone] Alexia Hutton MD [address] [place], [place] [phone] Appointment Request Social History Tobacco Use Types [...] patient calling to request a med refill caption writer did submit the request but did notice the patient needs a TP appt from [facility] and there was no availability at the moment documented in this encounter Plan of Treatment Upcoming Encounters Date Type Department Care Team (Late st Contact Info) Description 11/14/2024 2:15 PM EDT Office Visit [facility] [address] [place] [phone] Alexia Hutton MD [address] [place] [phone] 12/29/2024 1:45 PM EST Office Visit [address] [phone] Raffaele Arechiga MD [address] [place] [phone] documented as of this encounter Visit Diagnoses Not on filedocumented in this encounter Additional Health Concerns Assessment Noted Time PHQ-9 Depression Total Score: 0 02/10/20 22 9:09 AM EST documented as of this encounter Care Teams Rn Unit Manager Relationship Specialty Start Date End Date Alexia Hutton MD [address] [place] [phone] PCP - General Family Medicine 11/23/22 Violeta Downey 08/25/23 documented as of this encounter
--- OUTSIDE RECORDS SUMMARY | 2024-10-16 12:59 | XMS_ITS | Encounter Summary ---
Author Organization [employer] Address [address] [facility] [address] [place] [address] Care Team Providers Care Design/Animation Instructor Name Role Phone Lana Hugo MEDICAL SAFETY DIRECTOR Primary Care Provider Alexia Middleton MD Primary Care Provider [phone] Reason for Visit * Reason Comments Med Refill Encounter Details Date Type Department Care Team (Late Contact Info) Description 07/31/2022 Refill [facility] [address] [place] [address] [phone] Raffaele Arechiga MD [address] [place] [address] [phone] Opioid dependence, uncomplicated (CMS/HCC) Social History Tobacco [...] Description 11/14/2024 2:15 PM EDT Office Visit [facility] [address] [place] [address] [phone] Alexia Hutton MD [address] [place] [address] [phone] 12/29/2024 1:45 PM EST Office Visit [facility] [address] [place] [address] Raffaele Arechiga MD [address] [place] [address] documented as of this encounter Visit Diagnoses Diagnosis Opioid dependence, uncomplicated (CMS/HCC) documented in this encounter Additional Health Concerns Assessment Noted Time PHQ-9 Depression Total Score: 0 02/10/20 9:09 AM EST documented as of this encounter Care Teams Design/Animation Instructor Relationship Specialty Start Date End Date Lana Hugo FNP PCP - General Family Medicine 10/14/21 11/22/22 Alexia Hutton MD [address] [place] [id number] PCP - General Family Medicine 11/23/22 Violeta Downey 08/25/23 documented as of this encounter
[2024-10-16 13:10] LABS: Hemoglobin 13.2 g/dl (12.0-16.0); Mean Corpuscular Hemoglobin 30.1 pg (27.0-33.0); NRBC Abs Auto 0.000 X10*3/uL (0.0-0.012); NRBC Pct Auto 0.0 /100WBC (0.0-0.2); PLT CLUMP 1; Red Blood Count 4.38 X10*6/uL (4.20-5.50); SCAN SMEAR FLAG 1
[2024-10-16 13:12] LABS: Hematocrit 39.3 % (37.0-47.0); Imm Gran Abs Auto 0.01 X10*3/uL (0.00-0.03); Imm Gran Pct Auto 0.1 % (0.0-0.4); Lymphocytes Absolute Auto 3.0 X10*3/uL (1.2-4.9); MANUAL DIFF FLAG SCAN; Mean Corpuscular HGB Conc 33.6 g/dl (31.0-35.0); Mean Corpuscular Volume 89.7 fL (80.0-98.0)
[2024-10-16 13:14] LABS: White Blood Count 7.0 X10*3/uL (4.8-10.8)
[2024-10-16 13:34] LABS: Platelet Count 318 X10*3/uL (160-400)
--- OUTSIDE RECORDS SUMMARY | 2024-10-16 20:00 | XMS_ITS | Clinical Summary ---
Author Organization Unknown Care Team Providers Care Drug Abuse Resistance Education Officer Name Role Phone NUPUR MACIAS, ERIKA Unavailable Unavailable KEYLA MALDONADO, ALISSA Unavailable Unavailable SHANDA MALDONADO, MARIE Unavailable Unavailable Payers Payer Name Policy Type Policy Number Effective Date Expira tion Date [facility] [place] [id number] [place] [id number] MEDICARE - [facility]/[place] - [facility] [id number] Problems Condition Name Condition Details Condition Category Status Onset Date Resolution Date Last Treatment Date Treating Clinician Comments DEPRESSION, UNSPECIFIED Active 08-19 00:00: 00 CHRONIC OBSTRUCTIVE PULMONARY DISEASE W (ACUTE) EXACERBATION Active 08-21 00:00: 00 UNSPECIFIED MOOD [AFFECTIVE] DISORDER Active 08-21 00:00: 00 Allergies, Adverse Reactions, Alerts Allergy Name Allergy Type Status Severity Reaction(s) Onset Date Inactive Date Treating Clinician Comments NKA Propensity to adverse reactions Active 2023-08 09:52:5 8 Medications Ordered Medication Name Filled Medication Name Start Date Stop Date Current Medication? Ordering Clinician Indication Dosage Frequency Signature (SIG) Comments Components buprenorphi ne 4 mg-naloxone 1 mg sublingual film 08-14 00:00: 00 12-17 23:59 :00 No [id number] Unavailable 1 film 4 TIMES DAILY 1 film 4 TIMES DAILY (route: sublingual ) Med Classific ation: Chemical Dependenc y, Agents to Treat lorazepam 0.5 mg tablet 07-26 00:00: 00 Yes [id number] 1 tablet EVERY DAY NEEDED 1 tablet EVERY DAY NEEDED (route: oral) Med Classific ation: Central Nervous System Agents buspirone 5 mg tablet 07-22 00:00: 00 Yes [id number] 1 mg THREE TIMES DAILY 1 mg THREE TIMES DAILY (route: oral) Med Classific ation: Central Nervous System Agents gabapentin 100 mg capsule 6-03 00:00: 00 Yes [id number] Unavailable 1 capsule THREE TIMES DAILY 1 capsule THREE TIMES DAILY (route: oral) Med Classific ation: Central Nervous System Agents diclofenac 1 % topical gel - 00:00: 00 Yes [id number] 1 inch 2 TIMES DAILY 1 inch 2 TIMES DAILY (route: topical) Med Classific ation: Dermatolo gical OXYGEN - 00:00: 00 Yes [id number] 2-3 Liter INTERMITTE NT 2-3 Liter INTERMITTE NT (route: Oxygen) Med Classific ation: Medical Oxygen nicotine 14 mg/24 hr daily transdermal patch - 00:00: 00 Yes [id number] Per instruc tions DAILY Per instructio ns DAILY (route: transderma l) Med Classific ation: Chemical Dependenc y, Agents to Treat buprenorphi ne 4 mg-naloxone 1 mg sublingual film 2023-02 00:00: 00 Yes [id number] Per instruc tions 2 TIMES DAILY Per instructio ns 2 TIMES DAILY (route: sublingual ) Med Classific ation: Chemical Dependenc y, Agents to Treat azithromyci n 250 mg tablet 1- 00:00: 00 03-03 23:59 :00 No [id number] 1 tablet EVERY AM 1 tablet EVERY AM (route: oral) Med Classific ation: Anti-Infe ctive Agents prednisone 10 mg tablet 1-10 00:00: 00 03-04 23:59 :00 No [id number] 5 tablet EVERY AM 5 tablet EVERY AM (route: oral) Med Classific ation: Endocrine Ventolin HFA 90 mcg/actuati on aerosol inhaler 1-17 00:00: 00 Yes [id number] 2 puff EVERY 4 HOURS 2 puff EVERY 4 HOURS (route: inhalation ) Med Classific ation: Respirato ry Therapy Agents azithromyci n 250 mg tablet 3-03 00:00: 00 04-21 23:59 :00 No [id number] 1 tablet DAILY 1 tablet DAILY (route: oral) Med Classific ation: Anti-Infe ctive Agents prednisone 10 mg tablet 3-03 00:00: 00 10-09 23:59 :00 No [id number] Per instruc tions DAILY Per instructio ns DAILY (route: oral) Med Classific ation: Endocrine Trelegy Ellipta 200 mcg-62.5 mcg-25 mcg powder for inhalation 6-03 00:00: 00 Yes [id number] 1 inhalat ion DAILY 1 inhalation DAILY (route: inhalation ) Med Classific ation: Respirato ry Therapy Agents Vital Signs Vital Name Observation Time Observation Value Commen ts Pulse 2024-10-09 08:24:00.000 76 /min Pulse 2024-10-07 08:58:00.000 74 /min Pulse 2024-09-30 08:22:00.000 80 /min Pulse 2024-09-25 13:25:00.000 79 /min Pulse 2024-09-18 14:08:00.000 71 /min Pulse 2024-09-16 08:33:00.000 70 /min Pulse 2024-09-05 08:51:00.000 84 /min Pulse 2024-09-02 13:00:00.000 77 /min Pulse 2024-08-28 11:42:00.000 77 /min Pulse 2024-08-26 09:01:00.000 76 /min Pulse 2024-08-20 09:40:00.000 76 /min O2 Saturation (%) 2024-10-09 08:24:00.000 94 % O2 Saturation (%) 2024-10-07 08:59:00.000 96 % O2 Saturation (%) 2024-09-30 08:22:00.000 97 % O2 Saturation (%) 2024-09-25 13:25:00.000 97 % O2 Saturation (%) 2024-09-18 14:08:00.000 96 % O2 Saturation (%) 2024-09-16 08:33:00.000 95 % O2 Saturation (%) 2024-09-05 08:51:00.000 94 % O2 Saturation (%) 2024-09-02 13:00:00.000 91 % O2 Saturation (%) 2024-08-28 11:42:00.000 94 % O2 Saturation (%) 2024-08-26 09:01:00.000 97 % O2 Saturation (%) 2024-08-20 09:40:00.000 97 % Respirations 2024-10-09 08:24:00.000 22 /min Respirations 2024-10-07 08:58:00.000 20 /min Respirations 2024-09-30 08:22:00.000 20 /min Respirations 2024-09-25 13:25:00.000 20 /min Respirations 2024-09-18 14:08:00.000 20 /min Respirations 2024-09-16 08:33:00.000 20 /min Respirations 2024-09-05 08:51:00.000 20 /min Respirations 2024-09-02 13:00:00.000 20 /min Respirations 2024-08-28 11:42:00.000 20 /min Respirations 2024-08-26 09:01:00.000 20 /min Respirations 2024-08-20 09:40:00.000 20 /min Systolic Blood Pressure 2024-10-09 08:24:00.000 142 mm [Hg] Systolic Blood Pressure 2024-10-07 08:58:00.000 144 mm [Hg] Systolic Blood Pressure 2024-09-30 08:22:00.000 96 mm[ Hg] Systolic Blood Pressure 2024-09-25 13:25:00.000 147 mm [Hg] Systolic Blood Pressure 2024-09-18 14:08:00.000 136 mm [Hg] Systolic Blood Pressure 2024-09-16 08:33:00.000 110 mm [Hg] Systolic Blood Pressure 2024-09-05 08:51:00.000 116 mm [Hg] Systolic Blood Pressure 2024-09-02 13:00:00.000 116 mm [Hg] Systolic Blood Pressure 2024-08-28 11:42:00.000 128 mm [Hg] Systolic Blood Pressure 2024-08-26 09:01:00.000 125 mm [Hg] Systolic Blood Pressure 2024-08-20 09:40:00.000 141 mm [Hg] Diastolic Blood Pressure 2024-10-09 08:24:00.000 73 mm [Hg] Diastolic Blood Pressure 2024-10-07 08:58:00.000 71 mm [Hg] Diastolic Blood Pressure 2024-09-30 08:22:00.000 62 mm [Hg] Diastolic Blood Pressure 2024-09-25 13:25:00.000 74 mm [Hg] Diastolic Blood Pressure 2024-09-18 14:08:00.000 68 mm [Hg] Diastolic Blood Pressure 2024-09-16 08:33:00.000 72 mm [Hg] Diastolic Blood Pressure 2024-09-05 08:51:00.000 68 mm [Hg] Diastolic Blood Pressure 2024-09-02 13:00:00.000 60 mm [Hg] Diastolic Blood Pressure 2024-08-28 11:42:00.000 70 mm [Hg] Diastolic Blood Pressure 2024-08-26 09:01:00.000 72 mm [Hg] Diastolic Blood Pressure 2024-08-20 09:40:00.000 75 mm [Hg] Plan of Treatment Planned Activity Planned Date Details Comments Future Scheduled Test SKILLED NU RSE TO EVALUATE PATIENT, IDENTIFY PRIMARY AND CO-MORBID CONDITIONS CODED PER CODING GUIDELINES, AND DEVELOP PATIENT SPECIFIC PLAN OF CARE THAT INCLUDES PATIENT GOAL FOR HOME HEALTH. [code = SKILLED NURSE TO EVALUATE PATIENT, IDENTIFY PRIMARY AND CO-MORBID CONDITIONS CODED PER CODING GUIDELINES, AND DEVELOP PATIENT SPECIFIC PLAN OF CARE THAT INCLUDES PATIENT GOAL FOR HOME HEALTH.] Future Scheduled Test SKILLED NU RSE TO O/A OF PATIENTS MENTAL/BEHAVIORAL STATUS, ASSESS VITAL SIGNS 2WK8 ALLOW 2 PRNS FOR MEDICATION MANAGEMENT. [code = SKILLED NURSE TO O/A OF PATIENTS MENTAL/BEHAVIORAL STATUS, ASSESS VITAL SIGNS 2WK8 ALLOW 2 PRNS FOR MEDICATION MANAGEMENT.] Future Scheduled Test SKILLED NU RSE FOR O/A OF ALTERED MOOD [code = SKILLED NURSE FOR O/A OF ALTERED MOOD] Future Scheduled Test SKILLED NU RSE FOR O/A OF GENERAL HEALTH STATUS OF PAIN, CARDIAC, RESPIRATORY, GASTROINTESTINAL, GENITOURINARY, SKIN, NEUROLOGIC, ENDOCRINE SYSTEMS TO IDENTIFY CHANGES ASSOCIATED WITH EXACERBATION FOR EARLY INTERVENTION OF COMPLICATIONS WEEKLY. [code = SKILLED NURSE FOR O/A OF GENERAL HEALTH STATUS OF PAIN, CARDIAC, RESPIRATORY, GASTROINTESTINAL, GENITOURINARY, SKIN, NEUROLOGIC, ENDOCRINE SYSTEMS TO IDENTIFY CHANGES ASSOCIATED WITH EXACERBATION FOR EARLY INTERVENTION OF COMPLICATIONS WEEKLY.] Future Scheduled Test SKILLED NU RSE FOR O/A AND SKILLED TEACHING RELATED TO MANAGEMENT OF DEPRESSIVE SYMPTOMS AND/OR DEPRESSION. SN TO REPORT SIGNIFICANT CHANGE IN DEPRESSIVE SYMPTOMS TO CLINICAL PROVIDER FOR EARLY INTERVENTION. [code = SKILLED NURSE FOR O/A AND SKILLED TEACHING RELATED TO MANAGEMENT OF DEPRESSIVE SYMPTOMS AND/OR DEPRESSION. SN TO REPORT SIGNIFICANT CHANGE IN DEPRESSIVE SYMPTOMS TO CLINICAL PROVIDER FOR EARLY INTERVENTION.] Future Scheduled Test SKILLED NU RSE TO INSTRUCT PATIENT/CAREGIVER ON COPD TO INCLUDE TEACHING AND SELF-MANAGEMENT RELATED TO COPD DISEASE PROCESS, SIGNS AND SYMPTOMS, AND COMPLICATIONS. [code = SKILLED NURSE TO INSTRUCT PATIENT/CAREGIVER ON COPD TO INCLUDE TEACHING AND SELF-MANAGEMENT RELATED TO COPD DISEASE PROCESS, SIGNS AND SYMPTOMS, AND COMPLICATIONS.] Future Scheduled Test SKILLED NU RSE TO REVIEW PATIENT MEDICATIONS. INSTRUCT PATIENT/CAREGIVER ON MONITORING OF EFFECTIVENESS, ADVERSE DRUG REACTIONS, SIDE EFFECTS OF ALL MEDICATIONS (PRESCRIPTION/-OTC), AND HOW AND WHEN TO REPORT PROBLEMS. [code = SKILLED NURSE TO REVIEW PATIENT MEDICATIONS. INSTRUCT PATIENT/CAREGIVER ON MONITORING OF EFFECTIVENESS, ADVERSE DRUG REACTIONS, SIDE EFFECTS OF ALL MEDICATIONS (PRESCRIPTION/-OTC), AND HOW AND WHEN TO REPORT PROBLEMS.] Future Scheduled Test SKILLED NU RSE FOR O/A OF MUSCULOSKELETAL STATUS AND TEACHING ON MEASURES TO MANAGE BACK PAIN AND TO MAINTAIN SAFETY WITH ACTIVITY [code = SKILLED NURSE FOR O/A OF MUSCULOSKELETAL STATUS AND TEACHING ON MEASURES TO MANAGE BACK PAIN AND TO MAINTAIN SAFETY WITH ACTIVITY] Future Scheduled Test SKILLED NU RSE FOR O/A OF CLIENT'S SOCIAL ISOLATION AND PROVIDE ASSISTANCE TO CLIENT IN DEVELOPMENT OF PLANNED ACTIVITIES [code = SKILLED NURSE FOR O/A OF CLIENT'S SOCIAL ISOLATION AND PROVIDE ASSISTANCE TO CLIENT IN DEVELOPMENT OF PLANNED ACTIVITIES] Future Scheduled Test SKILLED NU RSE TO ASSESS PATIENT S PSYCHOSOCIAL STATUS TO IDENTIFY POTENTIAL ISSUES THAT MAY COMPLICATE THE PROVISION OF THE PLAN OF CARE INCLUDING THE PATIENT S ABILITY TO ACCESS COMMUNITY RESOURCES AND PSYCHOSOCIAL SUPPORT SERVICES. [code = SKILLED NURSE TO ASSESS PATIENT S PSYCHOSOCIAL STATUS TO IDENTIFY POTENTIAL ISSUES THAT MAY COMPLICATE THE PROVISION OF THE PLAN OF CARE INCLUDING THE PATIENT S ABILITY TO ACCESS COMMUNITY RESOURCES AND PSYCHOSOCIAL SUPPORT SERVICES.] Future Scheduled Test SKILLED NU RSE WILL MAINTAIN SITUATIONAL AWARENESS FOR SAFETY AND WILL NOTIFY CLINICAL SECURITY ARCHITECT AND PHYSICIAN/PROVIDER WITH ANY CHANGE IN CONDITION. [code = SKILLED NURSE WILL MAINTAIN SITUATIONAL AWARENESS FOR SAFETY AND WILL NOTIFY CLINICAL SECURITY ARCHITECT AND PHYSICIAN/PROVIDER WITH ANY CHANGE IN CONDITION.] Future Scheduled Test OXYGEN VIA NASAL CANNULA @ 2LITERS PRN. SKILLED NURSE FOR O/A AND SKILLED TEACHING OF SAFE OXYGEN USE IN THE HOME. [code = OXYGEN VIA NASAL CANNULA @ 2LITERS PRN. SKILLED NURSE FOR O/A AND SKILLED TEACHING OF SAFE OXYGEN USE IN THE HOME.] Goal 2024-08-14 Patient Goal - TO WALK MORE Goal 2023-10-23 Patient Goal - P ATIENT VERBALIZED GOAL OF IMPROVING STAMINA AND ENDURANCE AND HOPEFULLY GET OFF OF OXYGEN Goal 2024-06-17 Patient Goal - TO BE ABLE TO WALK FURTHER Goal 2024-04-18 Patient Goal - T O FINALLY QUIT SMOKING AND BE ABLE TO WALK FURTHER Goal 2024-02-20 Patient Goal - T O FINALLY QUIT SMOKING AND BE ABLE TO WALK FURTHER Goal 2023-12-18 Patient Goal - TO GET BETTER Goal Patient Goal - GET OVER MY A GORAPHOBIA Goal Provider Goal - A PLAN OF CARE WILL BE ESTABLISHED THAT MEETS PATIENT'S CORRECTION NEEDS AND INCLUDES PATIENT GOAL FOR HOME HEALTH. Goal Provider Goal - ALTERED MENTAL/BEHAVIORAL STATUS WILL BE IDENTIFIED PROMPTLY AND INTERVENTION INITIATED QUICKLY TO MINIMIZE ASSOCIATED RISKS THROUGHOUT CERTIFICATION PERIOD. Goal Provider Goal - PATIENT WILL BE ABLE TO PERFORM DAILY FUNCTIONS AND HAVE OPTIMAL IMPROVEMENT IN MOOD STABILITY THROUGHOUT CERTIFICATION PERIOD. Goal Provider Goal - CHANGE IN GENERAL HEALTH STATUS WILL BE IDENTIFIED AND REPORTED TO PHYSICIAN FOR PROMPT INTERVENTION TO MINIMIZE ASSOCIATED RISKS THROUGHOUT CERTIFICATION PERIOD. Goal Provider Goal - PATIENT WILL REMAIN SAFE WITHOUT DECOMPENSATION IN DEPRESSIVE CONDITION, WHILE MAINTAINING OPTIMAL LEVEL OF MENTAL HEALTH AND WELL BEING THROUGHOUT CERTIFICATION PERIOD. Goal Provider Goal - PATIENT/CAREGIVER WILL VERBALIZE/DEMONSTRATE KNOWLEDGE AND MANAGEMENT OF COPD BY END OF EPISODE. Goal Provider Goal - PATIENT/CAREGIVER WILL VERBALIZE UNDERSTANDING OF EDUCATION PROVIDED ON MEDICATIONS BY THE END OF THE CERTIFICATION PERIOD. Goal Provider Goal - PATIENT/CAREGIVER WILL VERBALIZE/DEMONSTRATE ABILITY TO MANAGE BACK PAIN MUSCULOSKELETAL DISEASE WHILE MAINTAINING SAFETY THROUGHOUT THE EPISODE. Goal Provider Goal - PATIENT WILL DEMONSTRATE AN INCREASED INTEREST IN SOCIALIZATION AND ACTIVITIES BY THE END OF THE CERTIFICATION PERIOD. Goal Provider Goal - PSYCHOSOCIAL NEEDS WILL BE IDENTIFIED AND PLAN IMPLEMENTED TO MINIMIZE RISK THROUGHOUT CERTIFICATION PERIOD. Goal Provider Goal - PATIENT WILL REMAIN SAFE IN THE COMMUNITY AND WILL BE FREE OF DANGER TO SELF AND OTHERS THROUGHOUT THE CERTIFICATION PERIOD. Goal Provider Goal - PATIENT/CAREGIVER WILL VERBALIZE/DEMONSTRATE UNDERSTANDING OF SAFE OXYGEN USE IN THE HOME THROUGHOUT THE EPISODE. Encounters Start Date/Time End Date/Time Encounter Type Admission Type Attending [facility] Care Department Encounter ID Discharge Date Discharge Status Discharge Condition Discharge Reason Percent Goals Met 2024-08-19 00:00:00 2024-10-17 00:00:00 Outpatient RECERTMARIE RICE [facility] [id number] 79.31
--- OUTSIDE RECORDS SUMMARY | 2024-10-16 20:00 | XMS_ITS | Clinical Summary ---
Author Organization Unknown Care Team Providers Care Oven Loader Name Role Phone NUPUR MACIAS, ERIKA Unavailable Unavailable KEYLA MALDONADO, ALISSA Unavailable Unavailable SHANDA MALDONADO, MARIE Unavailable Unavailable Payers Payer Name Policy Type Policy Number Effective Date Expira tion Date [facility] [place] [id number] [place] [id number] MEDICARE - [facility]/OR - [facility] [id number] Problems Condition Name Condition Details Condition Category [...] 08-14 00:00: 00 12-17 23:59 :00 No [id number] Unavailable 1 film 4 TIMES DAILY 1 film 4 TIMES DAILY (route: sublingual ) Med Classific ation: Chemical Dependenc y, Agents to Treat lorazepam 0.5 mg tablet 07-26 00:00: 00 Yes [id number] 1 tablet EVERY DAY NEEDED 1 tablet EVERY DAY NEEDED (route: oral) Med Classific ation: Central Nervous System Agents buspirone 5 mg tablet 07-22 00:00: 00 Yes [id number] 1 mg THREE TIMES DAILY 1 mg THREE TIMES DAILY (route: oral) Med Classific ation: Central Nervous System Agents gabapentin 100 mg capsule 6-03 00:00: 00 Yes [id number] Unavailable 1 capsule THREE TIMES DAILY 1 capsule THREE TIMES DAILY (route: oral) Med Classific ation: Central Nervous System Agents diclofenac 1 % topical gel - 00:00: 00 Yes [id number] 1 inch 2 TIMES DAILY 1 inch 2 TIMES DAILY (route: topical) Med Classific ation: Dermatolo gical OXYGEN - 00:00: 00 Yes [id number] 2-3 Liter INTERMITTE NT 2-3 Liter INTERMITTE NT (route: Oxygen) Med Classific ation: Medical Oxygen nicotine 14 mg/24 hr daily transdermal patch - 00:00: 00 Yes [id number] Per instruc tions DAILY Per instructio ns DAILY (route: transderma l) Med Classific ation: Chemical Dependenc y, Agents to Treat buprenorphi ne 4 mg-naloxone 1 mg sublingual film 2023-02 00:00: 00 Yes [id number] Per instruc tions 2 TIMES DAILY Per instructio ns 2 TIMES DAILY (route: sublingual ) Med Classific ation: Chemical Dependenc y, Agents to Treat azithromyci n 250 mg tablet 1- 00:00: 00 03-03 23:59 :00 No [id number] 1 tablet EVERY AM 1 tablet EVERY AM (route: oral) Med Classific ation: Anti-Infe ctive Agents prednisone 10 mg tablet 1-10 00:00: 00 03-04 23:59 :00 No [id number] 5 tablet EVERY AM 5 tablet EVERY AM (route: oral) Med Classific ation: Endocrine Ventolin HFA 90 mcg/actuati on aerosol inhaler 1-17 00:00: 00 Yes [id number] 2 puff EVERY 4 HOURS 2 puff EVERY 4 HOURS (route: inhalation ) Med Classific ation: Respirato ry Therapy Agents azithromyci n 250 mg tablet 3-03 00:00: 00 04-21 23:59 :00 No [id number] 1 tablet DAILY 1 tablet DAILY (route: oral) Med Classific ation: Anti-Infe ctive Agents prednisone 10 mg tablet 3-03 00:00: 00 10-09 23:59 :00 No [id number] Per instruc tions DAILY Per instructio ns DAILY (route: oral) Med Classific ation: Endocrine Trelegy Ellipta 200 mcg-62.5 mcg-25 mcg powder for inhalation 6-03 00:00: 00 Yes [id number] 1 inhalat ion DAILY 1 inhalation DAILY [...] AWARENESS FOR SAFETY AND WILL NOTIFY CLINICAL ASSOCIATE PROFESSOR OF MUSICOLOGY AND PHYSICIAN/PROVIDER WITH ANY CHANGE IN CONDITION. [code = SKILLED NURSE WILL MAINTAIN SITUATIONAL AWARENESS FOR SAFETY AND WILL NOTIFY CLINICAL ASSOCIATE PROFESSOR OF MUSICOLOGY AND PHYSICIAN/PROVIDER WITH ANY CHANGE IN CONDITION.] [...] CARE WILL BE ESTABLISHED THAT MEETS PATIENT'S SHELTER NEEDS AND INCLUDES PATIENT GOAL FOR HOME [...] End Date/Time Encounter Type Admission Type Attending [facility] Facility Care Department Encounter ID Discharge Date Discharge Status Discharge Condition Discharge Reason Percent Goals Met 2024-08-19 00:00:00 2024-10-17 00:00:00 Outpatient RECERTMARIE RICE [facility] [id number] 79.31
[2024-10-23 22:28] LABS: Class Alternaria alternata 0; Class Aspergillus fumigatus 0; Class Bermuda Grass 0; Class Birch 0; Class Cat Dander 0; Class Cladosporium herbarum 0; Class Cockroach 0; Class Common Ragweed 0; Class Cottonwood 0; Class Derm. pterony 1; Class Dermatophagoides farinae 0/1; Class Dog Dander 0; Class Elm 0; Class Maple Box Elder 0; Class Mountain Cedar 0; Class Mouse Urine Protein 0; Class Mugwort 0; Class Oak 0; Class Penicillium crysogenum 0; Class Rough Pigweed 0; Class Sheep Sorrel 0; Class Sycamore 0; Class Timothy Grass 0/1; Class Walnut Tree 0; Class White Ash 0; Class White Mulberry 0; D002 - IgE D farinae 0.28 kU/L; E001 - IgE Cat Dander <0.10 kU/L; E005 - IgE Dog Dander <0.10 kU/L; G006 - IgE Timothy Grass 0.10 kU/L; I006-IgE Cockroach, German <0.10 kU/L; M002 - IgE Cladosporium herbar <0.10 kU/L; M003 - IgE Aspergillus fumigat <0.10 kU/L; M006 - IgE Alternaria alternat <0.10 kU/L; T001 IgE Maple/Box Elder <0.10 kU/L; T006 - IgE Cedar, Mountain <0.10 kU/L; T007 - IgE Oak, White <0.10 kU/L; T008 IgE Elm, American <0.10 kU/L; T010 - IgE Walnut <0.10 kU/L; T011 - IgE Maple Leaf Sycamore <0.10 kU/L; T014 - IgE Cottonwood <0.10 kU/L; T015 - IgE Ash, White <0.10 kU/L; T070 - IgE White Mulberry <0.10 kU/L; W001 - IgE Ragweed, Short <0.10 kU/L; W006 - IgE Mugwort <0.10 kU/L; W014 IgE Pigweed, Common <0.10 kU/L; W018 IgE Sheep Sorrel <0.10 kU/L
== END 2024-10-16 11:49 | disposition home or self-care (01) ==
LOC: HO.LAB 11:48
PROVIDERS: PCP General Practice; Visit Provider Nurse Practitioner Family
DX: J96.01 Acute respiratory failure with hypoxia (principal); J44.9 Chronic obstructive pulmonary disease, unspecified; Z91.09 Other allergy status, other than to drugs and biological substances; Z87.891 Personal history of nicotine dependence
CPT/HCPCS: 36415; 82785; 85025; 86003; 94618; 99211

== ENCOUNTER 2024-10-16 12:58 | Outpatient (AMB) | payer OTHER, SELFPAY ==
--- NOTE | 2024-10-16 14:10 | MHC.OFFVIS ---
Intake Visit Reasons: 6MW Allergies No Known Allergies Allergy (Verified 07/21/24 13:21) [facility] Medical History Chronic pain syndrome Depression PTSD (post-traumatic stress disorder) Tobacco use disorder Opioid use disorder Surgical History History of neck surgery History of back surgery Family History Mother Pancreatic cancer Father HTN (hypertension) Diabetes Social History (Updated 07/21/24 @ 13:21 by Olinda Shane CMA) Household Members: Family Household Members Other:: daughter Housing: House Alcohol intake: never Patient Tobacco Use Status: Former Tobacco user Tobacco use type: Cigarette Cigarettes Per Day: 10 Years Smoked: 30 years service: No Office Procedures 6 Minute Walk Time:: 13:35 SPO2 % at rest: 98 Pulse at rest: 87 SPO2 % during excercise: 87 Pulse during excercise: 95 SPO2 % after excercise: 99 Pulse after excercise: 88 Distance in yards walked: 100 Performance Observations:: Patient walked on level ground using a walker. Patient walks slowly and reports she cannot walk far due to back pain. After 2.5 minutes O2 sat dropped to 87% with pulse of 95. O2 applied at 2L and we rested..O2 sat recovered to 95% with O2 2L via nasal cannula. Patient completed the walk maintaining O2 sat in the mid 90's and pulse also in the 90's. Patient does tire but denies shortness of breath. Patient did require the use of Oxygen at 2L via nasal cannula with exertion. 28787 - 6 Minute Walk Assessment & Plan Assessment & Plan (1) COPD (chronic obstructive pulmonary disease): Code(s): J44.9 - Chronic obstructive pulmonary disease, unspecified Category: Medical Plan 6MWT only Orders: Orders AMB 6 minute walk 10/16/24 J44.9 - Chronic obstructive pulmonary disease, unspecified, J96.01 - Acute respiratory failure with hypoxia Coding Level of Care Code Est Pt Level 1 (33989) Diagnoses COPD (chronic obstructive pulmonary disease) J44.9 CPT Codes Coding ([id number])
[2024-10-16 14:21] VITALS: PULSE 87; O2SAT 98
== END 2024-10-16 14:06 | disposition home or self-care (01) ==
LOC: HO.HPS 12:58
PROVIDERS: PCP General Practice; Visit Provider Nurse Practitioner Family
DX: J44.9 Chronic obstructive pulmonary disease, unspecified (principal)